=== PATIENT | male | born 1965 | race Caucasian/White ===

== ENCOUNTER 2018-12-10 20:37 | Emergency (ER) | payer OTHER ==
[~2018-12-10] VITALS: Ht 180.3 cm; Wt 88.5 kg
--- OUTSIDE RECORDS SUMMARY | 2018-12-10 20:52 | XMS REPORT ---
Author Author [facility] Address Unknown Phone Unavailable Care Team Providers Care Employment Training Specialist Name Role Phone RAMSEY JAMA Unavailable Unavailable Elke MISTRY Unavailable Unavailable CHRISTINE HOLBROOK Unavailable Unavailable RANAKAYLIN ABBAS Unavailable Unavailable Mingo'JOSTINTIM Unavailable Unavailable BERNY RAJAN Unavailable Unavailable MATTIE RODRIGUEZ Unavailable Unavailable RAMIRO OLIVER Unavailable Unavailable Peter MENJIVAR Unavailable Unavailable GADICHERLA MUROLIVIA PARSONS Unavailable Unavailable KEVIN GRIFFITH Unavailable Unavailable MINDIKOGLUDANA GINETTE Unavailable Unavailable KATYA, ARIF Unavailable Unavailable ALVAREZFREYA RED Unavailable Unavailable SRIMELINDAAN Unavailable Unavailable Problems This patient has no known problems. Allergies, Adverse Reactions, Alerts This patient has no known allergies or adverse reactions. Medications This patient has no known medications. Results Test Description Test Time Test Comments Text Results Atomic Results Result Comments HEPATITIS C PCR, QUANTITATIVE 2018-12-01 08:00:00 HCV RESULT COMPONENT (CYNDY) (test siei=2231) HCV RNA not detected HCV RNA not detected This test uses a Real-Time Polymerase Chain Reaction (RT-PCR) methodology and wa s performed using CHARLES Ampliprep/CHARLES TaqMan HCV test kit version 2.0 ([employer]).Reportable range for this assay is 15 - 100,000,000 IU per mL (1.18 - 8.00 Log IU/mL).CMV PCR, [id number] 17:53:00* Test Item Value Reference Range Comments CMV VIRAL LOAD - NEGATIVE (CYNDY) (test stex=2845) Negative or below the linear range of the assay (<375 copies/mL) Cytomegalovirus (CMV) infection can cause significant disease in immunosuppresse d patients. However, it is common for CMV to manifest as a limited infection whi ch is of no clinical significance in immunosuppressed patients or in healthy ind ividuals.Viral load measurements are helpful to identify clinical CMV infection and to guide the pre-emptive management of antiviral therapy. For treatment of CMV infection due to reactivation in transplant recipients, a threshold between 4,000 and 5,000 copies/mL is suggested. For treatment of primary CMV infection, a lower threshold can be used.CMV infection may also be monitored using weekly serial measurements. Serial measurements of CMV DNA viral load can be evaluated by identifying a 10-fold change, as well as assessing the CMV DNA viral load and the clinical context for each patient.The plasma CMV DNA viral load was detected using quantitative polymerase chain reaction and fluorescent monitoring of a s pecific hybridized probe. Genetic variation and other factors can affect the acc uracy of nucleic acid testing. Therefore, the results should be interpreted in l ight of clinical data. A negative result may not exclude the presence of CMV dis ease.This test was developed and its performance characteristics determined by tamiko bishop [facility] Pathology Department, Section of Molecular Patholog y. It has not been cleared or approved by the U.S. Food and Drug Administration (FDA), since FDA approval is not required for clinical use of the test. Validati on was done as required by The Clinical Laboratory Improvement Amendments of 198 8.EBV VIRAL [id number] 17:39:00* Test Item Value Reference Range Comments EBV VIRAL LOAD - NEGATIVE (BEAKER) (test uhek=1462) Negative or below the linear range of the assay (<500 copies/mL) This assay was performed by real-time PCR for the detection of the Guerline-Acevedo virus (EBV) gene EBNA-1. The test is composed of (1) DNA extraction from patien t specimen, and (2) real-time PCR amplification and detection with WBHB-7-dzmtsj ic primers and probes. A well-conserved region of the EBNA-1 gene is targeted, a long with an internal control sequence used to confirm PCR amplification. Asympt omatic carriers and viral genetic variation, among other factors, can affect the accuracy of nucleic acid testing; therefore, results should be interpreted in l ight of clinical data.This test was developed and its performance characteristic s determined by the [facility] Department, [facility]. It has not been cleared or approved by the U.S. Food and Bert g Administration (FDA), since FDA approval is not required for clinical use of t he test. Validation was done as required by The Clinical Laboratory Improvement Amendments of 1988.[id number] 11:05:00* Test Item Value Reference Range Comments RPR SCREEN (CYNDY) (test scql=652) Nonreactive Nonreactive U/S, ABDOMINAL, WITH [id number] 15:57:00Referring:Dr. Marciano Zelaya Doppler Study to evaluate Hepatic vessels Reason for Exam:->s/p liver transplantFINAL REPORT TECHNIQUE: Grayscale ultrasound of the abdomen with color Doppler and spectral Doppler ultrasound of the portal/hepatic vasc ulature. INDICATION: s/p liver transplant. COMPARISON: Ultrasound from 05/28/2018 . FINDINGS: LIVER: Increased liver echogenicity with decreased penetration. The re is a wedge-shaped area of hypoechogenicity in segment VII. There are some sca ttered areas of geographic fatty sparing HEPATIC VASCULATURE: Portal veins are p atent with normal waveform and directionality. Flow velocity in the main portal vein is within normal limits. The hepatic veins and confluence are patent. The m ain portal vein measures 1.5 cm. The hepatic arterial resistive indices range fr om 0.64-0.73 with a proper hepatic arterial acceleration time of 0.05 seconds. B ILIARY:Gallbladder: Surgically absentCommon bile duct measures 0.4 cm, within no rmal limits. No intrahepatic biliary ductal dilatation. PANCREAS: Incompletely v isualized due to overlying bowel gas. The partially visualized pancreatic neck i s normal. SPLEEN: The spleen is enlarged at 17.8 cm PERITONEUM: Trace perihepati c and perisplenic ascites. KIDNEYS: Normal in size bilaterally. No hydronephrosi s. No sonographically evident solid mass lesion. MIDLINE VASCULATURE: The visual ized inferior vena cava is patent. The maximum visualized aortic diameter is 2.6 cm. Splenic artery and vein are patent. IMPRESSION: 1.Diffuse fatty infiltrat ion of the liver. 2.The hepatic vasculature is patent. 3.The wedge-shaped area o f hypoechogenicity at the periphery of segment VII is indeterminate but most lik jenn fatty sparing. Close attention on follow-up imaging is recommended. 4.Modera te splenomegaly. Signed: Jordan Caldwell MDReport Verified Date/Time: 11/29/2018 15: 57:06 Reading Location: [address] Radiology Reading Room , CHEST, 2 VIEWS 2018-11-29 13:09:00Referring:Dr. Marciano Iqbal and Lateral for Liver TransplantReason for Exam:->s/p liver transplantFINAL REPORT Chest PA and lateral History provided: Status post liver transplantation COMPARISON STUDY: 04/09/2018 Heart size normal. Surgical clips at the level of the right hilum. Lungs free of active disease and vascularity normal. Signed: Mahesh Pelayo MDReport Verified Date/Time: 11/29/2018 13:09:02 Reading Location: [facility] Radiology Reading Room OLIMUS [id number] 12:37:00* Test Item Value Reference Range Comments TACROLIMUS BLOOD (BEAKER) (test vwqu=849) 8.5 ng/mL 10.0-20.0 HEPATITIS B SURFACE [id number] 11:10:00* Test Item Value Reference Range Comments HEPATITIS B SURFACE ANTIGEN (2) (BEAKER) (test boop=9659) Nonreactive Nonreactive Due 01/30/18 And nov 2018HEPATITIS C [id number] 11:10:00* Test Item Value Reference Range Comments HEPATITIS C ANTIBODY (BEAKER) (test huol=230) Nonreactive Nonreactive Due 01/30/18 And nov 2018VITAMIN D, [id number] 11:10:00* Test Item Value Reference Range Comments VITAMIN D 25-OH (BEAKER) (test pjtp=5080) 24.6 ng/mL 6.6-49.9 Effective 12/14/2016: Reference Range ChangeNew: 6.6-49.9 ng/mL Previous: 13.0 -47.8 ng/mLRecommended Vitamin D Target Range: 30.0-40.0 ng/mLDue 01/30/18 And nov 2018HIV-1 ANTIGEN WITH HIV-1/2 [id number] 11:10:00* Test Item Value Reference Range Comments HIV-1 ANTIGEN WITH HIV 1\\T\\2 ANTIBODY (2) (BEAKER) (test xllt=2344) Nonreactive Nonreactive Due 01/30/18 And nov 2018HEPATITIS B SURFACE [id number] 11:09:00* Test Item Value Reference Range Comments HEPATITIS B SURFACE ANTIBODY (BEAKER) (test tqkk=700) < mIU/mL <8.0 ALPHA FETOPROTEIN (AFP), TUMOR [id number] 11:08:00* Test Item Value Reference Range Comments ALPHA-FETOPROTEIN (BEAKER) (test kssk=7484) 3.4 ng/mL <10.0 HEPATITIS B CORE ANTIBODY, [id number] 11:08:00* Test Item Value Reference Range Comments HEPATITIS B CORE IGM ANTIBODY (BEAKER) (test vkdb=693) Nonreactive Nonreactive HEPATITIS A ANTIBODY, [id number] 11:08:00* Test Item Value Reference Range Comments HEPATITIS A IGM ANTIBODY (BEAKER) (test uimt=919) Nonreactive Nonreactive HEPATITIS B CORE ANTIBODY, [id number] 11:08:00* Test Item Value Reference Range Comments HEPATITIS B CORE TOTAL ANTIBODY (BEAKER) (test tfty=472) Nonreactive Nonreactive HEMOGLOBIN [id number] 10:55:00* Test Item Value Reference Range Comments HEMOGLOBIN A1C (BEAKER) (test culz=891) 5.8 % 4.3-6.1 [id number] 10:40:00* Test Item Value Reference Range Comments MAGNESIUM (BEAKER) (test zjpu=868) 1.7 mg/dL 1.6-2.6 Specimen slightly hemolyzed [id number] 10:40:00* Test Item Value Reference Range Comments PHOSPHORUS (BEAKER) (test bqbs=181) 2.3 mg/dL 2.3-4.7 Specimen slightly hemolyzed COMPREHENSIVE METABOLIC [id number] 10:40:00* Test Item Value Reference Range Comments TOTAL PROTEIN (BEAKER) (test mxld=940) 7.2 gm/dL 6.0-8.3 Specimen slightly hemolyzed ALBUMIN (BEAKER) (test hflc=0720) 4.5 g/dL 3.5-5.0 Specimen slightly hemolyzed ALKALINE PHOSPHATASE (BEAKER) (test yctu=803) 107 U/L 40-150 BILIRUBIN TOTAL (BEAKER) (test kmue=183) 0.9 mg/dL 0.2-1.2 Specimen slightly hemolyzed SODIUM (BEAKER) (test xpis=829) 140 meq/L 136-145 POTASSIUM (BEAKER) (test vajr=083) 3.4 meq/L 3.5-5.1 Specimen slightly hemolyzed CHLORIDE (BEAKER) (test nsur=028) 108 meq/L 98-107 CO2 (BEAKER) (test ghha=388) 22 meq/L 22-29 BLOOD UREA NITROGEN (BEAKER) (test npkc=576) 23 mg/dL 7-21 CREATININE (BEAKER) (test khiq=407) 1.30 mg/dL 0.57-1.25 Specimen slightly hemolyzed GLUCOSE RANDOM (BEAKER) (test sxia=281) 131 mg/dL 70-105 CALCIUM (BEAKER) (test qvim=433) 9.3 mg/dL 8.4-10.2 AST (SGOT) (BEAKER) (test voou=826) 40 U/L 5-34 Specimen slightly hemolyzed ALT (SGPT) (BEAKER) (test txzm=419) 70 U/L 6-55 Specimen slightly hemolyzed EGFR (BEAKER) (test vfyj=4396) 58 mL/min/1.73 sq m ESTIMATED GFR IS NOT ACCURATE CREATININE CLEARANCE IN PREDICTING GLOMERULAR FILTRATION RATE. ESTIMATED GFR IS NOT APPLICABLE FOR DIALYSIS PATIENTS. LIPID [id number] 10:40:00* Test Item Value Reference Range Comments TRIGLYCERIDES (BEAKER) (test esje=920) 336 mg/dL Specimen slightly hemolyzed CHOLESTEROL (BEAKER) (test sueh=781) 173 mg/dL Specimen slightly hemolyzed HDL CHOLESTEROL (BEAKER) (test sajt=509) 40 mg/dL LDL CHOLESTEROL CALCULATED (BEAKER) (test dmvn=606) 66 mg/dL Triglyceride Reference Range: Low Risk <150 Borderline 150-199 High Risk 200-499 Very High Risk >=500Cholesterol Reference Range: Low Risk <200 Borderline 200-239 High Risk >240HDL Cholesterol Reference Range: Low Risk >=60 High Risk <40LDL Cholesterol Reference Range: Optimal <100 Near Optimal 100-129 Borderline 130-159 High 160-189 Very High >=190 BILIRUBIN, [id number] 10:40:00* Test Item Value Reference Range Comments BILIRUBIN DIRECT (BEAKER) (test kgok=128) 0.3 mg/dL 0.1-0.5 Specimen slightly hemolyzed CBC W/PLT COUNT & AUTO [id number] 10:22:00* Test Item Value Reference Range Comments WHITE BLOOD CELL COUNT (BEAKER) (test ssmu=639) 6.3 K/ L 3.5-10.5 RED BLOOD CELL COUNT (BEAKER) (test ocom=688) 4.76 M/ L 4.63-6.08 HEMOGLOBIN (BEAKER) (test xduo=397) 13.9 GM/DL 13.7-17.5 HEMATOCRIT (BEAKER) (test ddhb=171) 40.9 % 40.1-51.0 MEAN CORPUSCULAR VOLUME (BEAKER) (test cuin=205) 85.9 fL 79.0-92.2 MEAN CORPUSCULAR HEMOGLOBIN (BEAKER) (test rohj=134) 29.2 pg 25.7-32.2 MEAN CORPUSCULAR HEMOGLOBIN CONC (BEAKER) (test sixt=018) 34.0 GM/DL 32.3-36.5 RED CELL DISTRIBUTION WIDTH (BEAKER) (test vzlb=476) 15.8 % 11.6-14.4 PLATELET COUNT (BEAKER) (test uxfn=346) 71 K/CU MM 150-450 MEAN PLATELET VOLUME (BEAKER) (test kfvj=921) 10.6 fL 9.4-12.4 NUCLEATED RED BLOOD CELLS (BEAKER) (test ugjh=584) 0 /100 WBC 0-0 NEUTROPHILS RELATIVE PERCENT (BEAKER) (test cthy=501) 72 % LYMPHOCYTES RELATIVE PERCENT (BEAKER) (test hslz=380) 17 % MONOCYTES RELATIVE PERCENT (BEAKER) (test bobu=520) 8 % EOSINOPHILS RELATIVE PERCENT (BEAKER) (test hdwo=410) 1 % BASOPHILS RELATIVE PERCENT (BEAKER) (test walv=106) 1 % NEUTROPHILS ABSOLUTE COUNT (BEAKER) (test dtdh=822) 4.56 K/ L 1.78-5.38 LYMPHOCYTES ABSOLUTE COUNT (BEAKER) (test ffdo=479) 1.09 K/ L 1.32-3.57 MONOCYTES ABSOLUTE COUNT (BEAKER) (test vkxz=454) 0.49 K/ L 0.30-0.82 EOSINOPHILS ABSOLUTE COUNT (BEAKER) (test iwfe=300) 0.06 K/ L 0.04-0.54 BASOPHILS ABSOLUTE COUNT (BEAKER) (test aklh=564) 0.03 K/ L 0.01-0.08 IMMATURE GRANULOCYTES-RELATIVE PERCENT (BEAKER) (test gnqb=5825) 1 % 0-1 TACROLIMUS [id number] 11:29:00* Test Item Value Reference Range Comments TACROLIMUS BLOOD (BEAKER) (test ywkb=259) 6.5 ng/mL 10.0-20.0 [id number] 09:19:00* Test Item Value Reference Range Comments MAGNESIUM (BEAKER) (test xdyt=186) 1.8 mg/dL 1.6-2.6 COMPREHENSIVE METABOLIC [id number] 09:19:00* Test Item Value Reference Range Comments TOTAL PROTEIN (BEAKER) (test tzqn=368) 7.2 gm/dL 6.0-8.3 ALBUMIN (BEAKER) (test sigv=7365) 4.5 g/dL 3.5-5.0 ALKALINE PHOSPHATASE (BEAKER) (test svxa=401) 96 U/L 40-150 BILIRUBIN TOTAL (BEAKER) (test wthg=577) 0.8 mg/dL 0.2-1.2 SODIUM (BEAKER) (test srjt=586) 145 meq/L 136-145 POTASSIUM (BEAKER) (test bknx=724) 4.3 meq/L 3.5-5.1 CHLORIDE (BEAKER) (test pfqm=128) 111 meq/L 98-107 CO2 (BEAKER) (test bgls=804) 25 meq/L 22-29 BLOOD UREA NITROGEN (BEAKER) (test gprr=882) 35 mg/dL 7-21 CREATININE (BEAKER) (test nobe=086) 1.46 mg/dL 0.57-1.25 GLUCOSE RANDOM (BEAKER) (test zwap=951) 106 mg/dL 70-105 CALCIUM (BEAKER) (test rjnt=458) 10.6 mg/dL 8.4-10.2 AST (SGOT) (BEAKER) (test wzyi=877) 27 U/L 5-34 ALT (SGPT) (BEAKER) (test yuhn=775) 67 U/L 6-55 EGFR (BEAKER) (test rshz=8230) 51 mL/min/1.73 sq m ESTIMATED GFR IS NOT ACCURATE CREATININE CLEARANCE IN PREDICTING GLOMERULAR FILTRATION RATE. ESTIMATED GFR IS NOT APPLICABLE FOR DIALYSIS PATIENTS. BILIRUBIN, [id number] 09:19:00* Test Item Value Reference Range Comments BILIRUBIN DIRECT (BEAKER) (test xmah=175) 0.3 mg/dL 0.1-0.5 CBC W/PLT COUNT & AUTO [id number] 09:00:00* Test Item Value Reference Range Comments WHITE BLOOD CELL COUNT (BEAKER) (test ydbk=297) 5.4 K/ L 3.5-10.5 RED BLOOD CELL COUNT (BEAKER) (test hxsh=475) 4.75 M/ L 4.63-6.08 HEMOGLOBIN (BEAKER) (test mszf=045) 13.7 GM/DL 13.7-17.5 HEMATOCRIT (BEAKER) (test uzix=261) 42.2 % 40.1-51.0 MEAN CORPUSCULAR VOLUME (BEAKER) (test xaon=383) 88.8 fL 79.0-92.2 MEAN CORPUSCULAR HEMOGLOBIN (BEAKER) (test otnv=957) 28.8 pg 25.7-32.2 MEAN CORPUSCULAR HEMOGLOBIN CONC (BEAKER) (test dyij=059) 32.5 GM/DL 32.3-36.5 RED CELL DISTRIBUTION WIDTH (BEAKER) (test tvyq=505) 14.5 % 11.6-14.4 PLATELET COUNT (BEAKER) (test qlah=654) 71 K/CU MM 150-450 MEAN PLATELET VOLUME (BEAKER) (test zkim=844) 9.8 fL 9.4-12.4 NUCLEATED RED BLOOD CELLS (BEAKER) (test fpoy=672) 0 /100 WBC 0-0 NEUTROPHILS RELATIVE PERCENT (BEAKER) (test vtwz=022) 68 % LYMPHOCYTES RELATIVE PERCENT (BEAKER) (test lesu=712) 20 % MONOCYTES RELATIVE PERCENT (BEAKER) (test kffa=236) 9 % EOSINOPHILS RELATIVE PERCENT (BEAKER) (test qpqq=706) 1 % BASOPHILS RELATIVE PERCENT (BEAKER) (test uxbl=190) 1 % NEUTROPHILS ABSOLUTE COUNT (BEAKER) (test tluh=871) 3.64 K/ L 1.78-5.38 LYMPHOCYTES ABSOLUTE COUNT (BEAKER) (test bpmr=200) 1.05 K/ L 1.32-3.57 MONOCYTES ABSOLUTE COUNT (BEAKER) (test hogh=418) 0.48 K/ L 0.30-0.82 EOSINOPHILS ABSOLUTE COUNT (BEAKER) (test slbl=459) 0.06 K/ L 0.04-0.54 BASOPHILS ABSOLUTE COUNT (BEAKER) (test lpvm=092) 0.03 K/ L 0.01-0.08 IMMATURE GRANULOCYTES-RELATIVE PERCENT (BEAKER) (test avag=6496) 2 % 0-1 U/S, [id number] 20:33:00Referring:Dr. Marciano Zapatainishill 200ml of albumin 25% (50grams) IV x 1 after paracentesis if greater than 3 liters fluid removed.Reason for Exam:->ascites s/p liver transplantFINAL REPORT Ultrasound guided paracentesis Clinical History: Ascites. Sedation: None. Product Expert: Melissa Leblanc PA-C Supervising Physician: Tom Liu MD Manager Concrete: None. Estimated Blood Loss: < 1 mL. Specimen: 1400 mL of serosanguinous fluid, samples sent to laboratory. Technique: Informed consent was obtained. The risks of pain, bleeding, infection, bowel perforation, injury to adjacent structures, and adverse medication reactions were discussed with the patient. After informed consent was obtained, the patient's abdomen was scanned. The RLQ of the abdomen was selected for paracen tesis. After the largest fluid pocket area was marked, and the anterior abdomin al wall was evaluated with color Doppler to exclude presence of blood vessels tr aversing the area, the skin was prepped and draped in the usual sterile manner. After local anesthesia was achieved with lidocaine, a 5 [place] one-step catheter was advanced into the peritoneal cavity under ultrasound guidance. After compl etion of drainage, the catheter was removed. There was no evidence of complicati on. Impression:Successful ultrasound guided paracentesis. Signed: Ivan Kahn Verified Date/Time: 09/14/2018 20:33:49 Reading Location: [facility] P006J Ultrasound Reading Room FLUID CELL COUNT WITH [id number] 14:04:00* Test Item Value Reference Range Comments APPEARANCE FLUID (BEAKER) (test moas=550) Hazy Clear COLOR FLUID (BEAKER) (test tbmh=858) [place] Colorless, Straw RBC FLUID (BEAKER) (test nfuc=535) [address] /cu mm <=1 ADJUSTED WBC FLUID (BEAKER) (test bykq=3619) 1128 /cu mm <=5 LINING CELLS (BEAKER) (test hshp=4042) 56 /cu mm <=1 NEUTROPHILS FLUID (BEAKER) (test lzom=0707) 2 % LYMPHS FLUID (BEAKER) (test iuka=409) 85 % MONO/MACROPHAGE FLUID (BEAKER) (test vpyp=801) 13 % EOSINOPHILS FLUID (BEAKER) (test cysy=054) 0 % BASO FLUID (BEAKER) (test vctk=971) 0 % CONTAINER BODY FLUID (BEAKER) (test cxym=8756) EDTA Tube TACROLIMUS [id number] 12:11:00* Test Item Value Reference Range Comments TACROLIMUS BLOOD (BEAKER) (test uiqj=193) 4.9 ng/mL 10.0-20.0 [id number] 09:52:00* Test Item Value Reference Range Comments MAGNESIUM (BEAKER) (test poqi=820) 1.6 mg/dL 1.6-2.6 COMPREHENSIVE METABOLIC [id number] 09:52:00* Test Item Value Reference Range Comments TOTAL PROTEIN (BEAKER) (test vjil=573) 7.2 gm/dL 6.0-8.3 ALBUMIN (BEAKER) (test zpcp=9633) 4.6 g/dL 3.5-5.0 ALKALINE PHOSPHATASE (BEAKER) (test pdjg=973) 84 U/L 40-150 BILIRUBIN TOTAL (BEAKER) (test qoeh=627) 0.7 mg/dL 0.2-1.2 SODIUM (BEAKER) (test vyez=507) 143 meq/L 136-145 POTASSIUM (BEAKER) (test dbiz=363) 3.8 meq/L 3.5-5.1 CHLORIDE (BEAKER) (test qhov=716) 112 meq/L 98-107 CO2 (BEAKER) (test ckwc=100) 21 meq/L 22-29 BLOOD UREA NITROGEN (BEAKER) (test cojp=019) 33 mg/dL 7-21 CREATININE (BEAKER) (test flvb=445) 1.50 mg/dL 0.57-1.25 GLUCOSE RANDOM (BEAKER) (test mlye=713) 128 mg/dL 70-105 CALCIUM (BEAKER) (test jogb=266) 10.5 mg/dL 8.4-10.2 AST (SGOT) (BEAKER) (test hzpc=148) 24 U/L 5-34 ALT (SGPT) (BEAKER) (test naya=065) 58 U/L 6-55 EGFR (BEAKER) (test wtsi=9645) 49 mL/min/1.73 sq m ESTIMATED GFR IS NOT ACCURATE CREATININE CLEARANCE IN PREDICTING GLOMERULAR FILTRATION RATE. ESTIMATED GFR IS NOT APPLICABLE FOR DIALYSIS PATIENTS. BILIRUBIN, [id number] 09:52:00* Test Item Value Reference Range Comments BILIRUBIN DIRECT (BEAKER) (test pcyp=033) 0.3 mg/dL 0.1-0.5 PROTHROMBIN [id number] 09:44:00* Test Item Value Reference Range Comments PROTIME (BEAKER) (test fpih=101) 13.8 seconds 11.9-14.2 INR (BEAKER) (test vqie=298) 1.1 <=5.9 Effective 08/01/2018: PT Reference Range ChangeNew: 11.9-14.2 Previous: 11.7-14. 7RECOMMENDED COUMADIN/WARFARIN INR THERAPY RANGESSTANDARD DOSE: 2.0-3.0 Include s: PROPHYLAXIS for venous thrombosis, systemic embolization; TREATMENT for venou s thrombosis and/or pulmonary embolus.HIGH RISK: Target INR is 2.5-3.5 for patie nts wiht mechanical heart valves.CBC W/PLT COUNT & AUTO [id number] 09:31:00* Test Item Value Reference Range Comments WHITE BLOOD CELL COUNT (BEAKER) (test dcdh=434) 6.3 K/ L 3.5-10.5 RED BLOOD CELL COUNT (BEAKER) (test vobl=375) 4.42 M/ L 4.63-6.08 HEMOGLOBIN (BEAKER) (test cjoo=277) 13.2 GM/DL 13.7-17.5 HEMATOCRIT (BEAKER) (test nggf=073) 39.8 % 40.1-51.0 MEAN CORPUSCULAR VOLUME (BEAKER) (test uhjg=022) 90.0 fL 79.0-92.2 MEAN CORPUSCULAR HEMOGLOBIN (BEAKER) (test fvbf=680) 29.9 pg 25.7-32.2 MEAN CORPUSCULAR HEMOGLOBIN CONC (BEAKER) (test aogu=319) 33.2 GM/DL 32.3-36.5 RED CELL DISTRIBUTION WIDTH (BEAKER) (test tfwz=452) 14.5 % 11.6-14.4 PLATELET COUNT (BEAKER) (test zphd=342) 76 K/CU MM 150-450 MEAN PLATELET VOLUME (BEAKER) (test wasr=578) 8.8 fL 9.4-12.4 NUCLEATED RED BLOOD CELLS (BEAKER) (test jitz=987) 0 /100 WBC 0-0 NEUTROPHILS RELATIVE PERCENT (BEAKER) (test hphc=039) 70 % LYMPHOCYTES RELATIVE PERCENT (BEAKER) (test pdtj=439) 16 % MONOCYTES RELATIVE PERCENT (BEAKER) (test gpaq=519) 9 % EOSINOPHILS RELATIVE PERCENT (BEAKER) (test myum=354) 1 % BASOPHILS RELATIVE PERCENT (BEAKER) (test hmvt=792) 1 % NEUTROPHILS ABSOLUTE COUNT (BEAKER) (test xedf=659) 4.38 K/ L 1.78-5.38 LYMPHOCYTES ABSOLUTE COUNT (BEAKER) (test xmim=178) 1.01 K/ L 1.32-3.57 MONOCYTES ABSOLUTE COUNT (BEAKER) (test xuro=492) 0.56 K/ L 0.30-0.82 EOSINOPHILS ABSOLUTE COUNT (BEAKER) (test wezj=733) 0.04 K/ L 0.04-0.54 BASOPHILS ABSOLUTE COUNT (BEAKER) (test hksu=397) 0.04 K/ L 0.01-0.08 IMMATURE GRANULOCYTES-RELATIVE PERCENT (BEAKER) (test eshr=5187) 4 % 0-1 TACROLIMUS [id number] 12:38:00* Test Item Value Reference Range Comments TACROLIMUS BLOOD (BEAKER) (test whtd=675) 4.3 ng/mL 10.0-20.0 [id number] 10:47:00* Test Item Value Reference Range Comments MAGNESIUM (BEAKER) (test dhjx=538) 1.6 mg/dL 1.6-2.6 COMPREHENSIVE METABOLIC [id number] 10:47:00* Test Item Value Reference Range Comments TOTAL PROTEIN (BEAKER) (test flch=707) 6.5 gm/dL 6.0-8.3 ALBUMIN (BEAKER) (test gjol=6021) 4.2 g/dL 3.5-5.0 ALKALINE PHOSPHATASE (BEAKER) (test mwre=920) 78 U/L 40-150 BILIRUBIN TOTAL (BEAKER) (test fdpa=966) 0.7 mg/dL 0.2-1.2 SODIUM (BEAKER) (test rxyn=553) 141 meq/L 136-145 POTASSIUM (BEAKER) (test ackq=138) 3.5 meq/L 3.5-5.1 CHLORIDE (BEAKER) (test lgjk=440) 111 meq/L 98-107 CO2 (BEAKER) (test bbjz=333) 20 meq/L 22-29 BLOOD UREA NITROGEN (BEAKER) (test ccaa=151) 36 mg/dL 7-21 CREATININE (BEAKER) (test dqgn=720) 1.35 mg/dL 0.57-1.25 GLUCOSE RANDOM (BEAKER) (test gvhw=535) 193 mg/dL 70-105 CALCIUM (BEAKER) (test jbdo=349) 9.1 mg/dL 8.4-10.2 AST (SGOT) (BEAKER) (test rgfs=199) 26 U/L 5-34 ALT (SGPT) (BEAKER) (test gyen=154) 60 U/L 6-55 EGFR (BEAKER) (test yqth=2484) 56 mL/min/1.73 sq m ESTIMATED GFR IS NOT ACCURATE CREATININE CLEARANCE IN PREDICTING GLOMERULAR FILTRATION RATE. ESTIMATED GFR IS NOT APPLICABLE FOR DIALYSIS PATIENTS. BILIRUBIN, [id number] 10:47:00* Test Item Value Reference Range Comments BILIRUBIN DIRECT (BEAKER) (test kjln=817) 0.3 mg/dL 0.1-0.5 CBC W/PLT COUNT & AUTO [id number] 10:22:00* Test Item Value Reference Range Comments WHITE BLOOD CELL COUNT (BEAKER) (test kgma=137) 6.4 K/ L 3.5-10.5 RED BLOOD CELL COUNT (BEAKER) (test gipu=014) 3.93 M/ L 4.63-6.08 HEMOGLOBIN (BEAKER) (test jfau=623) 12.0 GM/DL 13.7-17.5 HEMATOCRIT (BEAKER) (test jxvv=670) 36.1 % 40.1-51.0 MEAN CORPUSCULAR VOLUME (BEAKER) (test vech=816) 91.9 fL 79.0-92.2 MEAN CORPUSCULAR HEMOGLOBIN (BEAKER) (test jjmr=429) 30.5 pg 25.7-32.2 MEAN CORPUSCULAR HEMOGLOBIN CONC (BEAKER) (test bega=805) 33.2 GM/DL 32.3-36.5 RED CELL DISTRIBUTION WIDTH (BEAKER) (test nbwb=252) 15.5 % 11.6-14.4 PLATELET COUNT (BEAKER) (test stcw=981) 63 K/CU MM 150-450 MEAN PLATELET VOLUME (BEAKER) (test xmvz=219) 9.9 fL 9.4-12.4 NUCLEATED RED BLOOD CELLS (BEAKER) (test jvlg=577) 0 /100 WBC 0-0 NEUTROPHILS RELATIVE PERCENT (BEAKER) (test ozdf=028) 74 % LYMPHOCYTES RELATIVE PERCENT (BEAKER) (test znvm=772) 14 % MONOCYTES RELATIVE PERCENT (BEAKER) (test byqd=188) 7 % EOSINOPHILS RELATIVE PERCENT (BEAKER) (test fsik=334) 1 % BASOPHILS RELATIVE PERCENT (BEAKER) (test bwep=137) 0 % NEUTROPHILS ABSOLUTE COUNT (BEAKER) (test jdxr=039) 4.77 K/ L 1.78-5.38 LYMPHOCYTES ABSOLUTE COUNT (BEAKER) (test acnf=834) 0.88 K/ L 1.32-3.57 MONOCYTES ABSOLUTE COUNT (BEAKER) (test kdpw=336) 0.46 K/ L 0.30-0.82 EOSINOPHILS ABSOLUTE COUNT (BEAKER) (test itws=377) 0.03 K/ L 0.04-0.54 BASOPHILS ABSOLUTE COUNT (BEAKER) (test omug=090) 0.02 K/ L 0.01-0.08 IMMATURE GRANULOCYTES-RELATIVE PERCENT (BEAKER) (test mife=6962) 4 % 0-1 U/S, [id number] 09:32:00Referring:Dr. Marciano Napierdminister 200ml of albumin 25% (50grams) IV X1. Limit paracenteses to 3.5 liters and large volume protocal for cytology Fluid should be sent for (orders are in): cell count and diff, cytology, total protein.Administer 200ml of albumin 25% (50grams) IV x 1. Limit paracenteses to 3.5 liters and large volume protocal for cytology.Fluid should be sent for (orders are in): cell count and diff, cytology, total protein.Reason for Exam:->s/p liver transplant with ascitesAddendum BeginsREPORT STATUS:A OBSERVING PROVIDER DURING THIS PROCEDURE: JOANNA Park Signed: Génesis [place] Verified Date/Time: 06/14/2018 09:32:29 Reading Location: [facility] C013T Transitional Reading RoomAddendum EndsFINAL REPORT PROCEDURE: Ultrasound-guid ed paracentesis. INDICATION: 53-year-old man with ascites status post liver gardiner splant. DESCRIPTION: After obtaining informed written consent, ultrasound scan o f the abdomen identified ascites in the right lower quadrant. The overlying skin was prepped and draped in the usual, sterile fashion and local 1% lidocaine ane sthesia was administered. A 5 Gu[place] catheter was advanced into the peritoneal c avity and 3500 cc of serosanguineous fluid was removed. The catheter was removed without immediate complication. Samples were sent for analysis. Intravenous alb umin was administered. IMPRESSION:Uncomplicated ultrasound-guided paracentesis w ith 3500 cc fluid removed. Signed: Génesis Moon MDReport Verified Date/Time: 06/06/2018 13:05:00 Reading Location: [facility] P006J Ultrasound Reading Room E lectronically signed by: GÉNESIS MOON MD on 06/14/2018 09:32 AM [id number] 17:38:00Medical Cytology Report Case: [id number] Authorizing Provider: Anthony Mistry MD Collected: 06/06/2018 1245 Ordering Location: [facility] Radiology Ultrasound Received: 06/06/2018 1514 Pathologist: Varsha Woodward MD Specimen: Peritoneal Fluid PERITONEAL FLUID (CYTOSPINS AND CELL BLOCK): - NEGATIVE FOR MALIGNANCY REACTIVE MESOTHELIAL CELLS IN A BACKGROUND OF CHRONIC INFLAMMATION Signing Pathologist Direct Phone Line: [phone] signed by Varsha Woodward MD on 06/11/2018 at 5:38 PMClinical/radiological correlation is recommended. If clinically discordant, repeat paracentesis may be considered, when fluid re- accumulates.[id number], [id number], history of lung cancerPERITONEAL FLUID 1100 mls brown fluid; 4 cytospins, cell blockCollected: [id number]: [id number] paorySt. John[facility], Department of Pathology, [address] [place] [address], [facility], Depart ment of Pathology, [address] [place] [address], [facility], Department of Pathology, [address] [place] [address], POYJ FLUID CELL COUNT WITH [id number] 15:15:00* Test Item Value Reference Range Comments APPEARANCE FLUID (BEAKER) (test uifp=151) Cloudy Clear COLOR FLUID (BEAKER) (test upuh=504) [place] Colorless, Straw RBC FLUID (BEAKER) (test vlmd=275) 10130 /cu mm <=1 ADJUSTED WBC FLUID (BEAKER) (test hkbk=7966) 399 /cu mm <=5 LINING CELLS (BEAKER) (test vifs=1125) 0 /cu mm <=1 NEUTROPHILS FLUID (BEAKER) (test rwkg=9273) 0 % LYMPHS FLUID (BEAKER) (test ayss=108) 92 % MONO/MACROPHAGE FLUID (BEAKER) (test jnzu=868) 7 % EOSINOPHILS FLUID (BEAKER) (test ekrs=134) 1 % BASO FLUID (BEAKER) (test rscy=653) 0 % CONTAINER BODY FLUID (BEAKER) (test emab=8382) EDTA Tube CBC W/PLT COUNT & AUTO [id number] 15:14:00* Test Item Value Reference Range Comments WHITE BLOOD CELL COUNT (BEAKER) (test ihtr=422) 2.3 K/ L 3.5-10.5 RED BLOOD CELL COUNT (BEAKER) (test luwp=882) 4.82 M/ L 4.63-6.08 HEMOGLOBIN (BEAKER) (test fphn=862) 14.5 GM/DL 13.7-17.5 HEMATOCRIT (BEAKER) (test fjip=085) 42.0 % 40.1-51.0 MEAN CORPUSCULAR VOLUME (BEAKER) (test euqv=075) 87.1 fL 79.0-92.2 MEAN CORPUSCULAR HEMOGLOBIN (BEAKER) (test gjxc=066) 30.1 pg 25.7-32.2 MEAN CORPUSCULAR HEMOGLOBIN CONC (BEAKER) (test qlze=783) 34.5 GM/DL 32.3-36.5 RED CELL DISTRIBUTION WIDTH (BEAKER) (test uorm=340) 14.9 % 11.6-14.4 PLATELET COUNT (BEAKER) (test hbva=554) 90 K/CU MM 150-450 MEAN PLATELET VOLUME (BEAKER) (test qxgd=747) 8.8 fL 9.4-12.4 NUCLEATED RED BLOOD CELLS (BEAKER) (test doqm=850) 0 /100 WBC 0-0 (CELLAVISION MANUAL DIFF)2018-06-06 15:14:00* Test Item Value Reference Range Comments NEUTROPHILS - REL (CELLAVISION)(BEAKER) (test sppe=3400) 15 % LYMPHOCYTES - REL (CELLAVISION)(BEAKER) (test piyb=0169) 45 % MONOCYTES - REL (CELLAVISION)(BEAKER) (test kgob=4325) 18 % EOSINOPHILS - REL (CELLAVISION)(BEAKER) (test jsvn=7426) 4 % BASOPHILS - REL (CELLAVISION)(BEAKER) (test woqt=6019) 2 % MYELOCYTES - REL (CELLAVISION)(BEAKER) (test btjj=2844) 5 % 0-0 PROMYELOCYTES - REL (CELLAVSION)(BEAKER) (test zykc=6146) 3 % 0-0 BANDS - REL (CELLAVISION)(BEAKER) (test wiya=4324) 2 % 0-10 BLASTS - REL (CELLAVISION)(BEAKER) (test tnil=9632) 1 % 0-0 ATYPICAL LYMPHOCYTES - REL (CELLAVISION)(BEAKER) (test zsou=6498) 7 % 0-0 NEUTROPHILS - ABS (CELLAVISION)(BEAKER) (test boik=5309) 0.35 K/ul 1.78-5.38 LYMPHOCYTES - ABS (CELLAVISION)(BEAKER) (test iwlj=3319) 1.04 K/ul 1.32-3.57 MONOCYTES - ABS (CELLAVISION)(BEAKER) (test ckvb=6075) 0.41 K/uL 0.30-0.82 EOSINOPHILS - ABS (CELLAVISION)(BEAKER) (test afqf=0645) 0.09 K/uL 0.04-0.54 BASOPHILS - ABS (CELLAVISION)(BEAKER) (test ocmg=6275) 0.05 K/uL 0.01-0.08 MYELOCYTES-ABS (CELLAVISION)(BEAKER) (test xcoz=4428) 0.12 K/uL 0.00-0.00 PROMYELOCYTES - ABS (CELLAVISION)(BEAKER) (test fdiq=7117) 0.07 K/uL 0.00-0.00 BANDS - ABS (CELLAVISION)(BEAKER) (test kqib=3540) 0.05 K/uL 0.00-0.80 BLASTS - ABS (CELLAVISION)(BEAKER) (test oikd=9302) 0.02 K/uL 0.00-0.00 ATYPICAL LYMPHOCYTES - ABS (CELLAVISION)(BEAKER) (test ktmb=6815) 0.16 K/uL 0.00-0.00 TOTAL COUNTED (BEAKER) (test ppdl=6893) 100 WBC MORPHOLOGY (BEAKER) (test pqzk=524) Normal CLUMPED PLATELETS (BEAKER) (test eolv=111) Present GIANT PLATELETS (BEAKER) (test yyob=912) Present ANISOCYTOSIS (BEAKER) (test awyl=807) 2+ moderate MICROCYTES (BEAKER) (test shbs=786) 2+ moderate POIKILOCYTES (BEAKER) (test maju=755) 1+ few SPHEROCYTES (BEAKER) (test ubnz=108) 1+ few ARTIFACT (CELLAVISION)(BEAKER) (test mqwq=9331) Present PLATELET CONCENTRATION (CELLAVISION)(BEAKER) (test nwgy=1451) Decreased Received comment: User comments: Slide comments: PROTEIN, BODY [id number] 14:00:00* Test Item Value Reference Range Comments PROTEIN FLUID (BEAKER) (test clqg=027) 5.1 g/dL Absence of reference range indicates that normals have not been defined.Assay pe rformance has not been validated for this type of specimen.TACROLIMUS LEVEL 2018-06-06 11:47:00* Test Item Value Reference Range Comments TACROLIMUS BLOOD (BEAKER) (test blis=008) 8.1 ng/mL 10.0-20.0 [id number] 08:39:00* Test Item Value Reference Range Comments MAGNESIUM (BEAKER) (test anbg=984) 2.0 mg/dL 1.6-2.6 COMPREHENSIVE METABOLIC [id number] 08:39:00* Test Item Value Reference Range Comments TOTAL PROTEIN (BEAKER) (test gzmf=260) 7.3 gm/dL 6.0-8.3 ALBUMIN (BEAKER) (test bhni=5764) 4.5 g/dL 3.5-5.0 ALKALINE PHOSPHATASE (BEAKER) (test htlu=171) 84 U/L 40-150 BILIRUBIN TOTAL (BEAKER) (test rubz=982) 0.9 mg/dL 0.2-1.2 SODIUM (BEAKER) (test divp=871) 142 meq/L 136-145 POTASSIUM (BEAKER) (test hnfy=680) 3.9 meq/L 3.5-5.1 CHLORIDE (BEAKER) (test ryah=082) 108 meq/L 98-107 CO2 (BEAKER) (test hpzd=001) 26 meq/L 22-29 BLOOD UREA NITROGEN (BEAKER) (test jjjg=885) 43 mg/dL 7-21 CREATININE (BEAKER) (test vwkn=336) 1.64 mg/dL 0.57-1.25 GLUCOSE RANDOM (BEAKER) (test bbke=181) 122 mg/dL 70-105 CALCIUM (BEAKER) (test zvkn=311) 10.1 mg/dL 8.4-10.2 AST (SGOT) (BEAKER) (test vkbv=094) 29 U/L 5-34 ALT (SGPT) (BEAKER) (test yxfp=935) 65 U/L 6-55 EGFR (BEAKER) (test zlko=2144) 45 mL/min/1.73 sq m ESTIMATED GFR IS NOT ACCURATE CREATININE CLEARANCE IN PREDICTING GLOMERULAR FILTRATION RATE. ESTIMATED GFR IS NOT APPLICABLE FOR DIALYSIS PATIENTS. BILIRUBIN, [id number] 08:39:00* Test Item Value Reference Range Comments BILIRUBIN DIRECT (CYNDY) (test cqya=994) 0.3 mg/dL 0.1-0.5 PROTHROMBIN [id number] 08:35:00* Test Item Value Reference Range Comments PROTIME (CYNDY) (test dbbp=064) 13.2 seconds 11.7-14.7 INR (BEAKER) (test pwdj=531) 1.0 <=5.9 RECOMMENDED COUMADIN/WARFARIN INR THERAPY RANGESSTANDARD DOSE: 2.0 - 3.0 Inclu kaya: PROPHYLAXIS for venous thrombosis, systemic embolization; TREATMENT for barby ous thrombosis and/or pulmonary embolus.HIGH RISK: Target INR is 2.5-3.5 for pat ients with mechanical heart valves.CMV PCR, [id number] 20:26:00* Test Item Value Reference Range Comments CMV VIRAL LOAD - NEGATIVE (CYNDY) (test jale=4735) Negative or below the linear range of the assay (<375 copies/mL) Cytomegalovirus (CMV) infection can cause significant disease in immunosuppresse d patients. However, it is common for CMV to manifest as a limited infection whi ch is of no clinical significance in immunosuppressed patients or in healthy ind ividuals.Viral load measurements are helpful to identify clinical CMV infection and to guide the pre-emptive management of antiviral therapy. For treatment of CMV infection due to reactivation in transplant recipients, a threshold between 4,000 and 5,000 copies/mL is suggested. For treatment of primary CMV infection, a lower threshold can be used.CMV infection may also be monitored using weekly serial measurements. Serial measurements of CMV DNA viral load can be evaluated by identifying a 10-fold change, as well as assessing the CMV DNA viral load and the clinical context for each patient.The plasma CMV DNA viral load was detected using quantitative polymerase chain reaction and fluorescent monitoring of a s pecific hybridized probe. Genetic variation and other factors can affect the acc uracy of nucleic acid testing. Therefore, the results should be interpreted in l ight of clinical data. A negative result may not exclude the presence of CMV dis ease.This test was developed and its performance characteristics determined by [facility] Pathology Department, Section of Molecular Patholog y. It has not been cleared or approved by the U.S. Food and Drug Administration (FDA), since FDA approval is not required for clinical use of the test. Validati on was done as required by The Clinical Laboratory Improvement Amendments of 198 8.CBC W/PLT COUNT & AUTO [id number] 13:58:00* Test Item Value Reference Range Comments WHITE BLOOD CELL COUNT (BEAKER) (test opip=793) 1.5 K/ L 3.5-10.5 RED BLOOD CELL COUNT (BEAKER) (test fknm=984) 4.39 M/ L 4.63-6.08 HEMOGLOBIN (BEAKER) (test hmxs=095) 13.1 GM/DL 13.7-17.5 HEMATOCRIT (BEAKER) (test fozm=851) 38.3 % 40.1-51.0 MEAN CORPUSCULAR VOLUME (BEAKER) (test lhyt=738) 87.2 fL 79.0-92.2 MEAN CORPUSCULAR HEMOGLOBIN (BEAKER) (test wolw=606) 29.8 pg 25.7-32.2 MEAN CORPUSCULAR HEMOGLOBIN CONC (BEAKER) (test gimo=868) 34.2 GM/DL 32.3-36.5 RED CELL DISTRIBUTION WIDTH (BEAKER) (test dbef=242) 14.8 % 11.6-14.4 PLATELET COUNT (BEAKER) (test pevz=070) 63 K/CU MM 150-450 MEAN PLATELET VOLUME (BEAKER) (test qwwl=766) 9.0 fL 9.4-12.4 NUCLEATED RED BLOOD CELLS (BEAKER) (test uwmi=355) 0 /100 WBC 0-0 (CELLAVISION MANUAL DIFF)2018-05-31 13:58:00* Test Item Value Reference Range Comments NEUTROPHILS - REL (CELLAVISION)(BEAKER) (test bxjl=7477) 48 % LYMPHOCYTES - REL (CELLAVISION)(BEAKER) (test mjon=0939) 32 % MONOCYTES - REL (CELLAVISION)(BEAKER) (test bfso=9162) 11 % EOSINOPHILS - REL (CELLAVISION)(BEAKER) (test ilce=2831) 2 % PROMYELOCYTES - REL (CELLAVSION)(BEAKER) (test fcul=3281) 1 % 0-0 BANDS - REL (CELLAVISION)(BEAKER) (test tmsm=8383) 3 % 0-10 ATYPICAL LYMPHOCYTES - REL (CELLAVISION)(BEAKER) (test zcsg=4440) 3 % 0-0 NEUTROPHILS - ABS (CELLAVISION)(BEAKER) (test pxet=0344) 0.72 K/ul 1.78-5.38 LYMPHOCYTES - ABS (CELLAVISION)(BEAKER) (test wfhh=7836) 0.48 K/ul 1.32-3.57 MONOCYTES - ABS (CELLAVISION)(BEAKER) (test bahb=1068) 0.17 K/uL 0.30-0.82 EOSINOPHILS - ABS (CELLAVISION)(BEAKER) (test irdb=0667) 0.03 K/uL 0.04-0.54 PROMYELOCYTES - ABS (CELLAVISION)(BEAKER) (test xlzo=8709) 0.02 K/uL 0.00-0.00 BANDS - ABS (CELLAVISION)(BEAKER) (test dqrq=2504) 0.05 K/uL 0.00-0.80 ATYPICAL LYMPHOCYTES - ABS (CELLAVISION)(BEAKER) (test trar=6548) 0.05 K/uL 0.00-0.00 TOTAL COUNTED (BEAKER) (test rwhb=2856) 100 WBC MORPHOLOGY (BEAKER) (test tmoy=023) Normal PLT MORPHOLOGY (BEAKER) (test zrzt=279) Normal POLYCHROMATOPHILLIC RBCS(BEAKER) (test lirn=943) 1+ few ARTIFACT (CELLAVISION)(BEAKER) (test bqfa=0082) Present PLATELET CONCENTRATION (CELLAVISION)(BEAKER) (test zgzp=2138) Decreased Received comment: User comments: Slide comments: TACROLIMUS [id number] 12:58:00* Test Item Value Reference Range Comments TACROLIMUS BLOOD (BEAKER) (test crsc=930) 7.4 ng/mL 10.0-20.0 [id number] 11:48:00* Test Item Value Reference Range Comments MAGNESIUM (BEAKER) (test knei=786) 1.9 mg/dL 1.6-2.6 COMPREHENSIVE METABOLIC [id number] 11:48:00* Test Item Value Reference Range Comments TOTAL PROTEIN (BEAKER) (test ojsa=171) 7.0 gm/dL 6.0-8.3 ALBUMIN (BEAKER) (test hxwk=7103) 4.4 g/dL 3.5-5.0 ALKALINE PHOSPHATASE (BEAKER) (test goqd=244) 79 U/L 40-150 BILIRUBIN TOTAL (BEAKER) (test pejc=987) 1.0 mg/dL 0.2-1.2 SODIUM (BEAKER) (test nqkr=079) 143 meq/L 136-145 POTASSIUM (BEAKER) (test pfgy=123) 3.3 meq/L 3.5-5.1 CHLORIDE (BEAKER) (test yqnk=816) 110 meq/L 98-107 CO2 (BEAKER) (test lttd=032) 24 meq/L 22-29 BLOOD UREA NITROGEN (BEAKER) (test aelw=801) 37 mg/dL 7-21 CREATININE (BEAKER) (test fkpm=924) 1.68 mg/dL 0.57-1.25 GLUCOSE RANDOM (BEAKER) (test wwpr=525) 94 mg/dL 70-105 CALCIUM (BEAKER) (test sgdx=306) 9.4 mg/dL 8.4-10.2 AST (SGOT) (BEAKER) (test mnhk=490) 25 U/L 5-34 ALT (SGPT) (BEAKER) (test cktv=135) 49 U/L 6-55 EGFR (BEAKER) (test whwu=2233) 43 mL/min/1.73 sq m ESTIMATED GFR IS NOT ACCURATE CREATININE CLEARANCE IN PREDICTING GLOMERULAR FILTRATION RATE. ESTIMATED GFR IS NOT APPLICABLE FOR DIALYSIS PATIENTS. BILIRUBIN, [id number] 11:48:00* Test Item Value Reference Range Comments BILIRUBIN DIRECT (BEAKER) (test fgbk=960) 0.4 mg/dL 0.1-0.5 U/S, ABDOMINAL, WITH [id number] 15:53:00Referring:Dr. Marciano Villa for Exam:->s/p liver trasnplant, increasing ascitesFINAL REPORT Ultrasound of the Abdomen and Doppler evaluation Clinical History: Liver transplant Discussion: Sonographic evaluation of the abdomen is performed. In addition, color Doppler and spectral wave form analysis evaluations of the abdominal vasculature are performed. Liver: 17.3 cm in length at the right midclavicular line. Normal echogenicity. No lesion is identified by ultrasound. Main portal vein diameter 1.0 cm. Biliary tree: Common duct 5 mm. No intrahepatic biliary dilatation Gallbladder: Absent. Pancreas: Mostly obscured by bowel gas Ascites: Moderate amount. Spleen: 15.9 cm in length. Kidneys: Right kidney 9.8 x 5 x 5.1 cm. Left kidney 10 x 4.3 x 4.4 cm. Nor mal cortical echogenicity. No mass. No shadowing calculus. No hydronephrosis. IVC/Aorta: Segments partially seen. Unremarkable Doppler: The peak systolic v elocity of the main portal vein is 24 cm/sec, within normal limits. The main por danielito, right portal, and left portal veins demonstrate normal direction of flow, h epatopetal. The splenic vein is visualized at the portal venous confluence and d emonstrate normal direction of flow, hepatopetal. The proper hepatic, right hepa tic, and left hepatic arteries demonstrate normal arterial wave forms; the resis tive indices measure 0.8, 0.6 and 0.6 respectively. The proper hepatic artery de monstrates normal acceleration time, acceleration index, and systolic upstroke. Segments of the right hepatic, middle hepatic, and left hepatic veins visualized demonstrate flow and phasic venous waveforms. Impression: Increased resistive index of the proper hepatic artery. Doppler evaluation of the hepatic vasculatur e is otherwise within normal limits. Moderate amount of ascites. Splenomegaly. S igned: Tim iY Verified Date/Time: 05/28/2018 15:53:52 Reading Locati on: [address] Radiology Reading Room W/PLT COUNT & AUTO [id number] 13:26:00* Test Item Value Reference Range Comments WHITE BLOOD CELL COUNT (BEAKER) (test itfm=609) 4.5 K/ L 3.5-10.5 RED BLOOD CELL COUNT (BEAKER) (test rgen=843) 4.10 M/ L 4.63-6.08 HEMOGLOBIN (BEAKER) (test hnrz=513) 12.3 GM/DL 13.7-17.5 HEMATOCRIT (BEAKER) (test tufy=472) 36.6 % 40.1-51.0 MEAN CORPUSCULAR VOLUME (BEAKER) (test bidg=780) 89.3 fL 79.0-92.2 MEAN CORPUSCULAR HEMOGLOBIN (BEAKER) (test layg=216) 30.0 pg 25.7-32.2 MEAN CORPUSCULAR HEMOGLOBIN CONC (BEAKER) (test pwcq=266) 33.6 GM/DL 32.3-36.5 RED CELL DISTRIBUTION WIDTH (BEAKER) (test keai=759) 15.3 % 11.6-14.4 PLATELET COUNT (BEAKER) (test fram=421) 75 K/CU MM 150-450 MEAN PLATELET VOLUME (BEAKER) (test mleb=300) 8.9 fL 9.4-12.4 NUCLEATED RED BLOOD CELLS (BEAKER) (test lmjc=483) 0 /100 WBC 0-0 (CELLAVISION MANUAL DIFF)2018-05-17 13:26:00* Test Item Value Reference Range Comments NEUTROPHILS - REL (CELLAVISION)(BEAKER) (test nouw=5475) 68 % LYMPHOCYTES - REL (CELLAVISION)(BEAKER) (test ngxc=4542) 18 % MONOCYTES - REL (CELLAVISION)(BEAKER) (test ynou=0797) 6 % EOSINOPHILS - REL (CELLAVISION)(BEAKER) (test zaxx=9450) 3 % ATYPICAL LYMPHOCYTES - REL (CELLAVISION)(BEAKER) (test szlw=2188) 4 % 0-0 NEUTROPHILS - ABS (CELLAVISION)(BEAKER) (test ziay=0872) 3.06 K/ul 1.78-5.38 LYMPHOCYTES - ABS (CELLAVISION)(BEAKER) (test pjgt=9128) 0.81 K/ul 1.32-3.57 MONOCYTES - ABS (CELLAVISION)(BEAKER) (test mhwp=1415) 0.27 K/uL 0.30-0.82 EOSINOPHILS - ABS (CELLAVISION)(BEAKER) (test cstb=8535) 0.14 K/uL 0.04-0.54 ATYPICAL LYMPHOCYTES - ABS (CELLAVISION)(BEAKER) (test hdhj=1359) 0.18 K/uL 0.00-0.00 TOTAL COUNTED (BEAKER) (test edur=0186) 100 MANUAL NRBC PER 100 CELLS (BEAKER) (test kenv=8925) 1 /100 WBC 0-0 WBC MORPHOLOGY (BEAKER) (test koya=956) Normal PLT MORPHOLOGY (BEAKER) (test bbmb=497) Normal POLYCHROMATOPHILLIC RBCS(BEAKER) (test zggj=854) 1+ few ARTIFACT (CELLAVISION)(BEAKER) (test qird=3027) Present PLATELET CONCENTRATION (CELLAVISION)(BEAKER) (test tsxe=3984) Decreased Received comment: User comments: Slide comments: TACROLIMUS [id number] 12:49:00* Test Item Value Reference Range Comments TACROLIMUS BLOOD (BEAKER) (test uodv=539) 5.2 ng/mL 10.0-20.0 [id number] 11:01:00* Test Item Value Reference Range Comments MAGNESIUM (BEAKER) (test tirr=884) 1.7 mg/dL 1.6-2.6 COMPREHENSIVE METABOLIC [id number] 11:01:00* Test Item Value Reference Range Comments TOTAL PROTEIN (BEAKER) (test ihul=953) 6.6 gm/dL 6.0-8.3 ALBUMIN (BEAKER) (test fjxa=6370) 4.2 g/dL 3.5-5.0 ALKALINE PHOSPHATASE (BEAKER) (test lccv=159) 67 U/L 40-150 BILIRUBIN TOTAL (BEAKER) (test yayv=284) 0.7 mg/dL 0.2-1.2 SODIUM (BEAKER) (test pdhu=061) 143 meq/L 136-145 POTASSIUM (BEAKER) (test dqql=979) 3.2 meq/L 3.5-5.1 CHLORIDE (BEAKER) (test vtwb=121) 109 meq/L 98-107 CO2 (BEAKER) (test pxxl=965) 22 meq/L 22-29 BLOOD UREA NITROGEN (BEAKER) (test pftr=705) 43 mg/dL 7-21 CREATININE (BEAKER) (test fgva=335) 1.62 mg/dL 0.57-1.25 GLUCOSE RANDOM (BEAKER) (test oazm=453) 147 mg/dL 70-105 CALCIUM (BEAKER) (test zrrm=863) 9.3 mg/dL 8.4-10.2 AST (SGOT) (BEAKER) (test pcgh=657) 18 U/L 5-34 ALT (SGPT) (BEAKER) (test nvzi=004) 32 U/L 6-55 EGFR (BEAKER) (test bbha=3344) 45 mL/min/1.73 sq m ESTIMATED GFR IS NOT ACCURATE CREATININE CLEARANCE IN PREDICTING GLOMERULAR FILTRATION RATE. ESTIMATED GFR IS NOT APPLICABLE FOR DIALYSIS PATIENTS. BILIRUBIN, [id number] 11:01:00* Test Item Value Reference Range Comments BILIRUBIN DIRECT (BEAKER) (test opba=473) 0.3 mg/dL 0.1-0.5 TACROLIMUS [id number] 15:20:00* Test Item Value Reference Range Comments TACROLIMUS BLOOD (BEAKER) (test bshc=248) 6.1 ng/mL 10.0-20.0 [id number] 14:23:00* Test Item Value Reference Range Comments MAGNESIUM (BEAKER) (test yygi=561) 2.0 mg/dL 1.6-2.6 COMPREHENSIVE METABOLIC [id number] 14:23:00* Test Item Value Reference Range Comments TOTAL PROTEIN (BEAKER) (test mvqj=199) 7.5 gm/dL 6.0-8.3 ALBUMIN (BEAKER) (test ghew=1532) 4.7 g/dL 3.5-5.0 ALKALINE PHOSPHATASE (BEAKER) (test mpmi=283) 77 U/L 40-150 BILIRUBIN TOTAL (BEAKER) (test cwdu=739) 0.9 mg/dL 0.2-1.2 SODIUM (BEAKER) (test tqhx=832) 144 meq/L 136-145 POTASSIUM (BEAKER) (test hurq=540) 2.8 meq/L 3.5-5.1 CHLORIDE (BEAKER) (test vzqe=911) 109 meq/L 98-107 CO2 (BEAKER) (test kfpx=711) 23 meq/L 22-29 BLOOD UREA NITROGEN (BEAKER) (test fjzw=871) 50 mg/dL 7-21 CREATININE (BEAKER) (test qnwr=187) 1.56 mg/dL 0.57-1.25 GLUCOSE RANDOM (BEAKER) (test ehit=887) 144 mg/dL 70-105 CALCIUM (BEAKER) (test icls=625) 10.2 mg/dL 8.4-10.2 AST (SGOT) (BEAKER) (test myme=070) 18 U/L 5-34 ALT (SGPT) (BEAKER) (test lexr=610) 47 U/L 6-55 EGFR (BEAKER) (test kurj=7563) 47 mL/min/1.73 sq m ESTIMATED GFR IS NOT ACCURATE CREATININE CLEARANCE IN PREDICTING GLOMERULAR FILTRATION RATE. ESTIMATED GFR IS NOT APPLICABLE FOR DIALYSIS PATIENTS. BILIRUBIN, [id number] 14:23:00* Test Item Value Reference Range Comments BILIRUBIN DIRECT (BEAKER) (test gjih=970) 0.4 mg/dL 0.1-0.5 CBC W/PLT COUNT & AUTO [id number] 14:07:00* Test Item Value Reference Range Comments WHITE BLOOD CELL COUNT (BEAKER) (test xxdc=298) 6.3 K/ L 3.5-10.5 RED BLOOD CELL COUNT (BEAKER) (test lyic=464) 4.81 M/ L 4.63-6.08 HEMOGLOBIN (BEAKER) (test hhdk=598) 14.3 GM/DL 13.7-17.5 HEMATOCRIT (BEAKER) (test jxnn=275) 42.1 % 40.1-51.0 MEAN CORPUSCULAR VOLUME (BEAKER) (test uloa=011) 87.5 fL 79.0-92.2 MEAN CORPUSCULAR HEMOGLOBIN (BEAKER) (test gdwx=625) 29.7 pg 25.7-32.2 MEAN CORPUSCULAR HEMOGLOBIN CONC (BEAKER) (test vafv=847) 34.0 GM/DL 32.3-36.5 RED CELL DISTRIBUTION WIDTH (BEAKER) (test yyuf=261) 16.8 % 11.6-14.4 PLATELET COUNT (BEAKER) (test iuan=777) 85 K/CU MM 150-450 MEAN PLATELET VOLUME (BEAKER) (test yzww=911) 9.7 fL 9.4-12.4 NUCLEATED RED BLOOD CELLS (BEAKER) (test aipl=946) 0 /100 WBC 0-0 NEUTROPHILS RELATIVE PERCENT (BEAKER) (test tffy=288) 73 % LYMPHOCYTES RELATIVE PERCENT (BEAKER) (test bsho=284) 15 % MONOCYTES RELATIVE PERCENT (BEAKER) (test xyxx=580) 7 % EOSINOPHILS RELATIVE PERCENT (BEAKER) (test temk=030) 1 % BASOPHILS RELATIVE PERCENT (BEAKER) (test zszh=103) 1 % NEUTROPHILS ABSOLUTE COUNT (BEAKER) (test fsxn=579) 4.59 K/ L 1.78-5.38 LYMPHOCYTES ABSOLUTE COUNT (BEAKER) (test vixt=545) 0.94 K/ L 1.32-3.57 MONOCYTES ABSOLUTE COUNT (BEAKER) (test khtu=590) 0.42 K/ L 0.30-0.82 EOSINOPHILS ABSOLUTE COUNT (BEAKER) (test xbjr=967) 0.04 K/ L 0.04-0.54 BASOPHILS ABSOLUTE COUNT (BEAKER) (test snpr=103) 0.05 K/ L 0.01-0.08 IMMATURE GRANULOCYTES-RELATIVE PERCENT (BEAKER) (test vfdr=2264) 4 % 0-1 TACROLIMUS [id number] 14:12:00* Test Item Value Reference Range Comments TACROLIMUS BLOOD (BEAKER) (test cyjw=563) 2.4 ng/mL 10.0-20.0 CBC W/PLT COUNT & AUTO [id number] 13:27:00* Test Item Value Reference Range Comments WHITE BLOOD CELL COUNT (BEAKER) (test yuvh=775) 4.5 K/ L 3.5-10.5 RED BLOOD CELL COUNT (BEAKER) (test phoa=597) 4.61 M/ L 4.63-6.08 HEMOGLOBIN (BEAKER) (test kwds=226) 13.7 GM/DL 13.7-17.5 HEMATOCRIT (BEAKER) (test qwyb=542) 40.5 % 40.1-51.0 MEAN CORPUSCULAR VOLUME (BEAKER) (test qhvx=518) 87.9 fL 79.0-92.2 MEAN CORPUSCULAR HEMOGLOBIN (BEAKER) (test ojdt=746) 29.7 pg 25.7-32.2 MEAN CORPUSCULAR HEMOGLOBIN CONC (BEAKER) (test ebel=389) 33.8 GM/DL 32.3-36.5 RED CELL DISTRIBUTION WIDTH (BEAKER) (test blzk=875) 17.6 % 11.6-14.4 PLATELET COUNT (BEAKER) (test wbfu=740) 100 K/CU MM 150-450 MEAN PLATELET VOLUME (BEAKER) (test rfdw=350) 9.2 fL 9.4-12.4 NUCLEATED RED BLOOD CELLS (BEAKER) (test vkvs=744) 0 /100 WBC 0-0 (CELLAVISION MANUAL DIFF)2018-04-22 13:27:00* Test Item Value Reference Range Comments NEUTROPHILS - REL (CELLAVISION)(BEAKER) (test vdfn=5983) 54 % LYMPHOCYTES - REL (CELLAVISION)(BEAKER) (test nyyt=6475) 28 % MONOCYTES - REL (CELLAVISION)(BEAKER) (test oxrs=9687) 11 % EOSINOPHILS - REL (CELLAVISION)(BEAKER) (test imhl=5135) 1 % BANDS - REL (CELLAVISION)(BEAKER) (test hdjd=6715) 3 % 0-10 ATYPICAL LYMPHOCYTES - REL (CELLAVISION)(BEAKER) (test gtne=1685) 3 % 0-0 NEUTROPHILS - ABS (CELLAVISION)(BEAKER) (test snvy=8378) 2.43 K/ul 1.78-5.38 LYMPHOCYTES - ABS (CELLAVISION)(BEAKER) (test scew=1851) 1.26 K/ul 1.32-3.57 MONOCYTES - ABS (CELLAVISION)(BEAKER) (test hysa=8492) 0.50 K/uL 0.30-0.82 EOSINOPHILS - ABS (CELLAVISION)(BEAKER) (test gcqb=1210) 0.05 K/uL 0.04-0.54 BANDS - ABS (CELLAVISION)(BEAKER) (test nxgj=9596) 0.14 K/uL 0.00-0.80 ATYPICAL LYMPHOCYTES - ABS (CELLAVISION)(BEAKER) (test lpep=1986) 0.14 K/uL 0.00-0.00 TOTAL COUNTED (BEAKER) (test aden=9684) 100 MANUAL NRBC PER 100 CELLS (BEAKER) (test bkxw=1075) 1 /100 WBC 0-0 WBC MORPHOLOGY (BEAKER) (test ofuw=068) Normal LARGE PLT(BEAKER) (test xrid=9427) Present POLYCHROMATOPHILLIC RBCS(BEAKER) (test aljo=981) 2+ moderate HYPOCHROMIA (BEAKER) (test pcpf=520) 1+ few ARTIFACT (CELLAVISION)(BEAKER) (test cenl=9406) Present PLATELET CONCENTRATION (CELLAVISION)(BEAKER) (test ftgs=8894) Decreased Received comment: User comments: Slide comments: [id number] 12:54:00* Test Item Value Reference Range Comments MAGNESIUM (BEAKER) (test tzjh=331) 1.9 mg/dL 1.6-2.6 COMPREHENSIVE METABOLIC [id number] 12:54:00* Test Item Value Reference Range Comments TOTAL PROTEIN (BEAKER) (test xxep=641) 7.4 gm/dL 6.0-8.3 ALBUMIN (BEAKER) (test blmr=3667) 4.6 g/dL 3.5-5.0 ALKALINE PHOSPHATASE (BEAKER) (test jrtf=118) 104 U/L 40-150 BILIRUBIN TOTAL (BEAKER) (test rcua=062) 0.9 mg/dL 0.2-1.2 SODIUM (BEAKER) (test ffsu=374) 141 meq/L 136-145 POTASSIUM (BEAKER) (test tath=937) 3.2 meq/L 3.5-5.1 CHLORIDE (BEAKER) (test nywc=739) 108 meq/L 98-107 CO2 (BEAKER) (test scui=955) 20 meq/L 22-29 BLOOD UREA NITROGEN (BEAKER) (test ymqm=751) 44 mg/dL 7-21 CREATININE (BEAKER) (test lrph=259) 1.63 mg/dL 0.57-1.25 GLUCOSE RANDOM (BEAKER) (test fyop=689) 190 mg/dL 70-105 CALCIUM (BEAKER) (test absf=572) 10.0 mg/dL 8.4-10.2 AST (SGOT) (BEAKER) (test ewbb=097) 27 U/L 5-34 ALT (SGPT) (BEAKER) (test fjuw=386) 84 U/L 6-55 EGFR (BEAKER) (test qzzz=5494) 45 mL/min/1.73 sq m ESTIMATED GFR IS NOT ACCURATE CREATININE CLEARANCE IN PREDICTING GLOMERULAR FILTRATION RATE. ESTIMATED GFR IS NOT APPLICABLE FOR DIALYSIS PATIENTS. BILIRUBIN, [id number] 12:54:00* Test Item Value Reference Range Comments BILIRUBIN DIRECT (BEAKER) (test xrkt=574) 0.4 mg/dL 0.1-0.5 HEPATITIS B PCR, [id number] 09:25:00* Test Item Value Reference Range Comments HBV RESULT COMPONENT (BEAKER) (test gcgu=7342) HBV DNA not detected HBV DNA not detected This test uses a Real-Time Polymerase Chain Reaction (RT-PCR) methodology and wa s performed using CHARLES AmpliPrep/CHARLES TaqMan HBV Test, v2.0 ([employer]Reportable range for this assay is 20 - 170,000,000 IU per mL ( 1.30 - 8.23 Log IU/mL).TACROLIMUS [id number] 14:54:00* Test Item Value Reference Range Comments TACROLIMUS BLOOD (BEAKER) (test pmqa=304) 2.2 ng/mL 10.0-20.0 CBC W/PLT COUNT & AUTO [id number] 13:31:00* Test Item Value Reference Range Comments WHITE BLOOD CELL COUNT (BEAKER) (test nxkx=978) 4.7 K/ L 3.5-10.5 RED BLOOD CELL COUNT (BEAKER) (test bzvj=248) 4.20 M/ L 4.63-6.08 HEMOGLOBIN (BEAKER) (test ecne=170) 12.4 GM/DL 13.7-17.5 HEMATOCRIT (BEAKER) (test cxdo=712) 36.5 % 40.1-51.0 MEAN CORPUSCULAR VOLUME (BEAKER) (test eyph=453) 86.9 fL 79.0-92.2 MEAN CORPUSCULAR HEMOGLOBIN (BEAKER) (test zsan=430) 29.5 pg 25.7-32.2 MEAN CORPUSCULAR HEMOGLOBIN CONC (BEAKER) (test khia=693) 34.0 GM/DL 32.3-36.5 RED CELL DISTRIBUTION WIDTH (BEAKER) (test afbq=405) 17.8 % 11.6-14.4 PLATELET COUNT (BEAKER) (test wffs=197) 109 K/CU MM 150-450 MEAN PLATELET VOLUME (BEAKER) (test desr=447) 9.1 fL 9.4-12.4 NUCLEATED RED BLOOD CELLS (BEAKER) (test zolj=203) 0 /100 WBC 0-0 (CELLAVISION MANUAL DIFF)2018-04-19 13:31:00* Test Item Value Reference Range Comments NEUTROPHILS - REL (CELLAVISION)(BEAKER) (test dcwt=9529) 61 % LYMPHOCYTES - REL (CELLAVISION)(BEAKER) (test ublq=2050) 16 % MONOCYTES - REL (CELLAVISION)(BEAKER) (test jhmq=8968) 7 % BASOPHILS - REL (CELLAVISION)(BEAKER) (test axvp=9484) 1 % BANDS - REL (CELLAVISION)(BEAKER) (test hiwd=1031) 16 % 0-10 NEUTROPHILS - ABS (CELLAVISION)(BEAKER) (test bjjy=2955) 2.87 K/ul 1.78-5.38 LYMPHOCYTES - ABS (CELLAVISION)(BEAKER) (test jaag=5725) 0.75 K/ul 1.32-3.57 MONOCYTES - ABS (CELLAVISION)(BEAKER) (test dqts=8053) 0.33 K/uL 0.30-0.82 BASOPHILS - ABS (CELLAVISION)(BEAKER) (test liuo=1302) 0.05 K/uL 0.01-0.08 BANDS - ABS (CELLAVISION)(BEAKER) (test xvjl=0128) 0.75 K/uL 0.00-0.80 TOTAL COUNTED (BEAKER) (test vjgs=2777) 100 SMUDGE CELLS (BEAKER) (test rllu=7768) Present GIANT PLATELETS (BEAKER) (test gkwm=533) Present POLYCHROMATOPHILLIC RBCS(BEAKER) (test lbij=139) 1+ few ANISOCYTOSIS (BEAKER) (test thxl=971) 3+ many MICROCYTES (BEAKER) (test phoi=621) 3+ many ARTIFACT (CELLAVISION)(BEAKER) (test ljub=4387) Present PLATELET CONCENTRATION (CELLAVISION)(BEAKER) (test lwho=2026) Decreased Received comment: User comments: Slide comments: HEPATITIS B [id number] 11:16:00* Test Item Value Reference Range Comments HEPATITIS B CORE TOTAL ANTIBODY (BEAKER) (test yqjx=245) Nonreactive Nonreactive HEPATITIS B SURFACE ANTIBODY (BEAKER) (test rmjh=598) < mIU/mL <8.0 HEPATITIS B SURFACE ANTIGEN (2) (BEAKER) (test fzcf=1552) Nonreactive Nonreactive Due 01/30/18 And nov 2018Due 01/30/18 And nov01/30/18 And nov 9HEPATITIS C [id number] 11:10:00* Test Item Value Reference Range Comments HEPATITIS C ANTIBODY (BEAKER) (test hctt=758) Nonreactive Nonreactive Due 01/30/18 And nove 01/30/18 And nov01/30/18 And nov 9HIV-1 ANTIGEN WITH HIV-1/2 [id number] 11:10:00* Test Item Value Reference Range Comments HIV-1 ANTIGEN WITH HIV 1\\T\\2 ANTIBODY (2) (BEAKER) (test irsa=3799) Nonreactive Nonreactive Due 01/30/18 And nov 2018Due 01/30/18 And nov01/30/18 And nov [id number] 10:44:00* Test Item Value Reference Range Comments MAGNESIUM (BEAKER) (test nsug=152) 1.6 mg/dL 1.6-2.6 COMPREHENSIVE METABOLIC [id number] 10:44:00* Test Item Value Reference Range Comments TOTAL PROTEIN (BEAKER) (test zksn=154) 7.0 gm/dL 6.0-8.3 ALBUMIN (BEAKER) (test xdjg=2677) 4.4 g/dL 3.5-5.0 ALKALINE PHOSPHATASE (BEAKER) (test axpf=080) 103 U/L 40-150 BILIRUBIN TOTAL (BEAKER) (test lytm=180) 1.1 mg/dL 0.2-1.2 SODIUM (BEAKER) (test mmzf=043) 141 meq/L 136-145 POTASSIUM (BEAKER) (test udmm=676) 3.2 meq/L 3.5-5.1 CHLORIDE (BEAKER) (test zuys=831) 108 meq/L 98-107 CO2 (BEAKER) (test apza=771) 22 meq/L 22-29 BLOOD UREA NITROGEN (BEAKER) (test xdor=049) 40 mg/dL 7-21 CREATININE (BEAKER) (test qizp=425) 1.59 mg/dL 0.57-1.25 GLUCOSE RANDOM (BEAKER) (test imed=863) 116 mg/dL 70-105 CALCIUM (BEAKER) (test ohyd=258) 9.7 mg/dL 8.4-10.2 AST (SGOT) (BEAKER) (test naov=464) 29 U/L 5-34 ALT (SGPT) (BEAKER) (test isgb=022) 103 U/L 6-55 EGFR (BEAKER) (test gumz=8405) 46 mL/min/1.73 sq m ESTIMATED GFR IS NOT ACCURATE CREATININE CLEARANCE IN PREDICTING GLOMERULAR FILTRATION RATE. ESTIMATED GFR IS NOT APPLICABLE FOR DIALYSIS PATIENTS. BILIRUBIN, [id number] 10:44:00* Test Item Value Reference Range Comments BILIRUBIN DIRECT (BEAKER) (test qwul=717) 0.5 mg/dL 0.1-0.5 BLOOD [id number] 11:01:00* Test Item Value Reference Range Comments CULTURE (BEAKER) (test bgip=3293) No growth in 5 days BLOOD [id number] 11:01:00* Test Item Value Reference Range Comments CULTURE (BEAKER) (test xolu=7254) No growth in 5 days STOOL CULTURE + SHIGA [id number] 14:14:00* Test Item Value Reference Range Comments CULTURE (BEAKER) (test hnku=5619) No Salmonella, Shigella or Campylobacter isolated POCT-GLUCOSE [id number] 13:07:00* Test Item Value Reference Range Comments POC-GLUCOSE METER (BEAKER) (test fgxg=0294) 200 mg/dL 70-110 TESTED AT [facility] [address] [facility] [address] POCT-GLUCOSE [id number] 12:21:00* Test Item Value Reference Range Comments POC-GLUCOSE METER (BEAKER) (test jrhn=5951) 155 mg/dL 70-110 TESTED AT [facility] [address] [facility] [address] TACROLIMUS [id number] 12:09:00* Test Item Value Reference Range Comments TACROLIMUS BLOOD (BEAKER) (test cnnn=233) 6.2 ng/mL 10.0-20.0 POCT-GLUCOSE [id number] 08:17:00* Test Item Value Reference Range Comments POC-GLUCOSE METER (BEAKER) (test kpzh=6998) 140 mg/dL 70-110 TESTED AT [place] [id number] [facility] [address] CBC W/PLT COUNT & AUTO [id number] 08:05:00* Test Item Value Reference Range Comments WHITE BLOOD CELL COUNT (BEAKER) (test inob=808) 3.8 K/ L 3.5-10.5 RED BLOOD CELL COUNT (BEAKER) (test jfek=620) 3.94 M/ L 4.63-6.08 HEMOGLOBIN (BEAKER) (test tyey=710) 11.5 GM/DL 13.7-17.5 HEMATOCRIT (BEAKER) (test szmb=444) 33.4 % 40.1-51.0 MEAN CORPUSCULAR VOLUME (BEAKER) (test qbri=229) 84.8 fL 79.0-92.2 MEAN CORPUSCULAR HEMOGLOBIN (BEAKER) (test ecsj=933) 29.2 pg 25.7-32.2 MEAN CORPUSCULAR HEMOGLOBIN CONC (BEAKER) (test oixy=361) 34.4 GM/DL 32.3-36.5 RED CELL DISTRIBUTION WIDTH (BEAKER) (test bhoh=512) 16.3 % 11.6-14.4 PLATELET COUNT (BEAKER) (test qkkt=516) 88 K/CU MM 150-450 MEAN PLATELET VOLUME (BEAKER) (test aixv=387) 9.7 fL 9.4-12.4 NUCLEATED RED BLOOD CELLS (BEAKER) (test yfvb=062) 0 /100 WBC 0-0 (CELLAVISION MANUAL DIFF)2018-04-11 08:05:00* Test Item Value Reference Range Comments NEUTROPHILS - REL (CELLAVISION)(BEAKER) (test bomg=7670) 57 % LYMPHOCYTES - REL (CELLAVISION)(BEAKER) (test bwge=6621) 12 % MONOCYTES - REL (CELLAVISION)(BEAKER) (test fqym=4397) 10 % EOSINOPHILS - REL (CELLAVISION)(BEAKER) (test cuzp=9496) 2 % BASOPHILS - REL (CELLAVISION)(BEAKER) (test etai=9196) 1 % METAMYELOCYTES - REL (CELLAVISION)(BEAKER) (test wpqn=4477) 1 % 0-0 BANDS - REL (CELLAVISION)(BEAKER) (test yvri=3799) 17 % 0-10 NEUTROPHILS - ABS (CELLAVISION)(BEAKER) (test qfxu=7344) 2.17 K/ul 1.78-5.38 LYMPHOCYTES - ABS (CELLAVISION)(BEAKER) (test znkg=1566) 0.46 K/ul 1.32-3.57 MONOCYTES - ABS (CELLAVISION)(BEAKER) (test rdgq=5298) 0.38 K/uL 0.30-0.82 EOSINOPHILS - ABS (CELLAVISION)(BEAKER) (test wfgf=0051) 0.08 K/uL 0.04-0.54 BASOPHILS - ABS (CELLAVISION)(BEAKER) (test mdix=3537) 0.04 K/uL 0.01-0.08 METAMYELOCYTES - ABS (CELLAVISION)(BEAKER) (test eszk=9126) 0.04 K/uL 0.00-0.00 BANDS - ABS (CELLAVISION)(BEAKER) (test glqh=3129) 0.65 K/uL 0.00-0.80 TOTAL COUNTED (BEAKER) (test faiu=3654) 100 WBC MORPHOLOGY (BEAKER) (test jaaa=649) Normal PLT MORPHOLOGY (BEAKER) (test dhqy=994) Normal POLYCHROMATOPHILLIC RBCS(BEAKER) (test fjia=564) 1+ few ANISOCYTOSIS (BEAKER) (test neob=210) 1+ few ARTIFACT (CELLAVISION)(BEAKER) (test wulz=4386) Present PLATELET CONCENTRATION (CELLAVISION)(BEAKER) (test rzxa=3066) Decreased Received comment: User comments: Slide comments: [id number] 06:40:00* Test Item Value Reference Range Comments PHOSPHORUS (BEAKER) (test wbwo=871) 2.4 mg/dL 2.3-4.7 [id number] 06:40:00* Test Item Value Reference Range Comments MAGNESIUM (BEAKER) (test psum=603) 1.8 mg/dL 1.6-2.6 BASIC METABOLIC [id number] 06:40:00* Test Item Value Reference Range Comments SODIUM (BEAKER) (test wyla=828) 144 meq/L 136-145 POTASSIUM (BEAKER) (test oczw=086) 3.2 meq/L 3.5-5.1 CHLORIDE (BEAKER) (test nmri=504) 114 meq/L 98-107 CO2 (BEAKER) (test wqwr=683) 22 meq/L 22-29 BLOOD UREA NITROGEN (BEAKER) (test lncw=115) 32 mg/dL 7-21 CREATININE (BEAKER) (test nsau=267) 1.34 mg/dL 0.57-1.25 GLUCOSE RANDOM (BEAKER) (test epmy=875) 127 mg/dL 70-105 CALCIUM (BEAKER) (test vbpr=562) 8.5 mg/dL 8.4-10.2 EGFR (BEAKER) (test aglh=1255) 56 mL/min/1.73 sq m ESTIMATED GFR IS NOT ACCURATE CREATININE CLEARANCE IN PREDICTING GLOMERULAR FILTRATION RATE. ESTIMATED GFR IS NOT APPLICABLE FOR DIALYSIS PATIENTS. HEPATIC FUNCTION [id number] 06:40:00* Test Item Value Reference Range Comments TOTAL PROTEIN (BEAKER) (test zidq=221) 5.9 gm/dL 6.0-8.3 ALBUMIN (BEAKER) (test tcpf=3469) 3.8 g/dL 3.5-5.0 BILIRUBIN TOTAL (BEAKER) (test yqid=196) 1.2 mg/dL 0.2-1.2 BILIRUBIN DIRECT (BEAKER) (test gvwl=571) 0.5 mg/dL 0.1-0.5 ALKALINE PHOSPHATASE (BEAKER) (test cscx=770) 77 U/L 40-150 AST (SGOT) (BEAKER) (test zrmz=465) 45 U/L 5-34 ALT (SGPT) (BEAKER) (test zona=396) 62 U/L 6-55 PROTHROMBIN [id number] 06:30:00* Test Item Value Reference Range Comments PROTIME (BEAKER) (test eolo=713) 14.8 seconds 11.7-14.7 INR (BEAKER) (test youh=639) 1.2 <=5.9 RECOMMENDED COUMADIN/WARFARIN INR THERAPY RANGESSTANDARD DOSE: 2.0 - 3.0 Inclu kaya: PROPHYLAXIS for venous thrombosis, systemic embolization; TREATMENT for barby ous thrombosis and/or pulmonary embolus.HIGH RISK: Target INR is 2.5-3.5 for pat ients with mechanical heart valves.POCT-GLUCOSE [id number] 21:07:00* Test Item Value Reference Range Comments POC-GLUCOSE METER (BEAKER) (test tyss=9556) 163 mg/dL 70-110 TESTED AT [facility] [address] [facility] [address] POCT-GLUCOSE [id number] 18:11:00* Test Item Value Reference Range Comments POC-GLUCOSE METER (BEAKER) (test krio=8707) 208 mg/dL 70-110 TESTED AT [facility] [address] [facility] [address] CMV PCR, [id number] 14:34:00* Test Item Value Reference Range Comments CMV VIRAL LOAD - NEGATIVE (BEAKER) (test xckc=9176) Negative or below the linear range of the assay (<375 copies/mL) Cytomegalovirus (CMV) infection can cause significant disease in immunosuppresse d patients. However, it is common for CMV to manifest as a limited infection whi ch is of no clinical significance in immunosuppressed patients or in healthy ind ividuals.Viral load measurements are helpful to identify clinical CMV infection and to guide the pre-emptive management of antiviral therapy. For treatment of CMV infection due to reactivation in transplant recipients, a threshold between 4,000 and 5,000 copies/mL is suggested. For treatment of primary CMV infection, a lower threshold can be used.CMV infection may also be monitored using weekly serial measurements. Serial measurements of CMV DNA viral load can be evaluated by identifying a 10-fold change, as well as assessing the CMV DNA viral load and the clinical context for each patient.The plasma CMV DNA viral load was detected using quantitative polymerase chain reaction and fluorescent monitoring of a s pecific hybridized probe. Genetic variation and other factors can affect the acc uracy of nucleic acid testing. Therefore, the results should be interpreted in l ight of clinical data. A negative result may not exclude the presence of CMV dis ease.This test was developed and its performance characteristics determined by [facility] Pathology Department, Section of Molecular Patholog y. It has not been cleared or approved by the U.S. Food and Drug Administration (FDA), since FDA approval is not required for clinical use of the test. Validati on was done as required by The Clinical Laboratory Improvement Amendments of 198 8.POCT-GLUCOSE [id number] 13:39:00* Test Item Value Reference Range Comments POC-GLUCOSE METER (BEAKER) (test bnme=2075) 191 mg/dL 70-110 TESTED AT [facility] [address] [facility] [address] TACROLIMUS [id number] 12:00:00* Test Item Value Reference Range Comments TACROLIMUS BLOOD (BEAKER) (test lxxg=317) 8.1 ng/mL 10.0-20.0 POCT-GLUCOSE [id number] 10:21:00* Test Item Value Reference Range Comments POC-GLUCOSE METER (BEAKER) (test bhvn=7657) 113 mg/dL 70-110 TESTED AT [facility] [address] [facility] [address] [id number] 06:47:00* Test Item Value Reference Range Comments PHOSPHORUS (BEAKER) (test hycd=023) 2.7 mg/dL 2.3-4.7 [id number] 06:47:00* Test Item Value Reference Range Comments MAGNESIUM (BEAKER) (test eyje=480) 1.8 mg/dL 1.6-2.6 BASIC METABOLIC [id number] 06:47:00* Test Item Value Reference Range Comments SODIUM (BEAKER) (test hzih=098) 143 meq/L 136-145 POTASSIUM (BEAKER) (test pxsh=136) 3.3 meq/L 3.5-5.1 CHLORIDE (BEAKER) (test hfcj=617) 114 meq/L 98-107 CO2 (BEAKER) (test hdkj=217) 20 meq/L 22-29 BLOOD UREA NITROGEN (BEAKER) (test proq=803) 37 mg/dL 7-21 CREATININE (BEAKER) (test klxm=941) 1.54 mg/dL 0.57-1.25 GLUCOSE RANDOM (BEAKER) (test jmlh=742) 110 mg/dL 70-105 CALCIUM (BEAKER) (test vyvx=855) 8.8 mg/dL 8.4-10.2 EGFR (BEAKER) (test hpgl=7135) 48 mL/min/1.73 sq m ESTIMATED GFR IS NOT ACCURATE CREATININE CLEARANCE IN PREDICTING GLOMERULAR FILTRATION RATE. ESTIMATED GFR IS NOT APPLICABLE FOR DIALYSIS PATIENTS. HEPATIC FUNCTION [id number] 06:47:00* Test Item Value Reference Range Comments TOTAL PROTEIN (BEAKER) (test ftdy=056) 6.1 gm/dL 6.0-8.3 ALBUMIN (BEAKER) (test mosw=3253) 3.9 g/dL 3.5-5.0 BILIRUBIN TOTAL (BEAKER) (test mefh=150) 1.2 mg/dL 0.2-1.2 BILIRUBIN DIRECT (BEAKER) (test otub=922) 0.5 mg/dL 0.1-0.5 ALKALINE PHOSPHATASE (BEAKER) (test zlqz=982) 82 U/L 40-150 AST (SGOT) (BEAKER) (test qmon=144) 22 U/L 5-34 ALT (SGPT) (BEAKER) (test ygho=478) 29 U/L 6-55 PROTHROMBIN [id number] 06:43:00* Test Item Value Reference Range Comments PROTIME (BEAKER) (test tbda=743) 14.0 seconds 11.7-14.7 INR (BEAKER) (test erkb=060) 1.1 <=5.9 RECOMMENDED COUMADIN/WARFARIN INR THERAPY RANGESSTANDARD DOSE: 2.0 - 3.0 Inclu kaya: PROPHYLAXIS for venous thrombosis, systemic embolization; TREATMENT for barby ous thrombosis and/or pulmonary embolus.HIGH RISK: Target INR is 2.5-3.5 for pat ients with mechanical heart valves.CBC W/PLT COUNT & AUTO [id number] 06:33:00* Test Item Value Reference Range Comments WHITE BLOOD CELL COUNT (BEAKER) (test jmsn=093) 3.5 K/ L 3.5-10.5 RED BLOOD CELL COUNT (BEAKER) (test gixm=379) 4.00 M/ L 4.63-6.08 HEMOGLOBIN (BEAKER) (test kgiv=063) 11.6 GM/DL 13.7-17.5 HEMATOCRIT (BEAKER) (test hfnu=065) 34.1 % 40.1-51.0 MEAN CORPUSCULAR VOLUME (BEAKER) (test iazf=133) 85.3 fL 79.0-92.2 MEAN CORPUSCULAR HEMOGLOBIN (BEAKER) (test yuzt=974) 29.0 pg 25.7-32.2 MEAN CORPUSCULAR HEMOGLOBIN CONC (BEAKER) (test upjf=484) 34.0 GM/DL 32.3-36.5 RED CELL DISTRIBUTION WIDTH (BEAKER) (test xbtm=993) 16.3 % 11.6-14.4 PLATELET COUNT (BEAKER) (test nzyb=236) 83 K/CU MM 150-450 MEAN PLATELET VOLUME (BEAKER) (test hxmq=212) 9.3 fL 9.4-12.4 NUCLEATED RED BLOOD CELLS (BEAKER) (test zxxh=947) 0 /100 WBC 0-0 NEUTROPHILS RELATIVE PERCENT (BEAKER) (test pnws=425) 62 % LYMPHOCYTES RELATIVE PERCENT (BEAKER) (test pjgx=847) 21 % MONOCYTES RELATIVE PERCENT (BEAKER) (test azen=256) 10 % EOSINOPHILS RELATIVE PERCENT (BEAKER) (test zvfs=206) 2 % BASOPHILS RELATIVE PERCENT (BEAKER) (test ejwj=974) 1 % NEUTROPHILS ABSOLUTE COUNT (BEAKER) (test oylg=645) 2.14 K/ L 1.78-5.38 LYMPHOCYTES ABSOLUTE COUNT (BEAKER) (test xrna=983) 0.71 K/ L 1.32-3.57 MONOCYTES ABSOLUTE COUNT (BEAKER) (test frbz=810) 0.33 K/ L 0.30-0.82 EOSINOPHILS ABSOLUTE COUNT (BEAKER) (test eomu=806) 0.07 K/ L 0.04-0.54 BASOPHILS ABSOLUTE COUNT (BEAKER) (test zemo=678) 0.02 K/ L 0.01-0.08 IMMATURE GRANULOCYTES-RELATIVE PERCENT (BEAKER) (test jddh=5333) 5 % 0-1 POCT-GLUCOSE [id number] 21:44:00* Test Item Value Reference Range Comments POC-GLUCOSE METER (BEAKER) (test hryi=3233) 195 mg/dL 70-110 TESTED AT [place] [id number] [facility] [address] POCT-GLUCOSE [id number] 17:13:00* Test Item Value Reference Range Comments POC-GLUCOSE METER (BEAKER) (test pimv=0300) 154 mg/dL 70-110 TESTED AT [place] [id number] [facility] [address] POCT-GLUCOSE [id number] 12:04:00* Test Item Value Reference Range Comments POC-GLUCOSE METER (BEAKER) (test ecag=4261) 133 mg/dL 70-110 TESTED AT [address] [address] C. DIFFICILE GDH [id number] 10:40:00* Test Item Value Reference Range Comments CDT TOXIN (test izai=[id number]) Negative Negative CDT GDH ANTIGEN (test wzvm=[id number]) Negative Negative No indication of Clostridium difficile infection and no colonization. Discontinue enteric isolation and therapy. Testing performed by [employer] Rapid Cassette Assay. For GDH, published sensitivity of the assay is 98.7% compared to cytotoxicity testing. For Toxin AB, published sensitivity is 87.8% and specificity 99.4% compared to cytotoxicity testing.Ve rification of kit performance was done by the [facility] Microbiology Lab prior to cl inical use.FECAL [id number] 07:49:00* Test Item Value Reference Range Comments FECAL LEUKOCYTES (BEAKER) (test roiv=534) No fecal leukocytes seen No fecal leukocytes seen URINALYSIS W/ REFLEX URINE [id number] 06:13:00* Test Item Value Reference Range Comments COLOR (BEAKER) (test ormx=831) Yellow CLARITY (BEAKER) (test nksu=599) Clear SPECIFIC GRAVITY UA (BEAKER) (test rgvv=796) 1.016 1.001-1.035 PH UA (BEAKER) (test isbw=078) 6.0 5.0-8.0 PROTEIN UA (BEAKER) (test asan=023) 30 mg/dL Negative GLUCOSE UA (BEAKER) (test cvzj=934) Negative Negative KETONES UA (BEAKER) (test yefn=774) Negative Negative BILIRUBIN UA (BEAKER) (test xktb=599) Negative Negative BLOOD UA (BEAKER) (test dzxd=555) Negative Negative NITRITE UA (BEAKER) (test iosv=734) Negative Negative LEUKOCYTE ESTERASE UA (BEAKER) (test qazn=328) Negative Negative UROBILINOGEN UA (BEAKER) (test vslv=735) 0.2 mg/dL 0.2-1.0 RBC UA (BEAKER) (test xkwc=590) 1 /HPF WBC UA (BEAKER) (test kdux=139) 1 /HPF MUCUS (BEAKER) (test jjcb=7081) Rare SQUAMOUS EPITHELIAL (BEAKER) (test zpdb=410) < /HPF HYALINE CASTS (BEAKER) (test abjp=110) 9 /LPF SOURCE(BEAKER) (test qkxd=8056) U/S, ABDOMINAL, [id number] 06:06:00Referring:Dr. Marciano Solano limited area? Add comment if clarification is needed.->LiverReason for exam:->ABDOMINAL PAINReason for exam:->DIARRHEAReason for exam:->s/p liver transplantFINAL REPORT U/S, ABDOMINAL, LIMITED INDICATION: ABDOMINAL PAINDIARRHEA COMPARISON: March 07, 2018 TECHNIQUE: Real-time burger-scale trans abdominal and color and spectral Doppler ultrasound. FINDINGS:Sonographic evalua tion of the abdomen is performed. In addition, color Doppler and spectral wave form analysis evaluations of the abdominal vasculature are performed. Liver: 14. 4 cm in length at the right midclavicular line, normal in size. Normal echogeni city. Homogeneous echotexture. No mass. Biliary tree: Common duct not seen. No biliary dilatation. Gallbladder: Absent. Pancreas: Obscured by bowel gas. Ascites: Small volume ascites. Spleen: 18.3 cm in length, enlarged. Kidneys: Right kidney 9.5 cm in length, normal in size, with cortical thickness of 1.3 cm. Left kidney was not visualized. No hydronephrosis. No shadowing renal stone s. IVC/Aorta: Segments partially seen. Unremarkable. Doppler: Doppler interro gation of the liver demonstrates a main portal vein diameter measuring 1.5 cm wi th a peak systolic velocity of 45 cm/sec. Hepatopetal inflow is seen in the righ t, left, main portal and splenic veins. The resistive indices in the proper, ri ght and left hepatic arteries are 0.6, 0.6 and 0.7 respectively. Outflow with ap propriate directionality is seen in the IVC, hepatic venous confluence as well a s the right, middle and left hepatic veins. Impression:Unremarkable burger scale a nd color Doppler exam of the liver Ascites and splenomegaly Signed: Sa luli Thorne MDReport Verified Date/Time: 04/09/2018 06:06:38 Reading Location: [address] Neuro Reading Room U/S, DUPLEX, [id number] 05:47:00Referring:Dr. Marciano Villa for exam:->ABDOMINAL PAINReason for exam:->DIARRHEAFINAL REPORT INDICATION: ABDOMINAL PAINDIARRHEA COMPARISON: March 07, 2018 TECHNIQUE: Real-time burger-scale transabdominal and color and spectral Doppler ultrasound. FINDINGS:Sonographic evaluation of the abdomen is performed. In addition, color Doppler and spectral wave form analysis evaluations of the abdominal vasculature are performed. Liver: 14.4 cm in length at the right midclavicular line, normal in size. Normal echogenicity. Homogeneous echot exture. No mass. Biliary tree: Common duct not seen. No biliary dilatation. Gallbladder: Absent. Pancreas: Obscured by bowel gas. Ascites: Small volume a scites. Spleen: 18.3 cm in length, enlarged. Kidneys: Right kidney 9.5 cm in length, normal in size, with cortical thickness of 1.3 cm. Left kidney was not visualized. No hydronephrosis. No shadowing renal stones. IVC/Aorta: Segments partially seen. Unremarkable. Doppler: Doppler interrogation of the liver demo nstrates a main portal vein diameter measuring 1.5 cm with a peak systolic veloc ity of 45 cm/sec. Hepatopetal inflow is seen in the right, left, main portal and splenic veins. The resistive indices in the proper, right and left hepatic art eries are 0.6, 0.6 and 0.7 respectively. Outflow with appropriate directionality is seen in the IVC, hepatic venous confluence as well as the right, middle and left hepatic veins. Impression:Unremarkable burger scale and color Doppler exam of the liver Ascites and splenomegaly Signed: Ludy Thorne MDReport Verified Da te/Time: 04/09/2018 05:47:27 Reading Location: [address] Neuro Reading Room ONIN [id number] 01:37:00* Test Item Value Reference Range Comments TROPONIN I (BEAKER) (test gbhg=591) 0.01 ng/mL 0.00-0.03 Troponin I (TnI) levels must be interpreted in the context of the presenting sym ptoms and the clinical findings. Elevated TnI levels indicate myocardial damage, but are not specific for ischemic heart disease. Elevated TnI levels are seen in patients with other cardiac conditions (including myocarditis and congestive h eart failure), and slight TnI elevations occur in patients with other conditions , including sepsis, renal failure, acidosis, acute neurological disease, and per sistent tachyarrhythmia.COMPREHENSIVE METABOLIC [id number] 01:30:00* Test Item Value Reference Range Comments TOTAL PROTEIN (BEAKER) (test mzia=805) 6.6 gm/dL 6.0-8.3 ALBUMIN (BEAKER) (test foxj=0876) 4.2 g/dL 3.5-5.0 ALKALINE PHOSPHATASE (BEAKER) (test fgzi=639) 73 U/L 40-150 BILIRUBIN TOTAL (BEAKER) (test nbxm=422) 1.2 mg/dL 0.2-1.2 SODIUM (BEAKER) (test bsaf=259) 145 meq/L 136-145 POTASSIUM (BEAKER) (test zhit=740) 3.5 meq/L 3.5-5.1 CHLORIDE (BEAKER) (test trqw=379) 115 meq/L 98-107 CO2 (BEAKER) (test gbnm=908) 19 meq/L 22-29 BLOOD UREA NITROGEN (BEAKER) (test xdsg=753) 36 mg/dL 7-21 CREATININE (BEAKER) (test pzqb=927) 1.63 mg/dL 0.57-1.25 GLUCOSE RANDOM (BEAKER) (test djko=657) 129 mg/dL 70-105 CALCIUM (BEAKER) (test kdbp=594) 9.1 mg/dL 8.4-10.2 AST (SGOT) (BEAKER) (test whve=141) 15 U/L 5-34 ALT (SGPT) (BEAKER) (test wrxp=764) 25 U/L 6-55 EGFR (BEAKER) (test ccjf=1692) 45 mL/min/1.73 sq m ESTIMATED GFR IS NOT ACCURATE CREATININE CLEARANCE IN PREDICTING GLOMERULAR FILTRATION RATE. ESTIMATED GFR IS NOT APPLICABLE FOR DIALYSIS PATIENTS. RAD, CHEST, PA OR AP, 1 [id number] 01:20:00Referring:Dr. Marciano Villa for exam:->chest painFINAL REPORT INDICATION: chest pain COMPARISON: None TECHNIQUE: Single frontal view of the chest. FINDINGS: Lungs and pleura: Clear lungs. No effusion.Heart and mediastinum: Normal heart size. Unremarkable mediastinal contours.Osseous structures: No acute abnormality.Other: None. IMPRESSION: No acute intrathoracic abnormality. Signed: Ludy Thorne MDReport Verified Date/Time: 04/09/2018 01:20:10 Reading Location: [facility] C013V Neuro Reading Room W/PLT COUNT & AUTO [id number] 01:15:00* Test Item Value Reference Range Comments WHITE BLOOD CELL COUNT (BEAKER) (test rvby=058) 4.0 K/ L 3.5-10.5 RED BLOOD CELL COUNT (BEAKER) (test flak=675) 4.38 M/ L 4.63-6.08 HEMOGLOBIN (BEAKER) (test ozur=692) 12.8 GM/DL 13.7-17.5 HEMATOCRIT (BEAKER) (test meua=040) 37.5 % 40.1-51.0 MEAN CORPUSCULAR VOLUME (BEAKER) (test njrg=233) 85.6 fL 79.0-92.2 MEAN CORPUSCULAR HEMOGLOBIN (BEAKER) (test eqjd=915) 29.2 pg 25.7-32.2 MEAN CORPUSCULAR HEMOGLOBIN CONC (BEAKER) (test zwxm=480) 34.1 GM/DL 32.3-36.5 RED CELL DISTRIBUTION WIDTH (BEAKER) (test bgib=629) 16.0 % 11.6-14.4 PLATELET COUNT (BEAKER) (test vwmn=451) 100 K/CU MM 150-450 MEAN PLATELET VOLUME (BEAKER) (test hlhj=441) 9.3 fL 9.4-12.4 NUCLEATED RED BLOOD CELLS (BEAKER) (test fgtq=222) 0 /100 WBC 0-0 NEUTROPHILS RELATIVE PERCENT (BEAKER) (test vqev=221) 75 % LYMPHOCYTES RELATIVE PERCENT (BEAKER) (test xyld=700) 10 % MONOCYTES RELATIVE PERCENT (BEAKER) (test uimu=059) 9 % EOSINOPHILS RELATIVE PERCENT (BEAKER) (test bmlo=799) 1 % BASOPHILS RELATIVE PERCENT (BEAKER) (test btaz=651) 0 % NEUTROPHILS ABSOLUTE COUNT (BEAKER) (test vnzo=171) 3.01 K/ L 1.78-5.38 LYMPHOCYTES ABSOLUTE COUNT (BEAKER) (test vcre=507) 0.41 K/ L 1.32-3.57 MONOCYTES ABSOLUTE COUNT (BEAKER) (test vkkf=988) 0.36 K/ L 0.30-0.82 EOSINOPHILS ABSOLUTE COUNT (BEAKER) (test bvap=989) 0.04 K/ L 0.04-0.54 BASOPHILS ABSOLUTE COUNT (BEAKER) (test ruoa=412) 0.01 K/ L 0.01-0.08 IMMATURE GRANULOCYTES-RELATIVE PERCENT (BEAKER) (test hztb=8409) 5 % 0-1 TACROLIMUS [id number] 13:18:00* Test Item Value Reference Range Comments TACROLIMUS BLOOD (BEAKER) (test eyxd=800) 7.0 ng/mL 10.0-20.0 URINALYSIS W/ [id number] 10:40:00* Test Item Value Reference Range Comments COLOR (BEAKER) (test frfd=886) Yellow CLARITY (BEAKER) (test uail=065) Clear SPECIFIC GRAVITY UA (BEAKER) (test qltd=685) 1.013 1.001-1.035 PH UA (BEAKER) (test sznu=828) 6.0 5.0-8.0 PROTEIN UA (BEAKER) (test ogeu=616) 10 mg/dL Negative GLUCOSE UA (BEAKER) (test oqmv=197) Negative Negative KETONES UA (BEAKER) (test pejg=293) Negative Negative BILIRUBIN UA (BEAKER) (test pgpb=606) Negative Negative BLOOD UA (BEAKER) (test gzdh=574) Negative Negative NITRITE UA (BEAKER) (test hjvg=246) Negative Negative LEUKOCYTE ESTERASE UA (BEAKER) (test jxya=464) Negative Negative UROBILINOGEN UA (BEAKER) (test oqzv=199) 0.2 mg/dL 0.2-1.0 RBC UA (BEAKER) (test cdwf=171) 2 /HPF WBC UA (BEAKER) (test ernu=912) 1 /HPF MUCUS (BEAKER) (test hrdv=6241) Rare SQUAMOUS EPITHELIAL (BEAKER) (test rvxu=327) < /HPF HYALINE CASTS (BEAKER) (test uosk=905) 3 /LPF SOURCE(BEAKER) (test qldo=2550) VITAMIN D, [id number] 10:25:00* Test Item Value Reference Range Comments VITAMIN D 25-OH (BEAKER) (test zsiw=3789) 25.5 ng/mL 6.6-49.9 Effective 12/14/2016: Reference Range ChangeNew: 6.6-49.9 ng/mL Previous: 13.0 -47.8 ng/mLRecommended Vitamin D Target Range: 30.0-40.0 ng/mLCBC W/PLT COUNT & AUTO [id number] 10:10:00* Test Item Value Reference Range Comments WHITE BLOOD CELL COUNT (BEAKER) (test bcsk=596) 6.8 K/ L 3.5-10.5 RED BLOOD CELL COUNT (BEAKER) (test gqmc=832) 4.46 M/ L 4.63-6.08 HEMOGLOBIN (BEAKER) (test bttb=832) 13.1 GM/DL 13.7-17.5 HEMATOCRIT (BEAKER) (test nhbk=025) 38.5 % 40.1-51.0 MEAN CORPUSCULAR VOLUME (BEAKER) (test bcvh=024) 86.3 fL 79.0-92.2 MEAN CORPUSCULAR HEMOGLOBIN (BEAKER) (test xrna=734) 29.4 pg 25.7-32.2 MEAN CORPUSCULAR HEMOGLOBIN CONC (BEAKER) (test xqyy=439) 34.0 GM/DL 32.3-36.5 RED CELL DISTRIBUTION WIDTH (BEAKER) (test yqon=824) 15.0 % 11.6-14.4 PLATELET COUNT (BEAKER) (test eeyh=057) 121 K/CU MM 150-450 MEAN PLATELET VOLUME (BEAKER) (test btbb=092) 9.3 fL 9.4-12.4 NUCLEATED RED BLOOD CELLS (BEAKER) (test henc=040) 0 /100 WBC 0-0 NEUTROPHILS RELATIVE PERCENT (BEAKER) (test ppyr=294) 74 % LYMPHOCYTES RELATIVE PERCENT (BEAKER) (test tamw=409) 16 % MONOCYTES RELATIVE PERCENT (BEAKER) (test yxbe=575) 7 % EOSINOPHILS RELATIVE PERCENT (BEAKER) (test ezjq=738) 0 % BASOPHILS RELATIVE PERCENT (BEAKER) (test ocrx=615) 0 % NEUTROPHILS ABSOLUTE COUNT (BEAKER) (test jxtr=310) 5.01 K/ L 1.78-5.38 LYMPHOCYTES ABSOLUTE COUNT (BEAKER) (test fauc=529) 1.06 K/ L 1.32-3.57 MONOCYTES ABSOLUTE COUNT (BEAKER) (test fddb=337) 0.48 K/ L 0.30-0.82 EOSINOPHILS ABSOLUTE COUNT (BEAKER) (test flrr=973) 0.03 K/ L 0.04-0.54 BASOPHILS ABSOLUTE COUNT (BEAKER) (test btoo=311) 0.03 K/ L 0.01-0.08 IMMATURE GRANULOCYTES-RELATIVE PERCENT (BEAKER) (test uwvv=2653) 3 % 0-1 COMPREHENSIVE METABOLIC [id number] 10:02:00* Test Item Value Reference Range Comments TOTAL PROTEIN (BEAKER) (test qimm=667) 7.4 gm/dL 6.0-8.3 ALBUMIN (BEAKER) (test ieqn=8999) 4.7 g/dL 3.5-5.0 ALKALINE PHOSPHATASE (BEAKER) (test uxyj=624) 83 U/L 40-150 BILIRUBIN TOTAL (BEAKER) (test jymr=745) 0.8 mg/dL 0.2-1.2 SODIUM (BEAKER) (test caiz=013) 143 meq/L 136-145 POTASSIUM (BEAKER) (test stjr=846) 3.1 meq/L 3.5-5.1 CHLORIDE (BEAKER) (test cucd=053) 110 meq/L 98-107 CO2 (BEAKER) (test kgqo=094) 21 meq/L 22-29 BLOOD UREA NITROGEN (BEAKER) (test spsj=869) 52 mg/dL 7-21 CREATININE (BEAKER) (test ruet=900) 1.90 mg/dL 0.57-1.25 GLUCOSE RANDOM (BEAKER) (test meqm=107) 79 mg/dL 70-105 CALCIUM (BEAKER) (test uumr=432) 9.9 mg/dL 8.4-10.2 AST (SGOT) (BEAKER) (test auwb=392) 20 U/L 5-34 ALT (SGPT) (BEAKER) (test jblt=558) 37 U/L 6-55 EGFR (BEAKER) (test srcb=6923) 38 mL/min/1.73 sq m ESTIMATED GFR IS NOT ACCURATE CREATININE CLEARANCE IN PREDICTING GLOMERULAR FILTRATION RATE. ESTIMATED GFR IS NOT APPLICABLE FOR DIALYSIS PATIENTS. BILIRUBIN, [id number] 10:02:00* Test Item Value Reference Range Comments BILIRUBIN DIRECT (BEAKER) (test ozar=451) 0.4 mg/dL 0.1-0.5 [id number] 10:02:00* Test Item Value Reference Range Comments MAGNESIUM (BEAKER) (test fqrg=027) 2.0 mg/dL 1.6-2.6 [id number] 10:02:00* Test Item Value Reference Range Comments PHOSPHORUS (BEAKER) (test acga=729) 3.7 mg/dL 2.3-4.7 TACROLIMUS [id number] 14:05:00* Test Item Value Reference Range Comments TACROLIMUS BLOOD (BEAKER) (test qdjd=412) 6.7 ng/mL 10.0-20.0 [id number] 11:51:00* Test Item Value Reference Range Comments MAGNESIUM (BEAKER) (test jmse=524) 2.2 mg/dL 1.6-2.6 COMPREHENSIVE METABOLIC [id number] 11:51:00* Test Item Value Reference Range Comments TOTAL PROTEIN (BEAKER) (test pnsd=338) 7.6 gm/dL 6.0-8.3 ALBUMIN (BEAKER) (test paix=4134) 4.8 g/dL 3.5-5.0 ALKALINE PHOSPHATASE (BEAKER) (test ekym=199) 90 U/L 40-150 BILIRUBIN TOTAL (BEAKER) (test etpn=731) 0.9 mg/dL 0.2-1.2 SODIUM (BEAKER) (test cqtr=631) 143 meq/L 136-145 POTASSIUM (BEAKER) (test lhwn=962) 3.9 meq/L 3.5-5.1 CHLORIDE (BEAKER) (test wqfv=230) 108 meq/L 98-107 CO2 (BEAKER) (test trqf=527) 24 meq/L 22-29 BLOOD UREA NITROGEN (BEAKER) (test eoiw=088) 46 mg/dL 7-21 CREATININE (BEAKER) (test bcmt=421) 1.87 mg/dL 0.57-1.25 GLUCOSE RANDOM (BEAKER) (test uhzj=319) 130 mg/dL 70-105 CALCIUM (BEAKER) (test fkvt=312) 9.8 mg/dL 8.4-10.2 AST (SGOT) (BEAKER) (test lirp=524) 23 U/L 5-34 ALT (SGPT) (BEAKER) (test dzxa=566) 50 U/L 6-55 EGFR (BEAKER) (test atqv=0927) 38 mL/min/1.73 sq m ESTIMATED GFR IS NOT ACCURATE CREATININE CLEARANCE IN PREDICTING GLOMERULAR FILTRATION RATE. ESTIMATED GFR IS NOT APPLICABLE FOR DIALYSIS PATIENTS. BILIRUBIN, [id number] 11:51:00* Test Item Value Reference Range Comments BILIRUBIN DIRECT (BEAKER) (test tafy=710) 0.5 mg/dL 0.1-0.5 CBC W/PLT COUNT & AUTO [id number] 11:32:00* Test Item Value Reference Range Comments WHITE BLOOD CELL COUNT (BEAKER) (test nmgh=854) 8.4 K/ L 3.5-10.5 RED BLOOD CELL COUNT (BEAKER) (test yoxh=746) 4.74 M/ L 4.63-6.08 HEMOGLOBIN (BEAKER) (test xyjn=990) 14.0 GM/DL 13.7-17.5 HEMATOCRIT (BEAKER) (test gxyu=529) 41.8 % 40.1-51.0 MEAN CORPUSCULAR VOLUME (BEAKER) (test yjsz=471) 88.2 fL 79.0-92.2 MEAN CORPUSCULAR HEMOGLOBIN (BEAKER) (test gthe=658) 29.5 pg 25.7-32.2 MEAN CORPUSCULAR HEMOGLOBIN CONC (BEAKER) (test mrtm=209) 33.5 GM/DL 32.3-36.5 RED CELL DISTRIBUTION WIDTH (BEAKER) (test iupm=285) 14.6 % 11.6-14.4 PLATELET COUNT (BEAKER) (test rlkj=829) 99 K/CU MM 150-450 MEAN PLATELET VOLUME (BEAKER) (test zpyr=061) 9.1 fL 9.4-12.4 NUCLEATED RED BLOOD CELLS (BEAKER) (test bpiw=177) 0 /100 WBC 0-0 NEUTROPHILS RELATIVE PERCENT (BEAKER) (test dfij=364) 75 % LYMPHOCYTES RELATIVE PERCENT (BEAKER) (test dtas=404) 15 % MONOCYTES RELATIVE PERCENT (BEAKER) (test nper=160) 5 % EOSINOPHILS RELATIVE PERCENT (BEAKER) (test qgbf=741) 1 % BASOPHILS RELATIVE PERCENT (BEAKER) (test mfqt=180) 1 % NEUTROPHILS ABSOLUTE COUNT (BEAKER) (test okjw=545) 6.26 K/ L 1.78-5.38 LYMPHOCYTES ABSOLUTE COUNT (BEAKER) (test vazc=638) 1.22 K/ L 1.32-3.57 MONOCYTES ABSOLUTE COUNT (BEAKER) (test crhc=134) 0.40 K/ L 0.30-0.82 EOSINOPHILS ABSOLUTE COUNT (BEAKER) (test gihc=346) 0.04 K/ L 0.04-0.54 BASOPHILS ABSOLUTE COUNT (BEAKER) (test cyjy=111) 0.06 K/ L 0.01-0.08 IMMATURE GRANULOCYTES-RELATIVE PERCENT (BEAKER) (test clev=4006) 5 % 0-1 BLOOD [id number] 11:01:00* Test Item Value Reference Range Comments CULTURE (BEAKER) (test jiui=1821) No growth in 5 days BLOOD [id number] 11:01:00* Test Item Value Reference Range Comments CULTURE (BEAKER) (test lvts=2841) No growth in 5 days URINE [id number] 13:01:00* Test Item Value Reference Range Comments CULTURE (BEAKER) (test bazq=2425) COAGULASE NEGATIVE STAPHYLOCOCCUS 20-29,000 col/mL Coagulase negative Staphylococcus Clindamycin (test code=10) Erythromycin (test code=4) Linezolid (test code=40) Nitrofurantoin (test code=23) Oxacillin (test code=14) Rifampin (test code=43) Tetracycline (test code=2) Trimethoprim + Sulfamethoxazole (test code=47) Vancomycin (test code=13) CMV PCR, [id number] 15:59:00* Test Item Value Reference Range Comments CMV VIRAL LOAD - NEGATIVE (BEAKER) (test ihoc=4738) Negative or below the linear range of the assay (<375 copies/mL) Cytomegalovirus (CMV) infection can cause significant disease in immunosuppresse d patients. However, it is common for CMV to manifest as a limited infection whi ch is of no clinical significance in immunosuppressed patients or in healthy ind ividuals.Viral load measurements are helpful to identify clinical CMV infection and to guide the pre-emptive management of antiviral therapy. For treatment of CMV infection due to reactivation in transplant recipients, a threshold between 4,000 and 5,000 copies/mL is suggested. For treatment of primary CMV infection, a lower threshold can be used.CMV infection may also be monitored using weekly serial measurements. Serial measurements of CMV DNA viral load can be evaluated by identifying a 10-fold change, as well as assessing the CMV DNA viral load and the clinical context for each patient.The plasma CMV DNA viral load was detected using quantitative polymerase chain reaction and fluorescent monitoring of a s pecific hybridized probe. Genetic variation and other factors can affect the acc uracy of nucleic acid testing. Therefore, the results should be interpreted in l ight of clinical data. A negative result may not exclude the presence of CMV dis ease.This test was developed and its performance characteristics determined by [facility] Pathology Department, Section of Molecular Patholog y. It has not been cleared or approved by the U.S. Food and Drug Administration (FDA), since FDA approval is not required for clinical use of the test. Validati on was done as required by The Clinical Laboratory Improvement Amendments of 198 8.TACROLIMUS [id number] 12:40:00* Test Item Value Reference Range Comments TACROLIMUS BLOOD (CYNDY) (test fbxc=052) 8.7 ng/mL 10.0-20.0 U/S, ABDOMINAL, WITH [id number] 12:13:00Referring:Dr. Marciano Reis 1 week Reason for Exam:->elevated liver enzymes, liver transplantFINAL REPORT Ultrasound of the Abdomen, 03/07/2018. Clinical History: Liver transplant. Elevated liver enzymes. Comparison: 01/09/2018. Di scussion:Sonographic evaluation of the abdomen is performed. In addition, color Doppler and spectral wave form analysis evaluations of the abdominal vasculature are performed. Liver: 16.5 cm in length at the right midclavicular line, nor mal in size. Normal echogenicity. Homogeneous echotexture. No mass. Biliary tree: Common duct 4 mm. No biliary dilatation. Gallbladder: Absent. Gallbladd er fossa appears unremarkable. Pancreas: Obscured by bowel gas. Ascites: Small volume ascites. Spleen: 20.1 cm in length, enlarged. Kidneys: Right kidney 10.0 cm in length, normal in size, with cortical thickness of 1.2 cm. Left kidn ey 9.7 cm in length, normal in size, with cortical thickness of 1.3 cm. Normal cortical echogenicity. No mass. No shadowing calculus. No hydronephrosis. IVC /Aorta: Segments partially seen. Unremarkable. Doppler: Doppler interrogation of the liver demonstrates a main portal vein diameter measuring 1.4 cm with a pe ak systolic velocity of 45 cm/sec. Hepatopetal inflow is seen in the right, left , main portal and splenic veins. The resistive indices in the proper, right and left hepatic arteries are 0.7, 0.7 and 0.7 respectively. Outflow with appropria te directionality is seen in the IVC, hepatic venous confluence as well as the r ight, middle and left hepatic veins. Impression:1. Unremarkable appearance of th e hepatic parenchyma.2. Unremarkable Doppler interrogation of the hepatic vascul ature.3. Splenomegaly and ascites. Signed: Michael Gutierrezort Verified Ryan e/Time: 03/07/2018 12:13:55 Reading Location: [address] Radiology Reading R oom ALYSIS W/ REFLEX URINE [id number] 09:55:00* Test Item Value Reference Range Comments COLOR (BEAKER) (test joze=929) Yellow CLARITY (BEAKER) (test thcq=400) Clear SPECIFIC GRAVITY UA (BEAKER) (test bpih=338) 1.015 1.001-1.035 PH UA (BEAKER) (test blia=218) 5.5 5.0-8.0 PROTEIN UA (BEAKER) (test icgt=729) Negative Negative GLUCOSE UA (BEAKER) (test ctla=598) Negative Negative KETONES UA (BEAKER) (test nlcs=692) Negative Negative BILIRUBIN UA (BEAKER) (test hklz=029) Negative Negative BLOOD UA (BEAKER) (test bxsy=080) Negative Negative NITRITE UA (BEAKER) (test mhrw=657) Negative Negative LEUKOCYTE ESTERASE UA (BEAKER) (test qapk=476) Negative Negative UROBILINOGEN UA (BEAKER) (test wapr=072) 0.2 mg/dL 0.2-1.0 RBC UA (BEAKER) (test dxou=734) 0 /HPF WBC UA (BEAKER) (test wevl=931) < /HPF MUCUS (BEAKER) (test ysrl=7864) Rare SQUAMOUS EPITHELIAL (BEAKER) (test gmyj=115) < /HPF HYALINE CASTS (BEAKER) (test ppnd=371) 11 /LPF SOURCE(BEAKER) (test fgdb=3793) [id number] 09:27:00* Test Item Value Reference Range Comments MAGNESIUM (BEAKER) (test gzau=761) 1.8 mg/dL 1.6-2.6 COMPREHENSIVE METABOLIC [id number] 09:27:00* Test Item Value Reference Range Comments TOTAL PROTEIN (BEAKER) (test iavt=528) 7.5 gm/dL 6.0-8.3 ALBUMIN (BEAKER) (test qefk=7438) 4.8 g/dL 3.5-5.0 ALKALINE PHOSPHATASE (BEAKER) (test wkyp=279) 95 U/L 40-150 BILIRUBIN TOTAL (BEAKER) (test kjom=974) 1.1 mg/dL 0.2-1.2 SODIUM (BEAKER) (test jbww=008) 143 meq/L 136-145 POTASSIUM (BEAKER) (test vkty=054) 3.8 meq/L 3.5-5.1 CHLORIDE (BEAKER) (test adae=454) 106 meq/L 98-107 CO2 (BEAKER) (test jnen=375) 25 meq/L 22-29 BLOOD UREA NITROGEN (BEAKER) (test thik=943) 47 mg/dL 7-21 CREATININE (BEAKER) (test vizu=906) 1.91 mg/dL 0.57-1.25 GLUCOSE RANDOM (BEAKER) (test tpds=427) 110 mg/dL 70-105 CALCIUM (BEAKER) (test wqhr=157) 10.0 mg/dL 8.4-10.2 AST (SGOT) (BEAKER) (test sqfy=219) 29 U/L 5-34 ALT (SGPT) (BEAKER) (test vtjx=113) 62 U/L 6-55 EGFR (BEAKER) (test nffw=5667) 37 mL/min/1.73 sq m ESTIMATED GFR IS NOT ACCURATE CREATININE CLEARANCE IN PREDICTING GLOMERULAR FILTRATION RATE. ESTIMATED GFR IS NOT APPLICABLE FOR DIALYSIS PATIENTS. BILIRUBIN, [id number] 09:27:00* Test Item Value Reference Range Comments BILIRUBIN DIRECT (BEAKER) (test bnmm=331) 0.6 mg/dL 0.1-0.5 CBC W/PLT COUNT & AUTO [id number] 08:43:00* Test Item Value Reference Range Comments WHITE BLOOD CELL COUNT (BEAKER) (test slrp=903) 6.7 K/ L 3.5-10.5 RED BLOOD CELL COUNT (BEAKER) (test yofn=937) 4.64 M/ L 4.63-6.08 HEMOGLOBIN (BEAKER) (test ketv=108) 13.6 GM/DL 13.7-17.5 HEMATOCRIT (BEAKER) (test taxy=889) 40.9 % 40.1-51.0 MEAN CORPUSCULAR VOLUME (BEAKER) (test eqkv=242) 88.1 fL 79.0-92.2 MEAN CORPUSCULAR HEMOGLOBIN (BEAKER) (test xzqo=499) 29.3 pg 25.7-32.2 MEAN CORPUSCULAR HEMOGLOBIN CONC (BEAKER) (test kkmp=393) 33.3 GM/DL 32.3-36.5 RED CELL DISTRIBUTION WIDTH (BEAKER) (test unko=908) 14.3 % 11.6-14.4 PLATELET COUNT (BEAKER) (test wynx=180) 81 K/CU MM 150-450 MEAN PLATELET VOLUME (BEAKER) (test vijy=325) 9.2 fL 9.4-12.4 NUCLEATED RED BLOOD CELLS (BEAKER) (test otsc=661) 0 /100 WBC 0-0 NEUTROPHILS RELATIVE PERCENT (BEAKER) (test lana=400) 76 % LYMPHOCYTES RELATIVE PERCENT (BEAKER) (test nkfp=240) 15 % MONOCYTES RELATIVE PERCENT (BEAKER) (test zqjo=230) 6 % EOSINOPHILS RELATIVE PERCENT (BEAKER) (test cusn=357) 1 % BASOPHILS RELATIVE PERCENT (BEAKER) (test qdzg=431) 0 % NEUTROPHILS ABSOLUTE COUNT (BEAKER) (test hvjd=192) 5.06 K/ L 1.78-5.38 LYMPHOCYTES ABSOLUTE COUNT (BEAKER) (test wool=943) 1.00 K/ L 1.32-3.57 MONOCYTES ABSOLUTE COUNT (BEAKER) (test fevv=617) 0.38 K/ L 0.30-0.82 EOSINOPHILS ABSOLUTE COUNT (BEAKER) (test wvlm=319) 0.04 K/ L 0.04-0.54 BASOPHILS ABSOLUTE COUNT (BEAKER) (test abuq=161) 0.03 K/ L 0.01-0.08 IMMATURE GRANULOCYTES-RELATIVE PERCENT (BEAKER) (test uiqv=9639) 3 % 0-1 TACROLIMUS [id number] 14:29:00* Test Item Value Reference Range Comments TACROLIMUS BLOOD (BEAKER) (test gmpz=395) 7.1 ng/mL 10.0-20.0 [id number] 12:32:00* Test Item Value Reference Range Comments MAGNESIUM (BEAKER) (test ybfj=794) 1.9 mg/dL 1.6-2.6 COMPREHENSIVE METABOLIC [id number] 12:32:00* Test Item Value Reference Range Comments TOTAL PROTEIN (BEAKER) (test yvrj=344) 6.9 gm/dL 6.0-8.3 ALBUMIN (BEAKER) (test plnc=9481) 4.3 g/dL 3.5-5.0 ALKALINE PHOSPHATASE (BEAKER) (test ukiv=116) 72 U/L 40-150 BILIRUBIN TOTAL (BEAKER) (test htkx=697) 0.9 mg/dL 0.2-1.2 SODIUM (BEAKER) (test eekx=518) 143 meq/L 136-145 POTASSIUM (BEAKER) (test pjcq=840) 3.5 meq/L 3.5-5.1 CHLORIDE (BEAKER) (test gaga=403) 109 meq/L 98-107 CO2 (BEAKER) (test nrzi=765) 22 meq/L 22-29 BLOOD UREA NITROGEN (BEAKER) (test sane=522) 50 mg/dL 7-21 CREATININE (BEAKER) (test iztg=825) 1.97 mg/dL 0.57-1.25 GLUCOSE RANDOM (BEAKER) (test njtz=655) 139 mg/dL 70-105 CALCIUM (BEAKER) (test vcaw=369) 9.8 mg/dL 8.4-10.2 AST (SGOT) (BEAKER) (test qjsz=754) 28 U/L 5-34 ALT (SGPT) (BEAKER) (test ellx=231) 50 U/L 6-55 EGFR (BEAKER) (test dhct=3908) 36 mL/min/1.73 sq m ESTIMATED GFR IS NOT ACCURATE CREATININE CLEARANCE IN PREDICTING GLOMERULAR FILTRATION RATE. ESTIMATED GFR IS NOT APPLICABLE FOR DIALYSIS PATIENTS. BILIRUBIN, [id number] 12:32:00* Test Item Value Reference Range Comments BILIRUBIN DIRECT (BEAKER) (test mvok=894) 0.4 mg/dL 0.1-0.5 CBC W/PLT COUNT & AUTO [id number] 11:52:00* Test Item Value Reference Range Comments WHITE BLOOD CELL COUNT (BEAKER) (test hgtt=219) 7.9 K/ L 3.5-10.5 RED BLOOD CELL COUNT (BEAKER) (test crlr=692) 4.38 M/ L 4.63-6.08 HEMOGLOBIN (BEAKER) (test pvvx=298) 13.0 GM/DL 13.7-17.5 HEMATOCRIT (BEAKER) (test rpia=850) 39.1 % 40.1-51.0 MEAN CORPUSCULAR VOLUME (BEAKER) (test jjal=008) 89.3 fL 79.0-92.2 MEAN CORPUSCULAR HEMOGLOBIN (BEAKER) (test swdf=067) 29.7 pg 25.7-32.2 MEAN CORPUSCULAR HEMOGLOBIN CONC (BEAKER) (test rlge=747) 33.2 GM/DL 32.3-36.5 RED CELL DISTRIBUTION WIDTH (BEAKER) (test hijf=031) 14.0 % 11.6-14.4 PLATELET COUNT (BEAKER) (test pojr=620) 107 K/CU MM 150-450 MEAN PLATELET VOLUME (BEAKER) (test xyvk=137) 9.7 fL 9.4-12.4 NUCLEATED RED BLOOD CELLS (BEAKER) (test skkq=089) 0 /100 WBC 0-0 NEUTROPHILS RELATIVE PERCENT (BEAKER) (test dhai=280) 77 % LYMPHOCYTES RELATIVE PERCENT (BEAKER) (test spqe=837) 14 % MONOCYTES RELATIVE PERCENT (BEAKER) (test szxj=310) 6 % EOSINOPHILS RELATIVE PERCENT (BEAKER) (test xdzj=026) 0 % BASOPHILS RELATIVE PERCENT (BEAKER) (test jgkc=717) 1 % NEUTROPHILS ABSOLUTE COUNT (BEAKER) (test luhu=673) 6.09 K/ L 1.78-5.38 LYMPHOCYTES ABSOLUTE COUNT (BEAKER) (test fkjc=177) 1.12 K/ L 1.32-3.57 MONOCYTES ABSOLUTE COUNT (BEAKER) (test mpti=388) 0.48 K/ L 0.30-0.82 EOSINOPHILS ABSOLUTE COUNT (BEAKER) (test iguf=394) 0.03 K/ L 0.04-0.54 BASOPHILS ABSOLUTE COUNT (BEAKER) (test ynnh=599) 0.05 K/ L 0.01-0.08 IMMATURE GRANULOCYTES-RELATIVE PERCENT (BEAKER) (test gkzc=8378) 2 % 0-1 TACROLIMUS [id number] 14:51:00* Test Item Value Reference Range Comments TACROLIMUS BLOOD (BEAKER) (test dbyc=167) 11.0 ng/mL 10.0-20.0 [id number] 12:20:00* Test Item Value Reference Range Comments MAGNESIUM (BEAKER) (test buqc=570) 2.1 mg/dL 1.6-2.6 COMPREHENSIVE METABOLIC [id number] 12:20:00* Test Item Value Reference Range Comments TOTAL PROTEIN (BEAKER) (test mrgh=334) 7.5 gm/dL 6.0-8.3 ALBUMIN (BEAKER) (test amzq=8797) 4.7 g/dL 3.5-5.0 ALKALINE PHOSPHATASE (BEAKER) (test hxna=484) 72 U/L 40-150 BILIRUBIN TOTAL (BEAKER) (test sgjq=002) 1.0 mg/dL 0.2-1.2 SODIUM (BEAKER) (test gpch=314) 146 meq/L 136-145 POTASSIUM (BEAKER) (test xsmc=709) 3.6 meq/L 3.5-5.1 CHLORIDE (BEAKER) (test urby=365) 109 meq/L 98-107 CO2 (BEAKER) (test gevm=592) 27 meq/L 22-29 BLOOD UREA NITROGEN (BEAKER) (test hkce=481) 54 mg/dL 7-21 CREATININE (BEAKER) (test ceav=452) 1.84 mg/dL 0.57-1.25 GLUCOSE RANDOM (BEAKER) (test wpxy=259) 58 mg/dL 70-105 CALCIUM (BEAKER) (test arpb=384) 10.1 mg/dL 8.4-10.2 AST (SGOT) (BEAKER) (test lpwa=857) 25 U/L 5-34 ALT (SGPT) (BEAKER) (test nniw=895) 41 U/L 6-55 EGFR (BEAKER) (test fxpi=1914) 39 mL/min/1.73 sq m ESTIMATED GFR IS NOT ACCURATE CREATININE CLEARANCE IN PREDICTING GLOMERULAR FILTRATION RATE. ESTIMATED GFR IS NOT APPLICABLE FOR DIALYSIS PATIENTS. BILIRUBIN, [id number] 12:20:00* Test Item Value Reference Range Comments BILIRUBIN DIRECT (BEAKER) (test upek=239) 0.5 mg/dL 0.1-0.5 CBC W/PLT COUNT & AUTO [id number] 12:13:00* Test Item Value Reference Range Comments WHITE BLOOD CELL COUNT (BEAKER) (test okuj=785) 9.3 K/ L 3.5-10.5 RED BLOOD CELL COUNT (BEAKER) (test htld=055) 4.68 M/ L 4.63-6.08 HEMOGLOBIN (BEAKER) (test gfda=367) 14.2 GM/DL 13.7-17.5 HEMATOCRIT (BEAKER) (test tbuh=660) 42.5 % 40.1-51.0 MEAN CORPUSCULAR VOLUME (BEAKER) (test jtml=362) 90.8 fL 79.0-92.2 MEAN CORPUSCULAR HEMOGLOBIN (BEAKER) (test rqll=437) 30.3 pg 25.7-32.2 MEAN CORPUSCULAR HEMOGLOBIN CONC (BEAKER) (test nwen=192) 33.4 GM/DL 32.3-36.5 RED CELL DISTRIBUTION WIDTH (BEAKER) (test cktn=719) 14.6 % 11.6-14.4 PLATELET COUNT (BEAKER) (test szai=217) 122 K/CU MM 150-450 MEAN PLATELET VOLUME (BEAKER) (test fpph=286) 9.6 fL 9.4-12.4 NUCLEATED RED BLOOD CELLS (BEAKER) (test fhds=750) 0 /100 WBC 0-0 NEUTROPHILS RELATIVE PERCENT (BEAKER) (test yukp=063) 77 % LYMPHOCYTES RELATIVE PERCENT (BEAKER) (test lcms=879) 14 % MONOCYTES RELATIVE PERCENT (BEAKER) (test zqho=324) 6 % EOSINOPHILS RELATIVE PERCENT (BEAKER) (test qwfd=356) 1 % BASOPHILS RELATIVE PERCENT (BEAKER) (test diiw=284) 0 % NEUTROPHILS ABSOLUTE COUNT (BEAKER) (test mkfn=190) 7.14 K/ L 1.78-5.38 LYMPHOCYTES ABSOLUTE COUNT (BEAKER) (test euos=348) 1.31 K/ L 1.32-3.57 MONOCYTES ABSOLUTE COUNT (BEAKER) (test wulh=738) 0.54 K/ L 0.30-0.82 EOSINOPHILS ABSOLUTE COUNT (BEAKER) (test xnow=848) 0.05 K/ L 0.04-0.54 BASOPHILS ABSOLUTE COUNT (BEAKER) (test hlxf=055) 0.04 K/ L 0.01-0.08 IMMATURE GRANULOCYTES-RELATIVE PERCENT (BEAKER) (test vpcn=9879) 2 % 0-1 TACROLIMUS [id number] 14:24:00* Test Item Value Reference Range Comments TACROLIMUS BLOOD (BEAKER) (test isol=919) 7.8 ng/mL 10.0-20.0 [id number] 11:54:00* Test Item Value Reference Range Comments MAGNESIUM (BEAKER) (test jaqi=110) 1.6 mg/dL 1.6-2.6 COMPREHENSIVE METABOLIC [id number] 11:54:00* Test Item Value Reference Range Comments TOTAL PROTEIN (BEAKER) (test givi=023) 6.5 gm/dL 6.0-8.3 ALBUMIN (BEAKER) (test qmde=0107) 4.1 g/dL 3.5-5.0 ALKALINE PHOSPHATASE (BEAKER) (test maii=990) 45 U/L 40-150 BILIRUBIN TOTAL (BEAKER) (test uwrk=902) 1.0 mg/dL 0.2-1.2 SODIUM (BEAKER) (test lqnm=731) 145 meq/L 136-145 POTASSIUM (BEAKER) (test erbo=388) 3.5 meq/L 3.5-5.1 CHLORIDE (BEAKER) (test svxe=931) 112 meq/L 98-107 CO2 (BEAKER) (test jtkl=717) 25 meq/L 22-29 BLOOD UREA NITROGEN (BEAKER) (test zvbk=220) 35 mg/dL 7-21 CREATININE (BEAKER) (test upzz=947) 1.44 mg/dL 0.57-1.25 GLUCOSE RANDOM (BEAKER) (test epcr=914) 88 mg/dL 70-105 CALCIUM (BEAKER) (test rhlc=361) 9.4 mg/dL 8.4-10.2 AST (SGOT) (BEAKER) (test hrwa=716) 9 U/L 5-34 ALT (SGPT) (BEAKER) (test olzl=014) 10 U/L 6-55 EGFR (BEAKER) (test jliu=2313) 52 mL/min/1.73 sq m ESTIMATED GFR IS NOT ACCURATE CREATININE CLEARANCE IN PREDICTING GLOMERULAR FILTRATION RATE. ESTIMATED GFR IS NOT APPLICABLE FOR DIALYSIS PATIENTS. BILIRUBIN, [id number] 11:54:00* Test Item Value Reference Range Comments BILIRUBIN DIRECT (BEAKER) (test ejxj=756) 0.6 mg/dL 0.1-0.5 CBC W/PLT COUNT & AUTO [id number] 11:35:00* Test Item Value Reference Range Comments WHITE BLOOD CELL COUNT (BEAKER) (test xdah=006) 7.4 K/ L 3.5-10.5 RED BLOOD CELL COUNT (BEAKER) (test nxlw=144) 4.07 M/ L 4.63-6.08 HEMOGLOBIN (BEAKER) (test kpqc=732) 12.1 GM/DL 13.7-17.5 HEMATOCRIT (BEAKER) (test tihq=060) 36.9 % 40.1-51.0 MEAN CORPUSCULAR VOLUME (BEAKER) (test tgsd=698) 90.7 fL 79.0-92.2 MEAN CORPUSCULAR HEMOGLOBIN (BEAKER) (test xlow=257) 29.7 pg 25.7-32.2 MEAN CORPUSCULAR HEMOGLOBIN CONC (BEAKER) (test vdlm=304) 32.8 GM/DL 32.3-36.5 RED CELL DISTRIBUTION WIDTH (BEAKER) (test akyr=798) 15.6 % 11.6-14.4 PLATELET COUNT (BEAKER) (test nkmv=892) 104 K/CU MM 150-450 MEAN PLATELET VOLUME (BEAKER) (test ebws=478) 9.0 fL 9.4-12.4 NUCLEATED RED BLOOD CELLS (BEAKER) (test afor=639) 0 /100 WBC 0-0 NEUTROPHILS RELATIVE PERCENT (BEAKER) (test ravb=589) 78 % LYMPHOCYTES RELATIVE PERCENT (BEAKER) (test cuvi=798) 13 % MONOCYTES RELATIVE PERCENT (BEAKER) (test rxoc=443) 6 % EOSINOPHILS RELATIVE PERCENT (BEAKER) (test lufd=189) 1 % BASOPHILS RELATIVE PERCENT (BEAKER) (test dyss=904) 0 % NEUTROPHILS ABSOLUTE COUNT (BEAKER) (test awpd=686) 5.71 K/ L 1.78-5.38 LYMPHOCYTES ABSOLUTE COUNT (BEAKER) (test dzyx=478) 0.97 K/ L 1.32-3.57 MONOCYTES ABSOLUTE COUNT (BEAKER) (test oosp=955) 0.45 K/ L 0.30-0.82 EOSINOPHILS ABSOLUTE COUNT (BEAKER) (test qwqx=011) 0.06 K/ L 0.04-0.54 BASOPHILS ABSOLUTE COUNT (BEAKER) (test upgp=319) 0.02 K/ L 0.01-0.08 IMMATURE GRANULOCYTES-RELATIVE PERCENT (BEAKER) (test mmcy=5027) 2 % 0-1 TACROLIMUS [id number] 10:59:00* Test Item Value Reference Range Comments TACROLIMUS BLOOD (BEAKER) (test qwed=499) 9.7 ng/mL 10.0-20.0 [id number] 09:06:00* Test Item Value Reference Range Comments MAGNESIUM (BEAKER) (test dcfv=339) 1.6 mg/dL 1.6-2.6 COMPREHENSIVE METABOLIC [id number] 09:06:00* Test Item Value Reference Range Comments TOTAL PROTEIN (BEAKER) (test qchz=425) 6.6 gm/dL 6.0-8.3 ALBUMIN (BEAKER) (test qrzg=9713) 4.2 g/dL 3.5-5.0 ALKALINE PHOSPHATASE (BEAKER) (test npeq=976) 53 U/L 40-150 BILIRUBIN TOTAL (BEAKER) (test ywfm=037) 1.1 mg/dL 0.2-1.2 SODIUM (BEAKER) (test lfkg=502) 144 meq/L 136-145 POTASSIUM (BEAKER) (test yunb=032) 3.8 meq/L 3.5-5.1 CHLORIDE (BEAKER) (test fbnp=041) 111 meq/L 98-107 CO2 (BEAKER) (test nsgs=359) 23 meq/L 22-29 BLOOD UREA NITROGEN (BEAKER) (test cyys=671) 36 mg/dL 7-21 CREATININE (BEAKER) (test siqt=247) 1.61 mg/dL 0.57-1.25 GLUCOSE RANDOM (BEAKER) (test wkem=604) 87 mg/dL 70-105 CALCIUM (BEAKER) (test imcm=428) 9.0 mg/dL 8.4-10.2 AST (SGOT) (BEAKER) (test kacz=204) 11 U/L 5-34 ALT (SGPT) (BEAKER) (test bvjq=414) 13 U/L 6-55 EGFR (BEAKER) (test hpdj=8606) 46 mL/min/1.73 sq m ESTIMATED GFR IS NOT ACCURATE CREATININE CLEARANCE IN PREDICTING GLOMERULAR FILTRATION RATE. ESTIMATED GFR IS NOT APPLICABLE FOR DIALYSIS PATIENTS. BILIRUBIN, [id number] 09:06:00* Test Item Value Reference Range Comments BILIRUBIN DIRECT (BEAKER) (test xngr=305) 0.7 mg/dL 0.1-0.5 CBC W/PLT COUNT & AUTO [id number] 08:35:00* Test Item Value Reference Range Comments WHITE BLOOD CELL COUNT (BEAKER) (test szcw=285) 8.1 K/ L 3.5-10.5 RED BLOOD CELL COUNT (BEAKER) (test umlc=061) 3.86 M/ L 4.63-6.08 HEMOGLOBIN (BEAKER) (test uyof=120) 11.7 GM/DL 13.7-17.5 HEMATOCRIT (BEAKER) (test vrvb=048) 36.2 % 40.1-51.0 MEAN CORPUSCULAR VOLUME (BEAKER) (test gvgg=534) 93.8 fL 79.0-92.2 MEAN CORPUSCULAR HEMOGLOBIN (BEAKER) (test goyp=454) 30.3 pg 25.7-32.2 MEAN CORPUSCULAR HEMOGLOBIN CONC (BEAKER) (test qcqu=745) 32.3 GM/DL 32.3-36.5 RED CELL DISTRIBUTION WIDTH (BEAKER) (test tfjj=705) 16.5 % 11.6-14.4 PLATELET COUNT (BEAKER) (test cvee=529) 100 K/CU MM 150-450 MEAN PLATELET VOLUME (BEAKER) (test krwd=928) 9.1 fL 9.4-12.4 NUCLEATED RED BLOOD CELLS (BEAKER) (test gcvd=673) 0 /100 WBC 0-0 NEUTROPHILS RELATIVE PERCENT (BEAKER) (test hrja=810) 79 % LYMPHOCYTES RELATIVE PERCENT (BEAKER) (test wslf=977) 13 % MONOCYTES RELATIVE PERCENT (BEAKER) (test avnr=888) 6 % EOSINOPHILS RELATIVE PERCENT (BEAKER) (test esem=258) 1 % BASOPHILS RELATIVE PERCENT (BEAKER) (test fpbv=058) 0 % NEUTROPHILS ABSOLUTE COUNT (BEAKER) (test djon=023) 6.46 K/ L 1.78-5.38 LYMPHOCYTES ABSOLUTE COUNT (BEAKER) (test vynh=778) 1.03 K/ L 1.32-3.57 MONOCYTES ABSOLUTE COUNT (BEAKER) (test bbmp=379) 0.46 K/ L 0.30-0.82 EOSINOPHILS ABSOLUTE COUNT (BEAKER) (test vqfh=068) 0.05 K/ L 0.04-0.54 BASOPHILS ABSOLUTE COUNT (BEAKER) (test ftvw=876) 0.03 K/ L 0.01-0.08 IMMATURE GRANULOCYTES-RELATIVE PERCENT (BEAKER) (test hrtr=8164) 1 % 0-1 TACROLIMUS [id number] 13:12:00* Test Item Value Reference Range Comments TACROLIMUS BLOOD (BEAKER) (test oria=119) 8.8 ng/mL 10.0-20.0 [id number] 10:38:00* Test Item Value Reference Range Comments MAGNESIUM (BEAKER) (test sxuq=677) 1.9 mg/dL 1.6-2.6 COMPREHENSIVE METABOLIC [id number] 10:38:00* Test Item Value Reference Range Comments TOTAL PROTEIN (BEAKER) (test ffvp=764) 6.3 gm/dL 6.0-8.3 ALBUMIN (BEAKER) (test cogf=0804) 4.0 g/dL 3.5-5.0 ALKALINE PHOSPHATASE (BEAKER) (test xmvt=315) 49 U/L 40-150 BILIRUBIN TOTAL (BEAKER) (test vgub=968) 1.3 mg/dL 0.2-1.2 SODIUM (BEAKER) (test ndqa=057) 147 meq/L 136-145 POTASSIUM (BEAKER) (test eumq=638) 3.9 meq/L 3.5-5.1 CHLORIDE (BEAKER) (test hlsw=560) 120 meq/L 98-107 CO2 (BEAKER) (test vcof=017) 19 meq/L 22-29 BLOOD UREA NITROGEN (BEAKER) (test tvsn=580) 37 mg/dL 7-21 CREATININE (BEAKER) (test oizy=319) 1.59 mg/dL 0.57-1.25 GLUCOSE RANDOM (BEAKER) (test rlbh=201) 63 mg/dL 70-105 CALCIUM (BEAKER) (test pykp=544) 9.4 mg/dL 8.4-10.2 AST (SGOT) (BEAKER) (test ayva=007) 13 U/L 5-34 ALT (SGPT) (BEAKER) (test ouaa=425) 15 U/L 6-55 EGFR (BEAKER) (test jmlx=3511) 46 mL/min/1.73 sq m ESTIMATED GFR IS NOT ACCURATE CREATININE CLEARANCE IN PREDICTING GLOMERULAR FILTRATION RATE. ESTIMATED GFR IS NOT APPLICABLE FOR DIALYSIS PATIENTS. BILIRUBIN, [id number] 10:38:00* Test Item Value Reference Range Comments BILIRUBIN DIRECT (BEAKER) (test hsat=977) 0.7 mg/dL 0.1-0.5 CBC W/PLT COUNT & AUTO [id number] 10:08:00* Test Item Value Reference Range Comments WHITE BLOOD CELL COUNT (BEAKER) (test wnwr=318) 9.5 K/ L 3.5-10.5 RED BLOOD CELL COUNT (BEAKER) (test ltxd=151) 3.78 M/ L 4.63-6.08 HEMOGLOBIN (BEAKER) (test tpqc=507) 11.5 GM/DL 13.7-17.5 HEMATOCRIT (BEAKER) (test kvwp=208) 35.4 % 40.1-51.0 MEAN CORPUSCULAR VOLUME (BEAKER) (test hjoy=613) 93.7 fL 79.0-92.2 MEAN CORPUSCULAR HEMOGLOBIN (BEAKER) (test ebdt=977) 30.4 pg 25.7-32.2 MEAN CORPUSCULAR HEMOGLOBIN CONC (BEAKER) (test kcum=915) 32.5 GM/DL 32.3-36.5 RED CELL DISTRIBUTION WIDTH (BEAKER) (test fbhg=622) 17.9 % 11.6-14.4 PLATELET COUNT (BEAKER) (test vdcp=479) 93 K/CU MM 150-450 MEAN PLATELET VOLUME (BEAKER) (test qdxn=370) 9.8 fL 9.4-12.4 NUCLEATED RED BLOOD CELLS (BEAKER) (test atgl=309) 0 /100 WBC 0-0 NEUTROPHILS RELATIVE PERCENT (BEAKER) (test dcea=800) 79 % LYMPHOCYTES RELATIVE PERCENT (BEAKER) (test esuo=992) 13 % MONOCYTES RELATIVE PERCENT (BEAKER) (test klyx=217) 6 % EOSINOPHILS RELATIVE PERCENT (BEAKER) (test wauk=781) 1 % BASOPHILS RELATIVE PERCENT (BEAKER) (test jnhp=156) 1 % NEUTROPHILS ABSOLUTE COUNT (BEAKER) (test tmwf=855) 7.48 K/ L 1.78-5.38 LYMPHOCYTES ABSOLUTE COUNT (BEAKER) (test uynq=122) 1.26 K/ L 1.32-3.57 MONOCYTES ABSOLUTE COUNT (BEAKER) (test ccro=064) 0.53 K/ L 0.30-0.82 EOSINOPHILS ABSOLUTE COUNT (BEAKER) (test sfvf=514) 0.05 K/ L 0.04-0.54 BASOPHILS ABSOLUTE COUNT (BEAKER) (test rosp=423) 0.05 K/ L 0.01-0.08 IMMATURE GRANULOCYTES-RELATIVE PERCENT (BEAKER) (test pske=8196) 2 % 0-1 BLOOD [id number] 05:00:00* Test Item Value Reference Range Comments CULTURE (BEAKER) (test jkef=0622) No growth in 5 days BLOOD [id number] 23:01:00* Test Item Value Reference Range Comments CULTURE (BEAKER) (test xzzp=7491) No growth in 5 days EBV VIRAL [id number] 14:33:00* Test Item Value Reference Range Comments EBV VIRAL LOAD - NEGATIVE (BEAKER) (test rewd=1411) Negative or below the linear range of the assay (<500 copies/mL) This assay was performed by real-time PCR for the detection of the Guerline-Acevedo virus (EBV) gene EBNA-1. The test is composed of (1) DNA extraction from patien t specimen, and (2) real-time PCR amplification and detection with BSOM-8-hnnzrp ic primers and probes. A well-conserved region of the EBNA-1 gene is targeted, a long with an internal control sequence used to confirm PCR amplification. Asympt omatic carriers and viral genetic variation, among other factors, can affect the accuracy of nucleic acid testing; therefore, results should be interpreted in l ight of clinical data.This test was developed and its performance characteristic s determined by the [facility]ology Department, Section of [facility]. It has not been cleared or approved by the U.S. Food and Bert g Administration (FDA), since FDA approval is not required for clinical use of t he test. Validation was done as required by The Clinical Laboratory Improvement Amendments of 1988.POCT-GLUCOSE [id number] 12:33:00* Test Item Value Reference Range Comments POC-GLUCOSE METER (BEAKER) (test hsss=3916) 164 mg/dL 70-110 TESTED AT [address] [address] URINE [id number] 12:02:00* Test Item Value Reference Range Comments CULTURE (BEAKER) (test dpvi=0223) <10,000 col/mL skin coral TACROLIMUS [id number] 11:55:00* Test Item Value Reference Range Comments TACROLIMUS BLOOD (BEAKER) (test rqip=819) 8.9 ng/mL 10.0-20.0 POCT-GLUCOSE [id number] 08:42:00* Test Item Value Reference Range Comments POC-GLUCOSE METER (BEAKER) (test vpsm=2363) 143 mg/dL 70-110 TESTED AT [address] [address] CALCIUM, [id number] 06:54:00* Test Item Value Reference Range Comments CALCIUM IONIZED (BEAKER) (test twby=337) 1.14 mmol/L 1.12-1.27 PH, BLOOD (BEAKER) (test gvhl=8952) 7.36 [id number] 06:39:00* Test Item Value Reference Range Comments PHOSPHORUS (BEAKER) (test ehcu=167) 4.2 mg/dL 2.3-4.7 [id number] 06:39:00* Test Item Value Reference Range Comments MAGNESIUM (BEAKER) (test xpyc=640) 2.0 mg/dL 1.6-2.6 BASIC METABOLIC [id number] 06:39:00* Test Item Value Reference Range Comments SODIUM (BEAKER) (test suan=422) 147 meq/L 136-145 POTASSIUM (BEAKER) (test opjt=039) 4.0 meq/L 3.5-5.1 CHLORIDE (BEAKER) (test zkbe=124) 120 meq/L 98-107 CO2 (BEAKER) (test akqt=176) 19 meq/L 22-29 BLOOD UREA NITROGEN (BEAKER) (test lcvh=385) 44 mg/dL 7-21 CREATININE (BEAKER) (test xttf=688) 1.94 mg/dL 0.57-1.25 GLUCOSE RANDOM (BEAKER) (test kmzk=352) 154 mg/dL 70-105 CALCIUM (BEAKER) (test loib=519) 8.9 mg/dL 8.4-10.2 EGFR (BEAKER) (test gymj=1176) 37 mL/min/1.73 sq m ESTIMATED GFR IS NOT ACCURATE CREATININE CLEARANCE IN PREDICTING GLOMERULAR FILTRATION RATE. ESTIMATED GFR IS NOT APPLICABLE FOR DIALYSIS PATIENTS. HEPATIC FUNCTION [id number] 06:39:00* Test Item Value Reference Range Comments TOTAL PROTEIN (BEAKER) (test aftj=500) 6.1 gm/dL 6.0-8.3 ALBUMIN (BEAKER) (test ihqy=6408) 3.9 g/dL 3.5-5.0 BILIRUBIN TOTAL (BEAKER) (test qrhq=683) 1.4 mg/dL 0.2-1.2 BILIRUBIN DIRECT (BEAKER) (test elgn=818) 0.8 mg/dL 0.1-0.5 ALKALINE PHOSPHATASE (BEAKER) (test mlxx=401) 49 U/L 40-150 AST (SGOT) (BEAKER) (test hijo=646) 11 U/L 5-34 ALT (SGPT) (BEAKER) (test bbcx=110) 14 U/L 6-55 CBC W/PLT COUNT & AUTO [id number] 06:34:00* Test Item Value Reference Range Comments WHITE BLOOD CELL COUNT (BEAKER) (test myry=754) 7.3 K/ L 3.5-10.5 RED BLOOD CELL COUNT (BEAKER) (test ygml=773) 3.43 M/ L 4.63-6.08 HEMOGLOBIN (BEAKER) (test hrfd=688) 10.2 GM/DL 13.7-17.5 HEMATOCRIT (BEAKER) (test ltdm=225) 31.6 % 40.1-51.0 MEAN CORPUSCULAR VOLUME (BEAKER) (test ofoa=434) 92.1 fL 79.0-92.2 MEAN CORPUSCULAR HEMOGLOBIN (BEAKER) (test cryb=246) 29.7 pg 25.7-32.2 MEAN CORPUSCULAR HEMOGLOBIN CONC (BEAKER) (test wujc=699) 32.3 GM/DL 32.3-36.5 RED CELL DISTRIBUTION WIDTH (BEAKER) (test otdq=164) 17.3 % 11.6-14.4 PLATELET COUNT (BEAKER) (test gtha=997) 96 K/CU MM 150-450 MEAN PLATELET VOLUME (BEAKER) (test eonh=409) 9.3 fL 9.4-12.4 NUCLEATED RED BLOOD CELLS (BEAKER) (test mfiy=223) 0 /100 WBC 0-0 NEUTROPHILS RELATIVE PERCENT (BEAKER) (test ynio=731) 83 % LYMPHOCYTES RELATIVE PERCENT (BEAKER) (test asse=568) 10 % MONOCYTES RELATIVE PERCENT (BEAKER) (test azkl=151) 6 % EOSINOPHILS RELATIVE PERCENT (BEAKER) (test iboy=994) 0 % BASOPHILS RELATIVE PERCENT (BEAKER) (test adod=916) 0 % NEUTROPHILS ABSOLUTE COUNT (BEAKER) (test dqgy=353) 6.10 K/ L 1.78-5.38 LYMPHOCYTES ABSOLUTE COUNT (BEAKER) (test qxsd=376) 0.72 K/ L 1.32-3.57 MONOCYTES ABSOLUTE COUNT (BEAKER) (test udmm=943) 0.45 K/ L 0.30-0.82 EOSINOPHILS ABSOLUTE COUNT (BEAKER) (test yglh=446) 0.00 K/ L 0.04-0.54 BASOPHILS ABSOLUTE COUNT (BEAKER) (test lstq=838) 0.02 K/ L 0.01-0.08 IMMATURE GRANULOCYTES-RELATIVE PERCENT (BEAKER) (test ytfj=4870) 1 % 0-1 [id number] 06:33:00* Test Item Value Reference Range Comments PROTIME (BEAKER) (test ilms=402) 15.3 seconds 11.7-14.7 INR (BEAKER) (test bazu=033) 1.2 <=5.9 PARTIAL THROMBOPLASTIN TIME (BEAKER) (test whih=424) 26.9 seconds 22.5-36.0 RECOMMENDED COUMADIN/WARFARIN INR THERAPY RANGESSTANDARD DOSE: 2.0 - 3.0 Inclu kaya: PROPHYLAXIS for venous thrombosis, systemic embolization; TREATMENT for barby ous thrombosis and/or pulmonary embolus.HIGH RISK: Target INR is 2.5-3.5 for pat ients with mechanical heart valves.POCT-GLUCOSE [id number] 00:24:00* Test Item Value Reference Range Comments POC-GLUCOSE METER (BEAKER) (test gvce=2559) 255 mg/dL 70-110 TESTED AT [address] [address] [id number] 22:50:00* Test Item Value Reference Range Comments SODIUM (BEAKER) (test udby=093) 144 meq/L 136-145 POTASSIUM (BEAKER) (test zgbk=097) 4.5 meq/L 3.5-5.1 CHLORIDE (BEAKER) (test embj=547) 117 meq/L 98-107 CO2 (BEAKER) (test dnir=526) 18 meq/L 22-29 Call [id number] 18:16:00* Test Item Value Reference Range Comments POC-GLUCOSE METER (BEAKER) (test aayq=7214) 219 mg/dL 70-110 TESTED AT [place] [id number] BASIC METABOLIC [id number] 16:16:00* Test Item Value Reference Range Comments SODIUM (BEAKER) (test zxyp=659) 144 meq/L 136-145 POTASSIUM (BEAKER) (test hzpd=786) 5.3 meq/L 3.5-5.1 CHLORIDE (BEAKER) (test smck=283) 117 meq/L 98-107 CO2 (BEAKER) (test hcfq=900) 19 meq/L 22-29 BLOOD UREA NITROGEN (BEAKER) (test uhuf=112) 41 mg/dL 7-21 CREATININE (BEAKER) (test lalm=931) 1.99 mg/dL 0.57-1.25 GLUCOSE RANDOM (BEAKER) (test vnjj=104) 163 mg/dL 70-105 CALCIUM (BEAKER) (test pgii=977) 9.1 mg/dL 8.4-10.2 EGFR (BEAKER) (test ckjm=2610) 36 mL/min/1.73 sq m ESTIMATED GFR IS NOT ACCURATE CREATININE CLEARANCE IN PREDICTING GLOMERULAR FILTRATION RATE. ESTIMATED GFR IS NOT APPLICABLE FOR DIALYSIS PATIENTS. AFTER kayexalate administeredCMV PCR, [id number] 14:50:00* Test Item Value Reference Range Comments CMV VIRAL LOAD - NEGATIVE (CYNDY) (test dfwh=4553) Negative or below the linear range of the assay (<375 copies/mL) Cytomegalovirus (CMV) infection can cause significant disease in immunosuppresse d patients. However, it is common for CMV to manifest as a limited infection whi ch is of no clinical significance in immunosuppressed patients or in healthy ind ividuals.Viral load measurements are helpful to identify clinical CMV infection and to guide the pre-emptive management of antiviral therapy. For treatment of CMV infection due to reactivation in transplant recipients, a threshold between 4,000 and 5,000 copies/mL is suggested. For treatment of primary CMV infection, a lower threshold can be used.CMV infection may also be monitored using weekly serial measurements. Serial measurements of CMV DNA viral load can be evaluated by identifying a 10-fold change, as well as assessing the CMV DNA viral load and the clinical context for each patient.The plasma CMV DNA viral load was detected using quantitative polymerase chain reaction and fluorescent monitoring of a s pecific hybridized probe. Genetic variation and other factors can affect the acc uracy of nucleic acid testing. Therefore, the results should be interpreted in l ight of clinical data. A negative result may not exclude the presence of CMV dis ease.This test was developed and its performance characteristics determined by [facility] Pathology Department, Section of Molecular Patholog y. It has not been cleared or approved by the U.S. Food and Drug Administration (FDA), since FDA approval is not required for clinical use of the test. Validati on was done as required by The Clinical Laboratory Improvement Amendments of 198 8.POCT-GLUCOSE [id number] 12:35:00* Test Item Value Reference Range Comments POC-GLUCOSE METER ([employer]) (test tpva=5910) 164 mg/dL 70-110 TESTED AT [facility] [address] [facility] [address] TACROLIMUS [id number] 09:17:00* Test Item Value Reference Range Comments TACROLIMUS BLOOD ([employer]) (test wdou=031) 9.7 ng/mL 10.0-20.0 [id number] 09:10:00* Test Item Value Reference Range Comments POTASSIUM (BEAKER) (test bksg=094) 6.1 meq/L 3.5-5.1 POCT-GLUCOSE [id number] 08:52:00* Test Item Value Reference Range Comments POC-GLUCOSE METER (BEAKER) (test zavy=0149) 178 mg/dL 70-110 TESTED AT [facility] [address] [facility] [address] BASIC METABOLIC [id number] 07:06:00* Test Item Value Reference Range Comments SODIUM (BEAKER) (test cpob=754) 142 meq/L 136-145 POTASSIUM (BEAKER) (test esxk=970) 6.0 meq/L 3.5-5.1 CHLORIDE (BEAKER) (test zyff=598) 120 meq/L 98-107 CO2 (BEAKER) (test acde=949) 17 meq/L 22-29 BLOOD UREA NITROGEN (BEAKER) (test zbgf=302) 42 mg/dL 7-21 CREATININE (BEAKER) (test kffy=782) 1.76 mg/dL 0.57-1.25 GLUCOSE RANDOM (BEAKER) (test ipwm=935) 177 mg/dL 70-105 CALCIUM (BEAKER) (test ycbt=002) 8.9 mg/dL 8.4-10.2 EGFR (BEAKER) (test qxym=6544) 41 mL/min/1.73 sq m ESTIMATED GFR IS NOT ACCURATE CREATININE CLEARANCE IN PREDICTING GLOMERULAR FILTRATION RATE. ESTIMATED GFR IS NOT APPLICABLE FOR DIALYSIS PATIENTS. [id number] 06:50:00* Test Item Value Reference Range Comments PREALBUMIN (BEAKER) (test tcsi=748) 29 mg/dL 14-45 [id number] 06:45:00* Test Item Value Reference Range Comments PHOSPHORUS (BEAKER) (test hpxm=891) 3.9 mg/dL 2.3-4.7 [id number] 06:45:00* Test Item Value Reference Range Comments MAGNESIUM (BEAKER) (test inru=141) 1.9 mg/dL 1.6-2.6 HEPATIC FUNCTION [id number] 06:45:00* Test Item Value Reference Range Comments TOTAL PROTEIN (BEAKER) (test mlmu=352) 5.6 gm/dL 6.0-8.3 ALBUMIN (BEAKER) (test easa=0969) 3.6 g/dL 3.5-5.0 BILIRUBIN TOTAL (BEAKER) (test nasg=799) 1.4 mg/dL 0.2-1.2 BILIRUBIN DIRECT (BEAKER) (test ovmx=034) 0.9 mg/dL 0.1-0.5 ALKALINE PHOSPHATASE (BEAKER) (test avyt=582) 49 U/L 40-150 AST (SGOT) (BEAKER) (test ckij=216) 14 U/L 5-34 ALT (SGPT) (BEAKER) (test jtsu=209) 18 U/L 6-55 C-REACTIVE [id number] 06:45:00* Test Item Value Reference Range Comments C-REACTIVE PROTEIN (BEAKER) (test yelv=968) 0.19 mg/dL 0.00-0.50 [id number] 06:30:00* Test Item Value Reference Range Comments PROTIME (BEAKER) (test denc=327) 15.4 seconds 11.7-14.7 INR (BEAKER) (test odsd=458) 1.2 <=5.9 PARTIAL THROMBOPLASTIN TIME (BEAKER) (test ppla=662) 27.5 seconds 22.5-36.0 RECOMMENDED COUMADIN/WARFARIN INR THERAPY RANGESSTANDARD DOSE: 2.0 - 3.0 Inclu kaya: PROPHYLAXIS for venous thrombosis, systemic embolization; TREATMENT for barby ous thrombosis and/or pulmonary embolus.HIGH RISK: Target INR is 2.5-3.5 for pat ients with mechanical heart valves.PROTHROMBIN TIME/[id number] 06:29:00* Test Item Value Reference Range Comments PROTIME (BEAKER) (test btwd=053) 15.4 seconds 11.7-14.7 INR (BEAKER) (test sxbf=150) 1.2 <=5.9 RECOMMENDED COUMADIN/WARFARIN INR THERAPY RANGESSTANDARD DOSE: 2.0 - 3.0 Inclu kaya: PROPHYLAXIS for venous thrombosis, systemic embolization; TREATMENT for barby ous thrombosis and/or pulmonary embolus.HIGH RISK: Target INR is 2.5-3.5 for pat ients with mechanical heart valves.CBC W/PLT COUNT & AUTO [id number] 06:25:00* Test Item Value Reference Range Comments WHITE BLOOD CELL COUNT (BEAKER) (test ntmq=100) 5.9 K/ L 3.5-10.5 RED BLOOD CELL COUNT (BEAKER) (test dhaz=027) 3.37 M/ L 4.63-6.08 HEMOGLOBIN (BEAKER) (test alxv=774) 10.3 GM/DL 13.7-17.5 HEMATOCRIT (BEAKER) (test dctn=048) 31.1 % 40.1-51.0 MEAN CORPUSCULAR VOLUME (BEAKER) (test yara=391) 92.3 fL 79.0-92.2 MEAN CORPUSCULAR HEMOGLOBIN (BEAKER) (test bqiz=035) 30.6 pg 25.7-32.2 MEAN CORPUSCULAR HEMOGLOBIN CONC (BEAKER) (test meld=697) 33.1 GM/DL 32.3-36.5 RED CELL DISTRIBUTION WIDTH (BEAKER) (test rmtu=104) 17.3 % 11.6-14.4 PLATELET COUNT (BEAKER) (test nrab=811) 94 K/CU MM 150-450 MEAN PLATELET VOLUME (BEAKER) (test mhiz=838) 9.6 fL 9.4-12.4 NUCLEATED RED BLOOD CELLS (BEAKER) (test tqkq=692) 0 /100 WBC 0-0 NEUTROPHILS RELATIVE PERCENT (BEAKER) (test vqtr=520) 92 % LYMPHOCYTES RELATIVE PERCENT (BEAKER) (test lcuv=209) 5 % MONOCYTES RELATIVE PERCENT (BEAKER) (test opbe=903) 1 % EOSINOPHILS RELATIVE PERCENT (BEAKER) (test uuqv=231) 0 % BASOPHILS RELATIVE PERCENT (BEAKER) (test uvqh=665) 1 % NEUTROPHILS ABSOLUTE COUNT (BEAKER) (test dhtq=601) 5.44 K/ L 1.78-5.38 LYMPHOCYTES ABSOLUTE COUNT (BEAKER) (test knsv=981) 0.31 K/ L 1.32-3.57 MONOCYTES ABSOLUTE COUNT (BEAKER) (test yoxb=590) 0.06 K/ L 0.30-0.82 EOSINOPHILS ABSOLUTE COUNT (BEAKER) (test lcpz=579) 0.01 K/ L 0.04-0.54 BASOPHILS ABSOLUTE COUNT (BEAKER) (test qujg=848) 0.03 K/ L 0.01-0.08 IMMATURE GRANULOCYTES-RELATIVE PERCENT (BEAKER) (test ahlv=2335) 1 % 0-1 U/S, HEPATIC PORTAL VESSEL WITH [id number] 02:37:00Referring:Dr. Marciano Villa for exam:->abominal painFINAL REPORT INDICATION: abominal pain COMPARISON: Pelvic Doppler dated 12/28/2017. TECHNIQUE: Real-time burger-scale transabdominal and color and spectral Doppler ultrasound. FINDINGS:Liver: Size: 16.9cm. Echogenicity: Normal. Masses/lesions: None. Surface Nodularity: None. Intrahepatic bile ducts: Normal. Common bile duct: 0.3cm. MPV: 1.4cm. Gallbladder: Surgically absent Pancreas: Head and uncinate process: Not well seen. Body and tail: Not well-seen. Spleen: Size: 20.4cm. Echogenicity: Unremarkable. Right kidney: Size: 10.2 x 5.1 x 4.8 cm. Parenchyma: Normal echogenicity. No cysts. No stones. Hydronephrosis: None. Left kidney:Not imaged. Ascites: Moderate volume intra-abdominal ascites.. Regional Vasculature: The visible abdominal aorta, IVC and hepatic veins are patent. The aorta measures 2.3 cm proximally, 2.2 cm in the midportion. Distal portion not well se en. Color and Spectral imaging:MPV: Diameter: 1.4 Flow: Hepatopedal. Velocity: 57.4 cm/sec Filling defects: NoneLeft and right portal veins: Patent. Flow: Antegrade Filling defects: None. Hepatic arteries: Pa tent RI proper hepatic: 0.7 RI right hepatic: 0.6 RI left hepatic: 0 .6 IVC, Hepatic venous confluence, right HV, middle HV and left HV are patent. A dditional findings: None. IMPRESSION: Unremarkable appearance of the transplant liver. Hepatic/portal vasculature is patent. Persistently increased velocity wi thin the main portal vein measuring up to 57.4 cm/s is nonspecific, recommend co ntinued attention on follow-up. Moderate volume intraabdominal ascites. Splenome louisa. Signed: Jennifer Morel MDReport Verified Date/Time: 01/09/2018 02:37 :12 Reading Location: [address] Transitional Reading Room Electronically sig luigi by: JENNIFRE MOREL MD on 01/09/2018 02:37 AM URINALYSIS W/ [id number] 01:08:00* Test Item Value Reference Range Comments COLOR (BEAKER) (test zabo=474) Yellow CLARITY (BEAKER) (test jnew=890) Clear SPECIFIC GRAVITY UA (BEAKER) (test knim=872) 1.015 1.001-1.035 PH UA (BEAKER) (test mxbd=854) 6.5 5.0-8.0 PROTEIN UA (BEAKER) (test mpsp=470) Negative Negative GLUCOSE UA (BEAKER) (test txvw=781) Negative Negative KETONES UA (BEAKER) (test vyie=952) Negative Negative BILIRUBIN UA (BEAKER) (test viva=107) Negative Negative BLOOD UA (BEAKER) (test odcf=212) Negative Negative NITRITE UA (BEAKER) (test oobz=023) Negative Negative LEUKOCYTE ESTERASE UA (BEAKER) (test msfp=457) Negative Negative UROBILINOGEN UA (BEAKER) (test silj=937) 0.2 mg/dL 0.2-1.0 RBC UA (BEAKER) (test fbaa=377) < /HPF WBC UA (BEAKER) (test cuhe=757) 1 /HPF SQUAMOUS EPITHELIAL (BEAKER) (test lmzi=907) < /HPF HYALINE CASTS (BEAKER) (test lkzs=981) 1 /LPF CRYSTALS, URINE (BEAKER) (test fmsy=7465) Rare SOURCE(BEAKER) (test vopf=6448) POCT-GLUCOSE [id number] 00:36:00* Test Item Value Reference Range Comments POC-GLUCOSE METER (BEAKER) (test jpuk=9557) 157 mg/dL 70-110 TESTED AT [facility] [address] [facility] [address] RAD, CHEST, 1 VIEW, NON [id number] 21:07:00Referring:Dr. Macriano Villa for exam:->altered mental statusShould this be performed at the bedside?->YesFINAL REPORT Chest one view AP 01/08/2018 9:07 PM CLINICAL INDICATION: altered mental status COMPARISON: 12/28/2017 IMPRESSION: The lungs are hypoinflated, but otherwise clear. Cardiomediastinal contours are within nor mal limits. The central pulmonary vasculature is not engorged. Signed: Tamiko Yeboah MDReport Verified Date/Time: 01/08/2018 21:07:49 Reading Location: [facility] Radiology Reading Room TIC FUNCTION [id number] 20:10:00* Test Item Value Reference Range Comments TOTAL PROTEIN (BEAKER) (test otms=110) 6.7 gm/dL 6.0-8.3 ALBUMIN (BEAKER) (test tujs=0367) 4.3 g/dL 3.5-5.0 BILIRUBIN TOTAL (BEAKER) (test czms=841) 1.7 mg/dL 0.2-1.2 BILIRUBIN DIRECT (BEAKER) (test uxiz=700) 1.0 mg/dL 0.1-0.5 ALKALINE PHOSPHATASE (BEAKER) (test ntav=508) 55 U/L 40-150 AST (SGOT) (BEAKER) (test nqsv=484) 17 U/L 5-34 ALT (SGPT) (BEAKER) (test yhki=384) 18 U/L 6-55 BASIC METABOLIC [id number] 20:10:00* Test Item Value Reference Range Comments SODIUM (BEAKER) (test sggq=113) 144 meq/L 136-145 POTASSIUM (BEAKER) (test mnft=900) 4.9 meq/L 3.5-5.1 CHLORIDE (BEAKER) (test jjue=291) 116 meq/L 98-107 CO2 (BEAKER) (test ywfo=775) 23 meq/L 22-29 BLOOD UREA NITROGEN (BEAKER) (test mqco=064) 43 mg/dL 7-21 CREATININE (BEAKER) (test jpjk=595) 1.68 mg/dL 0.57-1.25 GLUCOSE RANDOM (BEAKER) (test ktio=525) 127 mg/dL 70-105 CALCIUM (BEAKER) (test bein=023) 9.3 mg/dL 8.4-10.2 EGFR (BEAKER) (test vlnf=0442) 43 mL/min/1.73 sq m ESTIMATED GFR IS NOT ACCURATE CREATININE CLEARANCE IN PREDICTING GLOMERULAR FILTRATION RATE. ESTIMATED GFR IS NOT APPLICABLE FOR DIALYSIS PATIENTS. PT/[id number] 20:02:00* Test Item Value Reference Range Comments PROTIME (BEAKER) (test kznx=911) 15.0 seconds 11.7-14.7 INR (BEAKER) (test oywy=068) 1.2 <=5.9 PARTIAL THROMBOPLASTIN TIME (BEAKER) (test hsvz=342) 28.9 seconds 22.5-36.0 RECOMMENDED COUMADIN/WARFARIN INR THERAPY RANGESSTANDARD DOSE: 2.0 - 3.0 Inclu kaya: PROPHYLAXIS for venous thrombosis, systemic embolization; TREATMENT for barby ous thrombosis and/or pulmonary embolus.HIGH RISK: Target INR is 2.5-3.5 for pat ients with mechanical heart valves.[id number] 20:02:00* Test Item Value Reference Range Comments PARTIAL THROMBOPLASTIN TIME (BEAKER) (test wtes=311) 28.9 seconds 22.5-36.0 CBC W/PLT COUNT & AUTO [id number] 19:56:00* Test Item Value Reference Range Comments WHITE BLOOD CELL COUNT (BEAKER) (test odxc=902) 5.7 K/ L 3.5-10.5 RED BLOOD CELL COUNT (BEAKER) (test yipm=732) 3.96 M/ L 4.63-6.08 HEMOGLOBIN (BEAKER) (test aqwk=617) 11.8 GM/DL 13.7-17.5 HEMATOCRIT (BEAKER) (test ojoh=390) 36.9 % 40.1-51.0 MEAN CORPUSCULAR VOLUME (BEAKER) (test heki=779) 93.2 fL 79.0-92.2 MEAN CORPUSCULAR HEMOGLOBIN (BEAKER) (test rpyg=703) 29.8 pg 25.7-32.2 MEAN CORPUSCULAR HEMOGLOBIN CONC (BEAKER) (test ygqn=007) 32.0 GM/DL 32.3-36.5 RED CELL DISTRIBUTION WIDTH (BEAKER) (test mnvv=868) 17.7 % 11.6-14.4 PLATELET COUNT (BEAKER) (test prtn=155) 106 K/CU MM 150-450 MEAN PLATELET VOLUME (BEAKER) (test dvcu=665) 8.7 fL 9.4-12.4 NUCLEATED RED BLOOD CELLS (BEAKER) (test ebfa=853) 0 /100 WBC 0-0 NEUTROPHILS RELATIVE PERCENT (BEAKER) (test zrcx=022) 72 % LYMPHOCYTES RELATIVE PERCENT (BEAKER) (test ziik=483) 19 % MONOCYTES RELATIVE PERCENT (BEAKER) (test akhr=147) 6 % EOSINOPHILS RELATIVE PERCENT (BEAKER) (test ewne=464) 1 % BASOPHILS RELATIVE PERCENT (BEAKER) (test uluh=160) 1 % NEUTROPHILS ABSOLUTE COUNT (BEAKER) (test beoe=256) 4.07 K/ L 1.78-5.38 LYMPHOCYTES ABSOLUTE COUNT (BEAKER) (test pokp=422) 1.08 K/ L 1.32-3.57 MONOCYTES ABSOLUTE COUNT (BEAKER) (test ajan=764) 0.36 K/ L 0.30-0.82 EOSINOPHILS ABSOLUTE COUNT (BEAKER) (test tuty=827) 0.05 K/ L 0.04-0.54 BASOPHILS ABSOLUTE COUNT (BEAKER) (test fpqb=770) 0.05 K/ L 0.01-0.08 IMMATURE GRANULOCYTES-RELATIVE PERCENT (BEAKER) (test bekc=7522) 1 % 0-1 CBC W/PLT COUNT & AUTO [id number] 19:56:00* Test Item Value Reference Range Comments WHITE BLOOD CELL COUNT (BEAKER) (test wylx=292) 5.8 K/ L 3.5-10.5 RED BLOOD CELL COUNT (BEAKER) (test xyil=246) 4.00 M/ L 4.63-6.08 HEMOGLOBIN (BEAKER) (test qrvz=612) 11.9 GM/DL 13.7-17.5 HEMATOCRIT (BEAKER) (test zbgo=995) 37.3 % 40.1-51.0 MEAN CORPUSCULAR VOLUME (BEAKER) (test reew=164) 93.3 fL 79.0-92.2 MEAN CORPUSCULAR HEMOGLOBIN (BEAKER) (test iltd=939) 29.8 pg 25.7-32.2 MEAN CORPUSCULAR HEMOGLOBIN CONC (BEAKER) (test covd=958) 31.9 GM/DL 32.3-36.5 RED CELL DISTRIBUTION WIDTH (BEAKER) (test tiya=649) 17.7 % 11.6-14.4 PLATELET COUNT (BEAKER) (test wmol=233) 112 K/CU MM 150-450 MEAN PLATELET VOLUME (BEAKER) (test mqxj=656) 9.3 fL 9.4-12.4 NUCLEATED RED BLOOD CELLS (BEAKER) (test amxv=747) 0 /100 WBC 0-0 NEUTROPHILS RELATIVE PERCENT (BEAKER) (test exvd=146) 73 % LYMPHOCYTES RELATIVE PERCENT (BEAKER) (test lggs=820) 18 % MONOCYTES RELATIVE PERCENT (BEAKER) (test cpdz=029) 6 % EOSINOPHILS RELATIVE PERCENT (BEAKER) (test jlro=296) 1 % BASOPHILS RELATIVE PERCENT (BEAKER) (test wfzd=575) 1 % NEUTROPHILS ABSOLUTE COUNT (BEAKER) (test tirs=803) 4.20 K/ L 1.78-5.38 LYMPHOCYTES ABSOLUTE COUNT (BEAKER) (test xgtt=710) 1.04 K/ L 1.32-3.57 MONOCYTES ABSOLUTE COUNT (BEAKER) (test maxw=459) 0.36 K/ L 0.30-0.82 EOSINOPHILS ABSOLUTE COUNT (BEAKER) (test uodf=997) 0.06 K/ L 0.04-0.54 BASOPHILS ABSOLUTE COUNT (BEAKER) (test tpmt=504) 0.04 K/ L 0.01-0.08 IMMATURE GRANULOCYTES-RELATIVE PERCENT (BEAKER) (test yndf=1663) 1 % 0-1 POCT-GLUCOSE [id number] 17:36:00* Test Item Value Reference Range Comments POC-GLUCOSE METER (BEAKER) (test judn=9980) 135 mg/dL 70-110 TESTED AT [place] [id number] POCT-GLUCOSE [id number] 13:10:00* Test Item Value Reference Range Comments POC-GLUCOSE METER (BEAKER) (test zkjj=3163) 323 mg/dL 70-110 Notified ANNA RICHARDSON/TESTED AT [address] [address] BLOOD [id number] 00:00:00* Test Item Value Reference Range Comments CULTURE (BEAKER) (test avbk=6026) No growth in 5 days BLOOD [id number] 18:01:00* Test Item Value Reference Range Comments CULTURE (BEAKER) (test cnmg=0533) No growth in 5 days TACROLIMUS [id number] 12:50:00* Test Item Value Reference Range Comments TACROLIMUS BLOOD (BEAKER) (test ogpu=875) 9.6 ng/mL 10.0-20.0 COMPREHENSIVE METABOLIC [id number] 12:25:00* Test Item Value Reference Range Comments TOTAL PROTEIN (BEAKER) (test pvjt=869) 6.6 gm/dL 6.0-8.3 Specimen slightly hemolyzed ALBUMIN (BEAKER) (test puml=2740) 4.3 g/dL 3.5-5.0 Specimen slightly hemolyzed ALKALINE PHOSPHATASE (BEAKER) (test ykyg=137) 42 U/L 40-150 BILIRUBIN TOTAL (BEAKER) (test tqno=548) 1.5 mg/dL 0.2-1.2 Specimen slightly hemolyzed SODIUM (BEAKER) (test xjxf=362) 146 meq/L 136-145 POTASSIUM (BEAKER) (test ztjv=826) 4.3 meq/L 3.5-5.1 Specimen slightly hemolyzed CHLORIDE (BEAKER) (test ysmi=384) 115 meq/L 98-107 CO2 (BEAKER) (test mtcl=410) 20 meq/L 22-29 BLOOD UREA NITROGEN (BEAKER) (test gyvq=031) 62 mg/dL 7-21 CREATININE (BEAKER) (test sico=448) 2.49 mg/dL 0.57-1.25 Specimen slightly hemolyzed GLUCOSE RANDOM (BEAKER) (test gbru=313) 75 mg/dL 70-105 CALCIUM (BEAKER) (test fsaa=577) 9.5 mg/dL 8.4-10.2 AST (SGOT) (BEAKER) (test eugs=264) 22 U/L 5-34 Specimen slightly hemolyzed ALT (SGPT) (BEAKER) (test kpbs=511) 17 U/L 6-55 Specimen slightly hemolyzed EGFR (BEAKER) (test lsfj=6350) 28 mL/min/1.73 sq m ESTIMATED GFR IS NOT ACCURATE CREATININE CLEARANCE IN PREDICTING GLOMERULAR FILTRATION RATE. ESTIMATED GFR IS NOT APPLICABLE FOR DIALYSIS PATIENTS. [id number] 12:07:00* Test Item Value Reference Range Comments MAGNESIUM (BEAKER) (test uaxa=981) 2.4 mg/dL 1.6-2.6 Specimen slightly hemolyzed BILIRUBIN, [id number] 12:07:00* Test Item Value Reference Range Comments BILIRUBIN DIRECT (BEAKER) (test popa=825) 0.8 mg/dL 0.1-0.5 Specimen slightly hemolyzed CBC W/PLT COUNT & AUTO [id number] 11:23:00* Test Item Value Reference Range Comments WHITE BLOOD CELL COUNT (BEAKER) (test fvfl=021) 5.9 K/ L 3.5-10.5 RED BLOOD CELL COUNT (BEAKER) (test jxvo=973) 3.25 M/ L 4.63-6.08 HEMOGLOBIN (BEAKER) (test rpkh=925) 9.8 GM/DL 13.7-17.5 HEMATOCRIT (BEAKER) (test olqw=915) 31.0 % 40.1-51.0 MEAN CORPUSCULAR VOLUME (BEAKER) (test harx=091) 95.4 fL 79.0-92.2 MEAN CORPUSCULAR HEMOGLOBIN (BEAKER) (test rmjo=200) 30.2 pg 25.7-32.2 MEAN CORPUSCULAR HEMOGLOBIN CONC (BEAKER) (test yfbf=688) 31.6 GM/DL 32.3-36.5 RED CELL DISTRIBUTION WIDTH (BEAKER) (test miyw=171) 18.9 % 11.6-14.4 PLATELET COUNT (BEAKER) (test xvux=528) 153 K/CU MM 150-450 MEAN PLATELET VOLUME (BEAKER) (test zmzs=135) 9.4 fL 9.4-12.4 NUCLEATED RED BLOOD CELLS (BEAKER) (test nogf=833) 0 /100 WBC 0-0 NEUTROPHILS RELATIVE PERCENT (BEAKER) (test bstd=244) 79 % LYMPHOCYTES RELATIVE PERCENT (BEAKER) (test avhv=388) 13 % MONOCYTES RELATIVE PERCENT (BEAKER) (test ypwm=154) 7 % EOSINOPHILS RELATIVE PERCENT (BEAKER) (test hinl=854) 0 % BASOPHILS RELATIVE PERCENT (BEAKER) (test fbbs=123) 1 % NEUTROPHILS ABSOLUTE COUNT (BEAKER) (test xxdv=941) 4.61 K/ L 1.78-5.38 LYMPHOCYTES ABSOLUTE COUNT (BEAKER) (test fznl=119) 0.75 K/ L 1.32-3.57 MONOCYTES ABSOLUTE COUNT (BEAKER) (test zliz=574) 0.42 K/ L 0.30-0.82 EOSINOPHILS ABSOLUTE COUNT (BEAKER) (test djfq=723) 0.01 K/ L 0.04-0.54 BASOPHILS ABSOLUTE COUNT (BEAKER) (test tcsc=070) 0.03 K/ L 0.01-0.08 IMMATURE GRANULOCYTES-RELATIVE PERCENT (BEAKER) (test nezx=6841) 1 % 0-1 BODY FLUID CULTURE + GRAM [id number] 10:21:00* Test Item Value Reference Range Comments CULTURE (BEAKER) (test ulss=9468) No growth GRAM STAIN RESULT (BEAKER) (test knkf=7424) <1+ White blood cells seen GRAM STAIN RESULT (BEAKER) (test vhgr=70836) No organisms seen POCT-GLUCOSE [id number] 16:28:00* Test Item Value Reference Range Comments POC-GLUCOSE METER (BEAKER) (test coui=7611) 117 mg/dL 70-110 TESTED AT [address] [address] POCT-GLUCOSE [id number] 14:13:00* Test Item Value Reference Range Comments POC-GLUCOSE METER (BEAKER) (test vjqx=5013) 110 mg/dL 70-110 TESTED AT [address] [address] TACROLIMUS [id number] 11:32:00* Test Item Value Reference Range Comments TACROLIMUS BLOOD (BEAKER) (test fndc=687) 9.7 ng/mL 10.0-20.0 POCT-GLUCOSE [id number] 08:45:00* Test Item Value Reference Range Comments POC-GLUCOSE METER (BEAKER) (test fmlj=3250) 196 mg/dL 70-110 TESTED AT [address] [address] BASIC METABOLIC [id number] 06:57:00* Test Item Value Reference Range Comments SODIUM (BEAKER) (test yjmj=754) 142 meq/L 136-145 POTASSIUM (BEAKER) (test qscu=694) 4.3 meq/L 3.5-5.1 CHLORIDE (BEAKER) (test zzng=189) 111 meq/L 98-107 CO2 (BEAKER) (test ojhm=833) 21 meq/L 22-29 BLOOD UREA NITROGEN (BEAKER) (test fbpx=623) 62 mg/dL 7-21 CREATININE (BEAKER) (test zonu=689) 3.22 mg/dL 0.57-1.25 GLUCOSE RANDOM (BEAKER) (test rifd=090) 214 mg/dL 70-105 CALCIUM (BEAKER) (test gsuh=483) 8.5 mg/dL 8.4-10.2 EGFR (BEAKER) (test fxuv=5497) 21 mL/min/1.73 sq m ESTIMATED GFR IS NOT ACCURATE CREATININE CLEARANCE IN PREDICTING GLOMERULAR FILTRATION RATE. ESTIMATED GFR IS NOT APPLICABLE FOR DIALYSIS PATIENTS. CBC W/PLT COUNT & AUTO [id number] 06:51:00* Test Item Value Reference Range Comments WHITE BLOOD CELL COUNT (BEAKER) (test kifr=944) 5.0 K/ L 3.5-10.5 RED BLOOD CELL COUNT (BEAKER) (test xmlc=228) 2.79 M/ L 4.63-6.08 HEMOGLOBIN (BEAKER) (test skod=319) 8.4 GM/DL 13.7-17.5 HEMATOCRIT (BEAKER) (test bcww=655) 26.0 % 40.1-51.0 MEAN CORPUSCULAR VOLUME (BEAKER) (test tqsq=074) 93.2 fL 79.0-92.2 MEAN CORPUSCULAR HEMOGLOBIN (BEAKER) (test tbgz=456) 30.1 pg 25.7-32.2 MEAN CORPUSCULAR HEMOGLOBIN CONC (BEAKER) (test vktf=663) 32.3 GM/DL 32.3-36.5 RED CELL DISTRIBUTION WIDTH (BEAKER) (test emwp=764) 18.8 % 11.6-14.4 PLATELET COUNT (BEAKER) (test pdvj=560) 108 K/CU MM 150-450 MEAN PLATELET VOLUME (BEAKER) (test ctvq=373) 8.8 fL 9.4-12.4 NUCLEATED RED BLOOD CELLS (BEAKER) (test tjjm=838) 0 /100 WBC 0-0 NEUTROPHILS RELATIVE PERCENT (BEAKER) (test lrit=505) 81 % LYMPHOCYTES RELATIVE PERCENT (BEAKER) (test gwgs=764) 10 % MONOCYTES RELATIVE PERCENT (BEAKER) (test ofln=146) 6 % EOSINOPHILS RELATIVE PERCENT (BEAKER) (test ttpb=608) 0 % BASOPHILS RELATIVE PERCENT (BEAKER) (test irck=568) 0 % NEUTROPHILS ABSOLUTE COUNT (BEAKER) (test uvdd=024) 4.09 K/ L 1.78-5.38 LYMPHOCYTES ABSOLUTE COUNT (BEAKER) (test ipca=477) 0.52 K/ L 1.32-3.57 MONOCYTES ABSOLUTE COUNT (BEAKER) (test tnbt=486) 0.29 K/ L 0.30-0.82 EOSINOPHILS ABSOLUTE COUNT (BEAKER) (test ctlb=818) 0.01 K/ L 0.04-0.54 BASOPHILS ABSOLUTE COUNT (BEAKER) (test jqdv=557) 0.02 K/ L 0.01-0.08 IMMATURE GRANULOCYTES-RELATIVE PERCENT (BEAKER) (test wwzx=4880) 2 % 0-1 [id number] 06:46:00* Test Item Value Reference Range Comments PHOSPHORUS (BEAKER) (test bhuf=731) 4.4 mg/dL 2.3-4.7 [id number] 06:46:00* Test Item Value Reference Range Comments MAGNESIUM (BEAKER) (test dnld=173) 1.9 mg/dL 1.6-2.6 HEPATIC FUNCTION [id number] 06:46:00* Test Item Value Reference Range Comments TOTAL PROTEIN (BEAKER) (test rxio=766) 5.5 gm/dL 6.0-8.3 ALBUMIN (BEAKER) (test wbqj=4401) 3.5 g/dL 3.5-5.0 BILIRUBIN TOTAL (BEAKER) (test uibr=145) 1.2 mg/dL 0.2-1.2 BILIRUBIN DIRECT (BEAKER) (test zeyh=701) 0.8 mg/dL 0.1-0.5 ALKALINE PHOSPHATASE (BEAKER) (test pqsp=458) 43 U/L 40-150 AST (SGOT) (BEAKER) (test hnma=711) 8 U/L 5-34 ALT (SGPT) (BEAKER) (test kgun=853) 15 U/L 6-55 [id number] 06:37:00* Test Item Value Reference Range Comments PROTIME (BEAKER) (test ovga=105) 15.4 seconds 11.7-14.7 INR (BEAKER) (test wrms=063) 1.2 <=5.9 PARTIAL THROMBOPLASTIN TIME (BEAKER) (test wize=212) 28.2 seconds 22.5-36.0 RECOMMENDED COUMADIN/WARFARIN INR THERAPY RANGESSTANDARD DOSE: 2.0 - 3.0 Inclu kaya: PROPHYLAXIS for venous thrombosis, systemic embolization; TREATMENT for barby ous thrombosis and/or pulmonary embolus.HIGH RISK: Target INR is 2.5-3.5 for pat ients with mechanical heart valves.PROTHROMBIN TIME/[id number] 06:36:00* Test Item Value Reference Range Comments PROTIME (BEAKER) (test ofai=661) 15.4 seconds 11.7-14.7 INR (BEAKER) (test bftt=715) 1.2 <=5.9 RECOMMENDED COUMADIN/WARFARIN INR THERAPY RANGESSTANDARD DOSE: 2.0 - 3.0 Inclu kaya: PROPHYLAXIS for venous thrombosis, systemic embolization; TREATMENT for barby ous thrombosis and/or pulmonary embolus.HIGH RISK: Target INR is 2.5-3.5 for pat ients with mechanical heart valves.POCT-GLUCOSE [id number] 22:35:00* Test Item Value Reference Range Comments POC-GLUCOSE METER (BEAKER) (test lzsi=5761) 248 mg/dL 70-110 TESTED AT [address] [address] CBC W/PLT COUNT & AUTO [id number] 17:43:00* Test Item Value Reference Range Comments WHITE BLOOD CELL COUNT (BEAKER) (test wsjh=598) 5.7 K/ L 3.5-10.5 RED BLOOD CELL COUNT (BEAKER) (test motp=118) 3.19 M/ L 4.63-6.08 HEMOGLOBIN (BEAKER) (test krpx=301) 9.6 GM/DL 13.7-17.5 HEMATOCRIT (BEAKER) (test wylu=698) 29.5 % 40.1-51.0 MEAN CORPUSCULAR VOLUME (BEAKER) (test xghk=865) 92.5 fL 79.0-92.2 MEAN CORPUSCULAR HEMOGLOBIN (BEAKER) (test ozij=391) 30.1 pg 25.7-32.2 MEAN CORPUSCULAR HEMOGLOBIN CONC (BEAKER) (test ejdr=458) 32.5 GM/DL 32.3-36.5 RED CELL DISTRIBUTION WIDTH (BEAKER) (test vhyb=091) 19.2 % 11.6-14.4 PLATELET COUNT (BEAKER) (test wfiz=967) 113 K/CU MM 150-450 MEAN PLATELET VOLUME (BEAKER) (test pdco=104) 8.5 fL 9.4-12.4 NUCLEATED RED BLOOD CELLS (BEAKER) (test ovux=777) 0 /100 WBC 0-0 NEUTROPHILS RELATIVE PERCENT (BEAKER) (test qaix=690) 91 % LYMPHOCYTES RELATIVE PERCENT (BEAKER) (test avjx=098) 4 % MONOCYTES RELATIVE PERCENT (BEAKER) (test udhd=937) 2 % EOSINOPHILS RELATIVE PERCENT (BEAKER) (test ovhj=535) 0 % BASOPHILS RELATIVE PERCENT (BEAKER) (test ouso=953) 0 % NEUTROPHILS ABSOLUTE COUNT (BEAKER) (test kcqb=015) 5.16 K/ L 1.78-5.38 LYMPHOCYTES ABSOLUTE COUNT (BEAKER) (test afmd=721) 0.24 K/ L 1.32-3.57 MONOCYTES ABSOLUTE COUNT (BEAKER) (test ohrm=873) 0.11 K/ L 0.30-0.82 EOSINOPHILS ABSOLUTE COUNT (BEAKER) (test ntlj=307) 0.00 K/ L 0.04-0.54 BASOPHILS ABSOLUTE COUNT (BEAKER) (test antk=964) 0.01 K/ L 0.01-0.08 IMMATURE GRANULOCYTES-RELATIVE PERCENT (BEAKER) (test ricq=3390) 3 % 0-1 POCT-GLUCOSE [id number] 16:56:00* Test Item Value Reference Range Comments POC-GLUCOSE METER (BEAKER) (test venk=9066) 370 mg/dL 70-110 Notified ANNA RICHARDSON/TESTED AT [place] [id number] TACROLIMUS [id number] 12:18:00* Test Item Value Reference Range Comments TACROLIMUS BLOOD (BEAKER) (test etba=734) 11.4 ng/mL 10.0-20.0 POCT-GLUCOSE [id number] 12:11:00* Test Item Value Reference Range Comments POC-GLUCOSE METER (BEAKER) (test wsjy=4576) 362 mg/dL 70-110 TESTED AT [place] [id number] URINE [id number] 10:05:00* Test Item Value Reference Range Comments CULTURE (BEAKER) (test mpnu=0928) No growth POCT-GLUCOSE [id number] 08:06:00* Test Item Value Reference Range Comments POC-GLUCOSE METER (BEAKER) (test rufw=1398) 227 mg/dL 70-110 TESTED AT [facility] [address] [facility] [address] BASIC METABOLIC [id number] 08:01:00* Test Item Value Reference Range Comments SODIUM (BEAKER) (test zzef=090) 140 meq/L 136-145 POTASSIUM (BEAKER) (test oolp=565) 4.6 meq/L 3.5-5.1 CHLORIDE (BEAKER) (test tiit=186) 111 meq/L 98-107 CO2 (BEAKER) (test isqp=913) 22 meq/L 22-29 BLOOD UREA NITROGEN (BEAKER) (test hjzz=207) 62 mg/dL 7-21 CREATININE (BEAKER) (test rjcx=323) 3.56 mg/dL 0.57-1.25 GLUCOSE RANDOM (BEAKER) (test wuzu=957) 200 mg/dL 70-105 CALCIUM (BEAKER) (test ydwx=435) 8.2 mg/dL 8.4-10.2 EGFR (BEAKER) (test jcqa=7976) 18 mL/min/1.73 sq m ESTIMATED GFR IS NOT ACCURATE CREATININE CLEARANCE IN PREDICTING GLOMERULAR FILTRATION RATE. ESTIMATED GFR IS NOT APPLICABLE FOR DIALYSIS PATIENTS. CBC W/PLT COUNT & AUTO [id number] 07:42:00* Test Item Value Reference Range Comments WHITE BLOOD CELL COUNT (BEAKER) (test cdyw=999) 3.8 K/ L 3.5-10.5 RED BLOOD CELL COUNT (BEAKER) (test ghnh=309) 2.98 M/ L 4.63-6.08 HEMOGLOBIN (BEAKER) (test walt=098) 8.9 GM/DL 13.7-17.5 HEMATOCRIT (BEAKER) (test alxq=355) 27.5 % 40.1-51.0 MEAN CORPUSCULAR VOLUME (BEAKER) (test urxg=343) 92.3 fL 79.0-92.2 MEAN CORPUSCULAR HEMOGLOBIN (BEAKER) (test ufqq=455) 29.9 pg 25.7-32.2 MEAN CORPUSCULAR HEMOGLOBIN CONC (BEAKER) (test eeil=671) 32.4 GM/DL 32.3-36.5 RED CELL DISTRIBUTION WIDTH (BEAKER) (test mwcl=865) 19.4 % 11.6-14.4 PLATELET COUNT (BEAKER) (test exuq=318) 107 K/CU MM 150-450 MEAN PLATELET VOLUME (BEAKER) (test sojx=241) 8.9 fL 9.4-12.4 NUCLEATED RED BLOOD CELLS (BEAKER) (test xsvd=628) 0 /100 WBC 0-0 NEUTROPHILS RELATIVE PERCENT (BEAKER) (test sfpa=147) 88 % LYMPHOCYTES RELATIVE PERCENT (BEAKER) (test zjym=648) 7 % MONOCYTES RELATIVE PERCENT (BEAKER) (test tbva=379) 2 % EOSINOPHILS RELATIVE PERCENT (BEAKER) (test vaxo=865) 1 % BASOPHILS RELATIVE PERCENT (BEAKER) (test bqdo=955) 1 % NEUTROPHILS ABSOLUTE COUNT (BEAKER) (test mvif=890) 3.32 K/ L 1.78-5.38 LYMPHOCYTES ABSOLUTE COUNT (BEAKER) (test snmn=330) 0.26 K/ L 1.32-3.57 MONOCYTES ABSOLUTE COUNT (BEAKER) (test vhug=064) 0.06 K/ L 0.30-0.82 EOSINOPHILS ABSOLUTE COUNT (BEAKER) (test wzjt=799) 0.02 K/ L 0.04-0.54 BASOPHILS ABSOLUTE COUNT (BEAKER) (test zznd=741) 0.02 K/ L 0.01-0.08 IMMATURE GRANULOCYTES-RELATIVE PERCENT (BEAKER) (test jvxh=9135) 3 % 0-1 [id number] 07:32:00* Test Item Value Reference Range Comments PHOSPHORUS (BEAKER) (test wkft=613) 5.2 mg/dL 2.3-4.7 [id number] 07:32:00* Test Item Value Reference Range Comments MAGNESIUM (BEAKER) (test lkbm=791) 2.0 mg/dL 1.6-2.6 HEPATIC FUNCTION [id number] 07:32:00* Test Item Value Reference Range Comments TOTAL PROTEIN (BEAKER) (test blki=355) 5.4 gm/dL 6.0-8.3 ALBUMIN (BEAKER) (test kroz=9239) 3.3 g/dL 3.5-5.0 BILIRUBIN TOTAL (BEAKER) (test kayb=691) 1.5 mg/dL 0.2-1.2 BILIRUBIN DIRECT (BEAKER) (test uqwr=504) 1.0 mg/dL 0.1-0.5 ALKALINE PHOSPHATASE (BEAKER) (test yiuz=951) 49 U/L 40-150 AST (SGOT) (BEAKER) (test klav=703) 17 U/L 5-34 ALT (SGPT) (BEAKER) (test ziqn=351) 22 U/L 6-55 PROTHROMBIN TIME/[id number] 07:19:00* Test Item Value Reference Range Comments PROTIME (BEAKER) (test tmzb=154) 15.8 seconds 11.7-14.7 INR (BEAKER) (test zxsv=352) 1.3 <=5.9 RECOMMENDED COUMADIN/WARFARIN INR THERAPY RANGESSTANDARD DOSE: 2.0 - 3.0 Inclu kaya: PROPHYLAXIS for venous thrombosis, systemic embolization; TREATMENT for barby ous thrombosis and/or pulmonary embolus.HIGH RISK: Target INR is 2.5-3.5 for pat ients with mechanical heart valves.PT/[id number] 07:19:00* Test Item Value Reference Range Comments PROTIME (BEAKER) (test rlnp=625) 15.8 seconds 11.7-14.7 INR (BEAKER) (test whdb=487) 1.3 <=5.9 PARTIAL THROMBOPLASTIN TIME (BEAKER) (test gjfl=435) 30.9 seconds 22.5-36.0 RECOMMENDED COUMADIN/WARFARIN INR THERAPY RANGESSTANDARD DOSE: 2.0 - 3.0 Inclu kaya: PROPHYLAXIS for venous thrombosis, systemic embolization; TREATMENT for barby ous thrombosis and/or pulmonary embolus.HIGH RISK: Target INR is 2.5-3.5 for pat ients with mechanical heart valves.EOSINOPHIL SMEAR, [id number] 04:17:00* Test Item Value Reference Range Comments EOSINOPHIL SMEAR, URINE (BEAKER) (test yjda=3823) No EOS seen No EOS seen CREATININE, RANDOM [id number] 01:14:00* Test Item Value Reference Range Comments CREATININE URINE (BEAKER) (test jqem=238) 84.4 mg/dL Reference Range: No NormalsPROTEIN, RANDOM [id number] 01:14:00* Test Item Value Reference Range Comments PROTEIN, URINE (BEAKER) (test sirj=4408) 13 mg/dL 0-14 SODIUM, RANDOM [id number] 01:14:00* Test Item Value Reference Range Comments SODIUM URINE (BEAKER) (test kmjh=776) 91 meq/L Reference Range: No NormalsCBC (HEMOGRAM ONLY)2017-12-29 21:51:00* Test Item Value Reference Range Comments WHITE BLOOD CELL COUNT (BEAKER) (test roqx=246) 5.0 K/ L 3.5-10.5 RED BLOOD CELL COUNT (BEAKER) (test kczg=360) 3.28 M/ L 4.63-6.08 HEMOGLOBIN (BEAKER) (test cmru=000) 9.8 GM/DL 13.7-17.5 HEMATOCRIT (BEAKER) (test xxnv=448) 30.3 % 40.1-51.0 MEAN CORPUSCULAR VOLUME (BEAKER) (test fdju=706) 92.4 fL 79.0-92.2 MEAN CORPUSCULAR HEMOGLOBIN (BEAKER) (test eino=384) 29.9 pg 25.7-32.2 MEAN CORPUSCULAR HEMOGLOBIN CONC (BEAKER) (test obbw=423) 32.3 GM/DL 32.3-36.5 RED CELL DISTRIBUTION WIDTH (BEAKER) (test uwbf=791) 19.5 % 11.6-14.4 PLATELET COUNT (BEAKER) (test anfx=017) 122 K/CU MM 150-450 MEAN PLATELET VOLUME (BEAKER) (test kiiq=182) 8.6 fL 9.4-12.4 NUCLEATED RED BLOOD CELLS (BEAKER) (test hogq=118) 0 /100 WBC 0-0 POCT-GLUCOSE [id number] 21:38:00* Test Item Value Reference Range Comments POC-GLUCOSE METER (BEAKER) (test awvp=9017) 239 mg/dL 70-110 TESTED AT [facility] [address] [facility] [address] BODY FLUID CELL COUNT WITH [id number] 18:44:00* Test Item Value Reference Range Comments APPEARANCE FLUID (BEAKER) (test ssrz=564) Bloody Clear COLOR FLUID (BEAKER) (test kukf=398) Red Colorless, Straw RBC FLUID (BEAKER) (test ibtt=296) 866288 /cu mm <=1 ADJUSTED WBC FLUID (BEAKER) (test unhh=0443) 600 /cu mm <=5 LINING CELLS (BEAKER) (test bkgv=0314) 0 /cu mm <=1 NEUTROPHILS FLUID (BEAKER) (test qcjl=3824) 19 % LYMPHS FLUID (BEAKER) (test vbwa=851) 53 % MONO/MACROPHAGE FLUID (BEAKER) (test rfwc=260) 25 % EOSINOPHILS FLUID (BEAKER) (test fbzq=968) 1 % BASO FLUID (BEAKER) (test vdzy=364) 2 % CONTAINER BODY FLUID (BEAKER) (test abez=2660) EDTA Tube TRIGLYCERIDES, BODY [id number] 16:36:00* Test Item Value Reference Range Comments TRIGLYCERIDES FLUID (BEAKER) (test kfdg=996) 72 mg/dL Reference Range: No Normals Assay performance has not been validated for this type of specimen.AMYLASE, BODY [id number] 16:33:00* Test Item Value Reference Range Comments AMYLASE FLUID (BEAKER) (test fslm=365) 10 U/L Absence of reference range indicates that normals have not been defined.Assay pe rformance has not been validated for this type of specimen.[id number] 16:10:00* Test Item Value Reference Range Comments HAPTOGLOBIN (BEAKER) (test oylo=157) 123 mg/dL 14-258 TISSUE [id number] 16:08:00Surgical Pathology Report Case: [id number] Authorizing Provider: Ivan Jama MD Collected: 11/30/2017 1845 Ordering Location: [facility] Received: 12/01/2017 0815 PERIOPERATIVE SERVICES Pathologist: Galen Billings MD Specimens: A) - Liver, [place] Liver B) - Gallbladder, Donor Gallbladder A. LIVER EXPLANT, TOTAL HEPATECTOMY (WT: 1182 G)- BILIARY CIRRHOSIS WITH FOCAL BILE DUCT SCARS AND PERIDUCTAL SCLEROSIS- NO TUMOR SEEN- GALLBLADDER WITH NO SIGNIFICANT PATHOLOGIC ALTERATIONS - SEE COMMENTB. DONOR GALLBLADDER, CHOLECYSTOMY:- MILD FOCAL CHOLESTEROLOSIS Signing Pathologist Direct Phone Line: [phone] signed by Galen Billings MD on 12/29/2017 at 4:08 PMSpecimen A. 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 Clinical correlation is recommended.Block A4 was sent to [facility] for copper quantification. The results show tissue copper <10 mcg/dry wt (reference value 10-35). Please see scanned report for details.[id number] X9End stage liver diseaseA. [place] liver, B. Donor gallbladderA. Re ceived fresh labeled "liver", description "[place] liver" is a 20.5 x 13.5 x 7.0 cm, 1,182 gm liver with attached 9.3 x 5.0 x 2.5 cm intact, distended gallbladde r.The capsular surface of the liver is purple-ritter to yellow-green, dusky, focall y ragged and nodular. The liver is serially sectioned to reveal a yellow-green t o dark red homogeneous dense consolidated nodular cut surface throughout. No dis crete masses are identified. The serosal surface of the gallbladder is purple-ta n and smooth. The lumen contains yellow-green to red mucoid bile. No calculi are observed. The mucosal surface is yellow-green to red, velvety and glistening. T he wall measures up to 0.2 cm in maximum thickness. Section code: A1, parallel c ommon bile duct, hepatic artery and portal vein resection margins; A2, segment 1 ; A3, segment 2; A4, segment 3; A5, segment 4A; A6, segment 4B; A7, segment 5; A 8, segment 6; A9, segment 7; A10, segment 8; A11, parallel cystic duct resection margin; A12, commercial representative section of gallbladder. B. Received fresh labeled " gallbladder", description "donor gallbladder" is a 6.5 x 3.5 x 1.0 cm focally di srupted gallbladder. The serosal surface is purple-ritter and exhibits cautery art ifact on the hepatic surface. The lumen contains yellow-green to red mucoid bile . No calculi are observed. The mucosal surface is yellow-green to burger-whtie, ve lvety and glistening. The wall measures up to 0.2 cm in maximum thickness. Secti on code: B1, parallel cystic duct resection margin; B2, commercial representative section o f gallbladder. DB/plMicroscopic examination is performed and the findings are i ncorporated in the diagnostic line. Special stains: trichrome, reticulin, iron a nd PAS with diastaseCopper stain is negativeTrichrome stain performed on blocks A3, A4, A15, A16, [id number], [id number] 15:53:00* Test Item Value Reference Range Comments BILIRUBIN, INDIRECT (BEAKER) (test jhuc=6431) 0.6 mg/dL 0.0-1.1 Total bilirubin is 1.8 [id number] 15:52:00* Test Item Value Reference Range Comments FERRITIN (BEAKER) (test obur=578) 239 ng/mL 5-275 POCT-GLUCOSE [id number] 15:34:00* Test Item Value Reference Range Comments POC-GLUCOSE METER (BEAKER) (test wial=8671) 88 mg/dL 70-110 TESTED AT [facility] [address] [facility] [address] IRON, [id number] 15:32:00* Test Item Value Reference Range Comments IRON (BEAKER) (test tere=752) 42 ug/dL 40-160 IRON, TIBC, % SAT. (WITHOUT FERRITIN)2017-12-29 15:32:00* Test Item Value Reference Range Comments IRON (BEAKER) (test bhid=452) 42 ug/dL 40-160 TOTAL IRON BINDING CAPACITY (BEAKER) (test vbam=593) 259 ug/dL 250-450 IRON % SATURATION (2) (BEAKER) (test ibje=4912) 16 % 20-55 LACTATE DEHYDROGENASE (LDH)2017-12-29 15:31:00* Test Item Value Reference Range Comments LACTATE DEHYDROGENASE (BEAKER) (test fmhi=924) 214 U/L 125-220 BILIRUBIN, [id number] 15:31:00* Test Item Value Reference Range Comments BILIRUBIN DIRECT (BEAKER) (test ysjj=667) 1.2 mg/dL 0.1-0.5 EBV VIRAL [id number] 14:57:00* Test Item Value Reference Range Comments EBV VIRAL LOAD - NEGATIVE (BEAKER) (test duik=4382) Negative or below the linear range of the assay (<500 copies/mL) This assay was performed by real-time PCR for the detection of the Guerline-Acevedo virus (EBV) gene EBNA-1. The test is composed of (1) DNA extraction from patien t specimen, and (2) real-time PCR amplification and detection with IXZR-5-eifcrk ic primers and probes. A well-conserved region of the EBNA-1 gene is targeted, a long with an internal control sequence used to confirm PCR amplification. Asympt omatic carriers and viral genetic variation, among other factors, can affect the accuracy of nucleic acid testing; therefore, results should be interpreted in l ight of clinical data.This test was developed and its performance characteristic s determined by the [facility] Pathology Department, Section of M olecular Pathology. It has not been cleared or approved by the U.S. Food and Bert g Administration (FDA), since FDA approval is not required for clinical use of [facility] test. Validation was done as required by The Clinical Laboratory Improvement Amendments of 1987.CMV PCR, [id number] 14:56:00* Test Item Value Reference Range Comments CMV VIRAL LOAD - NEGATIVE (BEAKER) (test izio=8182) Negative or below the linear range of the assay (<375 copies/mL) Cytomegalovirus (CMV) infection can cause significant disease in immunosuppresse d patients. However, it is common for CMV to manifest as a limited infection whi ch is of no clinical significance in immunosuppressed patients or in healthy ind ividuals.Viral load measurements are helpful to identify clinical CMV infection and to guide the pre-emptive management of antiviral therapy. For treatment of CMV infection due to reactivation in transplant recipients, a threshold between 4,000 and 5,000 copies/mL is suggested. For treatment of primary CMV infection, a lower threshold can be used.CMV infection may also be monitored using weekly serial measurements. Serial measurements of CMV DNA viral load can be evaluated by identifying a 10-fold change, as well as assessing the CMV DNA viral load and the clinical context for each patient.The plasma CMV DNA viral load was detected using quantitative polymerase chain reaction and fluorescent monitoring of a s pecific hybridized probe. Genetic variation and other factors can affect the acc uracy of nucleic acid testing. Therefore, the results should be interpreted in l ight of clinical data. A negative result may not exclude the presence of CMV dis ease.This test was developed and its performance characteristics determined by tamiko bishop [facility] Pathology Department, Section of Molecular Patholog y. It has not been cleared or approved by the U.S. Food and Drug Administration (FDA), since FDA approval is not required for clinical use of the test. Validati on was done as required by The Clinical Laboratory Improvement Amendments of 8.U/S, [id number] 14:45:00Referring:Dr. Marciano Guerreromit to [address] [place] [address] for exam:->ascitesShould this be performed at the bedside?->NoFINAL REPORT Ultrasound-guided paracentesis. Clinical History: Ascites Informed consent was obtained from the patient and the risks of the procedure were explained including bleeding, infection, bowel perforation and visceral injury. Sedation: 1% Xylocaine was used as local sedation. Conscious se dation protocol was not utilized as no systemic analgesia was administered. Tech nique: Using sterile technique, ultrasound guidance and a 5 Guinean coaxial needl e, a single pass right lower quadrant paracentesis was performed. The inner nee dle was removed and the plastic catheter was left in place and connected through sterile tubing to an evacuated container. The procedure yielded 5000 cc of blo kisha fluid. The catheter was then removed. No immediate complications developed. Labs were sent as requested. Estimated blood loss: None Patient disposition: The patient was asymptomatic at the end of the exam. Impression: Successful parace ntesis yielding 5000 cc of fluid Signed: Joey Lance MDReport Verified Date/ Time: 12/29/2017 14:45:12 Reading Location: [address] Ultrasound Reading [facility] OLIMUS [id number] 10:31:00* Test Item Value Reference Range Comments TACROLIMUS BLOOD (BEAKER) (test uyem=498) 11.2 ng/mL 10.0-20.0 POCT-GLUCOSE [id number] 07:54:00* Test Item Value Reference Range Comments POC-GLUCOSE METER (BEAKER) (test ndei=9612) 130 mg/dL 70-110 TESTED AT [address] [address] COMPREHENSIVE METABOLIC [id number] 03:38:00* Test Item Value Reference Range Comments TOTAL PROTEIN (BEAKER) (test srws=317) 5.9 gm/dL 6.0-8.3 ALBUMIN (BEAKER) (test tzyy=6386) 3.5 g/dL 3.5-5.0 ALKALINE PHOSPHATASE (BEAKER) (test layk=969) 56 U/L 40-150 BILIRUBIN TOTAL (BEAKER) (test xwaz=667) 1.7 mg/dL 0.2-1.2 SODIUM (BEAKER) (test ipaj=530) 141 meq/L 136-145 POTASSIUM (BEAKER) (test yuwt=180) 5.3 meq/L 3.5-5.1 CHLORIDE (BEAKER) (test mdjm=382) 110 meq/L 98-107 CO2 (BEAKER) (test fzoj=530) 19 meq/L 22-29 BLOOD UREA NITROGEN (BEAKER) (test ddqa=138) 76 mg/dL 7-21 CREATININE (BEAKER) (test akss=434) 3.96 mg/dL 0.57-1.25 GLUCOSE RANDOM (BEAKER) (test lelv=951) 173 mg/dL 70-105 CALCIUM (BEAKER) (test mkna=418) 8.8 mg/dL 8.4-10.2 AST (SGOT) (BEAKER) (test bcya=948) 17 U/L 5-34 ALT (SGPT) (BEAKER) (test gdgl=555) 22 U/L 6-55 EGFR (BEAKER) (test oirs=5263) 16 mL/min/1.73 sq m ESTIMATED GFR IS NOT ACCURATE CREATININE CLEARANCE IN PREDICTING GLOMERULAR FILTRATION RATE. ESTIMATED GFR IS NOT APPLICABLE FOR DIALYSIS PATIENTS. [id number] 03:28:00* Test Item Value Reference Range Comments POTASSIUM (BEAKER) (test vscq=927) 5.3 meq/L 3.5-5.1 [id number] 03:28:00* Test Item Value Reference Range Comments MAGNESIUM (BEAKER) (test lkub=502) 2.5 mg/dL 1.6-2.6 [id number] 03:28:00* Test Item Value Reference Range Comments PHOSPHORUS (BEAKER) (test ykll=688) 6.2 mg/dL 2.3-4.7 HEPATIC FUNCTION [id number] 03:28:00* Test Item Value Reference Range Comments TOTAL PROTEIN (BEAKER) (test qyed=275) 5.9 gm/dL 6.0-8.3 ALBUMIN (BEAKER) (test yxkk=7629) 3.5 g/dL 3.5-5.0 BILIRUBIN TOTAL (BEAKER) (test dafo=726) 1.7 mg/dL 0.2-1.2 BILIRUBIN DIRECT (BEAKER) (test hzkx=595) 1.1 mg/dL 0.1-0.5 ALKALINE PHOSPHATASE (BEAKER) (test wwnf=311) 56 U/L 40-150 AST (SGOT) (BEAKER) (test qchf=386) 17 U/L 5-34 ALT (SGPT) (BEAKER) (test nrio=179) 22 U/L 6-55 CREATINE KINASE (CK)2017-12-29 03:17:00* Test Item Value Reference Range Comments CREATINE KINASE TOTAL (BEAKER) (test hetp=026) 34 U/L 29-200 PT/[id number] 02:56:00* Test Item Value Reference Range Comments PROTIME (BEAKER) (test ptle=488) 15.6 seconds 11.7-14.7 INR (BEAKER) (test xyiu=037) 1.2 <=5.9 PARTIAL THROMBOPLASTIN TIME (BEAKER) (test hkek=957) 29.5 seconds 22.5-36.0 RECOMMENDED COUMADIN/WARFARIN INR THERAPY RANGESSTANDARD DOSE: 2.0 - 3.0 Inclu kaya: PROPHYLAXIS for venous thrombosis, systemic embolization; TREATMENT for barby ous thrombosis and/or pulmonary embolus.HIGH RISK: Target INR is 2.5-3.5 for pat ients with mechanical heart valves.PROTHROMBIN TIME/[id number] 02:55:00* Test Item Value Reference Range Comments PROTIME (BEAKER) (test mptr=548) 15.6 seconds 11.7-14.7 INR (BEAKER) (test oahp=399) 1.2 <=5.9 RECOMMENDED COUMADIN/WARFARIN INR THERAPY RANGESSTANDARD DOSE: 2.0 - 3.0 Inclu kaya: PROPHYLAXIS for venous thrombosis, systemic embolization; TREATMENT for barby ous thrombosis and/or pulmonary embolus.HIGH RISK: Target INR is 2.5-3.5 for pat ients with mechanical heart valves.CBC W/PLT COUNT & AUTO [id number] 02:47:00* Test Item Value Reference Range Comments WHITE BLOOD CELL COUNT (BEAKER) (test unym=478) 4.7 K/ L 3.5-10.5 RED BLOOD CELL COUNT (BEAKER) (test hrkx=378) 2.35 M/ L 4.63-6.08 HEMOGLOBIN (BEAKER) (test rzlz=946) 7.4 GM/DL 13.7-17.5 HEMATOCRIT (BEAKER) (test wqmw=584) 22.9 % 40.1-51.0 MEAN CORPUSCULAR VOLUME (BEAKER) (test rrxl=337) 97.4 fL 79.0-92.2 MEAN CORPUSCULAR HEMOGLOBIN (BEAKER) (test pzio=897) 31.5 pg 25.7-32.2 MEAN CORPUSCULAR HEMOGLOBIN CONC (BEAKER) (test dodw=885) 32.3 GM/DL 32.3-36.5 RED CELL DISTRIBUTION WIDTH (BEAKER) (test tpvb=003) 19.8 % 11.6-14.4 PLATELET COUNT (BEAKER) (test wnsg=066) 134 K/CU MM 150-450 MEAN PLATELET VOLUME (BEAKER) (test nvrr=233) 8.9 fL 9.4-12.4 NUCLEATED RED BLOOD CELLS (BEAKER) (test dghk=548) 0 /100 WBC 0-0 NEUTROPHILS RELATIVE PERCENT (BEAKER) (test skhe=195) 67 % LYMPHOCYTES RELATIVE PERCENT (BEAKER) (test xchp=285) 20 % MONOCYTES RELATIVE PERCENT (BEAKER) (test fvkl=438) 8 % EOSINOPHILS RELATIVE PERCENT (BEAKER) (test ovcc=516) 2 % BASOPHILS RELATIVE PERCENT (BEAKER) (test vedg=723) 1 % NEUTROPHILS ABSOLUTE COUNT (BEAKER) (test xstj=493) 3.14 K/ L 1.78-5.38 LYMPHOCYTES ABSOLUTE COUNT (BEAKER) (test mpxk=288) 0.94 K/ L 1.32-3.57 MONOCYTES ABSOLUTE COUNT (BEAKER) (test fabm=784) 0.39 K/ L 0.30-0.82 EOSINOPHILS ABSOLUTE COUNT (BEAKER) (test wsnk=117) 0.07 K/ L 0.04-0.54 BASOPHILS ABSOLUTE COUNT (BEAKER) (test iczc=231) 0.05 K/ L 0.01-0.08 IMMATURE GRANULOCYTES-RELATIVE PERCENT (BEAKER) (test zoxc=8229) 2 % 0-1 CALCIUM, [id number] 02:41:00* Test Item Value Reference Range Comments CALCIUM IONIZED (BEAKER) (test gesi=688) 1.06 mmol/L 1.12-1.27 PH, BLOOD (BEAKER) (test xzsh=9038) 7.44 [id number] 02:41:00* Test Item Value Reference Range Comments HEMOGLOBIN (BEAKER) (test lghy=118) 7.4 GM/DL 13.7-17.5 Please collect 30 min after transfusionBLOOD [id number] 00:00:00* Test Item Value Reference Range Comments CULTURE (BEAKER) (test jdbs=7503) No growth in 5 days BLOOD [id number] 00:00:00* Test Item Value Reference Range Comments CULTURE (BEAKER) (test uckh=5309) No growth in 5 days POCT-GLUCOSE [id number] 22:28:00* Test Item Value Reference Range Comments POC-GLUCOSE METER (BEAKER) (test njvq=7666) 268 mg/dL 70-110 TESTED AT [facility] [address] [facility] [address] [id number] 21:33:00* Test Item Value Reference Range Comments SODIUM (BEAKER) (test tfju=430) 137 meq/L 136-145 POTASSIUM (BEAKER) (test pszh=010) 6.2 meq/L 3.5-5.1 CHLORIDE (BEAKER) (test nxcc=399) 109 meq/L 98-107 CO2 (BEAKER) (test uisp=618) 18 meq/L 22-29 Call [id number] W/ [id number] 18:59:00* Test Item Value Reference Range Comments COLOR (BEAKER) (test dmbu=630) Yellow CLARITY (BEAKER) (test qdnq=296) Clear SPECIFIC GRAVITY UA (BEAKER) (test byxf=586) 1.014 1.001-1.035 PH UA (BEAKER) (test yzki=410) 6.5 5.0-8.0 PROTEIN UA (BEAKER) (test jhtc=598) 20 mg/dL Negative GLUCOSE UA (BEAKER) (test iizy=360) Negative Negative KETONES UA (BEAKER) (test ceet=685) Negative Negative BILIRUBIN UA (BEAKER) (test sctp=736) Negative Negative BLOOD UA (BEAKER) (test uosd=123) Negative Negative NITRITE UA (BEAKER) (test jshc=902) Negative Negative LEUKOCYTE ESTERASE UA (BEAKER) (test atpk=660) Negative Negative UROBILINOGEN UA (BEAKER) (test mmos=656) 0.2 mg/dL 0.2-1.0 RBC UA (BEAKER) (test xtsd=576) 1 /HPF WBC UA (BEAKER) (test cmir=773) 1 /HPF SOURCE(BEAKER) (test emoh=3228) Urine, Voided U/S, ABDOMINAL, WITH [id number] 17:41:00Referring:Dr. Marciano iVlla for exam:->s/p OLT patent vessels- ascites?Should this be performed at the bedside?- >NoFINAL REPORT TECHNIQUE: Grayscale ultrasound of the abdomen with color Doppler and spectral Doppler ultrasound of the portal/hepatic vasculature. INDICATION: 52-year-old man with ascites status post liver transplant. COMPARISON: Abdomen ultrasound 12/23/2017. FINDINGS: LIVER: Recent orthotopic liver transplantation. The transplanted liver is normal in size and echogenicity. Smooth liver contour. No focal liver lesions. HEPATIC VASCULATURE: Main portal vein measures 1.5 cm in diameter. Portal veins are patent with normal waveform and directionality. Flow velocity in the main portal vein is mildly increased at 42.1 cm/s. The hepatic arteries are patent. Resistive indices in the proper, right, and left hepatic arteries are at the upper limit of normal and range between 0.7-0.75. Acceleration time in the proper hepatic artery is within normal limits. The hepatic veins and confluence are patent. BILIARY:Gallbladder: Recent cholecystectomy.Common bile duct measures 0.5 cm, within normal limits. No intrahepatic biliary ductal dilatation. PANCREAS: Incompletely visualized due to overlying bowel gas. SPLEEN: The spleen remains enlarged, measuring 19.8 cm. PERITONEUM: Persistent moderate volume ascites. KIDNEYS: The right kidney measures 10 cm in length and the left kidney measures 9.6 cm in length. No hydronephrosis. No sonographically evident solid mass lesion. MIDLINE VASCULATURE: The visualized inferior vena cava and abdominal aorta are unremarkable. Visualized portions of the splenic artery and vein are patent. IMPRESSION:Unremarkable appearance of the transplant liver. Hepatic/portal vasculature is patent. Mildly increased flow velocity in the main portal vein, nonspecific. Moderate volume ascites. Splenomegaly. Signed: Génesis [place] Verified Date/Time: 12/28/2017 17:41:50 Reading Location: [facility] B1 [id number] Ultrasound Reading Room , CHEST, 1 VIEW, NON DEPT 2017-12-28 15:30:00Referring:Dr. Marciano Villa for exam:->s/p OLT infectionShould this be performed at the bedside?->NoFINAL REPORT EXAM: Frontal chest radiograph, 2 images HISTORY PROVIDED: Status post orthotopic liver transplant infection COMPARISON: 12/28/2017 at 1043 IMPRESSION:There are small bilateral pleural effusions as before. Minimal bibasilar opacities likely represent subsegmental atelectasis. The lungs are otherwise clear without focal consolidation. No discernible pneumothorax. The cardiac silhouette is magnified. Surgical clips project over the right heart border. No acute osseous abnormality. Surgical clips are seen in the abdomen. Signed: Gold Carrington MDReport Verified Date/Time: 12/28/2017 15:30:13 Minerva edmond Location: [facility] Mammo Reading Room -GLUCOSE [id number] 14:26:00* Test Item Value Reference Range Comments POC-GLUCOSE METER (UmBio) (test ckzs=2000) 93 mg/dL 70-110 TESTED AT [facility] [address] [facility] [address] TACROLIMUS [id number] 11:51:00* Test Item Value Reference Range Comments TACROLIMUS BLOOD (Um[employer]) (test alhg=172) 9.9 ng/mL 10.0-20.0 RAD, ABDOMEN SERIES W/ UPRIGHT PA [id number] 10:54:00Referring:Dr. Marciano Weiss transplant , abd pain,Reason for Exam:->r/o obstruction, liver transplantFINAL REPORT Chest and abdomen series, seven images HISTORY: Liver transplant. COMPARISON: 12/13/2017 IMPRESSION:Skin alta present in the upper abdomen. Prominent loops of bowel in the upper abdomen centrally may reflect developing bowel obstruction or ileus. Small effusions. Lungs otherwise clear. No free intraperitoneal air. No pleural effusion or pneumothorax. Recommend continued radiographic follow-up or further evaluation with CT. Signed: Michael Gutierrez MDReport Verified Date/Time: 12/28/2017 10:54:25 Reading Location: [address] Radiology Reading Room W/PLT COUNT & AUTO [id number] 09:24:00* Test Item Value Reference Range Comments WHITE BLOOD CELL COUNT (BEAKER) (test gtbo=835) 7.3 K/ L 3.5-10.5 RED BLOOD CELL COUNT (BEAKER) (test ieti=803) 2.40 M/ L 4.63-6.08 HEMOGLOBIN (BEAKER) (test xzzd=771) 7.6 GM/DL 13.7-17.5 HEMATOCRIT (BEAKER) (test ahwc=449) 23.8 % 40.1-51.0 MEAN CORPUSCULAR VOLUME (BEAKER) (test ijro=251) 99.2 fL 79.0-92.2 MEAN CORPUSCULAR HEMOGLOBIN (BEAKER) (test lxve=058) 31.7 pg 25.7-32.2 MEAN CORPUSCULAR HEMOGLOBIN CONC (BEAKER) (test jojg=791) 31.9 GM/DL 32.3-36.5 RED CELL DISTRIBUTION WIDTH (BEAKER) (test qrly=632) 19.7 % 11.6-14.4 PLATELET COUNT (BEAKER) (test ehyf=220) 208 K/CU MM 150-450 MEAN PLATELET VOLUME (BEAKER) (test mghe=896) 8.8 fL 9.4-12.4 NUCLEATED RED BLOOD CELLS (BEAKER) (test mcmh=804) 0 /100 WBC 0-0 NEUTROPHILS RELATIVE PERCENT (BEAKER) (test ldiw=064) 75 % LYMPHOCYTES RELATIVE PERCENT (BEAKER) (test xfgq=016) 13 % MONOCYTES RELATIVE PERCENT (BEAKER) (test qatu=666) 7 % EOSINOPHILS RELATIVE PERCENT (BEAKER) (test ecue=370) 1 % BASOPHILS RELATIVE PERCENT (BEAKER) (test japo=345) 1 % NEUTROPHILS ABSOLUTE COUNT (BEAKER) (test gbxk=111) 5.46 K/ L 1.78-5.38 LYMPHOCYTES ABSOLUTE COUNT (BEAKER) (test zcwg=579) 0.95 K/ L 1.32-3.57 MONOCYTES ABSOLUTE COUNT (BEAKER) (test bnvv=222) 0.48 K/ L 0.30-0.82 EOSINOPHILS ABSOLUTE COUNT (BEAKER) (test vifs=637) 0.10 K/ L 0.04-0.54 BASOPHILS ABSOLUTE COUNT (BEAKER) (test daen=899) 0.05 K/ L 0.01-0.08 IMMATURE GRANULOCYTES-RELATIVE PERCENT (BEAKER) (test phtx=7623) 3 % 0-1 COMPREHENSIVE METABOLIC [id number] 09:16:00* Test Item Value Reference Range Comments TOTAL PROTEIN (BEAKER) (test zlok=248) 6.6 gm/dL 6.0-8.3 ALBUMIN (BEAKER) (test yitm=6839) 4.0 g/dL 3.5-5.0 ALKALINE PHOSPHATASE (BEAKER) (test gxir=561) 59 U/L 40-150 BILIRUBIN TOTAL (BEAKER) (test zetp=558) 1.7 mg/dL 0.2-1.2 SODIUM (BEAKER) (test dgmu=803) 142 meq/L 136-145 POTASSIUM (BEAKER) (test lfxy=207) 5.2 meq/L 3.5-5.1 CHLORIDE (BEAKER) (test srxn=438) 111 meq/L 98-107 CO2 (BEAKER) (test foku=133) 20 meq/L 22-29 BLOOD UREA NITROGEN (BEAKER) (test hjjj=309) 72 mg/dL 7-21 CREATININE (BEAKER) (test tfqv=368) 3.77 mg/dL 0.57-1.25 GLUCOSE RANDOM (BEAKER) (test cbwr=880) 132 mg/dL 70-105 CALCIUM (BEAKER) (test tlfq=499) 9.4 mg/dL 8.4-10.2 AST (SGOT) (BEAKER) (test wdhk=526) 16 U/L 5-34 ALT (SGPT) (BEAKER) (test czao=818) 25 U/L 6-55 EGFR (BEAKER) (test uqug=8183) 17 mL/min/1.73 sq m ESTIMATED GFR IS NOT ACCURATE CREATININE CLEARANCE IN PREDICTING GLOMERULAR FILTRATION RATE. ESTIMATED GFR IS NOT APPLICABLE FOR DIALYSIS PATIENTS. [id number] 09:11:00* Test Item Value Reference Range Comments PHOSPHORUS (BEAKER) (test orat=053) 5.7 mg/dL 2.3-4.7 [id number] 09:11:00* Test Item Value Reference Range Comments MAGNESIUM (BEAKER) (test laog=900) 2.4 mg/dL 1.6-2.6 BILIRUBIN, [id number] 09:11:00* Test Item Value Reference Range Comments BILIRUBIN DIRECT (BEAKER) (test ioaz=889) 1.2 mg/dL 0.1-0.5 HEPATITIS B PCR, [id number] 20:48:00* Test Item Value Reference Range Comments HBV RESULT COMPONENT (BEAKER) (test njcc=7443) HBV DNA not detected HBV DNA not detected This test uses a Real-Time Polymerase Chain Reaction (RT-PCR) methodology and wa s performed using CHARLES AmpliPrep/CHARLES TaqMan HBV Test, v2.0 ([employer]Reportable range for this assay is 20 - 170,000,000 IU per mL ( 1.30 - 8.23 Log IU/mL).MISCELLANEOUS LAB [id number] 08:19:00* Test Item Value Reference Range Comments SCAN RESULT (test rvot=[id number]) [id number] 04:43:00* Test Item Value Reference Range Comments RPR SCREEN (BEAKER) (test vqpq=900) Nonreactive Nonreactive HEPATITIS B [id number] 17:37:00* Test Item Value Reference Range Comments HEPATITIS B CORE TOTAL ANTIBODY (BEAKER) (test dpfp=482) Nonreactive Nonreactive HEPATITIS B SURFACE ANTIBODY (BEAKER) (test rhto=862) 10.4 mIU/mL <8.0 HEPATITIS B SURFACE ANTIGEN (2) (BEAKER) (test syae=5753) Nonreactive Nonreactive Due 01/30/18 And nov 2018Due 01/30/18 And nov01/30/18 And nov 9HEPATITIS C [id number] 17:34:00* Test Item Value Reference Range Comments HEPATITIS C ANTIBODY (BEAKER) (test tuew=600) Nonreactive Nonreactive Due 01/30/18 And nov 2018Due 01/30/18 And nov01/30/18 And nov 9HIV-1 ANTIGEN WITH HIV-1/2 [id number] 17:34:00* Test Item Value Reference Range Comments HIV-1 ANTIGEN WITH HIV 1\\T\\2 ANTIBODY (2) (BEAKER) (test kwgn=6059) Nonreactive Nonreactive Due 01/30/18 And nov 2018Due 01/30/18 And nov 2018Due 01/30/18 And nov 9TACROLIMUS [id number] 14:07:00* Test Item Value Reference Range Comments TACROLIMUS BLOOD (BEAKER) (test rzbg=396) 11.8 ng/mL 10.0-20.0 COMPREHENSIVE METABOLIC [id number] 12:55:00* Test Item Value Reference Range Comments TOTAL PROTEIN (BEAKER) (test dbaw=834) 6.7 gm/dL 6.0-8.3 ALBUMIN (BEAKER) (test fxsw=1905) 4.0 g/dL 3.5-5.0 ALKALINE PHOSPHATASE (BEAKER) (test xavu=935) 62 U/L 40-150 BILIRUBIN TOTAL (BEAKER) (test mhju=937) 2.2 mg/dL 0.2-1.2 SODIUM (BEAKER) (test yrcl=523) 143 meq/L 136-145 POTASSIUM (BEAKER) (test zyqm=089) 4.7 meq/L 3.5-5.1 CHLORIDE (BEAKER) (test otrr=295) 109 meq/L 98-107 CO2 (BEAKER) (test jdzd=439) 21 meq/L 22-29 BLOOD UREA NITROGEN (BEAKER) (test ulwb=433) 76 mg/dL 7-21 CREATININE (BEAKER) (test cxvt=380) 3.20 mg/dL 0.57-1.25 GLUCOSE RANDOM (BEAKER) (test ooll=522) 53 mg/dL 70-105 CALCIUM (BEAKER) (test xuel=104) 9.8 mg/dL 8.4-10.2 AST (SGOT) (BEAKER) (test ufwu=529) 19 U/L 5-34 ALT (SGPT) (BEAKER) (test aytc=334) 32 U/L 6-55 EGFR (BEAKER) (test ssiu=4205) 21 mL/min/1.73 sq m ESTIMATED GFR IS NOT ACCURATE CREATININE CLEARANCE IN PREDICTING GLOMERULAR FILTRATION RATE. ESTIMATED GFR IS NOT APPLICABLE FOR DIALYSIS PATIENTS. [id number] 12:23:00* Test Item Value Reference Range Comments MAGNESIUM (BEAKER) (test irxn=711) 2.2 mg/dL 1.6-2.6 BILIRUBIN, [id number] 12:23:00* Test Item Value Reference Range Comments BILIRUBIN DIRECT (BEAKER) (test euro=538) 1.5 mg/dL 0.1-0.5 CBC W/PLT COUNT & AUTO [id number] 11:25:00* Test Item Value Reference Range Comments WHITE BLOOD CELL COUNT (BEAKER) (test tcce=992) 6.1 K/ L 3.5-10.5 RED BLOOD CELL COUNT (BEAKER) (test vvye=577) 2.78 M/ L 4.63-6.08 HEMOGLOBIN (BEAKER) (test psut=244) 8.6 GM/DL 13.7-17.5 HEMATOCRIT (BEAKER) (test uaxk=903) 26.4 % 40.1-51.0 MEAN CORPUSCULAR VOLUME (BEAKER) (test wcvi=839) 95.0 fL 79.0-92.2 MEAN CORPUSCULAR HEMOGLOBIN (BEAKER) (test izji=087) 30.9 pg 25.7-32.2 MEAN CORPUSCULAR HEMOGLOBIN CONC (BEAKER) (test ypem=722) 32.6 GM/DL 32.3-36.5 RED CELL DISTRIBUTION WIDTH (BEAKER) (test bwqj=498) 18.5 % 11.6-14.4 PLATELET COUNT (BEAKER) (test vydp=069) 171 K/CU MM 150-450 MEAN PLATELET VOLUME (BEAKER) (test zwqx=095) 8.9 fL 9.4-12.4 NUCLEATED RED BLOOD CELLS (BEAKER) (test bdtg=182) 0 /100 WBC 0-0 NEUTROPHILS RELATIVE PERCENT (BEAKER) (test nwtj=810) 67 % LYMPHOCYTES RELATIVE PERCENT (BEAKER) (test nkci=290) 20 % MONOCYTES RELATIVE PERCENT (BEAKER) (test kclk=380) 6 % EOSINOPHILS RELATIVE PERCENT (BEAKER) (test utas=899) 4 % BASOPHILS RELATIVE PERCENT (BEAKER) (test njel=669) 1 % NEUTROPHILS ABSOLUTE COUNT (BEAKER) (test sbpv=651) 4.12 K/ L 1.78-5.38 LYMPHOCYTES ABSOLUTE COUNT (BEAKER) (test abml=546) 1.19 K/ L 1.32-3.57 MONOCYTES ABSOLUTE COUNT (BEAKER) (test shge=995) 0.39 K/ L 0.30-0.82 EOSINOPHILS ABSOLUTE COUNT (BEAKER) (test dngg=582) 0.24 K/ L 0.04-0.54 BASOPHILS ABSOLUTE COUNT (BEAKER) (test ovja=130) 0.04 K/ L 0.01-0.08 IMMATURE GRANULOCYTES-RELATIVE PERCENT (BEAKER) (test ewsv=5979) 2 % 0-1 POCT-GLUCOSE [id number] 17:49:00* Test Item Value Reference Range Comments POC-GLUCOSE METER (BEAKER) (test aqig=0177) 97 mg/dL 70-110 TESTED AT [address] [address] HEMOGLOBIN AND [id number] 15:35:00* Test Item Value Reference Range Comments HEMOGLOBIN (BEAKER) (test axyh=227) 9.3 GM/DL 13.7-17.5 HEMATOCRIT (BEAKER) (test kwal=921) 27.8 % 40.1-51.0 TACROLIMUS [id number] 12:33:00* Test Item Value Reference Range Comments TACROLIMUS BLOOD (BEAKER) (test rfsx=678) 10.4 ng/mL 10.0-20.0 POCT-GLUCOSE [id number] 12:31:00* Test Item Value Reference Range Comments POC-GLUCOSE METER (BEAKER) (test tooh=0631) 105 mg/dL 70-110 TESTED AT [address] [address] POCT-GLUCOSE [id number] 08:33:00* Test Item Value Reference Range Comments POC-GLUCOSE METER (BEAKER) (test uvvt=6543) 78 mg/dL 70-110 TESTED AT [address] [address] HEMOGLOBIN AND [id number] 07:59:00* Test Item Value Reference Range Comments HEMOGLOBIN (BEAKER) (test zuow=312) 7.0 GM/DL 13.7-17.5 HEMATOCRIT (BEAKER) (test sler=686) 21.1 % 40.1-51.0 BASIC METABOLIC [id number] 07:52:00* Test Item Value Reference Range Comments SODIUM (BEAKER) (test qcvy=877) 141 meq/L 136-145 POTASSIUM (BEAKER) (test unak=544) 4.1 meq/L 3.5-5.1 CHLORIDE (BEAKER) (test slim=253) 110 meq/L 98-107 CO2 (BEAKER) (test ionc=721) 24 meq/L 22-29 BLOOD UREA NITROGEN (BEAKER) (test wrop=167) 73 mg/dL 7-21 CREATININE (BEAKER) (test ukrv=854) 2.66 mg/dL 0.57-1.25 GLUCOSE RANDOM (BEAKER) (test xltd=830) 63 mg/dL 70-105 CALCIUM (BEAKER) (test nvkt=407) 8.9 mg/dL 8.4-10.2 EGFR (BEAKER) (test sdue=7811) 26 mL/min/1.73 sq m ESTIMATED GFR IS NOT ACCURATE CREATININE CLEARANCE IN PREDICTING GLOMERULAR FILTRATION RATE. ESTIMATED GFR IS NOT APPLICABLE FOR DIALYSIS PATIENTS. [id number] 07:46:00* Test Item Value Reference Range Comments PHOSPHORUS (BEAKER) (test nhol=579) 4.9 mg/dL 2.3-4.7 [id number] 07:46:00* Test Item Value Reference Range Comments MAGNESIUM (BEAKER) (test jsam=881) 1.9 mg/dL 1.6-2.6 HEPATIC FUNCTION [id number] 07:46:00* Test Item Value Reference Range Comments TOTAL PROTEIN (BEAKER) (test tfnq=876) 5.6 gm/dL 6.0-8.3 ALBUMIN (BEAKER) (test nqqb=6110) 3.3 g/dL 3.5-5.0 BILIRUBIN TOTAL (BEAKER) (test urto=100) 2.2 mg/dL 0.2-1.2 BILIRUBIN DIRECT (BEAKER) (test nmyx=079) 1.5 mg/dL 0.1-0.5 ALKALINE PHOSPHATASE (BEAKER) (test nzgk=299) 54 U/L 40-150 AST (SGOT) (BEAKER) (test lfgh=848) 17 U/L 5-34 ALT (SGPT) (BEAKER) (test gbgr=717) 32 U/L 6-55 TROPONIN [id number] 07:36:00* Test Item Value Reference Range Comments TROPONIN I (BEAKER) (test dzlq=935) 0.03 ng/mL 0.00-0.03 Troponin I (TnI) levels must be interpreted in the context of the presenting sym ptoms and the clinical findings. Elevated TnI levels indicate myocardial damage, but are not specific for ischemic heart disease. Elevated TnI levels are seen in patients with other cardiac conditions (including myocarditis and congestive h eart failure), and slight TnI elevations occur in patients with other conditions , including sepsis, renal failure, acidosis, acute neurological disease, and per sistent tachyarrhythmia.CBC W/PLT COUNT & AUTO [id number] 07:15:00* Test Item Value Reference Range Comments WHITE BLOOD CELL COUNT (BEAKER) (test feua=391) 4.3 K/ L 3.5-10.5 RED BLOOD CELL COUNT (BEAKER) (test yxtp=546) 2.05 M/ L 4.63-6.08 HEMOGLOBIN (BEAKER) (test zwia=345) 6.3 GM/DL 13.7-17.5 HEMATOCRIT (BEAKER) (test awfh=966) 19.5 % 40.1-51.0 MEAN CORPUSCULAR VOLUME (BEAKER) (test hdkz=490) 95.1 fL 79.0-92.2 MEAN CORPUSCULAR HEMOGLOBIN (BEAKER) (test tspq=168) 30.7 pg 25.7-32.2 MEAN CORPUSCULAR HEMOGLOBIN CONC (BEAKER) (test imdk=293) 32.3 GM/DL 32.3-36.5 RED CELL DISTRIBUTION WIDTH (BEAKER) (test lizk=861) 18.4 % 11.6-14.4 PLATELET COUNT (BEAKER) (test mllg=122) 98 K/CU MM 150-450 MEAN PLATELET VOLUME (BEAKER) (test gesz=697) 9.0 fL 9.4-12.4 NUCLEATED RED BLOOD CELLS (BEAKER) (test aynf=869) 0 /100 WBC 0-0 NEUTROPHILS RELATIVE PERCENT (BEAKER) (test qwpy=871) 61 % LYMPHOCYTES RELATIVE PERCENT (BEAKER) (test yava=658) 26 % MONOCYTES RELATIVE PERCENT (BEAKER) (test aupg=068) 8 % EOSINOPHILS RELATIVE PERCENT (BEAKER) (test gwat=124) 4 % BASOPHILS RELATIVE PERCENT (BEAKER) (test kxjm=951) 0 % NEUTROPHILS ABSOLUTE COUNT (BEAKER) (test czwr=843) 2.66 K/ L 1.78-5.38 LYMPHOCYTES ABSOLUTE COUNT (BEAKER) (test joyk=668) 1.13 K/ L 1.32-3.57 MONOCYTES ABSOLUTE COUNT (BEAKER) (test pxzu=903) 0.33 K/ L 0.30-0.82 EOSINOPHILS ABSOLUTE COUNT (BEAKER) (test bdgy=641) 0.15 K/ L 0.04-0.54 BASOPHILS ABSOLUTE COUNT (BEAKER) (test ynrg=812) 0.01 K/ L 0.01-0.08 IMMATURE GRANULOCYTES-RELATIVE PERCENT (BEAKER) (test uiph=4727) 1 % 0-1 PROTHROMBIN [id number] 07:03:00* Test Item Value Reference Range Comments PROTIME (BEAKER) (test hcky=958) 15.6 seconds 11.7-14.7 INR (BEAKER) (test mknc=688) 1.2 <=5.9 RECOMMENDED COUMADIN/WARFARIN INR THERAPY RANGESSTANDARD DOSE: 2.0 - 3.0 Inclu kaya: PROPHYLAXIS for venous thrombosis, systemic embolization; TREATMENT for barby ous thrombosis and/or pulmonary embolus.HIGH RISK: Target INR is 2.5-3.5 for pat ients with mechanical heart valves.POCT-GLUCOSE [id number] 23:21:00* Test Item Value Reference Range Comments POC-GLUCOSE METER (BEAKER) (test ztxi=4445) 214 mg/dL 70-110 TESTED AT [facility] [address] [facility] [address] U/S, ABDOMINAL, WITH [id number] 23:10:00Referring:Dr. Marciano Villa for exam:->s/p OLT with new abd/chest painFINAL REPORT INDICATION: s/p OLT with new abd/chest pain COMPARISON: April 15, 2017 TECHNIQUE: Real-time burger-scale transabdominal and color and spectral Doppler ultrasound. FINDINGS:Liver: Size: 17.9cm. Echogenicity: Normal. Masses/lesions: None. Surface Nodularity: None. Intrahepatic bile ducts: Normal. Common bile duct: 0.4cm. MPV: 1.6cm. Gallbladder: Surgically absent. Pancreas: Head and uncinate process: Not well seen. Body and tail: Not well-seen. Spleen: Size: 18.7cm. Echogenicity: Unremarkable. Right kidney: Size: 10.1 x 4.6 x 5.3 cm. Parenchyma: Normal echogenicity. No cysts. No stones. Hydronephrosis: None. Left kidney: Size: 10.1 x 4.1 x 4.4 cm. Parenchyma: Normal echogenicity. No cysts. No stones. Hydronephrosis: None. Ascites: Moderate to large volume. Volume has increased since the prior exam. Regional Vasculature: The visible abdominal aorta, IVC and hepatic veins are patent. Color and Spectral imaging:MPV: Diameter: 1.6 Flow: Hepatopedal. Velocity: 26.9 cm/sec Filling d efects: NoneLeft and right portal veins: Patent. Flow: Antegrade Diony ling defects: None. Hepatic arteries: Patent RI proper hepatic: 0.8 RI right hepatic: 0.6 RI left hepatic: 0.7 IVC, Hepatic venous confluence, r ight HV, middle HV and left HV are patent. Additional findings: None. 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 Antegrade flow within the and portal venous system. Normal resistive indices in the hepatic ar teries. Moderate to large volume ascites, increased since the prior exam.. Edie d: JR Ardon Robert [facility]ITAL[facility] Verified Date/Time: 12/23/2017 23:10:23 Re ading Location: [address] Body Reading Room RIDE, RANDOM [id number] 21:37:00* Test Item Value Reference Range Comments CHLORIDE URINE (BEAKER) (test qkrf=135) < meq/L Reference Range: No NormalsCREATININE, RANDOM [id number] 21:36:00* Test Item Value Reference Range Comments CREATININE URINE (BEAKER) (test acut=037) 103.4 mg/dL Reference Range: No NormalsSODIUM, RANDOM [id number] 21:36:00* Test Item Value Reference Range Comments SODIUM URINE (BEAKER) (test krlj=847) 37 meq/L Reference Range: No NormalsURINALYSIS W/ [id number] 21:30:00* Test Item Value Reference Range Comments COLOR (BEAKER) (test fnvt=640) Yellow CLARITY (BEAKER) (test kxlc=060) Clear SPECIFIC GRAVITY UA (BEAKER) (test yska=818) 1.012 1.001-1.035 PH UA (BEAKER) (test mrlr=063) 6.5 5.0-8.0 PROTEIN UA (BEAKER) (test lhcc=029) 20 mg/dL Negative GLUCOSE UA (BEAKER) (test rhxb=277) Negative Negative KETONES UA (BEAKER) (test wvkx=804) Negative Negative BILIRUBIN UA (BEAKER) (test motw=187) Negative Negative BLOOD UA (BEAKER) (test pghv=208) Negative Negative NITRITE UA (BEAKER) (test ivup=749) Negative Negative LEUKOCYTE ESTERASE UA (BEAKER) (test klrv=967) Negative Negative UROBILINOGEN UA (BEAKER) (test usmy=047) 0.2 mg/dL 0.2-1.0 RBC UA (BEAKER) (test vivz=988) < /HPF WBC UA (BEAKER) (test zkqu=032) 1 /HPF SOURCE(BEAKER) (test ypns=7845) BASIC METABOLIC [id number] 21:17:00* Test Item Value Reference Range Comments SODIUM (BEAKER) (test xqdr=332) 142 meq/L 136-145 POTASSIUM (BEAKER) (test qmyc=430) 4.6 meq/L 3.5-5.1 CHLORIDE (BEAKER) (test dkhg=353) 110 meq/L 98-107 CO2 (BEAKER) (test grix=306) 23 meq/L 22-29 BLOOD UREA NITROGEN (BEAKER) (test mlky=245) 73 mg/dL 7-21 CREATININE (BEAKER) (test rhcs=083) 2.65 mg/dL 0.57-1.25 GLUCOSE RANDOM (BEAKER) (test bhjq=401) 147 mg/dL 70-105 CALCIUM (BEAKER) (test fusw=265) 9.1 mg/dL 8.4-10.2 EGFR (BEAKER) (test mbvq=7543) 26 mL/min/1.73 sq m ESTIMATED GFR IS NOT ACCURATE CREATININE CLEARANCE IN PREDICTING GLOMERULAR FILTRATION RATE. ESTIMATED GFR IS NOT APPLICABLE FOR DIALYSIS PATIENTS. Please draw at same time that urine electrolytes.Specimen slightly ictericPOCT- GLUCOSE [id number] 18:01:00* Test Item Value Reference Range Comments POC-GLUCOSE METER (BEAKER) (test uemk=4837) 75 mg/dL 70-110 TESTED AT [facility] [address] [facility] [address] CBC W/PLT COUNT & AUTO [id number] 15:42:00* Test Item Value Reference Range Comments WHITE BLOOD CELL COUNT (BEAKER) (test yyfm=709) 5.7 K/ L 3.5-10.5 RED BLOOD CELL COUNT (BEAKER) (test khog=957) 2.22 M/ L 4.63-6.08 HEMOGLOBIN (BEAKER) (test whtn=139) 7.1 GM/DL 13.7-17.5 HEMATOCRIT (BEAKER) (test deym=248) 21.0 % 40.1-51.0 MEAN CORPUSCULAR VOLUME (BEAKER) (test fwku=768) 94.6 fL 79.0-92.2 MEAN CORPUSCULAR HEMOGLOBIN (BEAKER) (test tnpq=951) 32.0 pg 25.7-32.2 MEAN CORPUSCULAR HEMOGLOBIN CONC (BEAKER) (test yfqf=847) 33.8 GM/DL 32.3-36.5 RED CELL DISTRIBUTION WIDTH (BEAKER) (test lnnx=604) 19.0 % 11.6-14.4 PLATELET COUNT (BEAKER) (test emxz=068) 147 K/CU MM 150-450 MEAN PLATELET VOLUME (BEAKER) (test hemt=119) 9.6 fL 9.4-12.4 NUCLEATED RED BLOOD CELLS (BEAKER) (test jzts=086) 0 /100 WBC 0-0 NEUTROPHILS RELATIVE PERCENT (BEAKER) (test fhnm=892) 85 % LYMPHOCYTES RELATIVE PERCENT (BEAKER) (test ahzx=897) 9 % MONOCYTES RELATIVE PERCENT (BEAKER) (test lxnu=033) 3 % EOSINOPHILS RELATIVE PERCENT (BEAKER) (test ydhz=499) 1 % BASOPHILS RELATIVE PERCENT (BEAKER) (test mkst=149) 1 % NEUTROPHILS ABSOLUTE COUNT (BEAKER) (test rquh=669) 4.87 K/ L 1.78-5.38 LYMPHOCYTES ABSOLUTE COUNT (BEAKER) (test ysyo=386) 0.52 K/ L 1.32-3.57 MONOCYTES ABSOLUTE COUNT (BEAKER) (test exjo=758) 0.14 K/ L 0.30-0.82 EOSINOPHILS ABSOLUTE COUNT (BEAKER) (test afsl=996) 0.07 K/ L 0.04-0.54 BASOPHILS ABSOLUTE COUNT (BEAKER) (test wzyv=615) 0.03 K/ L 0.01-0.08 IMMATURE GRANULOCYTES-RELATIVE PERCENT (BEAKER) (test ticr=7368) 1 % 0-1 CREATINE KINASE (CK), TOTAL AND [id number] 14:57:00* Test Item Value Reference Range Comments CREATINE KINASE TOTAL (BEAKER) (test fqhe=246) 43 U/L 29-200 CREATINE KINASE-MB (BEAKER) (test dqtn=668) 4.3 ng/mL 0.0-6.6 CREATINE KINASE-MB INDEX (BEAKER) (test snzj=130) 10.0 % CK-MB Reference Range:<6.7 Normal6.7-10.0 Borderline>10.0 Abnormal TROPONIN [id number] 14:57:00* Test Item Value Reference Range Comments TROPONIN I (BEAKER) (test bbna=039) 0.02 ng/mL 0.00-0.03 Troponin I (TnI) levels must be interpreted in the context of the presenting sym ptoms and the clinical findings. Elevated TnI levels indicate myocardial damage, but are not specific for ischemic heart disease. Elevated TnI levels are seen in patients with other cardiac conditions (including myocarditis and congestive h eart failure), and slight TnI elevations occur in patients with other conditions , including sepsis, renal failure, acidosis, acute neurological disease, and per sistent tachyarrhythmia.B-TYPE NATRIURETIC FACTOR (BNP)2017-12-23 14:56:00* Test Item Value Reference Range Comments B-TYPE NATRIURETIC PEPTIDE (BEAKER) (test kmoi=843) 102 pg/mL 0-100 RAD, CHEST, 1 VIEW, NON [id number] 14:56:00Referring:Dr. Marciano Villa for exam:->sobShould this be performed at the bedside?->NoFINAL REPORT AP view of the chest dated 12/23/2017 CLINICAL INFORMATION: sob Comment: Heart is normal in size. Pulmonary vasculature is unremarkable. Lungs are clear. No pulmonary infiltrate or pleural effusion is present. Impression: No pneumonia. Signed: Soumya Mckeon MDReport Verified Date/Time: 12/23/2017 14:56:05 Reading Location: [facility] B1 C013Y CT Body Reading Room [id number] 14:50:00* Test Item Value Reference Range Comments MAGNESIUM (BEAKER) (test pouu=638) 1.9 mg/dL 1.6-2.6 HEPATIC FUNCTION [id number] 14:50:00* Test Item Value Reference Range Comments TOTAL PROTEIN (BEAKER) (test sxoo=057) 6.9 gm/dL 6.0-8.3 ALBUMIN (BEAKER) (test fzbe=9289) 4.1 g/dL 3.5-5.0 BILIRUBIN TOTAL (BEAKER) (test spub=602) 2.6 mg/dL 0.2-1.2 BILIRUBIN DIRECT (BEAKER) (test vofy=058) 1.8 mg/dL 0.1-0.5 ALKALINE PHOSPHATASE (BEAKER) (test akes=237) 64 U/L 40-150 AST (SGOT) (BEAKER) (test sban=479) 23 U/L 5-34 ALT (SGPT) (BEAKER) (test sgmv=501) 46 U/L 6-55 Specimen slightly [id number] 14:50:00* Test Item Value Reference Range Comments LIPASE (BEAKER) (test bqqw=994) 6 U/L 8-78 Specimen slightly ictericBASIC METABOLIC [id number] 14:50:00* Test Item Value Reference Range Comments SODIUM (BEAKER) (test iwxz=259) 144 meq/L 136-145 POTASSIUM (BEAKER) (test nrls=027) 4.5 meq/L 3.5-5.1 CHLORIDE (BEAKER) (test getq=884) 110 meq/L 98-107 CO2 (BEAKER) (test oxbi=013) 23 meq/L 22-29 BLOOD UREA NITROGEN (BEAKER) (test cpnv=767) 75 mg/dL 7-21 CREATININE (BEAKER) (test wrpa=324) 2.59 mg/dL 0.57-1.25 GLUCOSE RANDOM (BEAKER) (test them=384) 80 mg/dL 70-105 CALCIUM (BEAKER) (test hrta=633) 9.6 mg/dL 8.4-10.2 EGFR (BEAKER) (test zplu=9148) 26 mL/min/1.73 sq m ESTIMATED GFR IS NOT ACCURATE CREATININE CLEARANCE IN PREDICTING GLOMERULAR FILTRATION RATE. ESTIMATED GFR IS NOT APPLICABLE FOR DIALYSIS PATIENTS. Specimen slightly ictericANG, REMOVAL OF TUNNELED CVC W/O [id number] 18:24:00Referring:Dr. Marciano Villa for exam:->no longer requires HDFINAL REPORT Right chest Tunneled hemodialysis catheter Removal, 12/20/2017. History: No longer requi res hemodialysis Modality: None. Sedation: None P rimary Manager Advertising: Tom Liu MD. Manager Concrete: Ramona. Approach: Left anterior chest. Estimated blood loss: < 5 cc. Specimen: None. Technique: The procedure including risks and benefits were explained to the patient, who expressed understanding. After informed written consent was obtained, the patient's left anterior chest region was prepped and draped in the usual sterile fashion. The skin was anesthetized with lidocaine. The tunneled central line was then removed in toto with blunt dissection and gentle traction. The skin entry site was then dressed with sterile gauze and Tegaderm. The patient tolerated the procedure well. Impression: Successful, uncomplicated removal of a left chest tunneled hemodialysis catheter. Signed: Tom Liu [facility]epbart[facility] Verified Date/Time: 12/20/2017 18:24:17 Reading Location: [address] Body Reading Room - GLUCOSE [id number] 17:48:00* Test Item Value Reference Range Comments POC-GLUCOSE METER (BEAKER) (test kuve=2607) 219 mg/dL 70-110 TESTED AT [place] [id number] [facility] [address] POCT-GLUCOSE [id number] 12:30:00* Test Item Value Reference Range Comments POC-GLUCOSE METER (BEPORFIRIO) (test mfxy=9827) 174 mg/dL 70-110 TESTED AT [address] [address] TACROLIMUS [id number] 10:59:00* Test Item Value Reference Range Comments TACROLIMUS BLOOD (BEAKER) (test eoil=062) 7.0 ng/mL 10.0-20.0 POCT-GLUCOSE [id number] 08:21:00* Test Item Value Reference Range Comments POC-GLUCOSE METER (BEAKER) (test imdw=2403) 122 mg/dL 70-110 TESTED AT [facility] [address] [facility] [address] [id number] 06:43:00* Test Item Value Reference Range Comments PHOSPHORUS (BEAKER) (test ryxp=814) 4.9 mg/dL 2.3-4.7 [id number] 06:43:00* Test Item Value Reference Range Comments MAGNESIUM (BEAKER) (test qtxn=443) 1.6 mg/dL 1.6-2.6 BASIC METABOLIC [id number] 06:43:00* Test Item Value Reference Range Comments SODIUM (BEAKER) (test yhnt=099) 146 meq/L 136-145 POTASSIUM (BEAKER) (test pbgh=746) 3.7 meq/L 3.5-5.1 CHLORIDE (BEAKER) (test mctz=604) 109 meq/L 98-107 CO2 (BEAKER) (test vkhe=257) 26 meq/L 22-29 BLOOD UREA NITROGEN (BEAKER) (test cvxp=722) 98 mg/dL 7-21 CREATININE (BEAKER) (test kspo=414) 2.34 mg/dL 0.57-1.25 GLUCOSE RANDOM (BEAKER) (test vzqx=505) 108 mg/dL 70-105 CALCIUM (BEAKER) (test zdrr=021) 8.9 mg/dL 8.4-10.2 EGFR (BEAKER) (test nlqw=8743) 30 mL/min/1.73 sq m ESTIMATED GFR IS NOT ACCURATE CREATININE CLEARANCE IN PREDICTING GLOMERULAR FILTRATION RATE. ESTIMATED GFR IS NOT APPLICABLE FOR DIALYSIS PATIENTS. Specimen slightly ictericHEPATIC FUNCTION [id number] 06:43:00* Test Item Value Reference Range Comments TOTAL PROTEIN (BEAKER) (test ybby=404) 5.7 gm/dL 6.0-8.3 ALBUMIN (BEAKER) (test yofq=7759) 3.4 g/dL 3.5-5.0 BILIRUBIN TOTAL (BEAKER) (test mzqf=263) 2.2 mg/dL 0.2-1.2 BILIRUBIN DIRECT (BEAKER) (test hpag=905) 1.6 mg/dL 0.1-0.5 ALKALINE PHOSPHATASE (BEAKER) (test eseu=225) 49 U/L 40-150 AST (SGOT) (BEAKER) (test snss=243) 16 U/L 5-34 ALT (SGPT) (BEAKER) (test vgdw=114) 35 U/L 6-55 Specimen slightly ictericCBC W/PLT COUNT & AUTO [id number] 06:40:00 * Test Item Value Reference Range Comments WHITE BLOOD CELL COUNT (BEAKER) (test qtcv=677) 4.8 K/ L 3.5-10.5 RED BLOOD CELL COUNT (BEAKER) (test stgb=886) 2.44 M/ L 4.63-6.08 HEMOGLOBIN (BEAKER) (test iixi=121) 7.6 GM/DL 13.7-17.5 HEMATOCRIT (BEAKER) (test acom=934) 22.6 % 40.1-51.0 MEAN CORPUSCULAR VOLUME (BEAKER) (test abrx=617) 92.6 fL 79.0-92.2 MEAN CORPUSCULAR HEMOGLOBIN (BEAKER) (test wsur=993) 31.1 pg 25.7-32.2 MEAN CORPUSCULAR HEMOGLOBIN CONC (BEAKER) (test osvb=151) 33.6 GM/DL 32.3-36.5 RED CELL DISTRIBUTION WIDTH (BEAKER) (test uvhs=081) 18.2 % 11.6-14.4 PLATELET COUNT (BEAKER) (test apqc=411) 88 K/CU MM 150-450 MEAN PLATELET VOLUME (BEAKER) (test lfsc=797) 8.6 fL 9.4-12.4 NUCLEATED RED BLOOD CELLS (BEAKER) (test uzdz=654) 0 /100 WBC 0-0 NEUTROPHILS RELATIVE PERCENT (BEAKER) (test kxuh=691) 70 % LYMPHOCYTES RELATIVE PERCENT (BEAKER) (test epnx=172) 20 % MONOCYTES RELATIVE PERCENT (BEAKER) (test vdoc=940) 7 % EOSINOPHILS RELATIVE PERCENT (BEAKER) (test aelv=762) 2 % BASOPHILS RELATIVE PERCENT (BEAKER) (test inrc=496) 1 % NEUTROPHILS ABSOLUTE COUNT (BEAKER) (test kitb=152) 3.30 K/ L 1.78-5.38 LYMPHOCYTES ABSOLUTE COUNT (BEAKER) (test qhdg=810) 0.94 K/ L 1.32-3.57 MONOCYTES ABSOLUTE COUNT (BEAKER) (test lebp=371) 0.31 K/ L 0.30-0.82 EOSINOPHILS ABSOLUTE COUNT (BEAKER) (test bvrk=891) 0.08 K/ L 0.04-0.54 BASOPHILS ABSOLUTE COUNT (BEAKER) (test pefe=793) 0.03 K/ L 0.01-0.08 IMMATURE GRANULOCYTES-RELATIVE PERCENT (BEAKER) (test todc=0544) 2 % 0-1 PROTHROMBIN [id number] 06:30:00* Test Item Value Reference Range Comments PROTIME (BEAKER) (test rfwh=717) 15.1 seconds 11.7-14.7 INR (BEAKER) (test ozdw=929) 1.2 <=5.9 RECOMMENDED COUMADIN/WARFARIN INR THERAPY RANGESSTANDARD DOSE: 2.0 - 3.0 Inclu kaya: PROPHYLAXIS for venous thrombosis, systemic embolization; TREATMENT for barby ous thrombosis and/or pulmonary embolus.HIGH RISK: Target INR is 2.5-3.5 for pat ients with mechanical heart valves.POCT-GLUCOSE [id number] 21:14:00* Test Item Value Reference Range Comments POC-GLUCOSE METER (BEAKER) (test htvj=1054) 200 mg/dL 70-110 TESTED AT [place] [id number] [facility] [address] POCT-GLUCOSE [id number] 16:54:00* Test Item Value Reference Range Comments POC-GLUCOSE METER (BEAKER) (test lzmq=3920) 296 mg/dL 70-110 TESTED AT [place] [id number] [facility] [address] POCT-GLUCOSE [id number] 16:07:00* Test Item Value Reference Range Comments POC-GLUCOSE METER (BEAKER) (test ajef=1563) 206 mg/dL 70-110 TESTED AT [address] [address] TACROLIMUS [id number] 08:40:00* Test Item Value Reference Range Comments TACROLIMUS BLOOD (BEAKER) (test vzgi=989) 9.3 ng/mL 10.0-20.0 POCT-GLUCOSE [id number] 08:21:00* Test Item Value Reference Range Comments POC-GLUCOSE METER (BEAKER) (test hyjp=4309) 100 mg/dL 70-110 TESTED AT [facility] [address] [facility] [address] BASIC METABOLIC [id number] 06:43:00* Test Item Value Reference Range Comments SODIUM (BEAKER) (test xgbe=381) 145 meq/L 136-145 POTASSIUM (BEAKER) (test qcfg=151) 3.7 meq/L 3.5-5.1 CHLORIDE (BEAKER) (test twbu=818) 107 meq/L 98-107 CO2 (BEAKER) (test bhpx=155) 25 meq/L 22-29 BLOOD UREA NITROGEN (BEAKER) (test jidh=551) 102 mg/dL 7-21 CREATININE (BEAKER) (test etdq=505) 2.60 mg/dL 0.57-1.25 GLUCOSE RANDOM (BEAKER) (test qtnz=044) 89 mg/dL 70-105 CALCIUM (BEAKER) (test eddq=974) 9.4 mg/dL 8.4-10.2 EGFR (BEAKER) (test wdie=5712) 26 mL/min/1.73 sq m ESTIMATED GFR IS NOT ACCURATE CREATININE CLEARANCE IN PREDICTING GLOMERULAR FILTRATION RATE. ESTIMATED GFR IS NOT APPLICABLE FOR DIALYSIS PATIENTS. [id number] 06:36:00* Test Item Value Reference Range Comments PHOSPHORUS (BEAKER) (test ezmb=251) 5.5 mg/dL 2.3-4.7 [id number] 06:36:00* Test Item Value Reference Range Comments MAGNESIUM (BEAKER) (test zxtg=993) 1.8 mg/dL 1.6-2.6 HEPATIC FUNCTION [id number] 06:36:00* Test Item Value Reference Range Comments TOTAL PROTEIN (BEAKER) (test hihf=556) 6.4 gm/dL 6.0-8.3 ALBUMIN (BEAKER) (test lytd=2012) 3.9 g/dL 3.5-5.0 BILIRUBIN TOTAL (BEAKER) (test spun=432) 2.5 mg/dL 0.2-1.2 BILIRUBIN DIRECT (BEAKER) (test xbua=973) 1.7 mg/dL 0.1-0.5 ALKALINE PHOSPHATASE (BEAKER) (test xjyh=343) 63 U/L 40-150 AST (SGOT) (BEAKER) (test kyoj=379) 19 U/L 5-34 ALT (SGPT) (BEAKER) (test bway=175) 42 U/L 6-55 PROTHROMBIN [id number] 06:21:00* Test Item Value Reference Range Comments PROTIME (BEAKER) (test jrqb=526) 14.0 seconds 11.7-14.7 INR (BEAKER) (test ofds=145) 1.1 <=5.9 RECOMMENDED COUMADIN/WARFARIN INR THERAPY RANGESSTANDARD DOSE: 2.0 - 3.0 Inclu kaya: PROPHYLAXIS for venous thrombosis, systemic embolization; TREATMENT for barby ous thrombosis and/or pulmonary embolus.HIGH RISK: Target INR is 2.5-3.5 for pat ients with mechanical heart valves.CBC W/PLT COUNT & AUTO [id number] 06:12:00* Test Item Value Reference Range Comments WHITE BLOOD CELL COUNT (BEAKER) (test npfv=762) 6.0 K/ L 3.5-10.5 RED BLOOD CELL COUNT (BEAKER) (test grok=013) 2.99 M/ L 4.63-6.08 HEMOGLOBIN (BEAKER) (test yepg=798) 9.4 GM/DL 13.7-17.5 HEMATOCRIT (BEAKER) (test eqhj=163) 27.8 % 40.1-51.0 MEAN CORPUSCULAR VOLUME (BEAKER) (test votz=188) 93.0 fL 79.0-92.2 MEAN CORPUSCULAR HEMOGLOBIN (BEAKER) (test axzn=387) 31.4 pg 25.7-32.2 MEAN CORPUSCULAR HEMOGLOBIN CONC (BEAKER) (test xtyj=101) 33.8 GM/DL 32.3-36.5 RED CELL DISTRIBUTION WIDTH (BEAKER) (test bfht=195) 17.8 % 11.6-14.4 PLATELET COUNT (BEAKER) (test tfgm=525) 121 K/CU MM 150-450 MEAN PLATELET VOLUME (BEAKER) (test jndr=023) 8.5 fL 9.4-12.4 NUCLEATED RED BLOOD CELLS (BEAKER) (test kokh=685) 0 /100 WBC 0-0 NEUTROPHILS RELATIVE PERCENT (BEAKER) (test pnvo=044) 69 % LYMPHOCYTES RELATIVE PERCENT (BEAKER) (test vhag=374) 21 % MONOCYTES RELATIVE PERCENT (BEAKER) (test wboa=629) 6 % EOSINOPHILS RELATIVE PERCENT (BEAKER) (test qadh=558) 1 % BASOPHILS RELATIVE PERCENT (BEAKER) (test opqp=318) 1 % NEUTROPHILS ABSOLUTE COUNT (BEAKER) (test zfpb=661) 4.11 K/ L 1.78-5.38 LYMPHOCYTES ABSOLUTE COUNT (BEAKER) (test guls=342) 1.24 K/ L 1.32-3.57 MONOCYTES ABSOLUTE COUNT (BEAKER) (test cvir=098) 0.37 K/ L 0.30-0.82 EOSINOPHILS ABSOLUTE COUNT (BEAKER) (test oqld=912) 0.08 K/ L 0.04-0.54 BASOPHILS ABSOLUTE COUNT (BEAKER) (test prcx=075) 0.04 K/ L 0.01-0.08 IMMATURE GRANULOCYTES-RELATIVE PERCENT (BEAKER) (test uopg=7636) 2 % 0-1 POCT-GLUCOSE [id number] 21:25:00* Test Item Value Reference Range Comments POC-GLUCOSE METER (BEAKER) (test cwzz=9352) 237 mg/dL 70-110 TESTED AT [place] [id number] [facility] [address] POCT-GLUCOSE [id number] 18:02:00* Test Item Value Reference Range Comments POC-GLUCOSE METER (BEAKER) (test iekx=9965) 226 mg/dL 70-110 TESTED AT [address] [address] CMV PCR, [id number] 15:41:00* Test Item Value Reference Range Comments CMV VIRAL LOAD - NEGATIVE (BEAKER) (test fzkx=3417) Negative or below the linear range of the assay (<375 copies/mL) Cytomegalovirus (CMV) infection can cause significant disease in immunosuppresse d patients. However, it is common for CMV to manifest as a limited infection whi ch is of no clinical significance in immunosuppressed patients or in healthy ind ividuals.Viral load measurements are helpful to identify clinical CMV infection and to guide the pre-emptive management of antiviral therapy. For treatment of CMV infection due to reactivation in transplant recipients, a threshold between 4,000 and 5,000 copies/mL is suggested. For treatment of primary CMV infection, a lower threshold can be used.CMV infection may also be monitored using weekly serial measurements. Serial measurements of CMV DNA viral load can be evaluated by identifying a 10-fold change, as well as assessing the CMV DNA viral load and the clinical context for each patient.The plasma CMV DNA viral load was detected using quantitative polymerase chain reaction and fluorescent monitoring of a s pecific hybridized probe. Genetic variation and other factors can affect the acc uracy of nucleic acid testing. Therefore, the results should be interpreted in l ight of clinical data. A negative result may not exclude the presence of CMV dis ease.This test was developed and its performance characteristics determined by [facility] Pathology Department, Section of Molecular Patholog y. It has not been cleared or approved by the U.S. Food and Drug Administration (FDA), since FDA approval is not required for clinical use of the test. Validati on was done as required by The Clinical Laboratory Improvement Amendments of 198 8.POCT-GLUCOSE [id number] 14:28:00* Test Item Value Reference Range Comments POC-GLUCOSE METER (BEAKER) (test hiqt=4423) 184 mg/dL 70-110 TESTED AT [place] [id number] [facility] [address] TACROLIMUS [id number] 09:33:00* Test Item Value Reference Range Comments TACROLIMUS BLOOD (BEAKER) (test febw=798) 8.2 ng/mL 10.0-20.0 POCT-GLUCOSE [id number] 09:00:00* Test Item Value Reference Range Comments POC-GLUCOSE METER (BEAKER) (test gchh=5746) 125 mg/dL 70-110 TESTED AT [facility] [address] [facility] [address] IMMUNOGLOBULIN G (IGG)2017-12-18 08:05:00* Test Item Value Reference Range Comments IMMUNOGLOBULIN G (IGG) (BEAKER) (test ghpa=567) 648 mg/dL 540-1822 [id number] 06:46:00* Test Item Value Reference Range Comments PREALBUMIN (BEAKER) (test kjdn=143) 32 mg/dL 14-45 BASIC METABOLIC [id number] 06:24:00* Test Item Value Reference Range Comments SODIUM (BEAKER) (test zbpl=898) 144 meq/L 136-145 POTASSIUM (BEAKER) (test tnzc=048) 3.4 meq/L 3.5-5.1 CHLORIDE (BEAKER) (test pffd=845) 106 meq/L 98-107 CO2 (BEAKER) (test ppxw=936) 25 meq/L 22-29 BLOOD UREA NITROGEN (BEAKER) (test rxdd=469) 105 mg/dL 7-21 CREATININE (BEAKER) (test cfvj=878) 3.03 mg/dL 0.57-1.25 GLUCOSE RANDOM (BEAKER) (test dnqe=248) 114 mg/dL 70-105 CALCIUM (BEAKER) (test sxje=541) 9.0 mg/dL 8.4-10.2 EGFR (BEAKER) (test layc=4806) 22 mL/min/1.73 sq m ESTIMATED GFR IS NOT ACCURATE CREATININE CLEARANCE IN PREDICTING GLOMERULAR FILTRATION RATE. ESTIMATED GFR IS NOT APPLICABLE FOR DIALYSIS PATIENTS. [id number] 06:17:00* Test Item Value Reference Range Comments PHOSPHORUS (BEAKER) (test evcm=247) 6.0 mg/dL 2.3-4.7 [id number] 06:17:00* Test Item Value Reference Range Comments MAGNESIUM (BEAKER) (test xsix=375) 1.7 mg/dL 1.6-2.6 HEPATIC FUNCTION [id number] 06:17:00* Test Item Value Reference Range Comments TOTAL PROTEIN (BEAKER) (test yfbt=610) 5.4 gm/dL 6.0-8.3 ALBUMIN (BEAKER) (test jgow=9694) 3.3 g/dL 3.5-5.0 BILIRUBIN TOTAL (BEAKER) (test nspl=990) 2.2 mg/dL 0.2-1.2 BILIRUBIN DIRECT (BEAKER) (test wais=849) 1.5 mg/dL 0.1-0.5 ALKALINE PHOSPHATASE (BEAKER) (test morx=632) 53 U/L 40-150 AST (SGOT) (BEAKER) (test okku=761) 16 U/L 5-34 ALT (SGPT) (BEAKER) (test ghbk=401) 36 U/L 6-55 PROTHROMBIN [id number] 06:12:00* Test Item Value Reference Range Comments PROTIME (BEAKER) (test tlaq=546) 14.6 seconds 11.7-14.7 INR (BEAKER) (test simt=019) 1.1 <=5.9 RECOMMENDED COUMADIN/WARFARIN INR THERAPY RANGESSTANDARD DOSE: 2.0 - 3.0 Inclu kaya: PROPHYLAXIS for venous thrombosis, systemic embolization; TREATMENT for barby ous thrombosis and/or pulmonary embolus.HIGH RISK: Target INR is 2.5-3.5 for pat ients with mechanical heart valves.CBC W/PLT COUNT & AUTO [id number] 06:05:00* Test Item Value Reference Range Comments WHITE BLOOD CELL COUNT (BEAKER) (test zenv=169) 5.1 K/ L 3.5-10.5 RED BLOOD CELL COUNT (BEAKER) (test tfun=255) 2.70 M/ L 4.63-6.08 HEMOGLOBIN (BEAKER) (test ufhr=812) 8.5 GM/DL 13.7-17.5 HEMATOCRIT (BEAKER) (test jtws=713) 24.9 % 40.1-51.0 MEAN CORPUSCULAR VOLUME (BEAKER) (test bqwz=503) 92.2 fL 79.0-92.2 MEAN CORPUSCULAR HEMOGLOBIN (BEAKER) (test idnf=830) 31.5 pg 25.7-32.2 MEAN CORPUSCULAR HEMOGLOBIN CONC (BEAKER) (test xmbq=633) 34.1 GM/DL 32.3-36.5 RED CELL DISTRIBUTION WIDTH (BEAKER) (test jwmw=491) 17.2 % 11.6-14.4 PLATELET COUNT (BEAKER) (test sajo=867) 104 K/CU MM 150-450 MEAN PLATELET VOLUME (BEAKER) (test gtls=056) 8.4 fL 9.4-12.4 NUCLEATED RED BLOOD CELLS (BEAKER) (test umdc=531) 0 /100 WBC 0-0 NEUTROPHILS RELATIVE PERCENT (BEAKER) (test egae=572) 69 % LYMPHOCYTES RELATIVE PERCENT (BEAKER) (test muzr=432) 22 % MONOCYTES RELATIVE PERCENT (BEAKER) (test omhu=035) 6 % EOSINOPHILS RELATIVE PERCENT (BEAKER) (test rdpu=381) 1 % BASOPHILS RELATIVE PERCENT (BEAKER) (test biom=486) 1 % NEUTROPHILS ABSOLUTE COUNT (BEAKER) (test gtzr=290) 3.52 K/ L 1.78-5.38 LYMPHOCYTES ABSOLUTE COUNT (BEAKER) (test lmwh=452) 1.12 K/ L 1.32-3.57 MONOCYTES ABSOLUTE COUNT (BEAKER) (test ouuo=898) 0.30 K/ L 0.30-0.82 EOSINOPHILS ABSOLUTE COUNT (BEAKER) (test tmob=184) 0.05 K/ L 0.04-0.54 BASOPHILS ABSOLUTE COUNT (BEAKER) (test soky=927) 0.03 K/ L 0.01-0.08 IMMATURE GRANULOCYTES-RELATIVE PERCENT (BEAKER) (test srxp=3963) 2 % 0-1 POCT-GLUCOSE [id number] 21:22:00* Test Item Value Reference Range Comments POC-GLUCOSE METER (BEAKER) (test lhoj=8477) 228 mg/dL 70-110 TESTED AT [place] [id number] POCT-GLUCOSE [id number] 18:30:00* Test Item Value Reference Range Comments POC-GLUCOSE METER (BEAKER) (test wqfl=0761) 224 mg/dL 70-110 TESTED AT [address] [address] POCT-GLUCOSE [id number] 12:53:00* Test Item Value Reference Range Comments POC-GLUCOSE METER (BEAKER) (test dacx=3147) 227 mg/dL 70-110 TESTED AT [address] [address] TACROLIMUS [id number] 09:14:00* Test Item Value Reference Range Comments TACROLIMUS BLOOD (BEAKER) (test czzk=698) 10.3 ng/mL 10.0-20.0 POCT-GLUCOSE [id number] 09:08:00* Test Item Value Reference Range Comments POC-GLUCOSE METER (BEAKER) (test ryba=1124) 149 mg/dL 70-110 TESTED AT [address] [address] BASIC METABOLIC [id number] 06:31:00* Test Item Value Reference Range Comments SODIUM (BEAKER) (test tofx=005) 142 meq/L 136-145 POTASSIUM (BEAKER) (test yjcw=480) 3.4 meq/L 3.5-5.1 CHLORIDE (BEAKER) (test rygm=702) 105 meq/L 98-107 CO2 (BEAKER) (test hthb=120) 25 meq/L 22-29 BLOOD UREA NITROGEN (BEAKER) (test abwv=902) 94 mg/dL 7-21 CREATININE (BEAKER) (test elcu=467) 3.15 mg/dL 0.57-1.25 GLUCOSE RANDOM (BEAKER) (test tgem=664) 121 mg/dL 70-105 CALCIUM (BEAKER) (test sllz=560) 8.9 mg/dL 8.4-10.2 EGFR (BEAKER) (test ibuf=4537) 21 mL/min/1.73 sq m ESTIMATED GFR IS NOT ACCURATE CREATININE CLEARANCE IN PREDICTING GLOMERULAR FILTRATION RATE. ESTIMATED GFR IS NOT APPLICABLE FOR DIALYSIS PATIENTS. [id number] 06:22:00* Test Item Value Reference Range Comments PHOSPHORUS (BEAKER) (test rfng=958) 5.6 mg/dL 2.3-4.7 [id number] 06:22:00* Test Item Value Reference Range Comments MAGNESIUM (BEAKER) (test yjfc=758) 1.8 mg/dL 1.6-2.6 HEPATIC FUNCTION [id number] 06:22:00* Test Item Value Reference Range Comments TOTAL PROTEIN (BEAKER) (test vcsh=564) 5.2 gm/dL 6.0-8.3 ALBUMIN (BEAKER) (test qugu=1448) 3.1 g/dL 3.5-5.0 BILIRUBIN TOTAL (BEAKER) (test yjdm=215) 2.1 mg/dL 0.2-1.2 BILIRUBIN DIRECT (BEAKER) (test eyyi=275) 1.4 mg/dL 0.1-0.5 ALKALINE PHOSPHATASE (BEAKER) (test huqt=739) 55 U/L 40-150 AST (SGOT) (BEAKER) (test iqew=383) 15 U/L 5-34 ALT (SGPT) (BEAKER) (test zwuw=467) 37 U/L 6-55 PROTHROMBIN [id number] 06:08:00* Test Item Value Reference Range Comments PROTIME (BEAKER) (test mftg=723) 14.5 seconds 11.7-14.7 INR (BEAKER) (test apjc=092) 1.1 <=5.9 RECOMMENDED COUMADIN/WARFARIN INR THERAPY RANGESSTANDARD DOSE: 2.0 - 3.0 Inclu kaya: PROPHYLAXIS for venous thrombosis, systemic embolization; TREATMENT for barby ous thrombosis and/or pulmonary embolus.HIGH RISK: Target INR is 2.5-3.5 for pat ients with mechanical heart valves.CBC W/PLT COUNT & AUTO [id number] 05:59:00* Test Item Value Reference Range Comments WHITE BLOOD CELL COUNT (BEAKER) (test belb=432) 4.9 K/ L 3.5-10.5 RED BLOOD CELL COUNT (BEAKER) (test oxxy=934) 2.87 M/ L 4.63-6.08 HEMOGLOBIN (BEAKER) (test vscg=100) 9.1 GM/DL 13.7-17.5 HEMATOCRIT (BEAKER) (test wmcc=218) 26.4 % 40.1-51.0 MEAN CORPUSCULAR VOLUME (BEAKER) (test ucbz=685) 92.0 fL 79.0-92.2 MEAN CORPUSCULAR HEMOGLOBIN (BEAKER) (test edao=227) 31.7 pg 25.7-32.2 MEAN CORPUSCULAR HEMOGLOBIN CONC (BEAKER) (test olxa=756) 34.5 GM/DL 32.3-36.5 RED CELL DISTRIBUTION WIDTH (BEAKER) (test waso=054) 17.0 % 11.6-14.4 PLATELET COUNT (BEAKER) (test qmtg=841) 118 K/CU MM 150-450 MEAN PLATELET VOLUME (BEAKER) (test vwfb=848) 8.4 fL 9.4-12.4 NUCLEATED RED BLOOD CELLS (BEAKER) (test hyxr=678) 0 /100 WBC 0-0 NEUTROPHILS RELATIVE PERCENT (BEAKER) (test gwhu=896) 66 % LYMPHOCYTES RELATIVE PERCENT (BEAKER) (test bnzw=670) 22 % MONOCYTES RELATIVE PERCENT (BEAKER) (test yvuu=825) 6 % EOSINOPHILS RELATIVE PERCENT (BEAKER) (test bupi=589) 2 % BASOPHILS RELATIVE PERCENT (BEAKER) (test aorw=116) 0 % NEUTROPHILS ABSOLUTE COUNT (BEAKER) (test ocxp=905) 3.18 K/ L 1.78-5.38 LYMPHOCYTES ABSOLUTE COUNT (BEAKER) (test xfde=182) 1.05 K/ L 1.32-3.57 MONOCYTES ABSOLUTE COUNT (BEAKER) (test yusb=759) 0.31 K/ L 0.30-0.82 EOSINOPHILS ABSOLUTE COUNT (BEAKER) (test pgtm=738) 0.08 K/ L 0.04-0.54 BASOPHILS ABSOLUTE COUNT (BEAKER) (test iqcp=859) 0.02 K/ L 0.01-0.08 IMMATURE GRANULOCYTES-RELATIVE PERCENT (BEAKER) (test bbxr=0114) 5 % 0-1 POCT-GLUCOSE [id number] 23:35:00* Test Item Value Reference Range Comments POC-GLUCOSE METER (BEAKER) (test nllz=2107) 184 mg/dL 70-110 TESTED AT [place] [address] BODY FLUID CULTURE + GRAM [id number] 19:27:00* Test Item Value Reference Range Comments CULTURE (BEAKER) (test jdhw=2147) No growth GRAM STAIN RESULT (BEAKER) (test eump=4266) <1+ WBCs GRAM STAIN RESULT (BEAKER) (test tujt=87011) No organisms seen POCT-GLUCOSE [id number] 17:51:00* Test Item Value Reference Range Comments POC-GLUCOSE METER (BEAKER) (test wmlj=3499) 262 mg/dL 70-110 TESTED AT [place] [address] POCT-GLUCOSE [id number] 13:13:00* Test Item Value Reference Range Comments POC-GLUCOSE METER (BEAKER) (test mhor=6450) 244 mg/dL 70-110 TESTED AT [place] [address] TACROLIMUS [id number] 13:09:00* Test Item Value Reference Range Comments TACROLIMUS BLOOD (BEAKER) (test roqe=865) 8.6 ng/mL 10.0-20.0 POCT-GLUCOSE [id number] 09:09:00* Test Item Value Reference Range Comments POC-GLUCOSE METER (BEAKER) (test nltz=3946) 134 mg/dL 70-110 TESTED AT [place] [address] BASIC METABOLIC [id number] 06:13:00* Test Item Value Reference Range Comments SODIUM (BEAKER) (test fknh=369) 141 meq/L 136-145 POTASSIUM (BEAKER) (test gefy=103) 3.5 meq/L 3.5-5.1 CHLORIDE (BEAKER) (test xilr=785) 104 meq/L 98-107 CO2 (BEAKER) (test bryd=650) 27 meq/L 22-29 BLOOD UREA NITROGEN (BEAKER) (test gqom=496) 80 mg/dL 7-21 CREATININE (BEAKER) (test gjya=784) 3.38 mg/dL 0.57-1.25 GLUCOSE RANDOM (BEAKER) (test xyah=489) 113 mg/dL 70-105 CALCIUM (BEAKER) (test bpqd=753) 8.7 mg/dL 8.4-10.2 EGFR (BEAKER) (test kryb=4378) 19 mL/min/1.73 sq m ESTIMATED GFR IS NOT ACCURATE CREATININE CLEARANCE IN PREDICTING GLOMERULAR FILTRATION RATE. ESTIMATED GFR IS NOT APPLICABLE FOR DIALYSIS PATIENTS. [id number] 06:08:00* Test Item Value Reference Range Comments PHOSPHORUS (BEAKER) (test buny=158) 5.3 mg/dL 2.3-4.7 [id number] 06:08:00* Test Item Value Reference Range Comments MAGNESIUM (BEAKER) (test npru=708) 1.7 mg/dL 1.6-2.6 HEPATIC FUNCTION [id number] 06:08:00* Test Item Value Reference Range Comments TOTAL PROTEIN (BEAKER) (test lbwo=119) 5.2 gm/dL 6.0-8.3 ALBUMIN (BEAKER) (test pwvt=1673) 3.2 g/dL 3.5-5.0 BILIRUBIN TOTAL (BEAKER) (test gtdo=500) 2.1 mg/dL 0.2-1.2 BILIRUBIN DIRECT (BEAKER) (test awef=978) 1.5 mg/dL 0.1-0.5 ALKALINE PHOSPHATASE (BEAKER) (test aztp=162) 53 U/L 40-150 AST (SGOT) (BEAKER) (test lalx=369) 18 U/L 5-34 ALT (SGPT) (BEAKER) (test ngyj=613) 42 U/L 6-55 PROTHROMBIN [id number] 06:03:00* Test Item Value Reference Range Comments PROTIME (BEAKER) (test apod=565) 15.1 seconds 11.7-14.7 INR (BEAKER) (test pfrb=953) 1.2 <=5.9 RECOMMENDED COUMADIN/WARFARIN INR THERAPY RANGESSTANDARD DOSE: 2.0 - 3.0 Inclu kaya: PROPHYLAXIS for venous thrombosis, systemic embolization; TREATMENT for barby ous thrombosis and/or pulmonary embolus.HIGH RISK: Target INR is 2.5-3.5 for pat ients with mechanical heart valves.CBC W/PLT COUNT & AUTO [id number] 05:49:00* Test Item Value Reference Range Comments WHITE BLOOD CELL COUNT (BEAKER) (test djmm=519) 4.3 K/ L 3.5-10.5 RED BLOOD CELL COUNT (BEAKER) (test xfju=046) 2.88 M/ L 4.63-6.08 HEMOGLOBIN (BEAKER) (test ipau=984) 9.2 GM/DL 13.7-17.5 HEMATOCRIT (BEAKER) (test xlwt=363) 26.3 % 40.1-51.0 MEAN CORPUSCULAR VOLUME (BEAKER) (test drdp=323) 91.3 fL 79.0-92.2 MEAN CORPUSCULAR HEMOGLOBIN (BEAKER) (test kzcw=267) 31.9 pg 25.7-32.2 MEAN CORPUSCULAR HEMOGLOBIN CONC (BEAKER) (test nqpj=066) 35.0 GM/DL 32.3-36.5 RED CELL DISTRIBUTION WIDTH (BEAKER) (test hjul=267) 16.7 % 11.6-14.4 PLATELET COUNT (BEAKER) (test uuzz=313) 116 K/CU MM 150-450 MEAN PLATELET VOLUME (BEAKER) (test osgc=732) 8.7 fL 9.4-12.4 NUCLEATED RED BLOOD CELLS (BEAKER) (test jsbx=898) 0 /100 WBC 0-0 NEUTROPHILS RELATIVE PERCENT (BEAKER) (test scbt=387) 64 % LYMPHOCYTES RELATIVE PERCENT (BEAKER) (test ircc=222) 23 % MONOCYTES RELATIVE PERCENT (BEAKER) (test havr=872) 7 % EOSINOPHILS RELATIVE PERCENT (BEAKER) (test bfon=937) 2 % BASOPHILS RELATIVE PERCENT (BEAKER) (test sjut=179) 1 % NEUTROPHILS ABSOLUTE COUNT (BEAKER) (test vesr=810) 2.77 K/ L 1.78-5.38 LYMPHOCYTES ABSOLUTE COUNT (BEAKER) (test kaan=132) 0.98 K/ L 1.32-3.57 MONOCYTES ABSOLUTE COUNT (BEAKER) (test xzir=069) 0.28 K/ L 0.30-0.82 EOSINOPHILS ABSOLUTE COUNT (BEAKER) (test niya=318) 0.08 K/ L 0.04-0.54 BASOPHILS ABSOLUTE COUNT (BEAKER) (test iirw=925) 0.04 K/ L 0.01-0.08 IMMATURE GRANULOCYTES-RELATIVE PERCENT (BEAKER) (test jjfc=7183) 4 % 0-1 POCT-GLUCOSE [id number] 23:32:00* Test Item Value Reference Range Comments POC-GLUCOSE METER (BEAKER) (test hvvx=9453) 192 mg/dL 70-110 TESTED AT [facility] [address] [facility] [id number] POCT-GLUCOSE [id number] 17:56:00* Test Item Value Reference Range Comments POC-GLUCOSE METER (BEAKER) (test kess=0280) 250 mg/dL 70-110 TESTED AT [place] [id number] [facility] [id number] CBC W/PLT COUNT & AUTO [id number] 14:37:00* Test Item Value Reference Range Comments WHITE BLOOD CELL COUNT (BEAKER) (test qrvo=218) 5.3 K/ L 3.5-10.5 RED BLOOD CELL COUNT (BEAKER) (test koab=466) 3.17 M/ L 4.63-6.08 HEMOGLOBIN (BEAKER) (test ucti=828) 9.9 GM/DL 13.7-17.5 HEMATOCRIT (BEAKER) (test veun=380) 28.5 % 40.1-51.0 MEAN CORPUSCULAR VOLUME (BEAKER) (test kfbf=737) 89.9 fL 79.0-92.2 MEAN CORPUSCULAR HEMOGLOBIN (BEAKER) (test ukrl=811) 31.2 pg 25.7-32.2 MEAN CORPUSCULAR HEMOGLOBIN CONC (BEAKER) (test snmm=281) 34.7 GM/DL 32.3-36.5 RED CELL DISTRIBUTION WIDTH (BEAKER) (test bkqs=053) 16.5 % 11.6-14.4 PLATELET COUNT (BEAKER) (test afqt=343) 155 K/CU MM 150-450 MEAN PLATELET VOLUME (BEAKER) (test widd=364) 9.0 fL 9.4-12.4 NUCLEATED RED BLOOD CELLS (BEAKER) (test ladh=581) 0 /100 WBC 0-0 NEUTROPHILS RELATIVE PERCENT (BEAKER) (test zemj=842) 78 % LYMPHOCYTES RELATIVE PERCENT (BEAKER) (test yblk=305) 11 % MONOCYTES RELATIVE PERCENT (BEAKER) (test ayii=003) 5 % EOSINOPHILS RELATIVE PERCENT (BEAKER) (test fgjn=280) 1 % BASOPHILS RELATIVE PERCENT (BEAKER) (test drpl=761) 1 % NEUTROPHILS ABSOLUTE COUNT (BEAKER) (test gkuo=262) 4.10 K/ L 1.78-5.38 LYMPHOCYTES ABSOLUTE COUNT (BEAKER) (test lnkh=160) 0.58 K/ L 1.32-3.57 MONOCYTES ABSOLUTE COUNT (BEAKER) (test tssp=972) 0.25 K/ L 0.30-0.82 EOSINOPHILS ABSOLUTE COUNT (BEAKER) (test qmqq=857) 0.06 K/ L 0.04-0.54 BASOPHILS ABSOLUTE COUNT (BEAKER) (test fxyb=100) 0.04 K/ L 0.01-0.08 IMMATURE GRANULOCYTES-RELATIVE PERCENT (BEAKER) (test sjji=6203) 5 % 0-1 TACROLIMUS [id number] 13:22:00* Test Item Value Reference Range Comments TACROLIMUS BLOOD (BEAKER) (test hmag=963) 5.4 ng/mL 10.0-20.0 POCT-GLUCOSE [id number] 12:50:00* Test Item Value Reference Range Comments POC-GLUCOSE METER (BEAKER) (test vmhu=2411) 192 mg/dL 70-110 TESTED AT [address] [address] POCT-GLUCOSE [id number] 12:07:00* Test Item Value Reference Range Comments POC-GLUCOSE METER (BEAKER) (test mwco=9776) 187 mg/dL 70-110 TESTED AT [address] [address] POCT-GLUCOSE [id number] 08:48:00* Test Item Value Reference Range Comments POC-GLUCOSE METER (BEAKER) (test umzi=4720) 110 mg/dL 70-110 TESTED AT [address] [address] BASIC METABOLIC [id number] 07:05:00* Test Item Value Reference Range Comments SODIUM (BEAKER) (test fhec=895) 141 meq/L 136-145 POTASSIUM (BEAKER) (test qfqr=087) 3.5 meq/L 3.5-5.1 CHLORIDE (BEAKER) (test kpyz=014) 105 meq/L 98-107 CO2 (BEAKER) (test klew=875) 25 meq/L 22-29 BLOOD UREA NITROGEN (BEAKER) (test vnhx=488) 58 mg/dL 7-21 CREATININE (BEAKER) (test gvjg=293) 2.88 mg/dL 0.57-1.25 GLUCOSE RANDOM (BEAKER) (test qmrj=020) 96 mg/dL 70-105 CALCIUM (BEAKER) (test dvxx=850) 8.8 mg/dL 8.4-10.2 EGFR (BEAKER) (test sofn=9766) 23 mL/min/1.73 sq m ESTIMATED GFR IS NOT ACCURATE CREATININE CLEARANCE IN PREDICTING GLOMERULAR FILTRATION RATE. ESTIMATED GFR IS NOT APPLICABLE FOR DIALYSIS PATIENTS. [id number] 07:03:00* Test Item Value Reference Range Comments PHOSPHORUS (BEAKER) (test zjva=289) 4.5 mg/dL 2.3-4.7 [id number] 07:03:00* Test Item Value Reference Range Comments MAGNESIUM (BEAKER) (test pdtm=356) 1.8 mg/dL 1.6-2.6 HEPATIC FUNCTION [id number] 07:03:00* Test Item Value Reference Range Comments TOTAL PROTEIN (BEAKER) (test hjlg=320) 5.3 gm/dL 6.0-8.3 ALBUMIN (BEAKER) (test rfnt=2355) 3.2 g/dL 3.5-5.0 BILIRUBIN TOTAL (BEAKER) (test vbvv=614) 2.3 mg/dL 0.2-1.2 BILIRUBIN DIRECT (BEAKER) (test aeyf=975) 1.5 mg/dL 0.1-0.5 ALKALINE PHOSPHATASE (BEAKER) (test gjsn=483) 51 U/L 40-150 AST (SGOT) (BEAKER) (test xobd=249) 24 U/L 5-34 ALT (SGPT) (BEAKER) (test sbbp=142) 44 U/L 6-55 PROTHROMBIN [id number] 06:39:00* Test Item Value Reference Range Comments PROTIME (BEAKER) (test dvnm=463) 14.8 seconds 11.7-14.7 INR (BEAKER) (test dzrm=756) 1.2 <=5.9 RECOMMENDED COUMADIN/WARFARIN INR THERAPY RANGESSTANDARD DOSE: 2.0 - 3.0 Inclu kaya: PROPHYLAXIS for venous thrombosis, systemic embolization; TREATMENT for barby ous thrombosis and/or pulmonary embolus.HIGH RISK: Target INR is 2.5-3.5 for pat ients with mechanical heart valves.CBC W/PLT COUNT & AUTO [id number] 06:36:00* Test Item Value Reference Range Comments WHITE BLOOD CELL COUNT (BEAKER) (test rsqo=473) 3.8 K/ L 3.5-10.5 RED BLOOD CELL COUNT (BEAKER) (test pkuf=251) 2.75 M/ L 4.63-6.08 HEMOGLOBIN (BEAKER) (test iqwr=459) 8.7 GM/DL 13.7-17.5 HEMATOCRIT (BEAKER) (test jsib=916) 25.0 % 40.1-51.0 MEAN CORPUSCULAR VOLUME (BEAKER) (test duir=966) 90.9 fL 79.0-92.2 MEAN CORPUSCULAR HEMOGLOBIN (BEAKER) (test zlpb=808) 31.6 pg 25.7-32.2 MEAN CORPUSCULAR HEMOGLOBIN CONC (BEAKER) (test byoq=799) 34.8 GM/DL 32.3-36.5 RED CELL DISTRIBUTION WIDTH (BEAKER) (test ekda=754) 16.7 % 11.6-14.4 PLATELET COUNT (BEAKER) (test kgri=048) 118 K/CU MM 150-450 MEAN PLATELET VOLUME (BEAKER) (test pypk=324) 9.2 fL 9.4-12.4 NUCLEATED RED BLOOD CELLS (BEAKER) (test jrkw=455) 0 /100 WBC 0-0 NEUTROPHILS RELATIVE PERCENT (BEAKER) (test pqef=315) 61 % LYMPHOCYTES RELATIVE PERCENT (BEAKER) (test zfmd=272) 25 % MONOCYTES RELATIVE PERCENT (BEAKER) (test bsza=945) 7 % EOSINOPHILS RELATIVE PERCENT (BEAKER) (test lbrq=995) 2 % BASOPHILS RELATIVE PERCENT (BEAKER) (test eeqr=490) 1 % NEUTROPHILS ABSOLUTE COUNT (BEAKER) (test uwhl=383) 2.32 K/ L 1.78-5.38 LYMPHOCYTES ABSOLUTE COUNT (BEAKER) (test lpjc=151) 0.96 K/ L 1.32-3.57 MONOCYTES ABSOLUTE COUNT (BEAKER) (test czmp=105) 0.26 K/ L 0.30-0.82 EOSINOPHILS ABSOLUTE COUNT (BEAKER) (test xinx=963) 0.07 K/ L 0.04-0.54 BASOPHILS ABSOLUTE COUNT (BEAKER) (test ycor=861) 0.04 K/ L 0.01-0.08 IMMATURE GRANULOCYTES-RELATIVE PERCENT (BEAKER) (test omwr=8387) 4 % 0-1 POCT-GLUCOSE [id number] 21:41:00* Test Item Value Reference Range Comments POC-GLUCOSE METER (BEAKER) (test mjkq=3542) 210 mg/dL 70-110 TESTED AT [facility] [address] [facility] [address] BLOOD [id number] 18:00:00* Test Item Value Reference Range Comments CULTURE (BEAKER) (test oqlx=9256) No growth in 5 days BLOOD [id number] 18:00:00* Test Item Value Reference Range Comments CULTURE (BEAKER) (test cihl=3021) No growth in 5 days POCT-GLUCOSE [id number] 16:54:00* Test Item Value Reference Range Comments POC-GLUCOSE METER (BEAKER) (test kovb=2433) 179 mg/dL 70-110 TESTED AT [place] [id number] [facility] [address] CBC (HEMOGRAM ONLY)2017-12-14 15:48:00* Test Item Value Reference Range Comments WHITE BLOOD CELL COUNT (BEAKER) (test eubt=627) 6.4 K/ L 3.5-10.5 RED BLOOD CELL COUNT (BEAKER) (test yyba=412) 3.25 M/ L 4.63-6.08 HEMOGLOBIN (BEAKER) (test mpfv=478) 10.3 GM/DL 13.7-17.5 HEMATOCRIT (BEAKER) (test sana=121) 29.2 % 40.1-51.0 MEAN CORPUSCULAR VOLUME (BEAKER) (test gdcm=301) 89.8 fL 79.0-92.2 MEAN CORPUSCULAR HEMOGLOBIN (BEAKER) (test ogju=044) 31.7 pg 25.7-32.2 MEAN CORPUSCULAR HEMOGLOBIN CONC (BEAKER) (test epsf=441) 35.3 GM/DL 32.3-36.5 RED CELL DISTRIBUTION WIDTH (BEAKER) (test eeom=883) 16.3 % 11.6-14.4 PLATELET COUNT (BEAKER) (test zjnl=029) 166 K/CU MM 150-450 MEAN PLATELET VOLUME (BEAKER) (test djny=464) 8.9 fL 9.4-12.4 NUCLEATED RED BLOOD CELLS (BEAKER) (test srrf=772) 0 /100 WBC 0-0 POCT-GLUCOSE [id number] 12:18:00* Test Item Value Reference Range Comments POC-GLUCOSE METER (BEAKER) (test jilg=9920) 154 mg/dL 70-110 TESTED AT [address] [address] TACROLIMUS [id number] 10:51:00* Test Item Value Reference Range Comments TACROLIMUS BLOOD (BEAKER) (test ikhy=215) 5.4 ng/mL 10.0-20.0 HEMOGLOBIN AND [id number] 10:23:00* Test Item Value Reference Range Comments HEMOGLOBIN (BEAKER) (test nmsc=077) 8.2 GM/DL 13.7-17.5 HEMATOCRIT (BEAKER) (test auqr=519) 23.7 % 40.1-51.0 Post transfusionPOCT-GLUCOSE [id number] 08:47:00* Test Item Value Reference Range Comments POC-GLUCOSE METER (BEAKER) (test lsuq=6036) 122 mg/dL 70-110 TESTED AT [address] [address] CALCIUM, [id number] 07:55:00* Test Item Value Reference Range Comments CALCIUM IONIZED (BEAKER) (test ekyn=384) 1.03 mmol/L 1.12-1.27 PH, BLOOD (BEAKER) (test fyoi=4716) 7.43 BASIC METABOLIC [id number] 07:22:00* Test Item Value Reference Range Comments SODIUM (BEAKER) (test coov=201) 139 meq/L 136-145 POTASSIUM (BEAKER) (test qikp=672) 3.7 meq/L 3.5-5.1 CHLORIDE (BEAKER) (test wozm=702) 102 meq/L 98-107 CO2 (BEAKER) (test syzm=905) 28 meq/L 22-29 BLOOD UREA NITROGEN (BEAKER) (test buku=825) 87 mg/dL 7-21 CREATININE (BEAKER) (test bdtx=986) 4.00 mg/dL 0.57-1.25 GLUCOSE RANDOM (BEAKER) (test zwim=135) 99 mg/dL 70-105 CALCIUM (BEAKER) (test tmsi=705) 8.7 mg/dL 8.4-10.2 EGFR (BEAKER) (test ihgz=7071) 16 mL/min/1.73 sq m ESTIMATED GFR IS NOT ACCURATE CREATININE CLEARANCE IN PREDICTING GLOMERULAR FILTRATION RATE. ESTIMATED GFR IS NOT APPLICABLE FOR DIALYSIS PATIENTS. [id number] 07:14:00* Test Item Value Reference Range Comments PHOSPHORUS (BEAKER) (test hrde=079) 4.9 mg/dL 2.3-4.7 [id number] 07:14:00* Test Item Value Reference Range Comments MAGNESIUM (BEAKER) (test xthn=806) 2.0 mg/dL 1.6-2.6 HEPATIC FUNCTION [id number] 07:14:00* Test Item Value Reference Range Comments TOTAL PROTEIN (BEAKER) (test ckgx=668) 5.3 gm/dL 6.0-8.3 ALBUMIN (BEAKER) (test uxyk=8646) 3.3 g/dL 3.5-5.0 BILIRUBIN TOTAL (BEAKER) (test jvfa=336) 2.2 mg/dL 0.2-1.2 BILIRUBIN DIRECT (BEAKER) (test vboj=610) 1.5 mg/dL 0.1-0.5 ALKALINE PHOSPHATASE (BEAKER) (test zpho=818) 48 U/L 40-150 AST (SGOT) (BEAKER) (test hbch=979) 18 U/L 5-34 ALT (SGPT) (BEAKER) (test spdc=614) 36 U/L 6-55 PROTHROMBIN [id number] 06:27:00* Test Item Value Reference Range Comments PROTIME (BEAKER) (test zlwb=757) 14.6 seconds 11.7-14.7 INR (BEAKER) (test ngiu=178) 1.1 <=5.9 RECOMMENDED COUMADIN/WARFARIN INR THERAPY RANGESSTANDARD DOSE: 2.0 - 3.0 Inclu kaya: PROPHYLAXIS for venous thrombosis, systemic embolization; TREATMENT for barby ous thrombosis and/or pulmonary embolus.HIGH RISK: Target INR is 2.5-3.5 for pat ients with mechanical heart valves.CBC W/PLT COUNT & AUTO [id number] 06:22:00* Test Item Value Reference Range Comments WHITE BLOOD CELL COUNT (BEAKER) (test xumw=721) 3.4 K/ L 3.5-10.5 RED BLOOD CELL COUNT (BEAKER) (test zekx=929) 2.15 M/ L 4.63-6.08 HEMOGLOBIN (BEAKER) (test jsxs=685) 6.9 GM/DL 13.7-17.5 HEMATOCRIT (BEAKER) (test ftfw=582) 20.0 % 40.1-51.0 MEAN CORPUSCULAR VOLUME (BEAKER) (test lpga=624) 93.0 fL 79.0-92.2 MEAN CORPUSCULAR HEMOGLOBIN (BEAKER) (test tepc=615) 32.1 pg 25.7-32.2 MEAN CORPUSCULAR HEMOGLOBIN CONC (BEAKER) (test ekgb=368) 34.5 GM/DL 32.3-36.5 RED CELL DISTRIBUTION WIDTH (BEAKER) (test bcqt=184) 16.5 % 11.6-14.4 PLATELET COUNT (BEAKER) (test ista=040) 127 K/CU MM 150-450 MEAN PLATELET VOLUME (BEAKER) (test iedd=234) 9.5 fL 9.4-12.4 NUCLEATED RED BLOOD CELLS (BEAKER) (test sfjg=194) 0 /100 WBC 0-0 NEUTROPHILS RELATIVE PERCENT (BEAKER) (test jini=691) 56 % LYMPHOCYTES RELATIVE PERCENT (BEAKER) (test amna=678) 29 % MONOCYTES RELATIVE PERCENT (BEAKER) (test fnih=627) 9 % EOSINOPHILS RELATIVE PERCENT (BEAKER) (test dkns=214) 2 % BASOPHILS RELATIVE PERCENT (BEAKER) (test ppat=812) 1 % NEUTROPHILS ABSOLUTE COUNT (BEAKER) (test tcnx=537) 1.93 K/ L 1.78-5.38 LYMPHOCYTES ABSOLUTE COUNT (BEAKER) (test ovzk=974) 1.01 K/ L 1.32-3.57 MONOCYTES ABSOLUTE COUNT (BEAKER) (test tpac=031) 0.29 K/ L 0.30-0.82 EOSINOPHILS ABSOLUTE COUNT (BEAKER) (test hbus=958) 0.06 K/ L 0.04-0.54 BASOPHILS ABSOLUTE COUNT (BEAKER) (test vast=020) 0.02 K/ L 0.01-0.08 IMMATURE GRANULOCYTES-RELATIVE PERCENT (BEAKER) (test lyit=8888) 4 % 0-1 POCT-GLUCOSE [id number] 05:04:00* Test Item Value Reference Range Comments POC-GLUCOSE METER (BEAKER) (test lcmk=6511) 222 mg/dL 70-110 TESTED AT [place] [id number] [facility] [address] POCT-GLUCOSE [id number] 23:50:00* Test Item Value Reference Range Comments POC-GLUCOSE METER (BEAKER) (test auuq=5971) 240 mg/dL 70-110 TESTED AT [address] [address] BODY FLUID CELL COUNT WITH [id number] 22:37:00* Test Item Value Reference Range Comments APPEARANCE FLUID (BEAKER) (test fcre=652) Bloody Clear COLOR FLUID (BEAKER) (test sbvt=321) Yellow Colorless, Straw RBC FLUID (BEAKER) (test ctvg=370) [address] /cu mm <=1 ADJUSTED WBC FLUID (BEAKER) (test wirm=6166) 1060 /cu mm <=5 LINING CELLS (BEAKER) (test qmpo=2594) 0 /cu mm <=1 NEUTROPHILS FLUID (BEAKER) (test jpqa=3349) 51 % LYMPHS FLUID (BEAKER) (test fnwq=869) 27 % MONO/MACROPHAGE FLUID (BEAKER) (test ibxc=308) 21 % EOSINOPHILS FLUID (BEAKER) (test zevl=978) 0 % BASO FLUID (BEAKER) (test quji=319) 1 % CONTAINER BODY FLUID (BEAKER) (test pytp=3134) EDTA Tube AMYLASE, BODY [id number] 21:43:00* Test Item Value Reference Range Comments AMYLASE FLUID (BEAKER) (test dful=428) 12 U/L Absence of reference range indicates that normals have not been defined.Assay pe rformance has not been validated for this type of specimen.TRIGLYCERIDES, BODY [id number] 21:43:00* Test Item Value Reference Range Comments TRIGLYCERIDES FLUID (BEAKER) (test rtja=051) 55 mg/dL Reference Range: No Normals Assay performance has not been validated for this type of specimen.POCT-GLUCOSE [id number] 20:17:00* Test Item Value Reference Range Comments POC-GLUCOSE METER (BEAKER) (test rldo=2622) 175 mg/dL 70-110 TESTED AT [facility] [address] [facility] [address] U/S, [id number] 19:11:00Referring:Dr. Marciano Villa for exam:-> Ascites s/p OLTFINAL REPORT PROCEDURE: Ultrasound-guided paracentesis. INDICATION: Ascites. DESCRIPTION: After obtaining informed written consent, ultrasound scan of the abdomen identified ascites in the right lower quadrant. The overlying skin was prepped and draped in the usual, sterile fashion and local 1% lidocaine anesthesia was administered. A 5 [place] catheter was advanced into the peritoneal cavity and 6600 cc of dark red fluid was removed. The catheter was removed without immediate complication. Samples were sent for analysis. IMPRESSION:Uncomplicated ultrasound-guided paracentesis with 6600 cc fluid removed. Signed: Jordan Caldwell Verified Date/Time: 12/13/2017 19:11:33 Reading Location: [address] Ultrasound Reading Room W/PLT COUNT & AUTO [id number] 15:11:00* Test Item Value Reference Range Comments WHITE BLOOD CELL COUNT (BEAKER) (test jecf=419) 4.6 K/ L 3.5-10.5 RED BLOOD CELL COUNT (BEAKER) (test cmqf=795) 2.42 M/ L 4.63-6.08 HEMOGLOBIN (BEAKER) (test qxxg=401) 7.6 GM/DL 13.7-17.5 HEMATOCRIT (BEAKER) (test znjf=344) 22.3 % 40.1-51.0 MEAN CORPUSCULAR VOLUME (BEAKER) (test owhs=419) 92.1 fL 79.0-92.2 MEAN CORPUSCULAR HEMOGLOBIN (BEAKER) (test fzyq=500) 31.4 pg 25.7-32.2 MEAN CORPUSCULAR HEMOGLOBIN CONC (BEAKER) (test qayw=772) 34.1 GM/DL 32.3-36.5 RED CELL DISTRIBUTION WIDTH (BEAKER) (test azwn=387) 16.7 % 11.6-14.4 PLATELET COUNT (BEAKER) (test wxop=714) 144 K/CU MM 150-450 MEAN PLATELET VOLUME (BEAKER) (test ngjb=208) 9.5 fL 9.4-12.4 NUCLEATED RED BLOOD CELLS (BEAKER) (test cuhf=335) 0 /100 WBC 0-0 NEUTROPHILS RELATIVE PERCENT (BEAKER) (test emlt=727) 61 % LYMPHOCYTES RELATIVE PERCENT (BEAKER) (test fsaw=682) 23 % MONOCYTES RELATIVE PERCENT (BEAKER) (test dclo=633) 8 % EOSINOPHILS RELATIVE PERCENT (BEAKER) (test tnsj=108) 2 % BASOPHILS RELATIVE PERCENT (BEAKER) (test ghad=508) 1 % NEUTROPHILS ABSOLUTE COUNT (BEAKER) (test jgwk=202) 2.78 K/ L 1.78-5.38 LYMPHOCYTES ABSOLUTE COUNT (BEAKER) (test zzeb=322) 1.05 K/ L 1.32-3.57 MONOCYTES ABSOLUTE COUNT (BEAKER) (test uppx=246) 0.36 K/ L 0.30-0.82 EOSINOPHILS ABSOLUTE COUNT (BEAKER) (test dgaf=517) 0.07 K/ L 0.04-0.54 BASOPHILS ABSOLUTE COUNT (BEAKER) (test nedh=762) 0.03 K/ L 0.01-0.08 IMMATURE GRANULOCYTES-RELATIVE PERCENT (BEAKER) (test rxhi=1353) 6 % 0-1 (CELLAVISION MANUAL DIFF)2017-12-13 15:11:00* Test Item Value Reference Range Comments TOTAL COUNTED (BEAKER) (test ovyo=5170) WBC MORPHOLOGY (BEAKER) (test xwhm=163) Normal PLT MORPHOLOGY (BEAKER) (test lwtm=116) Normal POLYCHROMATOPHILLIC RBCS(BEAKER) (test lfyo=365) 1+ few ANISOCYTOSIS (BEAKER) (test kqyw=144) 1+ few U/S, ABDOMINAL, WITH [id number] 14:49:00Referring:Dr. Marciano Villa for exam:->s/p OLT ascitesFINAL REPORT TECHNIQUE: Grayscale ultrasound of the abdomen with color Doppler and spectral Doppler ultrasound of the portal/hepatic vasculature. INDICATION: Orthotopic liver transplant with ascites. COMPARISON: Ultrasound from 12/06/2017. FINDINGS: LIVER: Smooth liver contour. No focal liver lesions. The liver is mildly enlarged at 17.4 cm, previously 21 cm. HEPATIC VASCULATURE: Portal veins are patent with normal waveform and directionality. Flow velocity in the main portal vein is within normal limits. The hepatic arteries are patent with normal flow velocities, resistive indices, and waveforms. The hepatic veins and confluence are patent. The peak velocity in the main portal vein is 44.6 cm/s The proper hepatic artery velocity is 79 cm/s with a resistive index of 0.6 and acceleration time of 0.04 seconds.The left hepatic artery velocity is 25.8 cm/s with resistive index of 0.5. The acceleration time is 0.06 seconds.The right hepatic artery velocity is 34.4 cm/s with a resistive index of 0.4. Acceleration time is 0.04 seconds. BILIARY:Gallbladder: No gallstones or sludge. No gallbladder wall thickening, pericholecystic fluid, or distention. Negative sonographic Gaytan sign.Common bile duct measures 0.3 cm, within normal limits. No intrahepatic biliary ductal dilatation. PANCREAS: Incompletely visualized due to overlying bowel gas. SPLEEN: The spleen is enlarged at 18.5 cm. PERITONEUM: Moderate volume of abdominal ascites. KIDNEYS: Normal in size bilaterally. No hydronephrosis. No sonographically evident solid mass lesion. MIDLINE VASCULATURE: The visualized inferior vena cava is patent. The maximum visualized aortic diameter is 2.2 cm. Splenic artery and vein are patent. Partially visualized right pleural effusion. IMPRESSION: 1.Moderate volume ascites. 2.The proper hepatic artery has normal waveforms. The resistive indices in the left and right hepatic arteries are mildly decreased. 3.The liver and spleen are slightly smaller than on the prior examination. Signed: Jordan Caldwell MDReport Verified Date/Time: 12/13/2017 14:49:41 Reading Location: [address] Ultrasound Reading Room [facility] signed by: JORDAN CALDWELL MD on 12/13/2017 02:49 PM BASIC METABOLIC PANEL 2017-12-13 12:01:00* Test Item Value Reference Range Comments SODIUM (BEAKER) (test chzm=393) 137 meq/L 136-145 POTASSIUM (BEAKER) (test vjgl=435) 3.3 meq/L 3.5-5.1 CHLORIDE (BEAKER) (test plah=711) 99 meq/L 98-107 CO2 (BEAKER) (test hchu=096) 27 meq/L 22-29 BLOOD UREA NITROGEN (BEAKER) (test taxq=637) 72 mg/dL 7-21 CREATININE (BEAKER) (test uisr=895) 3.72 mg/dL 0.57-1.25 GLUCOSE RANDOM (BEAKER) (test jplm=688) 172 mg/dL 70-105 CALCIUM (BEAKER) (test wpfa=834) 8.5 mg/dL 8.4-10.2 EGFR (BEAKER) (test afjv=7247) 17 mL/min/1.73 sq m ESTIMATED GFR IS NOT ACCURATE CREATININE CLEARANCE IN PREDICTING GLOMERULAR FILTRATION RATE. ESTIMATED GFR IS NOT APPLICABLE FOR DIALYSIS PATIENTS. Specimen slightly ictericRAD, ABDOMEN/KUB, 1 VIEW [id number] 10:28:00 Referring:Dr. Marciano Villa for exam:->distentionFINAL REPORT Abdomen one view INDICATION: Distention COMPARISON: None available IMPRESSION: There is gaseous distention of the stomach and mild distention of colon with a few prominent scattered small bowel loops. The diffuse appearance favors adynamic ileus. If obstruction is of concern, advise short term radiographic follow up or CT. Free air and fluid levels are not well assessed on a supine study. Surgical material overlies the right pelvis. Hazy opacity likely reflects ascites. The splenic shadow is enlarged. The imaged lower chest is stable. No acute osseous abnormality is evident. Signed: Mikel Nguyen MDReport Verified Date/Time: 12/13/2017 10:28:45 Reading Location: [facility] Radiology Reading Room OLIMUS [id number] 10:20:00* Test Item Value Reference Range Comments TACROLIMUS BLOOD (BEAKER) (test jacu=539) 7.4 ng/mL 10.0-20.0 POCT-GLUCOSE [id number] 09:03:00* Test Item Value Reference Range Comments POC-GLUCOSE METER (BEAKER) (test tfhr=4563) 152 mg/dL 70-110 TESTED AT [facility] [address] [facility] [address] [id number] 07:08:00* Test Item Value Reference Range Comments PHOSPHORUS (BEAKER) (test tchj=801) 4.6 mg/dL 2.3-4.7 [id number] 07:08:00* Test Item Value Reference Range Comments MAGNESIUM (BEAKER) (test iini=855) 1.9 mg/dL 1.6-2.6 HEPATIC FUNCTION [id number] 07:08:00* Test Item Value Reference Range Comments TOTAL PROTEIN (BEAKER) (test aurm=889) 5.4 gm/dL 6.0-8.3 ALBUMIN (BEAKER) (test zuum=8534) 3.1 g/dL 3.5-5.0 BILIRUBIN TOTAL (BEAKER) (test vror=139) 2.7 mg/dL 0.2-1.2 BILIRUBIN DIRECT (BEAKER) (test llwo=401) 1.8 mg/dL 0.1-0.5 ALKALINE PHOSPHATASE (BEAKER) (test rqvo=440) 53 U/L 40-150 AST (SGOT) (BEAKER) (test lawe=061) 22 U/L 5-34 ALT (SGPT) (BEAKER) (test kuee=992) 41 U/L 6-55 Specimen slightly ictericPROTHROMBIN [id number] 06:50:00* Test Item Value Reference Range Comments PROTIME (BEAKER) (test lgln=325) 14.4 seconds 11.7-14.7 INR (BEAKER) (test quik=398) 1.1 <=5.9 RECOMMENDED COUMADIN/WARFARIN INR THERAPY RANGESSTANDARD DOSE: 2.0 - 3.0 Inclu kaya: PROPHYLAXIS for venous thrombosis, systemic embolization; TREATMENT for barby ous thrombosis and/or pulmonary embolus.HIGH RISK: Target INR is 2.5-3.5 for pat ients with mechanical heart valves.POCT-GLUCOSE [id number] 22:06:00* Test Item Value Reference Range Comments POC-GLUCOSE METER (BEAKER) (test pnwz=4608) 240 mg/dL 70-110 TESTED AT [address] [address] POCT-GLUCOSE [id number] 22:06:00* Test Item Value Reference Range Comments POC-GLUCOSE METER (BEAKER) (test gbys=5140) 177 mg/dL 70-110 TESTED AT [address] [address] POCT-GLUCOSE [id number] 21:21:00* Test Item Value Reference Range Comments POC-GLUCOSE METER (BEAKER) (test hban=3980) 228 mg/dL 70-110 TESTED AT [address] [address] POCT-GLUCOSE [id number] 17:54:00* Test Item Value Reference Range Comments POC-GLUCOSE METER (BEAKER) (test tqfq=4327) 140 mg/dL 70-110 TESTED AT [address] [address] POCT-GLUCOSE [id number] 12:55:00* Test Item Value Reference Range Comments POC-GLUCOSE METER (BEAKER) (test dmis=1372) 206 mg/dL 70-110 TESTED AT [address] [address] TACROLIMUS [id number] 09:58:00* Test Item Value Reference Range Comments TACROLIMUS BLOOD (BEAKER) (test ubud=629) 8.6 ng/mL 10.0-20.0 POCT-GLUCOSE [id number] 09:03:00* Test Item Value Reference Range Comments POC-GLUCOSE METER (BEAKER) (test wpaq=4189) 123 mg/dL 70-110 TESTED AT [address] [address] BASIC METABOLIC [id number] 08:26:00* Test Item Value Reference Range Comments SODIUM (BEAKER) (test sqdf=073) 136 meq/L 136-145 POTASSIUM (BEAKER) (test pwyp=005) 4.3 meq/L 3.5-5.1 Specimen slightly hemolyzed CHLORIDE (BEAKER) (test cqgx=692) 100 meq/L 98-107 CO2 (BEAKER) (test ucua=024) 27 meq/L 22-29 BLOOD UREA NITROGEN (BEAKER) (test sljo=467) 100 mg/dL 7-21 CREATININE (BEAKER) (test mqqe=299) 5.12 mg/dL 0.57-1.25 Specimen slightly hemolyzed GLUCOSE RANDOM (BEAKER) (test tufb=117) 115 mg/dL 70-105 CALCIUM (BEAKER) (test ultp=744) 8.8 mg/dL 8.4-10.2 EGFR (BEAKER) (test jexi=7588) 12 mL/min/1.73 sq m ESTIMATED GFR IS NOT ACCURATE CREATININE CLEARANCE IN PREDICTING GLOMERULAR FILTRATION RATE. ESTIMATED GFR IS NOT APPLICABLE FOR DIALYSIS PATIENTS. Specimen slightly ictericPROTHROMBIN TIME/[id number] 06:26:00* Test Item Value Reference Range Comments PROTIME (BEAKER) (test hjvl=592) 14.6 seconds 11.7-14.7 INR (BEAKER) (test dyzg=549) 1.1 <=5.9 RECOMMENDED COUMADIN/WARFARIN INR THERAPY RANGESSTANDARD DOSE: 2.0 - 3.0 Inclu kaya: PROPHYLAXIS for venous thrombosis, systemic embolization; TREATMENT for barby ous thrombosis and/or pulmonary embolus.HIGH RISK: Target INR is 2.5-3.5 for pat ients with mechanical heart valves.[id number] 06:23:00* Test Item Value Reference Range Comments PHOSPHORUS (BEAKER) (test erjs=435) 4.9 mg/dL 2.3-4.7 [id number] 06:23:00* Test Item Value Reference Range Comments MAGNESIUM (BEAKER) (test xufn=063) 2.1 mg/dL 1.6-2.6 HEPATIC FUNCTION [id number] 06:23:00* Test Item Value Reference Range Comments TOTAL PROTEIN (BEAKER) (test ibgt=249) 5.5 gm/dL 6.0-8.3 ALBUMIN (BEAKER) (test jrgr=6933) 3.2 g/dL 3.5-5.0 BILIRUBIN TOTAL (BEAKER) (test vsfm=855) 2.9 mg/dL 0.2-1.2 BILIRUBIN DIRECT (BEAKER) (test pina=799) 2.0 mg/dL 0.1-0.5 ALKALINE PHOSPHATASE (BEAKER) (test dexk=925) 56 U/L 40-150 AST (SGOT) (BEAKER) (test tswp=355) 20 U/L 5-34 ALT (SGPT) (BEAKER) (test xyfb=692) 33 U/L 6-55 Specimen slightly ictericCBC W/PLT COUNT & AUTO [id number] 06:01:00 * Test Item Value Reference Range Comments WHITE BLOOD CELL COUNT (BEAKER) (test mhwk=437) 4.4 K/ L 3.5-10.5 RED BLOOD CELL COUNT (BEAKER) (test qhuo=737) 2.57 M/ L 4.63-6.08 HEMOGLOBIN (BEAKER) (test xeoe=904) 8.2 GM/DL 13.7-17.5 HEMATOCRIT (BEAKER) (test wqlh=401) 23.5 % 40.1-51.0 MEAN CORPUSCULAR VOLUME (BEAKER) (test qish=851) 91.4 fL 79.0-92.2 MEAN CORPUSCULAR HEMOGLOBIN (BEAKER) (test xnzi=926) 31.9 pg 25.7-32.2 MEAN CORPUSCULAR HEMOGLOBIN CONC (BEAKER) (test cqap=353) 34.9 GM/DL 32.3-36.5 RED CELL DISTRIBUTION WIDTH (BEAKER) (test potf=783) 16.7 % 11.6-14.4 PLATELET COUNT (BEAKER) (test efsw=464) 131 K/CU MM 150-450 MEAN PLATELET VOLUME (BEAKER) (test yvgu=864) 9.8 fL 9.4-12.4 NUCLEATED RED BLOOD CELLS (BEAKER) (test ahcu=638) 0 /100 WBC 0-0 NEUTROPHILS RELATIVE PERCENT (BEAKER) (test kisv=133) 62 % LYMPHOCYTES RELATIVE PERCENT (BEAKER) (test zbiu=347) 25 % MONOCYTES RELATIVE PERCENT (BEAKER) (test mqoy=500) 7 % EOSINOPHILS RELATIVE PERCENT (BEAKER) (test krvw=292) 2 % BASOPHILS RELATIVE PERCENT (BEAKER) (test ploq=146) 0 % NEUTROPHILS ABSOLUTE COUNT (BEAKER) (test yksx=929) 2.74 K/ L 1.78-5.38 LYMPHOCYTES ABSOLUTE COUNT (BEAKER) (test ykza=376) 1.09 K/ L 1.32-3.57 MONOCYTES ABSOLUTE COUNT (BEAKER) (test bqng=699) 0.29 K/ L 0.30-0.82 EOSINOPHILS ABSOLUTE COUNT (BEAKER) (test wgmt=617) 0.07 K/ L 0.04-0.54 BASOPHILS ABSOLUTE COUNT (BEAKER) (test ynek=158) 0.01 K/ L 0.01-0.08 IMMATURE GRANULOCYTES-RELATIVE PERCENT (BEAKER) (test zdur=9668) 5 % 0-1 POCT-GLUCOSE [id number] 21:50:00* Test Item Value Reference Range Comments POC-GLUCOSE METER (BEAKER) (test uump=4876) 177 mg/dL 70-110 TESTED AT [facility] [address] [facility] [address] POCT-GLUCOSE [id number] 18:12:00* Test Item Value Reference Range Comments POC-GLUCOSE METER (BEAKER) (test gsyy=2619) 226 mg/dL 70-110 TESTED AT [address] [address] CMV PCR, [id number] 15:06:00* Test Item Value Reference Range Comments CMV VIRAL LOAD - NEGATIVE (BEAKER) (test vpyh=9969) Negative or below the linear range of the assay (<375 copies/mL) Cytomegalovirus (CMV) infection can cause significant disease in immunosuppresse d patients. However, it is common for CMV to manifest as a limited infection whi ch is of no clinical significance in immunosuppressed patients or in healthy ind ividuals.Viral load measurements are helpful to identify clinical CMV infection and to guide the pre-emptive management of antiviral therapy. For treatment of CMV infection due to reactivation in transplant recipients, a threshold between 4,000 and 5,000 copies/mL is suggested. For treatment of primary CMV infection, a lower threshold can be used.CMV infection may also be monitored using weekly serial measurements. Serial measurements of CMV DNA viral load can be evaluated by identifying a 10-fold change, as well as assessing the CMV DNA viral load and the clinical context for each patient.The plasma CMV DNA viral load was detected using quantitative polymerase chain reaction and fluorescent monitoring of a s [employer] hybridized probe. Genetic variation and other factors can affect the acc uracy of nucleic acid testing. Therefore, the results should be interpreted in l ight of clinical data. A negative result may not exclude the presence of CMV dis ease.This test was developed and its performance characteristics determined by [facility] Pathology Department, Section of Molecular Patholog y. It has not been cleared or approved by the U.S. Food and Drug Administration (FDA), since FDA approval is not required for clinical use of the test. Validati on was done as required by The Clinical Laboratory Improvement Amendments of 198 8.POCT-GLUCOSE [id number] 12:59:00* Test Item Value Reference Range Comments POC-GLUCOSE METER (BEAKER) (test uckl=1827) 195 mg/dL 70-110 TESTED AT [facility] [address] [facility] [address] POCT-GLUCOSE [id number] 11:58:00* Test Item Value Reference Range Comments POC-GLUCOSE METER (BEAKER) (test ccyr=3783) 126 mg/dL 70-110 TESTED AT [facility] [address] [facility] [address] BASIC METABOLIC [id number] 11:49:00* Test Item Value Reference Range Comments SODIUM (BEAKER) (test swmb=911) 134 meq/L 136-145 POTASSIUM (BEAKER) (test mxtw=918) 3.8 meq/L 3.5-5.1 Specimen slightly hemolyzed CHLORIDE (BEAKER) (test fyvy=966) 98 meq/L 98-107 CO2 (BEAKER) (test souz=326) 25 meq/L 22-29 BLOOD UREA NITROGEN (BEAKER) (test wvjd=272) 85 mg/dL 7-21 CREATININE (BEAKER) (test uxje=483) 4.75 mg/dL 0.57-1.25 Specimen slightly hemolyzed GLUCOSE RANDOM (BEAKER) (test rogy=753) 195 mg/dL 70-105 CALCIUM (BEAKER) (test ovzz=348) 8.5 mg/dL 8.4-10.2 EGFR (BEAKER) (test ffeh=6916) 13 mL/min/1.73 sq m ESTIMATED GFR IS NOT ACCURATE CREATININE CLEARANCE IN PREDICTING GLOMERULAR FILTRATION RATE. ESTIMATED GFR IS NOT APPLICABLE FOR DIALYSIS PATIENTS. Specimen slightly ictericTACROLIMUS [id number] 09:59:00* Test Item Value Reference Range Comments TACROLIMUS BLOOD (BEAKER) (test obqs=358) 9.8 ng/mL 10.0-20.0 CBC W/PLT COUNT & AUTO [id number] 09:26:00* Test Item Value Reference Range Comments WHITE BLOOD CELL COUNT (BEAKER) (test zykx=439) 4.4 K/ L 3.5-10.5 RED BLOOD CELL COUNT (BEAKER) (test timk=108) 2.71 M/ L 4.63-6.08 HEMOGLOBIN (BEAKER) (test esqm=809) 8.6 GM/DL 13.7-17.5 HEMATOCRIT (BEAKER) (test trgv=985) 25.1 % 40.1-51.0 MEAN CORPUSCULAR VOLUME (BEAKER) (test eivl=190) 92.6 fL 79.0-92.2 MEAN CORPUSCULAR HEMOGLOBIN (BEAKER) (test gaov=687) 31.7 pg 25.7-32.2 MEAN CORPUSCULAR HEMOGLOBIN CONC (BEAKER) (test uqtk=390) 34.3 GM/DL 32.3-36.5 RED CELL DISTRIBUTION WIDTH (BEAKER) (test jsda=532) 16.8 % 11.6-14.4 PLATELET COUNT (BEAKER) (test beuu=028) 120 K/CU MM 150-450 MEAN PLATELET VOLUME (BEAKER) (test etne=886) 10.2 fL 9.4-12.4 NUCLEATED RED BLOOD CELLS (BEAKER) (test nmez=015) 0 /100 WBC 0-0 (CELLAVISION MANUAL DIFF)2017-12-11 09:26:00* Test Item Value Reference Range Comments NEUTROPHILS - REL (CELLAVISION)(BEAKER) (test itha=6705) 67 % LYMPHOCYTES - REL (CELLAVISION)(BEAKER) (test udhb=7411) 23 % MONOCYTES - REL (CELLAVISION)(BEAKER) (test mzxy=2020) 6 % EOSINOPHILS - REL (CELLAVISION)(BEAKER) (test bbsy=0269) 3 % BASOPHILS - REL (CELLAVISION)(BEAKER) (test frmk=2153) 1 % NEUTROPHILS - ABS (CELLAVISION)(BEAKER) (test khbo=1201) 2.95 K/ul 1.78-5.38 LYMPHOCYTES - ABS (CELLAVISION)(BEAKER) (test lbcn=0756) 1.01 K/ul 1.32-3.57 MONOCYTES - ABS (CELLAVISION)(BEAKER) (test vpef=4842) 0.26 K/uL 0.30-0.82 EOSINOPHILS - ABS (CELLAVISION)(BEAKER) (test jbsx=1732) 0.13 K/uL 0.04-0.54 BASOPHILS - ABS (CELLAVISION)(BEAKER) (test hxls=3835) 0.04 K/uL 0.01-0.08 TOTAL COUNTED (BEAKER) (test idml=2255) 100 MANUAL NRBC PER 100 CELLS (BEAKER) (test qemh=6172) 1 /100 WBC 0-0 WBC MORPHOLOGY (BEAKER) (test stzd=209) Normal PLT MORPHOLOGY (BEAKER) (test kleq=859) Normal POLYCHROMATOPHILLIC RBCS(BEAKER) (test wsiy=605) 1+ few ARTIFACT (CELLAVISION)(BEAKER) (test qfkw=0773) Present PLATELET CONCENTRATION (CELLAVISION)(BEAKER) (test zjfb=3691) Decreased Received comment: User comments: Slide comments: [id number] 06:42:00* Test Item Value Reference Range Comments PREALBUMIN (BEAKER) (test ujjt=308) 31 mg/dL 14-45 IMMUNOGLOBULIN G (IGG)2017-12-11 06:42:00* Test Item Value Reference Range Comments IMMUNOGLOBULIN G (IGG) (BEAKER) (test hdgr=345) 658 mg/dL 540-1822 [id number] 06:39:00* Test Item Value Reference Range Comments PHOSPHORUS (BEAKER) (test vqbw=278) 4.8 mg/dL 2.3-4.7 [id number] 06:39:00* Test Item Value Reference Range Comments MAGNESIUM (BEAKER) (test yvzk=745) 2.3 mg/dL 1.6-2.6 HEPATIC FUNCTION [id number] 06:39:00* Test Item Value Reference Range Comments TOTAL PROTEIN (BEAKER) (test asxw=329) 5.5 gm/dL 6.0-8.3 ALBUMIN (BEAKER) (test rbex=9186) 3.2 g/dL 3.5-5.0 BILIRUBIN TOTAL (BEAKER) (test owjk=647) 3.1 mg/dL 0.2-1.2 BILIRUBIN DIRECT (BEAKER) (test iwzu=616) 2.1 mg/dL 0.1-0.5 ALKALINE PHOSPHATASE (BEAKER) (test ognz=383) 55 U/L 40-150 AST (SGOT) (BEAKER) (test dvqv=692) 18 U/L 5-34 ALT (SGPT) (BEAKER) (test bwav=705) 34 U/L 6-55 Specimen slightly ictericPROTHROMBIN [id number] 06:23:00* Test Item Value Reference Range Comments PROTIME (BEAKER) (test gxzx=606) 13.4 seconds 11.7-14.7 INR (BEAKER) (test uypw=621) 1.0 <=5.9 RECOMMENDED COUMADIN/WARFARIN INR THERAPY RANGESSTANDARD DOSE: 2.0 - 3.0 Inclu kaya: PROPHYLAXIS for venous thrombosis, systemic embolization; TREATMENT for barby ous thrombosis and/or pulmonary embolus.HIGH RISK: Target INR is 2.5-3.5 for pat ients with mechanical heart valves.POCT-GLUCOSE [id number] 16:57:00* Test Item Value Reference Range Comments POC-GLUCOSE METER (BEAKER) (test nwyk=8408) 179 mg/dL 70-110 TESTED AT [address] [address] BLOOD [id number] 12:00:00* Test Item Value Reference Range Comments CULTURE (BEAKER) (test phhb=0170) No growth in 5 days BLOOD [id number] 12:00:00* Test Item Value Reference Range Comments CULTURE (BEAKER) (test zczv=6414) No growth in 5 days TACROLIMUS [id number] 11:32:00* Test Item Value Reference Range Comments TACROLIMUS BLOOD (BEAKER) (test mscl=131) 8.6 ng/mL 10.0-20.0 POCT-GLUCOSE [id number] 10:53:00* Test Item Value Reference Range Comments POC-GLUCOSE METER (BEAKER) (test gywo=5238) 111 mg/dL 70-110 TESTED AT [address] [address] POCT-GLUCOSE [id number] 10:53:00* Test Item Value Reference Range Comments POC-GLUCOSE METER (BEAKER) (test bnaw=0396) 181 mg/dL 70-110 TESTED AT [address] [address] CBC W/PLT COUNT & AUTO [id number] 10:31:00* Test Item Value Reference Range Comments WHITE BLOOD CELL COUNT (BEAKER) (test bnfi=577) 4.4 K/ L 3.5-10.5 RED BLOOD CELL COUNT (BEAKER) (test ppzh=894) 2.74 M/ L 4.63-6.08 HEMOGLOBIN (BEAKER) (test krmo=367) 8.9 GM/DL 13.7-17.5 HEMATOCRIT (BEAKER) (test ejrf=909) 25.7 % 40.1-51.0 MEAN CORPUSCULAR VOLUME (BEAKER) (test oebp=291) 93.8 fL 79.0-92.2 MEAN CORPUSCULAR HEMOGLOBIN (BEAKER) (test gnmx=423) 32.5 pg 25.7-32.2 MEAN CORPUSCULAR HEMOGLOBIN CONC (BEAKER) (test lymp=403) 34.6 GM/DL 32.3-36.5 RED CELL DISTRIBUTION WIDTH (BEAKER) (test ffxl=647) 17.2 % 11.6-14.4 PLATELET COUNT (BEAKER) (test kupe=082) 85 K/CU MM 150-450 MEAN PLATELET VOLUME (BEAKER) (test httl=915) 10.2 fL 9.4-12.4 NUCLEATED RED BLOOD CELLS (BEAKER) (test nzrk=022) 0 /100 WBC 0-0 (CELLAVISION MANUAL DIFF)2017-12-10 10:31:00* Test Item Value Reference Range Comments NEUTROPHILS - REL (CELLAVISION)(BEAKER) (test okuj=2255) 77 % LYMPHOCYTES - REL (CELLAVISION)(BEAKER) (test qpbp=6337) 17 % MONOCYTES - REL (CELLAVISION)(BEAKER) (test qjxs=0590) 2 % EOSINOPHILS - REL (CELLAVISION)(BEAKER) (test hgrw=4552) 1 % BANDS - REL (CELLAVISION)(BEAKER) (test pxas=6000) 1 % 0-10 ATYPICAL LYMPHOCYTES - REL (CELLAVISION)(BEAKER) (test aujh=9497) 1 % 0-0 NEUTROPHILS - ABS (CELLAVISION)(BEAKER) (test eyov=5038) 3.39 K/ul 1.78-5.38 LYMPHOCYTES - ABS (CELLAVISION)(BEAKER) (test bujp=0215) 0.75 K/ul 1.32-3.57 MONOCYTES - ABS (CELLAVISION)(BEAKER) (test bzzh=7580) 0.09 K/uL 0.30-0.82 EOSINOPHILS - ABS (CELLAVISION)(BEAKER) (test rymp=5596) 0.04 K/uL 0.04-0.54 BANDS - ABS (CELLAVISION)(BEAKER) (test hxuh=2701) 0.04 K/uL 0.00-0.80 ATYPICAL LYMPHOCYTES - ABS (CELLAVISION)(BEAKER) (test tzpv=0937) 0.04 K/uL 0.00-0.00 TOTAL COUNTED (BEAKER) (test wgcv=9096) 100 PLT MORPHOLOGY (BEAKER) (test pewr=070) Normal HYPERSEGMENTATION (CELLAVISION)(BEAKER) (test phnn=5375) Present POLYCHROMATOPHILLIC RBCS(BEAKER) (test xref=697) 1+ few ANISOCYTOSIS (BEAKER) (test hmaj=787) 2+ moderate MICROCYTES (BEAKER) (test mgpw=930) 2+ moderate POIKILOCYTES (BEAKER) (test heam=164) 1+ few SPHEROCYTES (BEAKER) (test uqnt=384) 1+ few TEAR DROP CELLS (BEAKER) (test zkvw=439) 1+ few ARTIFACT (CELLAVISION)(BEAKER) (test evkz=7442) Present PLATELET CONCENTRATION (CELLAVISION)(BEAKER) (test jrqt=5145) Decreased Received comment: User comments: Slide comments: POCT-GLUCOSE [id number] 08:10:00* Test Item Value Reference Range Comments POC-GLUCOSE METER (BEAKER) (test pdlv=1602) 158 mg/dL 70-110 TESTED AT [facility] [address] [facility] [address] [id number] 06:36:00* Test Item Value Reference Range Comments PHOSPHORUS (BEAKER) (test zdjw=500) 4.2 mg/dL 2.3-4.7 [id number] 06:36:00* Test Item Value Reference Range Comments MAGNESIUM (BEAKER) (test xhrg=158) 2.0 mg/dL 1.6-2.6 HEPATIC FUNCTION [id number] 06:36:00* Test Item Value Reference Range Comments TOTAL PROTEIN (BEAKER) (test xale=977) 5.1 gm/dL 6.0-8.3 ALBUMIN (BEAKER) (test lpvc=9346) 3.1 g/dL 3.5-5.0 BILIRUBIN TOTAL (BEAKER) (test dlak=945) 3.3 mg/dL 0.2-1.2 BILIRUBIN DIRECT (BEAKER) (test mags=219) 2.2 mg/dL 0.1-0.5 ALKALINE PHOSPHATASE (BEAKER) (test medr=832) 46 U/L 40-150 AST (SGOT) (BEAKER) (test iehp=024) 18 U/L 5-34 ALT (SGPT) (BEAKER) (test mvkv=155) 38 U/L 6-55 Specimen slightly ictericPROTHROMBIN [id number] 06:09:00* Test Item Value Reference Range Comments PROTIME (BEAKER) (test farw=030) 14.2 seconds 11.7-14.7 INR (BEAKER) (test ioct=598) 1.1 <=5.9 RECOMMENDED COUMADIN/WARFARIN INR THERAPY RANGESSTANDARD DOSE: 2.0 - 3.0 Inclu kaya: PROPHYLAXIS for venous thrombosis, systemic embolization; TREATMENT for barby ous thrombosis and/or pulmonary embolus.HIGH RISK: Target INR is 2.5-3.5 for pat ients with mechanical heart valves.POCT-GLUCOSE [id number] 22:46:00* Test Item Value Reference Range Comments POC-GLUCOSE METER (BEAKER) (test wson=8509) 252 mg/dL 70-110 TESTED AT [facility] [address] [place] [address] URINALYSIS W/ REFLEX URINE [id number] 14:29:00* Test Item Value Reference Range Comments COLOR (BEAKER) (test ilqe=279) Yellow CLARITY (BEAKER) (test vjvf=137) Clear SPECIFIC GRAVITY UA (BEAKER) (test beed=834) 1.012 1.001-1.035 PH UA (BEAKER) (test yrkg=170) 6.5 5.0-8.0 PROTEIN UA (BEAKER) (test jzpk=331) 100 mg/dL Negative GLUCOSE UA (BEAKER) (test gprn=851) Negative Negative KETONES UA (BEAKER) (test lajw=388) Negative Negative BILIRUBIN UA (BEAKER) (test xypm=490) Negative Negative BLOOD UA (BEAKER) (test tpog=373) Small Negative NITRITE UA (BEAKER) (test sima=986) Negative Negative LEUKOCYTE ESTERASE UA (BEAKER) (test dxfg=514) Trace Negative UROBILINOGEN UA (BEAKER) (test eblc=898) 0.2 mg/dL 0.2-1.0 RBC UA (BEAKER) (test ndkv=333) 3 /HPF WBC UA (BEAKER) (test dewg=721) 9 /HPF BACTERIA (BEAKER) (test nsdn=098) Rare SQUAMOUS EPITHELIAL (BEAKER) (test krpc=917) < /HPF HYALINE CASTS (BEAKER) (test illz=558) 1 /LPF CRYSTALS, URINE (BEAKER) (test gywh=7298) Occasional SOURCE(BEAKER) (test ulyw=6389) CBC W/PLT COUNT & AUTO [id number] 14:27:00* Test Item Value Reference Range Comments WHITE BLOOD CELL COUNT (BEAKER) (test mmdh=923) 5.7 K/ L 3.5-10.5 RED BLOOD CELL COUNT (BEAKER) (test lvmz=540) 2.96 M/ L 4.63-6.08 HEMOGLOBIN (BEAKER) (test iihu=637) 9.5 GM/DL 13.7-17.5 HEMATOCRIT (BEAKER) (test hfvj=523) 27.6 % 40.1-51.0 MEAN CORPUSCULAR VOLUME (BEAKER) (test rdod=693) 93.2 fL 79.0-92.2 MEAN CORPUSCULAR HEMOGLOBIN (BEAKER) (test lsmo=872) 32.1 pg 25.7-32.2 MEAN CORPUSCULAR HEMOGLOBIN CONC (BEAKER) (test nqpz=646) 34.4 GM/DL 32.3-36.5 RED CELL DISTRIBUTION WIDTH (BEAKER) (test jprg=031) 17.1 % 11.6-14.4 PLATELET COUNT (BEAKER) (test bbhr=983) 94 K/CU MM 150-450 MEAN PLATELET VOLUME (BEAKER) (test fism=484) 10.8 fL 9.4-12.4 NUCLEATED RED BLOOD CELLS (BEAKER) (test mtoa=738) 0 /100 WBC 0-0 (CELLAVISION MANUAL DIFF)2017-12-09 14:27:00* Test Item Value Reference Range Comments NEUTROPHILS - REL (CELLAVISION)(BEAKER) (test zndj=5700) 71 % LYMPHOCYTES - REL (CELLAVISION)(BEAKER) (test hqzj=8999) 19 % MONOCYTES - REL (CELLAVISION)(BEAKER) (test vmpx=5271) 5 % EOSINOPHILS - REL (CELLAVISION)(BEAKER) (test keqa=5632) 2 % BASOPHILS - REL (CELLAVISION)(BEAKER) (test pxzo=6180) 1 % BANDS - REL (CELLAVISION)(BEAKER) (test yjeh=4840) 1 % 0-10 NEUTROPHILS - ABS (CELLAVISION)(BEAKER) (test dokx=4490) 4.05 K/ul 1.78-5.38 LYMPHOCYTES - ABS (CELLAVISION)(BEAKER) (test gnmx=8216) 1.08 K/ul 1.32-3.57 MONOCYTES - ABS (CELLAVISION)(BEAKER) (test ifmg=5107) 0.29 K/uL 0.30-0.82 EOSINOPHILS - ABS (CELLAVISION)(BEAKER) (test bktz=3637) 0.11 K/uL 0.04-0.54 BASOPHILS - ABS (CELLAVISION)(BEAKER) (test titg=3318) 0.06 K/uL 0.01-0.08 BANDS - ABS (CELLAVISION)(BEAKER) (test pgvm=5154) 0.06 K/uL 0.00-0.80 TOTAL COUNTED (BEAKER) (test ezxu=6584) 100 WBC MORPHOLOGY (BEAKER) (test ovmb=144) Normal LARGE PLT(BEAKER) (test cddb=9478) Present POLYCHROMATOPHILLIC RBCS(BEAKER) (test wrju=663) 1+ few HYPOCHROMIA (BEAKER) (test bkso=495) 1+ few ANISOCYTOSIS (BEAKER) (test fnxp=429) 2+ moderate MICROCYTES (BEAKER) (test fcyr=694) 1+ few MACROCYTES (BEAKER) (test eupo=576) 2+ moderate POIKILOCYTES (BEAKER) (test neos=298) 2+ moderate ELLIPTOCYTES (BEAKER) (test qcze=479) 2+ moderate OVALOCYTES (BEAKER) (test qmyg=037) 1+ few TEAR DROP CELLS (BEAKER) (test kmdz=696) 1+ few ACANTHOCYTES (BEAKER) (test zaiw=905) 1+ few ARTIFACT (CELLAVISION)(BEAKER) (test lgek=9288) Present PLATELET CONCENTRATION (CELLAVISION)(BEAKER) (test ssbd=4661) Decreased Received comment: User comments: Slide comments: BASIC METABOLIC [id number] 09:18:00* Test Item Value Reference Range Comments SODIUM (BEAKER) (test vdib=517) 138 meq/L 136-145 POTASSIUM (BEAKER) (test vvsf=069) 4.5 meq/L 3.5-5.1 CHLORIDE (BEAKER) (test ntjy=296) 102 meq/L 98-107 CO2 (BEAKER) (test snlz=238) 24 meq/L 22-29 BLOOD UREA NITROGEN (BEAKER) (test iqog=405) 79 mg/dL 7-21 CREATININE (BEAKER) (test duje=628) 5.14 mg/dL 0.57-1.25 GLUCOSE RANDOM (BEAKER) (test gukg=837) 108 mg/dL 70-105 CALCIUM (BEAKER) (test pfzp=401) 8.6 mg/dL 8.4-10.2 EGFR (BEAKER) (test ognu=0613) 12 mL/min/1.73 sq m ESTIMATED GFR IS NOT ACCURATE CREATININE CLEARANCE IN PREDICTING GLOMERULAR FILTRATION RATE. ESTIMATED GFR IS NOT APPLICABLE FOR DIALYSIS PATIENTS. Specimen slightly ictericTACROLIMUS [id number] 08:56:00* Test Item Value Reference Range Comments TACROLIMUS BLOOD (BEAKER) (test bytx=804) 10.0 ng/mL 10.0-20.0 POCT-GLUCOSE [id number] 08:09:00* Test Item Value Reference Range Comments POC-GLUCOSE METER (BEAKER) (test qfbf=8714) 129 mg/dL 70-110 TESTED AT [facility] [address] [facility] [address] POCT-GLUCOSE [id number] 08:09:00* Test Item Value Reference Range Comments POC-GLUCOSE METER (BEAKER) (test mmxm=3727) 491 mg/dL 70-110 TESTED AT [facility] [address] [facility] [address] [id number] 06:48:00* Test Item Value Reference Range Comments PHOSPHORUS (BEAKER) (test acfi=729) 4.7 mg/dL 2.3-4.7 [id number] 06:48:00* Test Item Value Reference Range Comments MAGNESIUM (BEAKER) (test rlit=301) 2.2 mg/dL 1.6-2.6 HEPATIC FUNCTION [id number] 06:48:00* Test Item Value Reference Range Comments TOTAL PROTEIN (BEAKER) (test vvxq=854) 5.6 gm/dL 6.0-8.3 ALBUMIN (BEAKER) (test aznu=8099) 3.4 g/dL 3.5-5.0 BILIRUBIN TOTAL (BEAKER) (test csjk=105) 3.8 mg/dL 0.2-1.2 BILIRUBIN DIRECT (BEAKER) (test qbtl=402) 2.6 mg/dL 0.1-0.5 ALKALINE PHOSPHATASE (BEAKER) (test fpgq=630) 48 U/L 40-150 AST (SGOT) (BEAKER) (test kwgg=932) 18 U/L 5-34 ALT (SGPT) (BEAKER) (test wjxf=239) 44 U/L 6-55 Specimen slightly ictericPROTHROMBIN [id number] 06:07:00* Test Item Value Reference Range Comments PROTIME (BEAKER) (test ftyx=488) 14.3 seconds 11.7-14.7 INR (BEAKER) (test njzc=462) 1.1 <=5.9 RECOMMENDED COUMADIN/WARFARIN INR THERAPY RANGESSTANDARD DOSE: 2.0 - 3.0 Inclu kaya: PROPHYLAXIS for venous thrombosis, systemic embolization; TREATMENT for barby ous thrombosis and/or pulmonary embolus.HIGH RISK: Target INR is 2.5-3.5 for pat ients with mechanical heart valves.POCT-GLUCOSE [id number] 23:32:00* Test Item Value Reference Range Comments POC-GLUCOSE METER (BEAKER) (test wsie=2395) 314 mg/dL 70-110 TESTED AT [address] [address] POCT-GLUCOSE [id number] 19:24:00* Test Item Value Reference Range Comments POC-GLUCOSE METER (BEAKER) (test gaxm=5022) > mg/dL 70-110 OUTSIDE MEASURING RANGETESTED AT [address] [address] POCT-GLUCOSE [id number] 17:46:00* Test Item Value Reference Range Comments POC-GLUCOSE METER (BEAKER) (test toxn=0703) 362 mg/dL 70-110 TESTED AT [address] [address] POCT-GLUCOSE [id number] 17:38:00* Test Item Value Reference Range Comments POC-GLUCOSE METER (BEAKER) (test ostf=9034) 409 mg/dL 70-110 TESTED AT [address] [address] POCT-GLUCOSE [id number] 17:02:00* Test Item Value Reference Range Comments POC-GLUCOSE METER (BEAKER) (test fvja=2106) 432 mg/dL 70-110 TESTED AT [address] [address] ANG, TUNNELED CATHETER [id number] 15:40:00Referring:Dr. Marciano Villa for exam:->alf dialysisFINAL REPORT Tunneled dialysis catheter insertion: Pertinent clinical information: Long-term dialysis Modality: Sonography and fluoroscopy Conscious Sedation: Versed 1 mg and fentanyl 50 mcg intravenouslyDuring the procedure with conscious sedation, the patient was monitored continuously with pulse oximetry and electrocardiography by the attending physician and registered nurse. Physician Patient face to face intraservice time: 30 minutes Anesthesia: Two percent Lidocaine injected subcutaneously at the insertion site and tunnel. Approach: Right internal jugular vein Fluoro time (in minutes) and number of images: 1.0 minutes. Four images For maximum sterile barrier protection a mask, cap, sterile gloves, sterile drape, sterile gown, and a cutaneous antiseptic was utilized. Technique: After informed written consent was obtained, the patient was prepped and draped in the usual sterile manner. Access was obtained using sonographic guidance. Ultrasound was utilized to decrease the risk of hematoma and avoid unnecessary punctures. Ultrasound documented the vein to be patent. The right internal jugular vein was catheterized utilizing ultrasound guidance and the localization image was saved to PACS. A guide wire was advanced centrally. A 19 cm Duraflow catheter was advanced with its distal tip terminating in the right atrium as documented by fluoroscopy. The ports were flushed and aspirated easily following placement. A subcutaneous tunnel was created in the right anterior chest wall by blunt dissection. The catheter was sutured to the skin to secure its placement. A small jugular incision site was closed using 2.0 chr omic suture. Vital signs were monitored throughout the procedure by a nurse, jakob sams remained stable. The patient tolerated the procedure well and left the depart ment in the same condition. Results: Spot radiograph of the chest demonstrates the new dialysis catheter to lie in the expected position with its tip overlying the right atrium. Impression: Successful, uncomplicated placement of a right in ternal jugular tunneled dialysis catheter using ultrasound. Fluoroscopy arvind reyna was also utilized . Signed: Sonja Leonardo MDReport Verified Date/Time: 12/08/2017 15:40:40 Reading Location: [place] [address] Angio Body Reading Room C METABOLIC [id number] 14:01:00* Test Item Value Reference Range Comments SODIUM (BEAKER) (test qfru=561) 138 meq/L 136-145 POTASSIUM (BEAKER) (test rknk=880) 4.3 meq/L 3.5-5.1 CHLORIDE (BEAKER) (test ligb=106) 102 meq/L 98-107 CO2 (BEAKER) (test arok=069) 24 meq/L 22-29 BLOOD UREA NITROGEN (BEAKER) (test adhm=947) 64 mg/dL 7-21 CREATININE (BEAKER) (test wwfa=382) 4.63 mg/dL 0.57-1.25 GLUCOSE RANDOM (BEAKER) (test revc=659) 189 mg/dL 70-105 CALCIUM (BEAKER) (test dtfk=806) 8.6 mg/dL 8.4-10.2 EGFR (BEAKER) (test oota=0154) 13 mL/min/1.73 sq m ESTIMATED GFR IS NOT ACCURATE CREATININE CLEARANCE IN PREDICTING GLOMERULAR FILTRATION RATE. ESTIMATED GFR IS NOT APPLICABLE FOR DIALYSIS PATIENTS. Specimen slightly ictericPOCT-GLUCOSE [id number] 13:26:00* Test Item Value Reference Range Comments POC-GLUCOSE METER (BEAKER) (test bowo=7554) 171 mg/dL 70-110 TESTED AT [facility] [address] [facility] [address] CBC W/PLT COUNT & AUTO [id number] 13:02:00* Test Item Value Reference Range Comments WHITE BLOOD CELL COUNT (BEAKER) (test qjni=650) 4.1 K/ L 3.5-10.5 RED BLOOD CELL COUNT (BEAKER) (test edbo=775) 2.71 M/ L 4.63-6.08 HEMOGLOBIN (BEAKER) (test xzdt=961) 8.7 GM/DL 13.7-17.5 HEMATOCRIT (BEAKER) (test nzym=759) 25.8 % 40.1-51.0 MEAN CORPUSCULAR VOLUME (BEAKER) (test nnbb=205) 95.2 fL 79.0-92.2 MEAN CORPUSCULAR HEMOGLOBIN (BEAKER) (test lzvu=341) 32.1 pg 25.7-32.2 MEAN CORPUSCULAR HEMOGLOBIN CONC (BEAKER) (test mohw=331) 33.7 GM/DL 32.3-36.5 RED CELL DISTRIBUTION WIDTH (BEAKER) (test gcyv=325) 17.3 % 11.6-14.4 PLATELET COUNT (BEAKER) (test sdqs=178) 58 K/CU MM 150-450 MEAN PLATELET VOLUME (BEAKER) (test hbwa=363) 11.3 fL 9.4-12.4 NUCLEATED RED BLOOD CELLS (BEAKER) (test uako=116) 0 /100 WBC 0-0 NEUTROPHILS RELATIVE PERCENT (BEAKER) (test luhp=748) 50 % LYMPHOCYTES RELATIVE PERCENT (BEAKER) (test ybsz=371) 30 % MONOCYTES RELATIVE PERCENT (BEAKER) (test ruwu=423) 7 % EOSINOPHILS RELATIVE PERCENT (BEAKER) (test gxun=060) 4 % BASOPHILS RELATIVE PERCENT (BEAKER) (test okvf=970) 1 % NEUTROPHILS ABSOLUTE COUNT (BEAKER) (test qzfi=282) 2.01 K/ L 1.78-5.38 LYMPHOCYTES ABSOLUTE COUNT (BEAKER) (test sxxx=737) 1.20 K/ L 1.32-3.57 MONOCYTES ABSOLUTE COUNT (BEAKER) (test ljqr=657) 0.28 K/ L 0.30-0.82 EOSINOPHILS ABSOLUTE COUNT (BEAKER) (test reso=281) 0.14 K/ L 0.04-0.54 BASOPHILS ABSOLUTE COUNT (BEAKER) (test dxez=401) 0.03 K/ L 0.01-0.08 IMMATURE GRANULOCYTES-RELATIVE PERCENT (BEAKER) (test rkiv=2334) 10 % 0-1 (CELLAVISION MANUAL DIFF)2017-12-08 13:02:00* Test Item Value Reference Range Comments TOTAL COUNTED (BEAKER) (test dejw=5129) RBC MORPHOLOGY (BEAKER) (test laoz=379) Normal WBC MORPHOLOGY (BEAKER) (test dwbc=639) Normal PLT MORPHOLOGY (BEAKER) (test sqtl=332) Normal TACROLIMUS [id number] 09:28:00* Test Item Value Reference Range Comments TACROLIMUS BLOOD (BEAKER) (test rxyo=124) 5.2 ng/mL 10.0-20.0 AMY ANTIGEN WITH REFLEX TO [id number] 08:44:00* Test Item Value Reference Range Comments AMY ANTIGEN (BEAKER) (test mvzv=6850) Positive AMY ANTIGEN [id number] 08:44:00* Test Item Value Reference Range Comments AMY ANTIGEN TITER (BEAKER) (test ihlf=226) :4 POCT-GLUCOSE [id number] 08:22:00* Test Item Value Reference Range Comments POC-GLUCOSE METER (BEAKER) (test xacs=7935) 101 mg/dL 70-110 TESTED AT [facility] [address] [facility] [address] [id number] 07:02:00* Test Item Value Reference Range Comments FERRITIN (BEAKER) (test pvxx=909) 212 ng/mL 5-275 [id number] 06:57:00* Test Item Value Reference Range Comments PHOSPHORUS (BEAKER) (test oiwu=104) 4.3 mg/dL 2.3-4.7 [id number] 06:57:00* Test Item Value Reference Range Comments MAGNESIUM (BEAKER) (test xmtw=456) 2.1 mg/dL 1.6-2.6 HEPATIC FUNCTION [id number] 06:57:00* Test Item Value Reference Range Comments TOTAL PROTEIN (BEAKER) (test ygbq=206) 4.9 gm/dL 6.0-8.3 ALBUMIN (BEAKER) (test nmig=9296) 3.0 g/dL 3.5-5.0 BILIRUBIN TOTAL (BEAKER) (test sfwx=293) 3.5 mg/dL 0.2-1.2 BILIRUBIN DIRECT (BEAKER) (test rqmj=091) 2.6 mg/dL 0.1-0.5 ALKALINE PHOSPHATASE (BEAKER) (test dclq=138) 38 U/L 40-150 AST (SGOT) (BEAKER) (test mjgn=107) 15 U/L 5-34 ALT (SGPT) (BEAKER) (test bpnd=704) 40 U/L 6-55 Specimen slightly ictericPROTHROMBIN [id number] 06:51:00* Test Item Value Reference Range Comments PROTIME (BEAKER) (test ejzb=550) 14.9 seconds 11.7-14.7 INR (BEAKER) (test njsb=352) 1.2 <=5.9 RECOMMENDED COUMADIN/WARFARIN INR THERAPY RANGESSTANDARD DOSE: 2.0 - 3.0 Inclu kaya: PROPHYLAXIS for venous thrombosis, systemic embolization; TREATMENT for barby ous thrombosis and/or pulmonary embolus.HIGH RISK: Target INR is 2.5-3.5 for pat ients with mechanical heart valves.IRON, TIBC, % SAT. (WITHOUT FERRITIN) 2017-12-08 06:42:00* Test Item Value Reference Range Comments IRON (BEAKER) (test lcgm=509) 64 ug/dL 40-160 TOTAL IRON BINDING CAPACITY (BEAKER) (test byze=911) 199 ug/dL 250-450 IRON % SATURATION (2) (BEAKER) (test auvc=9363) 32 % 20-55 RETICULOCYTE [id number] 06:19:00* Test Item Value Reference Range Comments RETICULOCYTE COUNT PCT (BEAKER) (test hlid=923) 1.9 % 0.5-1.8 POCT-GLUCOSE [id number] 17:56:00* Test Item Value Reference Range Comments POC-GLUCOSE METER (BEAKER) (test byna=2442) 200 mg/dL 70-110 TESTED AT [facility] [address] [facility] [address] POCT-GLUCOSE [id number] 15:24:00* Test Item Value Reference Range Comments POC-GLUCOSE METER (BEAKER) (test jvig=5204) 257 mg/dL 70-110 TESTED AT [facility] [address] [facility] [address] POCT-GLUCOSE [id number] 11:38:00* Test Item Value Reference Range Comments POC-GLUCOSE METER (BEAKER) (test vbvi=7720) 192 mg/dL 70-110 TESTED AT [facility] [address] [facility] [address] CBC W/PLT COUNT & AUTO [id number] 10:07:00* Test Item Value Reference Range Comments WHITE BLOOD CELL COUNT (BEAKER) (test mnch=859) 4.2 K/ L 3.5-10.5 RED BLOOD CELL COUNT (BEAKER) (test ymla=684) 2.89 M/ L 4.63-6.08 HEMOGLOBIN (BEAKER) (test mojv=703) 9.4 GM/DL 13.7-17.5 HEMATOCRIT (BEAKER) (test ytdk=263) 27.2 % 40.1-51.0 MEAN CORPUSCULAR VOLUME (BEAKER) (test vhxm=526) 94.1 fL 79.0-92.2 MEAN CORPUSCULAR HEMOGLOBIN (BEAKER) (test zvah=402) 32.5 pg 25.7-32.2 MEAN CORPUSCULAR HEMOGLOBIN CONC (BEAKER) (test fnxl=265) 34.6 GM/DL 32.3-36.5 RED CELL DISTRIBUTION WIDTH (BEAKER) (test isvu=296) 17.5 % 11.6-14.4 PLATELET COUNT (BEAKER) (test sbjd=409) 37 K/CU MM 150-450 MEAN PLATELET VOLUME (BEAKER) (test ulsn=376) 11.1 fL 9.4-12.4 NUCLEATED RED BLOOD CELLS (BEAKER) (test xdqn=360) 0 /100 WBC 0-0 (CELLAVISION MANUAL DIFF)2017-12-07 10:07:00* Test Item Value Reference Range Comments NEUTROPHILS - REL (CELLAVISION)(BEAKER) (test psgv=3358) 81 % LYMPHOCYTES - REL (CELLAVISION)(BEAKER) (test ubis=8330) 13 % EOSINOPHILS - REL (CELLAVISION)(BEAKER) (test bwtn=2909) 5 % BASOPHILS - REL (CELLAVISION)(BEAKER) (test emct=1726) 2 % NEUTROPHILS - ABS (CELLAVISION)(BEAKER) (test anes=3136) 3.40 K/ul 1.78-5.38 LYMPHOCYTES - ABS (CELLAVISION)(BEAKER) (test wxav=5164) 0.55 K/ul 1.32-3.57 EOSINOPHILS - ABS (CELLAVISION)(BEAKER) (test vxfz=7367) 0.21 K/uL 0.04-0.54 BASOPHILS - ABS (CELLAVISION)(BEAKER) (test ieyu=8644) 0.08 K/uL 0.01-0.08 TOTAL COUNTED (BEAKER) (test yqfw=6474) 100 WBC MORPHOLOGY (BEAKER) (test imvg=232) Normal PLT MORPHOLOGY (BEAKER) (test brdu=991) Normal ANISOCYTOSIS (BEAKER) (test wzzw=424) 2+ moderate MICROCYTES (BEAKER) (test nyeb=400) 2+ moderate ARTIFACT (CELLAVISION)(BEAKER) (test oafa=5442) Present PLATELET CONCENTRATION (CELLAVISION)(BEAKER) (test oxcw=7917) Decreased Received comment: User comments: Slide comments: TACROLIMUS [id number] 08:31:00* Test Item Value Reference Range Comments TACROLIMUS BLOOD (BEAKER) (test swaa=950) 5.4 ng/mL 10.0-20.0 POCT-GLUCOSE [id number] 07:33:00* Test Item Value Reference Range Comments POC-GLUCOSE METER (BEAKER) (test pmir=8292) 119 mg/dL 70-110 TESTED AT [address] [address] URINE [id number] 07:33:00* Test Item Value Reference Range Comments CULTURE (BEAKER) (test dgnd=0830) No growth CALCIUM, [id number] 06:51:00* Test Item Value Reference Range Comments CALCIUM IONIZED (BEAKER) (test sjws=882) 1.08 mmol/L 1.12-1.27 PH, BLOOD (BEAKER) (test vocr=9282) 7.39 COMPREHENSIVE METABOLIC [id number] 05:41:00* Test Item Value Reference Range Comments TOTAL PROTEIN (BEAKER) (test tiwn=848) 4.8 gm/dL 6.0-8.3 ALBUMIN (BEAKER) (test uljo=0312) 2.9 g/dL 3.5-5.0 ALKALINE PHOSPHATASE (BEAKER) (test uvwx=916) 38 U/L 40-150 BILIRUBIN TOTAL (BEAKER) (test qnvk=213) 3.7 mg/dL 0.2-1.2 SODIUM (BEAKER) (test neny=197) 137 meq/L 136-145 POTASSIUM (BEAKER) (test vjsy=897) 4.3 meq/L 3.5-5.1 CHLORIDE (BEAKER) (test pvlc=539) 103 meq/L 98-107 CO2 (BEAKER) (test ottj=332) 25 meq/L 22-29 BLOOD UREA NITROGEN (BEAKER) (test eooe=122) 84 mg/dL 7-21 CREATININE (BEAKER) (test toms=101) 5.35 mg/dL 0.57-1.25 GLUCOSE RANDOM (BEAKER) (test kkxy=912) 122 mg/dL 70-105 CALCIUM (BEAKER) (test tuqa=085) 7.9 mg/dL 8.4-10.2 AST (SGOT) (BEAKER) (test lwzo=920) 15 U/L 5-34 ALT (SGPT) (BEAKER) (test evhn=952) 49 U/L 6-55 EGFR (BEAKER) (test mtdx=7500) 11 mL/min/1.73 sq m ESTIMATED GFR IS NOT ACCURATE CREATININE CLEARANCE IN PREDICTING GLOMERULAR FILTRATION RATE. ESTIMATED GFR IS NOT APPLICABLE FOR DIALYSIS PATIENTS. Specimen slightly [id number] 05:39:00* Test Item Value Reference Range Comments PHOSPHORUS (BEAKER) (test kpfk=008) 5.3 mg/dL 2.3-4.7 [id number] 05:39:00* Test Item Value Reference Range Comments MAGNESIUM (BEAKER) (test unli=213) 2.1 mg/dL 1.6-2.6 HEPATIC FUNCTION [id number] 05:39:00* Test Item Value Reference Range Comments TOTAL PROTEIN (BEAKER) (test dhae=194) 4.8 gm/dL 6.0-8.3 ALBUMIN (BEAKER) (test plzs=1876) 2.9 g/dL 3.5-5.0 BILIRUBIN TOTAL (BEAKER) (test cwaq=436) 3.7 mg/dL 0.2-1.2 BILIRUBIN DIRECT (BEAKER) (test ngcv=479) 2.8 mg/dL 0.1-0.5 ALKALINE PHOSPHATASE (BEAKER) (test ldhg=095) 38 U/L 40-150 AST (SGOT) (BEAKER) (test qlrf=308) 15 U/L 5-34 ALT (SGPT) (BEAKER) (test cfkc=684) 49 U/L 6-55 Specimen slightly ictericPROTHROMBIN [id number] 05:37:00* Test Item Value Reference Range Comments PROTIME (CYNDY) (test eocr=378) 14.7 seconds 11.7-14.7 INR (BEAKER) (test xljc=050) 1.2 <=5.9 RECOMMENDED COUMADIN/WARFARIN INR THERAPY RANGESSTANDARD DOSE: 2.0 - 3.0 Inclu kaya: PROPHYLAXIS for venous thrombosis, systemic embolization; TREATMENT for barby ous thrombosis and/or pulmonary embolus.HIGH RISK: Target INR is 2.5-3.5 for pat ients with mechanical heart valves.POCT-GLUCOSE [id number] 00:43:00* Test Item Value Reference Range Comments POC-GLUCOSE METER (CYNDY) (test abde=0572) 190 mg/dL 70-110 TESTED AT [place] [id number] POCT-GLUCOSE [id number] 00:41:00* Test Item Value Reference Range Comments POC-GLUCOSE METER (CYNDY) (test sisl=5651) 312 mg/dL 70-110 TESTED AT [address] [address] POCT-GLUCOSE [id number] 17:19:00* Test Item Value Reference Range Comments POC-GLUCOSE METER (CYNDY) (test nmrl=0470) 267 mg/dL 70-110 TESTED AT [place] [address] CMV PCR, [id number] 15:18:00* Test Item Value Reference Range Comments CMV VIRAL LOAD - NEGATIVE (CYNDY) (test ezwk=1519) Negative or below the linear range of the assay (<375 copies/mL) Cytomegalovirus (CMV) infection can cause significant disease in immunosuppresse d patients. However, it is common for CMV to manifest as a limited infection whi ch is of no clinical significance in immunosuppressed patients or in healthy ind ividuals.Viral load measurements are helpful to identify clinical CMV infection and to guide the pre-emptive management of antiviral therapy. For treatment of CMV infection due to reactivation in transplant recipients, a threshold between 4,000 and 5,000 copies/mL is suggested. For treatment of primary CMV infection, a lower threshold can be used.CMV infection may also be monitored using weekly serial measurements. Serial measurements of CMV DNA viral load can be evaluated by identifying a 10-fold change, as well as assessing the CMV DNA viral load and the clinical context for each patient.The plasma CMV DNA viral load was detected using quantitative polymerase chain reaction and fluorescent monitoring of a s pecific hybridized probe. Genetic variation and other factors can affect the acc uracy of nucleic acid testing. Therefore, the results should be interpreted in l ight of clinical data. A negative result may not exclude the presence of CMV dis ease.This test was developed and its performance characteristics determined by tamiko bishop [facility] Pathology Department, Section of Molecular Patholog y. It has not been cleared or approved by the U.S. Food and Drug Administration (FDA), since FDA approval is not required for clinical use of the test. Validati on was done as required by The Clinical Laboratory Improvement Amendments of 198 8.EBV VIRAL [id number] 15:15:00* Test Item Value Reference Range Comments EBV VIRAL LOAD - NEGATIVE (BEAKER) (test asjw=0533) Negative or below the linear range of the assay (<500 copies/mL) This assay was performed by real-time PCR for the detection of the Guerline-Acevedo virus (EBV) gene EBNA-1. The test is composed of (1) DNA extraction from patien t specimen, and (2) real-time PCR amplification and detection with HRPC-9-mgxtfb ic primers and probes. A well-conserved region of the EBNA-1 gene is targeted, a long with an internal control sequence used to confirm PCR amplification. Asympt omatic carriers and viral genetic variation, among other factors, can affect the accuracy of nucleic acid testing; therefore, results should be interpreted in l ight of clinical data.This test was developed and its performance characteristic s determined by the [facility] Pathology Department, Section of M olecular Pathology. It has not been cleared or approved by the U.S. Food and Bert g Administration (FDA), since FDA approval is not required for clinical use of t he test. Validation was done as required by The Clinical Laboratory Improvement Amendments of 1988.U/S, ABDOMINAL, WITH [id number] 13:27:00Referring:Dr. Marciano Villa for exam:->s/p OLT patent vessels?FINAL REPORT Abdominal ultrasound dated 12/06/2017 Clinical information: s/p OLT patent vessels? Comment: Real-time transabdominal ultrasound was performed. Liver is enlarged and measures 21 cm in length. The echogenicity of the liver is normal. No focal lesion is noted in the liver. Spleen is enlarged measuring 21.7 cm in length. Gallbladder is surgically absent. No biliary dilatation is seen. Common bile duct measures 3 mm in diameter. Main portal vein measures 12 mm in diameter. Pancreas is suboptimal visualized Right kidney measures 10.6 x 5.6 x 6 mm cm. Left kidney measures 10.0 x 4.8 x 4.7 cm. Echogenicity of both kidney is normal. No hydronephrosis or solid mass seen in either kidney. No cyst is seen in the either kidney. Trace ascites present in the abdomen. There is trace right pleural effusion. Abdominal aorta is normal in caliber. The IVC is patent. Real-time Color and Spectral doppler ultrasound of the abdomen was performed. Main portal vein measures 1.2 cm in diameter. There is hepatopedal flow in the main portal vein with velocity 52 cm/sec. Right and left portal veins are patent. Proper hepatic artery, right hepatic artery, and left hepatic artery are patent with resistive indices 0.6, 0.5, and 0.7 respectively. IVC, Hepatic venous confluence, right HV, middle HV and left HV are patent. Impr ession: 1. Unremarkable post transplant liver.2. Splenomegaly.3. Trace ascites a nd right pleural effusion.4. Suboptimal visualization the pancreas secondary to overlying gas.5. Patent hepatic artery and portal vein. Signed: Soumya Mckeon port Verified Date/Time: 12/06/2017 13:27:20 Reading Location: [facility] [id number] [facility] Reading Room Electronically signed by: SOUMYA MCKEON M.D. on 2017 01:27 PM TACROLIMUS [id number] 12:12:00* Test Item Value Reference Range Comments TACROLIMUS BLOOD (BEAKER) (test tzgf=940) 4.8 ng/mL 10.0-20.0 POCT-GLUCOSE [id number] 11:55:00* Test Item Value Reference Range Comments POC-GLUCOSE METER (BEAKER) (test pstz=5503) 75 mg/dL 70-110 TESTED AT [facility] [address] [facility] [address] POCT-GLUCOSE [id number] 07:51:00* Test Item Value Reference Range Comments POC-GLUCOSE METER (BEAKER) (test tcqe=8170) 93 mg/dL 70-110 TESTED AT [place] [id number] [facility] [address] CBC W/PLT COUNT & AUTO [id number] 07:11:00* Test Item Value Reference Range Comments WHITE BLOOD CELL COUNT (BEAKER) (test aqhs=808) 3.5 K/ L 3.5-10.5 RED BLOOD CELL COUNT (BEAKER) (test xvnk=174) 3.07 M/ L 4.63-6.08 HEMOGLOBIN (BEAKER) (test aqbg=224) 9.8 GM/DL 13.7-17.5 HEMATOCRIT (BEAKER) (test edmb=085) 28.4 % 40.1-51.0 MEAN CORPUSCULAR VOLUME (BEAKER) (test ivya=601) 92.5 fL 79.0-92.2 MEAN CORPUSCULAR HEMOGLOBIN (BEAKER) (test edak=280) 31.9 pg 25.7-32.2 MEAN CORPUSCULAR HEMOGLOBIN CONC (BEAKER) (test kuuf=172) 34.5 GM/DL 32.3-36.5 RED CELL DISTRIBUTION WIDTH (BEAKER) (test blcx=371) 17.3 % 11.6-14.4 PLATELET COUNT (BEAKER) (test votg=373) 26 K/CU MM 150-450 MEAN PLATELET VOLUME (BEAKER) (test dkpb=860) 11.2 fL 9.4-12.4 NUCLEATED RED BLOOD CELLS (BEAKER) (test epym=742) 0 /100 WBC 0-0 (CELLAVISION MANUAL DIFF)2017-12-06 07:11:00* Test Item Value Reference Range Comments NEUTROPHILS - REL (CELLAVISION)(BEAKER) (test bevd=1122) 83 % LYMPHOCYTES - REL (CELLAVISION)(BEAKER) (test bphv=2630) 8 % MONOCYTES - REL (CELLAVISION)(BEAKER) (test nmua=3423) 3 % EOSINOPHILS - REL (CELLAVISION)(BEAKER) (test jdyo=9039) 3 % BASOPHILS - REL (CELLAVISION)(BEAKER) (test lgts=0614) 1 % MYELOCYTES - REL (CELLAVISION)(BEAKER) (test niyg=7606) 1 % 0-0 ATYPICAL LYMPHOCYTES - REL (CELLAVISION)(BEAKER) (test ejby=5380) 1 % 0-0 NEUTROPHILS - ABS (CELLAVISION)(BEAKER) (test tdyv=1839) 2.91 K/ul 1.78-5.38 LYMPHOCYTES - ABS (CELLAVISION)(BEAKER) (test pmqh=2399) 0.28 K/ul 1.32-3.57 MONOCYTES - ABS (CELLAVISION)(BEAKER) (test zbzj=2084) 0.11 K/uL 0.30-0.82 EOSINOPHILS - ABS (CELLAVISION)(BEAKER) (test zxji=9669) 0.11 K/uL 0.04-0.54 BASOPHILS - ABS (CELLAVISION)(BEAKER) (test ckup=8110) 0.04 K/uL 0.01-0.08 MYELOCYTES-ABS (CELLAVISION)(BEAKER) (test fryz=4776) 0.04 K/uL 0.00-0.00 ATYPICAL LYMPHOCYTES - ABS (CELLAVISION)(BEAKER) (test wljt=5460) 0.04 K/uL 0.00-0.00 TOTAL COUNTED (BEAKER) (test tmxw=5422) 100 SMUDGE CELLS (BEAKER) (test mwrh=0909) Present GIANT PLATELETS (BEAKER) (test bvpw=342) Present ANISOCYTOSIS (BEAKER) (test kzei=696) 1+ few MICROCYTES (BEAKER) (test ksog=336) 1+ few POIKILOCYTES (BEAKER) (test mbcd=008) 1+ few PLATELET CONCENTRATION (CELLAVISION)(BEAKER) (test aysw=1385) Decreased Received comment: User comments: Slide comments: CALCIUM, [id number] 04:16:00* Test Item Value Reference Range Comments CALCIUM IONIZED (BEAKER) (test nsja=955) 1.10 mmol/L 1.12-1.27 PH, BLOOD (BEAKER) (test jqva=8960) 7.42 PROTHROMBIN [id number] 03:21:00* Test Item Value Reference Range Comments PROTIME (BEAKER) (test vgct=020) 15.2 seconds 11.7-14.7 INR (BEAKER) (test iqpj=450) 1.2 <=5.9 RECOMMENDED COUMADIN/WARFARIN INR THERAPY RANGESSTANDARD DOSE: 2.0 - 3.0 Inclu kaya: PROPHYLAXIS for venous thrombosis, systemic embolization; TREATMENT for barby ous thrombosis and/or pulmonary embolus.HIGH RISK: Target INR is 2.5-3.5 for pat ients with mechanical heart valves.COMPREHENSIVE METABOLIC [id number] 03:15:00* Test Item Value Reference Range Comments TOTAL PROTEIN (BEAKER) (test tavp=997) 5.3 gm/dL 6.0-8.3 ALBUMIN (BEAKER) (test uzft=4906) 3.2 g/dL 3.5-5.0 ALKALINE PHOSPHATASE (BEAKER) (test mxry=308) 40 U/L 40-150 BILIRUBIN TOTAL (BEAKER) (test tgkl=084) 4.1 mg/dL 0.2-1.2 SODIUM (BEAKER) (test jlbj=267) 138 meq/L 136-145 POTASSIUM (BEAKER) (test evfu=365) 4.1 meq/L 3.5-5.1 CHLORIDE (BEAKER) (test zdig=262) 104 meq/L 98-107 CO2 (BEAKER) (test rsrs=734) 24 meq/L 22-29 BLOOD UREA NITROGEN (BEAKER) (test drkp=764) 56 mg/dL 7-21 CREATININE (BEAKER) (test tivp=624) 3.54 mg/dL 0.57-1.25 GLUCOSE RANDOM (BEAKER) (test mkfs=366) 122 mg/dL 70-105 CALCIUM (BEAKER) (test mjxx=107) 8.1 mg/dL 8.4-10.2 AST (SGOT) (BEAKER) (test sipf=877) 20 U/L 5-34 ALT (SGPT) (BEAKER) (test gpmn=568) 63 U/L 6-55 EGFR (BEAKER) (test coss=5458) 18 mL/min/1.73 sq m ESTIMATED GFR IS NOT ACCURATE CREATININE CLEARANCE IN PREDICTING GLOMERULAR FILTRATION RATE. ESTIMATED GFR IS NOT APPLICABLE FOR DIALYSIS PATIENTS. Specimen moderately [id number] 03:10:00* Test Item Value Reference Range Comments PHOSPHORUS (BEAKER) (test xlvp=201) 3.6 mg/dL 2.3-4.7 [id number] 03:10:00* Test Item Value Reference Range Comments MAGNESIUM (BEAKER) (test ulqh=906) 2.0 mg/dL 1.6-2.6 HEPATIC FUNCTION [id number] 03:10:00* Test Item Value Reference Range Comments TOTAL PROTEIN (BEAKER) (test amou=727) 5.3 gm/dL 6.0-8.3 ALBUMIN (BEAKER) (test sors=6374) 3.2 g/dL 3.5-5.0 BILIRUBIN TOTAL (BEAKER) (test uaxn=050) 4.1 mg/dL 0.2-1.2 BILIRUBIN DIRECT (BEAKER) (test thtr=421) 3.3 mg/dL 0.1-0.5 ALKALINE PHOSPHATASE (BEAKER) (test ebxj=059) 40 U/L 40-150 AST (SGOT) (BEAKER) (test isoa=887) 20 U/L 5-34 ALT (SGPT) (BEAKER) (test wrag=197) 63 U/L 6-55 Specimen moderately [id number] 03:10:00* Test Item Value Reference Range Comments AMYLASE (BEAKER) (test dljr=355) 34 U/L 25-125 Specimen moderately [id number] 03:10:00* Test Item Value Reference Range Comments LIPASE (BEAKER) (test dlkg=830) 28 U/L 8-78 Specimen moderately ictericPOCT-GLUCOSE [id number] 22:23:00* Test Item Value Reference Range Comments POC-GLUCOSE METER (BEAKER) (test qdce=9392) 240 mg/dL 70-110 TESTED AT [address] [address] POCT-GLUCOSE [id number] 20:18:00* Test Item Value Reference Range Comments POC-GLUCOSE METER (BEAKER) (test orsh=8442) 301 mg/dL 70-110 TESTED AT [address] [address] POCT-GLUCOSE [id number] 19:04:00* Test Item Value Reference Range Comments POC-GLUCOSE METER (BEAKER) (test iypw=3793) 328 mg/dL 70-110 TESTED AT [address] [address] POCT-GLUCOSE [id number] 18:20:00* Test Item Value Reference Range Comments POC-GLUCOSE METER (BEAKER) (test vced=9804) 314 mg/dL 70-110 TESTED AT [address] [address] POCT-GLUCOSE [id number] 17:37:00* Test Item Value Reference Range Comments POC-GLUCOSE METER (BEAKER) (test cqea=1252) 424 mg/dL 70-110 TESTED AT [address] [address] CBC W/PLT COUNT & AUTO [id number] 17:07:00* Test Item Value Reference Range Comments WHITE BLOOD CELL COUNT (BEAKER) (test elar=683) 3.1 K/ L 3.5-10.5 RED BLOOD CELL COUNT (BEAKER) (test yneg=356) 2.67 M/ L 4.63-6.08 HEMOGLOBIN (BEAKER) (test vrzm=811) 8.6 GM/DL 13.7-17.5 HEMATOCRIT (BEAKER) (test mhim=245) 25.6 % 40.1-51.0 MEAN CORPUSCULAR VOLUME (BEAKER) (test uhrj=283) 95.9 fL 79.0-92.2 MEAN CORPUSCULAR HEMOGLOBIN (BEAKER) (test isoe=817) 32.2 pg 25.7-32.2 MEAN CORPUSCULAR HEMOGLOBIN CONC (BEAKER) (test iydk=682) 33.6 GM/DL 32.3-36.5 RED CELL DISTRIBUTION WIDTH (BEAKER) (test smkf=718) 18.8 % 11.6-14.4 PLATELET COUNT (BEAKER) (test rpaq=919) 30 K/CU MM 150-450 MEAN PLATELET VOLUME (BEAKER) (test rnok=720) 11.0 fL 9.4-12.4 NUCLEATED RED BLOOD CELLS (BEAKER) (test gzhn=243) 0 /100 WBC 0-0 (CELLAVISION MANUAL DIFF)2017-12-05 17:07:00* Test Item Value Reference Range Comments NEUTROPHILS - REL (CELLAVISION)(BEAKER) (test hjjj=1914) 94 % LYMPHOCYTES - REL (CELLAVISION)(BEAKER) (test ovho=2439) 4 % MONOCYTES - REL (CELLAVISION)(BEAKER) (test qdfv=5922) 2 % NEUTROPHILS - ABS (CELLAVISION)(BEAKER) (test ndlw=6296) 2.91 K/ul 1.78-5.38 LYMPHOCYTES - ABS (CELLAVISION)(BEAKER) (test jtzk=3973) 0.12 K/ul 1.32-3.57 MONOCYTES - ABS (CELLAVISION)(BEAKER) (test hutf=2120) 0.06 K/uL 0.30-0.82 TOTAL COUNTED (BEAKER) (test vlbb=1852) 100 WBC MORPHOLOGY (BEAKER) (test hurr=871) Normal PLT MORPHOLOGY (BEAKER) (test yfld=300) Normal POLYCHROMATOPHILLIC RBCS(BEAKER) (test pccb=778) 1+ few HYPOCHROMIA (BEAKER) (test radz=188) 1+ few ANISOCYTOSIS (BEAKER) (test osds=962) 2+ moderate SCHISTOCYTES (BEAKER) (test fpey=007) 1+ few OVALOCYTES (BEAKER) (test gzkl=249) 2+ moderate PLATELET CONCENTRATION (CELLAVISION)(BEAKER) (test waql=8163) Decreased Received comment: User comments: Slide comments: [id number] 17:01:00* Test Item Value Reference Range Comments GLUCOSE RANDOM (BEAKER) (test ciyf=420) 440 mg/dL 70-105 [id number] 16:54:00* Test Item Value Reference Range Comments POTASSIUM (BEAKER) (test tdin=982) 5.3 meq/L 3.5-5.1 POCT-GLUCOSE [id number] 14:47:00* Test Item Value Reference Range Comments POC-GLUCOSE METER (BEAKER) (test rpel=7346) > mg/dL 70-110 OUTSIDE MEASURING RANGETESTED AT [facility] [address] [facility] [address] POCT-GLUCOSE [id number] 13:36:00* Test Item Value Reference Range Comments POC-GLUCOSE METER (BEAKER) (test heru=3991) 415 mg/dL 70-110 TESTED AT [facility] [address] [facility] [address] URINALYSIS W/ REFLEX URINE [id number] 12:37:00* Test Item Value Reference Range Comments COLOR (BEAKER) (test tsup=378) Yellow CLARITY (BEAKER) (test lndz=844) Clear SPECIFIC GRAVITY UA (BEAKER) (test mrrg=551) 1.010 1.001-1.035 PH UA (BEAKER) (test dcwd=355) 6.5 5.0-8.0 PROTEIN UA (BEAKER) (test syeg=506) 100 mg/dL Negative GLUCOSE UA (BEAKER) (test pfjd=078) Negative Negative KETONES UA (BEAKER) (test asfz=689) Negative Negative BILIRUBIN UA (BEAKER) (test lgqh=018) Positive Negative BLOOD UA (BEAKER) (test iyiz=501) Moderate Negative NITRITE UA (BEAKER) (test ivox=039) Negative Negative LEUKOCYTE ESTERASE UA (BEAKER) (test xvur=697) Trace Negative UROBILINOGEN UA (BEAKER) (test nzwg=906) 0.2 mg/dL 0.2-1.0 RBC UA (BEAKER) (test loro=039) 1 /HPF WBC UA (BEAKER) (test ygup=773) 8 /HPF BACTERIA (BEAKER) (test uznk=616) Occasional MUCUS (BEAKER) (test nxln=5958) Occasional HYALINE CASTS (BEAKER) (test smdc=073) 2 /LPF SOURCE(BEAKER) (test xsjh=4395) TACROLIMUS [id number] 11:20:00* Test Item Value Reference Range Comments TACROLIMUS BLOOD (BEAKER) (test groq=645) 3.9 ng/mL 10.0-20.0 BILIRUBIN, [id number] 10:51:00* Test Item Value Reference Range Comments BILIRUBIN DIRECT (BEAKER) (test pbvy=619) 3.6 mg/dL 0.1-0.5 [id number] 10:51:00* Test Item Value Reference Range Comments GLUCOSE RANDOM (BEAKER) (test cvlo=638) 209 mg/dL 70-105 [id number] 10:51:00* Test Item Value Reference Range Comments PREALBUMIN (BEAKER) (test ntja=166) 37 mg/dL 14-45 IMMUNOGLOBULIN G (IGG)2017-12-05 10:51:00* Test Item Value Reference Range Comments IMMUNOGLOBULIN G (IGG) (BEAKER) (test ksda=979) 680 mg/dL 540-1822 POCT-GLUCOSE [id number] 10:01:00* Test Item Value Reference Range Comments POC-GLUCOSE METER (BEAKER) (test jxet=9296) 177 mg/dL 70-110 TESTED AT [facility] [address] [facility] [address] CBC W/PLT COUNT & AUTO [id number] 09:32:00* Test Item Value Reference Range Comments WHITE BLOOD CELL COUNT (BEAKER) (test qmji=393) 2.5 K/ L 3.5-10.5 RED BLOOD CELL COUNT (BEAKER) (test ggms=432) 2.45 M/ L 4.63-6.08 HEMOGLOBIN (BEAKER) (test gdgv=271) 7.9 GM/DL 13.7-17.5 HEMATOCRIT (BEAKER) (test rlrg=026) 23.2 % 40.1-51.0 MEAN CORPUSCULAR VOLUME (BEAKER) (test wprd=232) 94.7 fL 79.0-92.2 MEAN CORPUSCULAR HEMOGLOBIN (BEAKER) (test dpon=421) 32.2 pg 25.7-32.2 MEAN CORPUSCULAR HEMOGLOBIN CONC (BEAKER) (test vknz=388) 34.1 GM/DL 32.3-36.5 RED CELL DISTRIBUTION WIDTH (BEAKER) (test cjdt=440) 18.9 % 11.6-14.4 PLATELET COUNT (BEAKER) (test pcab=895) 21 K/CU MM 150-450 MEAN PLATELET VOLUME (BEAKER) (test rhei=145) 10.8 fL 9.4-12.4 NUCLEATED RED BLOOD CELLS (BEAKER) (test nwdo=682) 0 /100 WBC 0-0 (CELLAVISION MANUAL DIFF)2017-12-05 09:32:00* Test Item Value Reference Range Comments NEUTROPHILS - REL (CELLAVISION)(BEAKER) (test syxm=1989) 83 % LYMPHOCYTES - REL (CELLAVISION)(BEAKER) (test uwzz=8037) 12 % MONOCYTES - REL (CELLAVISION)(BEAKER) (test iamv=4566) 3 % BANDS - REL (CELLAVISION)(BEAKER) (test xcyw=2694) 1 % 0-10 ATYPICAL LYMPHOCYTES - REL (CELLAVISION)(BEAKER) (test xykj=5626) 1 % 0-0 NEUTROPHILS - ABS (CELLAVISION)(BEAKER) (test rlcj=1871) 2.08 K/ul 1.78-5.38 LYMPHOCYTES - ABS (CELLAVISION)(BEAKER) (test mink=7859) 0.30 K/ul 1.32-3.57 MONOCYTES - ABS (CELLAVISION)(BEAKER) (test dseh=6702) 0.08 K/uL 0.30-0.82 BANDS - ABS (CELLAVISION)(BEAKER) (test mbsk=7262) 0.03 K/uL 0.00-0.80 ATYPICAL LYMPHOCYTES - ABS (CELLAVISION)(BEAKER) (test fnga=6605) 0.03 K/uL 0.00-0.00 TOTAL COUNTED (BEAKER) (test rvxq=0834) 100 WBC MORPHOLOGY (BEAKER) (test bsxb=468) Normal LARGE PLT(BEAKER) (test qgpr=1001) Present POLYCHROMATOPHILLIC RBCS(BEAKER) (test smrf=998) 1+ few HYPOCHROMIA (BEAKER) (test kgrg=893) 1+ few ARTIFACT (CELLAVISION)(BEAKER) (test tdll=0801) Present PLATELET CONCENTRATION (CELLAVISION)(BEAKER) (test bysb=6131) Decreased Received comment: User comments: Slide comments: POCT-GLUCOSE [id number] 08:14:00* Test Item Value Reference Range Comments POC-GLUCOSE METER (BEAKER) (test hsxj=8917) 93 mg/dL 70-110 TESTED AT [facility] [address] [facility] [address] POCT-GLUCOSE [id number] 07:04:00* Test Item Value Reference Range Comments POC-GLUCOSE METER (BEAKER) (test vnhn=3171) 91 mg/dL 70-110 TESTED AT [place] [id number] [facility] [address] POCT-GLUCOSE [id number] 06:34:00* Test Item Value Reference Range Comments POC-GLUCOSE METER (BEAKER) (test ltqt=5809) 99 mg/dL 70-110 TESTED AT [address] [address] POCT-GLUCOSE [id number] 05:45:00* Test Item Value Reference Range Comments POC-GLUCOSE METER (BEAKER) (test epyx=5161) 130 mg/dL 70-110 TESTED AT [address] [address] COMPREHENSIVE METABOLIC [id number] 05:33:00* Test Item Value Reference Range Comments TOTAL PROTEIN (BEAKER) (test bsfw=216) 4.7 gm/dL 6.0-8.3 ALBUMIN (BEAKER) (test zdim=3447) 3.0 g/dL 3.5-5.0 ALKALINE PHOSPHATASE (BEAKER) (test tttj=909) 35 U/L 40-150 BILIRUBIN TOTAL (BEAKER) (test dwek=408) 4.0 mg/dL 0.2-1.2 SODIUM (BEAKER) (test mcye=797) 135 meq/L 136-145 POTASSIUM (BEAKER) (test qavu=189) 4.5 meq/L 3.5-5.1 CHLORIDE (BEAKER) (test jjkn=193) 102 meq/L 98-107 CO2 (BEAKER) (test duev=808) 20 meq/L 22-29 BLOOD UREA NITROGEN (BEAKER) (test qajb=801) 101 mg/dL 7-21 CREATININE (BEAKER) (test tqnh=354) 5.50 mg/dL 0.57-1.25 GLUCOSE RANDOM (BEAKER) (test moaw=621) 127 mg/dL 70-105 CALCIUM (BEAKER) (test cisw=904) 8.1 mg/dL 8.4-10.2 AST (SGOT) (BEAKER) (test xgmr=851) 20 U/L 5-34 ALT (SGPT) (BEAKER) (test sity=836) 72 U/L 6-55 EGFR (BEAKER) (test hbur=0199) 11 mL/min/1.73 sq m ESTIMATED GFR IS NOT ACCURATE CREATININE CLEARANCE IN PREDICTING GLOMERULAR FILTRATION RATE. ESTIMATED GFR IS NOT APPLICABLE FOR DIALYSIS PATIENTS. Specimen slightly [id number] 05:30:00* Test Item Value Reference Range Comments PHOSPHORUS (BEAKER) (test imaa=288) 5.8 mg/dL 2.3-4.7 [id number] 05:30:00* Test Item Value Reference Range Comments MAGNESIUM (BEAKER) (test dgpz=177) 2.1 mg/dL 1.6-2.6 HEPATIC FUNCTION [id number] 05:30:00* Test Item Value Reference Range Comments TOTAL PROTEIN (BEAKER) (test frrv=209) 4.7 gm/dL 6.0-8.3 ALBUMIN (BEAKER) (test kpou=3025) 3.0 g/dL 3.5-5.0 BILIRUBIN TOTAL (BEAKER) (test cjce=607) 4.0 mg/dL 0.2-1.2 BILIRUBIN DIRECT (BEAKER) (test bdbw=131) 3.1 mg/dL 0.1-0.5 ALKALINE PHOSPHATASE (BEAKER) (test nehp=758) 35 U/L 40-150 AST (SGOT) (BEAKER) (test awbn=667) 20 U/L 5-34 ALT (SGPT) (BEAKER) (test zeti=701) 72 U/L 6-55 Specimen slightly ictericCALCIUM, [id number] 05:29:00* Test Item Value Reference Range Comments CALCIUM IONIZED (BEAKER) (test sjfg=099) 1.09 mmol/L 1.12-1.27 PH, BLOOD (BEAKER) (test shky=7872) 7.37 POCT-GLUCOSE [id number] 05:28:00* Test Item Value Reference Range Comments POC-GLUCOSE METER (BEAKER) (test tuyc=5929) 161 mg/dL 70-110 TESTED AT [facility] [address] [facility] [address] PROTHROMBIN [id number] 05:10:00* Test Item Value Reference Range Comments PROTIME (BEAKER) (test wtjd=968) 16.0 seconds 11.7-14.7 INR (BEAKER) (test kaum=588) 1.3 <=5.9 RECOMMENDED COUMADIN/WARFARIN INR THERAPY RANGESSTANDARD DOSE: 2.0 - 3.0 Inclu kaya: PROPHYLAXIS for venous thrombosis, systemic embolization; TREATMENT for barby ous thrombosis and/or pulmonary embolus.HIGH RISK: Target INR is 2.5-3.5 for pat ients with mechanical heart valves.POCT-GLUCOSE [id number] 04:41:00* Test Item Value Reference Range Comments POC-GLUCOSE METER (BEAKER) (test spqy=9319) 187 mg/dL 70-110 TESTED AT [address] [address] POCT-GLUCOSE [id number] 04:41:00* Test Item Value Reference Range Comments POC-GLUCOSE METER (BEAKER) (test lzbp=7440) 265 mg/dL 70-110 TESTED AT [address] [address] POCT-GLUCOSE [id number] 04:40:00* Test Item Value Reference Range Comments POC-GLUCOSE METER (BEAKER) (test lalj=4388) 303 mg/dL 70-110 TESTED AT [address] [address] POCT-GLUCOSE [id number] 00:23:00* Test Item Value Reference Range Comments POC-GLUCOSE METER (BEAKER) (test nzou=0224) 298 mg/dL 70-110 TESTED AT [address] [address] POCT-GLUCOSE [id number] 23:24:00* Test Item Value Reference Range Comments POC-GLUCOSE METER (BEAKER) (test epgw=2915) 329 mg/dL 70-110 TESTED AT [address] [address] POCT-GLUCOSE [id number] 22:29:00* Test Item Value Reference Range Comments POC-GLUCOSE METER (BEAKER) (test elgo=3018) 372 mg/dL 70-110 TESTED AT [address] [address] POCT-GLUCOSE [id number] 22:28:00* Test Item Value Reference Range Comments POC-GLUCOSE METER (BEAKER) (test lhvc=9324) 469 mg/dL 70-110 TESTED AT [address] [address] POCT-GLUCOSE [id number] 20:16:00* Test Item Value Reference Range Comments POC-GLUCOSE METER (BEAKER) (test tjeg=3869) > mg/dL 70-110 OUTSIDE MEASURING RANGETESTED AT [address] [address] POCT-GLUCOSE [id number] 19:00:00* Test Item Value Reference Range Comments POC-GLUCOSE METER (BEAKER) (test glqi=6240) 429 mg/dL 70-110 TESTED AT [address] [address] POCT-GLUCOSE [id number] 17:39:00* Test Item Value Reference Range Comments POC-GLUCOSE METER (BEAKER) (test ztmr=6061) > mg/dL 70-110 OUTSIDE MEASURING RANGEVerify with Lab draw/TESTED AT [address] [address] POCT-GLUCOSE [id number] 13:41:00* Test Item Value Reference Range Comments POC-GLUCOSE METER (BEAKER) (test zbyq=0122) 292 mg/dL 70-110 TESTED AT [address] [address] TACROLIMUS [id number] 10:22:00* Test Item Value Reference Range Comments TACROLIMUS BLOOD (BEAKER) (test llww=138) 4.9 ng/mL 10.0-20.0 POCT-GLUCOSE [id number] 08:51:00* Test Item Value Reference Range Comments POC-GLUCOSE METER (BEAKER) (test cwpk=2854) 133 mg/dL 70-110 TESTED AT [address] [address] CALCIUM, [id number] 06:24:00* Test Item Value Reference Range Comments CALCIUM IONIZED (BEAKER) (test mkub=721) 1.15 mmol/L 1.12-1.27 PH, BLOOD (BEAKER) (test qmlm=3896) 7.41 VANCOMYCIN LEVEL, [id number] 06:16:00* Test Item Value Reference Range Comments VANCOMYCIN RANDOM (BEAKER) (test rgkt=699) 16.6 ug/mL Reference Range: No NormalsCOMPREHENSIVE METABOLIC [id number] 06:03:00* Test Item Value Reference Range Comments TOTAL PROTEIN (BEAKER) (test bjci=133) 5.6 gm/dL 6.0-8.3 Specimen slightly hemolyzed ALBUMIN (BEAKER) (test usih=9737) 3.3 g/dL 3.5-5.0 Specimen slightly hemolyzed ALKALINE PHOSPHATASE (BEAKER) (test uabp=370) 36 U/L 40-150 BILIRUBIN TOTAL (BEAKER) (test ozvi=084) 5.0 mg/dL 0.2-1.2 Specimen slightly hemolyzed SODIUM (BEAKER) (test wehe=723) 135 meq/L 136-145 POTASSIUM (BEAKER) (test dhzl=464) 4.4 meq/L 3.5-5.1 Specimen slightly hemolyzed CHLORIDE (BEAKER) (test mryq=481) 103 meq/L 98-107 CO2 (BEAKER) (test ujey=484) 20 meq/L 22-29 BLOOD UREA NITROGEN (BEAKER) (test iuyz=419) 70 mg/dL 7-21 CREATININE (BEAKER) (test qpzu=542) 3.77 mg/dL 0.57-1.25 Specimen slightly hemolyzed GLUCOSE RANDOM (BEAKER) (test ofif=614) 123 mg/dL 70-105 CALCIUM (BEAKER) (test sgdl=499) 8.7 mg/dL 8.4-10.2 AST (SGOT) (BEAKER) (test iiin=278) 29 U/L 5-34 Specimen slightly hemolyzed ALT (SGPT) (BEAKER) (test buny=801) 95 U/L 6-55 Specimen slightly hemolyzed EGFR (BEAKER) (test ikft=9824) 17 mL/min/1.73 sq m ESTIMATED GFR IS NOT ACCURATE CREATININE CLEARANCE IN PREDICTING GLOMERULAR FILTRATION RATE. ESTIMATED GFR IS NOT APPLICABLE FOR DIALYSIS PATIENTS. Specimen slightly ictericPOCT-GLUCOSE [id number] 05:27:00* Test Item Value Reference Range Comments POC-GLUCOSE METER (BEAKER) (test kouh=0090) 137 mg/dL 70-110 TESTED AT [facility] [address] [facility] [address] [id number] 02:08:00* Test Item Value Reference Range Comments PHOSPHORUS (BEAKER) (test fuan=734) 5.1 mg/dL 2.3-4.7 [id number] 02:08:00* Test Item Value Reference Range Comments MAGNESIUM (BEAKER) (test iqmx=808) 2.0 mg/dL 1.6-2.6 BASIC METABOLIC [id number] 02:08:00* Test Item Value Reference Range Comments SODIUM (BEAKER) (test xofa=729) 135 meq/L 136-145 POTASSIUM (BEAKER) (test flxy=685) 4.0 meq/L 3.5-5.1 CHLORIDE (BEAKER) (test gfro=902) 103 meq/L 98-107 CO2 (BEAKER) (test vzct=379) 20 meq/L 22-29 BLOOD UREA NITROGEN (BEAKER) (test ztwv=621) 77 mg/dL 7-21 CREATININE (BEAKER) (test pxob=535) 4.08 mg/dL 0.57-1.25 GLUCOSE RANDOM (BEAKER) (test thuk=747) 96 mg/dL 70-105 CALCIUM (BEAKER) (test zalh=837) 8.4 mg/dL 8.4-10.2 EGFR (BEAKER) (test yikk=3760) 16 mL/min/1.73 sq m ESTIMATED GFR IS NOT ACCURATE CREATININE CLEARANCE IN PREDICTING GLOMERULAR FILTRATION RATE. ESTIMATED GFR IS NOT APPLICABLE FOR DIALYSIS PATIENTS. Specimen moderately ictericCALCIUM, [id number] 01:57:00* Test Item Value Reference Range Comments CALCIUM IONIZED (BEAKER) (test vnzi=887) 1.16 mmol/L 1.12-1.27 PH, BLOOD (BEAKER) (test awar=0826) 7.40 POCT-GLUCOSE [id number] 01:50:00* Test Item Value Reference Range Comments POC-GLUCOSE METER (BEAKER) (test eocv=0670) 121 mg/dL 70-110 TESTED AT [address] [address] POCT-GLUCOSE [id number] 23:22:00* Test Item Value Reference Range Comments POC-GLUCOSE METER (BEAKER) (test wswv=2983) 204 mg/dL 70-110 TESTED AT [address] [address] POCT-GLUCOSE [id number] 18:51:00* Test Item Value Reference Range Comments POC-GLUCOSE METER (BEAKER) (test biab=5718) 243 mg/dL 70-110 TESTED AT [address] [address] POCT-GLUCOSE [id number] 17:37:00* Test Item Value Reference Range Comments POC-GLUCOSE METER (BEAKER) (test ndwt=1511) 309 mg/dL 70-110 TESTED AT [address] [address] POCT-GLUCOSE [id number] 17:37:00* Test Item Value Reference Range Comments POC-GLUCOSE METER (BEAKER) (test rjgz=1303) 147 mg/dL 70-110 TESTED AT [place] [address] POCT-GLUCOSE [id number] 15:23:00* Test Item Value Reference Range Comments POC-GLUCOSE METER (BEAKER) (test jqil=6977) 275 mg/dL 70-110 TESTED AT [place] [address] BODY FLUID CULTURE + GRAM [id number] 13:35:00* Test Item Value Reference Range Comments CULTURE (BEAKER) (test fzia=0691) No growth GRAM STAIN RESULT (BEAKER) (test kcgk=5272) No White blood cells seen GRAM STAIN RESULT (BEAKER) (test lhjj=17236) No organisms seen POCT-GLUCOSE [id number] 12:19:00* Test Item Value Reference Range Comments POC-GLUCOSE METER (BEAKER) (test sjyy=8076) 172 mg/dL 70-110 TESTED AT [place] [address] VANCOMYCIN LEVEL, [id number] 10:59:00* Test Item Value Reference Range Comments VANCOMYCIN RANDOM (BEAKER) (test eauj=266) 26.2 ug/mL Reference Range: No NormalsPOCT-GLUCOSE [id number] 10:28:00* Test Item Value Reference Range Comments POC-GLUCOSE METER (BEAKER) (test hgxf=5098) 197 mg/dL 70-110 TESTED AT [place] [address] TACROLIMUS [id number] 09:00:00* Test Item Value Reference Range Comments TACROLIMUS BLOOD (BEAKER) (test ueox=179) 3.6 ng/mL 10.0-20.0 CBC W/PLT COUNT & AUTO [id number] 08:53:00* Test Item Value Reference Range Comments WHITE BLOOD CELL COUNT (BEAKER) (test dmuc=204) 6.1 K/ L 3.5-10.5 RED BLOOD CELL COUNT (BEAKER) (test tjlg=781) 3.13 M/ L 4.63-6.08 HEMOGLOBIN (BEAKER) (test kbwk=980) 10.1 GM/DL 13.7-17.5 HEMATOCRIT (BEAKER) (test nobm=718) 29.2 % 40.1-51.0 MEAN CORPUSCULAR VOLUME (BEAKER) (test xhps=339) 93.3 fL 79.0-92.2 MEAN CORPUSCULAR HEMOGLOBIN (BEAKER) (test juev=297) 32.3 pg 25.7-32.2 MEAN CORPUSCULAR HEMOGLOBIN CONC (BEAKER) (test cdbg=712) 34.6 GM/DL 32.3-36.5 RED CELL DISTRIBUTION WIDTH (BEAKER) (test xwlt=304) 20.2 % 11.6-14.4 PLATELET COUNT (BEAKER) (test ywvh=288) 33 K/CU MM 150-450 MEAN PLATELET VOLUME (BEAKER) (test bxua=033) fL 9.4-12.4 Unable to report due to abnormal Platelet population distribution. NUCLEATED RED BLOOD CELLS (BEAKER) (test dqag=136) 0 /100 WBC 0-0 (CELLAVISION MANUAL DIFF)2017-12-03 08:53:00* Test Item Value Reference Range Comments NEUTROPHILS - REL (CELLAVISION)(BEAKER) (test mfui=1919) 90 % LYMPHOCYTES - REL (CELLAVISION)(BEAKER) (test xnfl=6940) 3 % MONOCYTES - REL (CELLAVISION)(BEAKER) (test tusb=8705) 7 % NEUTROPHILS - ABS (CELLAVISION)(BEAKER) (test pacp=8462) 5.49 K/ul 1.78-5.38 LYMPHOCYTES - ABS (CELLAVISION)(BEAKER) (test rozj=4076) 0.18 K/ul 1.32-3.57 MONOCYTES - ABS (CELLAVISION)(BEAKER) (test aiyl=9590) 0.43 K/uL 0.30-0.82 TOTAL COUNTED (BEAKER) (test ofkz=6505) 100 WBC MORPHOLOGY (BEAKER) (test wjge=285) Normal GIANT PLATELETS (BEAKER) (test jabn=275) Present ANISOCYTOSIS (BEAKER) (test oyrt=592) 1+ few MICROCYTES (BEAKER) (test ebrx=779) 1+ few POIKILOCYTES (BEAKER) (test aehg=870) 2+ moderate SCHISTOCYTES (BEAKER) (test jgyx=284) 1+ few NICKY CELLS (BEAKER) (test ksqy=130) 1+ few PLATELET CONCENTRATION (CELLAVISION)(BEAKER) (test wjbz=4811) Decreased Received comment: User comments: Slide comments: BILIRUBIN, [id number] 08:42:00* Test Item Value Reference Range Comments BILIRUBIN DIRECT (BEAKER) (test eqri=218) 3.5 mg/dL 0.1-0.5 PROTHROMBIN [id number] 08:35:00* Test Item Value Reference Range Comments PROTIME (BEAKER) (test uyke=919) 15.3 seconds 11.7-14.7 INR (BEAKER) (test hzvq=524) 1.2 <=5.9 RECOMMENDED COUMADIN/WARFARIN INR THERAPY RANGESSTANDARD DOSE: 2.0 - 3.0 Inclu kaya: PROPHYLAXIS for venous thrombosis, systemic embolization; TREATMENT for barby ous thrombosis and/or pulmonary embolus.HIGH RISK: Target INR is 2.5-3.5 for pat ients with mechanical heart valves.POCT-GLUCOSE [id number] 08:13:00* Test Item Value Reference Range Comments POC-GLUCOSE METER (BEAKER) (test wayd=9435) 161 mg/dL 70-110 TESTED AT [facility] [address] [facility] [address] CALCIUM, [id number] 06:23:00* Test Item Value Reference Range Comments CALCIUM IONIZED (BEAKER) (test stnl=732) 1.05 mmol/L 1.12-1.27 PH, BLOOD (BEAKER) (test hflm=5456) 7.45 COMPREHENSIVE METABOLIC [id number] 06:18:00* Test Item Value Reference Range Comments TOTAL PROTEIN (BEAKER) (test gzng=211) 4.9 gm/dL 6.0-8.3 ALBUMIN (BEAKER) (test bsgk=1319) 3.1 g/dL 3.5-5.0 ALKALINE PHOSPHATASE (BEAKER) (test pbgt=015) 29 U/L 40-150 BILIRUBIN TOTAL (BEAKER) (test zzvu=873) 4.6 mg/dL 0.2-1.2 SODIUM (BEAKER) (test eyjb=699) 137 meq/L 136-145 POTASSIUM (BEAKER) (test acyk=687) 3.9 meq/L 3.5-5.1 CHLORIDE (BEAKER) (test buqj=364) 104 meq/L 98-107 CO2 (BEAKER) (test aebb=430) 18 meq/L 22-29 BLOOD UREA NITROGEN (BEAKER) (test tstt=073) 85 mg/dL 7-21 CREATININE (BEAKER) (test ceqt=496) 5.04 mg/dL 0.57-1.25 GLUCOSE RANDOM (BEAKER) (test mifp=352) 127 mg/dL 70-105 CALCIUM (BEAKER) (test fvav=177) 8.2 mg/dL 8.4-10.2 AST (SGOT) (BEAKER) (test daqn=154) 32 U/L 5-34 ALT (SGPT) (BEAKER) (test ljxh=275) 105 U/L 6-55 EGFR (BEAKER) (test wiqn=6883) 12 mL/min/1.73 sq m ESTIMATED GFR IS NOT ACCURATE CREATININE CLEARANCE IN PREDICTING GLOMERULAR FILTRATION RATE. ESTIMATED GFR IS NOT APPLICABLE FOR DIALYSIS PATIENTS. Specimen slightly ictericPOCT-GLUCOSE [id number] 05:49:00* Test Item Value Reference Range Comments POC-GLUCOSE METER (BEAKER) (test wsrb=6236) 120 mg/dL 70-110 TESTED AT [facility] [address] [facility] [address] CALCIUM, [id number] 23:57:00* Test Item Value Reference Range Comments CALCIUM IONIZED (BEAKER) (test cswn=189) 1.10 mmol/L 1.12-1.27 PH, BLOOD (BEAKER) (test ppvk=9749) 7.42 BASIC METABOLIC [id number] 23:46:00* Test Item Value Reference Range Comments SODIUM (BEAKER) (test ycsq=140) 136 meq/L 136-145 POTASSIUM (BEAKER) (test gffi=028) 4.0 meq/L 3.5-5.1 CHLORIDE (BEAKER) (test yize=981) 104 meq/L 98-107 CO2 (BEAKER) (test pmca=294) 16 meq/L 22-29 BLOOD UREA NITROGEN (BEAKER) (test mvjk=665) 87 mg/dL 7-21 CREATININE (BEAKER) (test hxza=249) 5.12 mg/dL 0.57-1.25 GLUCOSE RANDOM (BEAKER) (test jyeq=411) 138 mg/dL 70-105 CALCIUM (BEAKER) (test ftvu=540) 8.6 mg/dL 8.4-10.2 EGFR (BEAKER) (test dgkw=9457) 12 mL/min/1.73 sq m ESTIMATED GFR IS NOT ACCURATE CREATININE CLEARANCE IN PREDICTING GLOMERULAR FILTRATION RATE. ESTIMATED GFR IS NOT APPLICABLE FOR DIALYSIS PATIENTS. Specimen moderately [id number] 23:41:00* Test Item Value Reference Range Comments PHOSPHORUS (BEAKER) (test qkqp=374) 6.6 mg/dL 2.3-4.7 [id number] 23:41:00* Test Item Value Reference Range Comments MAGNESIUM (BEAKER) (test mixd=754) 2.1 mg/dL 1.6-2.6 POCT-GLUCOSE [id number] 19:33:00* Test Item Value Reference Range Comments POC-GLUCOSE METER (BEAKER) (test loje=0013) 189 mg/dL 70-110 TESTED AT [facility] [address] [facility] [address] POCT-GLUCOSE [id number] 14:15:00* Test Item Value Reference Range Comments POC-GLUCOSE METER (BEAKER) (test wado=7314) 133 mg/dL 70-110 TESTED AT [facility] [address] [facility] [address] POCT-GLUCOSE [id number] 14:15:00* Test Item Value Reference Range Comments POC-GLUCOSE METER (BEAKER) (test qsrp=5190) 138 mg/dL 70-110 TESTED AT [place] [id number] [facility] [address] TACROLIMUS [id number] 12:40:00* Test Item Value Reference Range Comments TACROLIMUS BLOOD (BEAKER) (test qyll=169) < ng/mL 10.0-20.0 BLOOD [id number] 11:00:00* Test Item Value Reference Range Comments CULTURE (BEAKER) (test esjc=4987) No growth in 5 days BLOOD [id number] 11:00:00* Test Item Value Reference Range Comments CULTURE (BEAKER) (test bjga=9438) No growth in 5 days CBC W/PLT COUNT & AUTO [id number] 07:40:00* Test Item Value Reference Range Comments WHITE BLOOD CELL COUNT (BEAKER) (test lacd=259) 9.4 K/ L 3.5-10.5 RED BLOOD CELL COUNT (BEAKER) (test zsew=152) 3.55 M/ L 4.63-6.08 HEMOGLOBIN (BEAKER) (test gqoy=997) 11.2 GM/DL 13.7-17.5 HEMATOCRIT (BEAKER) (test vnmn=688) 32.5 % 40.1-51.0 MEAN CORPUSCULAR VOLUME (BEAKER) (test cvbt=008) 91.5 fL 79.0-92.2 MEAN CORPUSCULAR HEMOGLOBIN (BEAKER) (test rmfs=555) 31.5 pg 25.7-32.2 MEAN CORPUSCULAR HEMOGLOBIN CONC (BEAKER) (test udnz=864) 34.5 GM/DL 32.3-36.5 RED CELL DISTRIBUTION WIDTH (BEAKER) (test mjug=685) 21.2 % 11.6-14.4 PLATELET COUNT (BEAKER) (test dcfb=080) 49 K/CU MM 150-450 MEAN PLATELET VOLUME (BEAKER) (test plwt=351) fL 9.4-12.4 Unable to report due to abnormal Platelet population distribution. NUCLEATED RED BLOOD CELLS (BEAKER) (test yuld=264) 0 /100 WBC 0-0 (CELLAVISION MANUAL DIFF)2017-12-02 07:40:00* Test Item Value Reference Range Comments NEUTROPHILS - REL (CELLAVISION)(BEAKER) (test osmz=1512) 91 % LYMPHOCYTES - REL (CELLAVISION)(BEAKER) (test stui=9672) 4 % MONOCYTES - REL (CELLAVISION)(BEAKER) (test terq=1508) 1 % BANDS - REL (CELLAVISION)(BEAKER) (test hxrx=9217) 4 % 0-10 NEUTROPHILS - ABS (CELLAVISION)(BEAKER) (test kqwe=8405) 8.55 K/ul 1.78-5.38 LYMPHOCYTES - ABS (CELLAVISION)(BEAKER) (test urmr=9692) 0.38 K/ul 1.32-3.57 MONOCYTES - ABS (CELLAVISION)(BEAKER) (test mnnl=1524) 0.09 K/uL 0.30-0.82 BANDS - ABS (CELLAVISION)(BEAKER) (test xock=7502) 0.38 K/uL 0.00-0.80 TOTAL COUNTED (BEAKER) (test tydm=5472) 100 SMUDGE CELLS (BEAKER) (test qisv=5587) Present GIANT PLATELETS (BEAKER) (test rnpm=445) Present ANISOCYTOSIS (BEAKER) (test fngx=706) 1+ few MACROCYTES (BEAKER) (test jbok=786) 1+ few POIKILOCYTES (BEAKER) (test sxrg=909) 2+ moderate SCHISTOCYTES (BEAKER) (test tjoa=608) 1+ few NICKY CELLS (BEAKER) (test ylee=231) 1+ few PLATELET CONCENTRATION (CELLAVISION)(BEAKER) (test ripq=9016) Decreased Received comment: User comments: Slide comments: HEPATITIS C PCR, QUANTITATIVE 2017-12-02 06:54:00* Test Item Value Reference Range Comments HCV RESULT COMPONENT (BEAKER) (test udra=5262) HCV RNA not detected HCV RNA not detected This test uses a Real-Time Polymerase Chain Reaction (RT-PCR) methodology and wa s performed using CHARLES Ampliprep/CHARLES TaqMan HCV test kit version 2.0 ([employer]).Reportable range for this assay is 15 - 100,000,000 IU per mL (1.18 - 8.00 Log IU/mL).HIV-1 PCR, [id number] 06:51:00* Test Item Value Reference Range Comments HIV-1 RESULT COMPONENT (BEAKER) (test uegt=9055) HIV RNA not detected HIV RNA not detected This test uses a Real-Time Polymerase Chain Reaction (RT-PCR) methodology to det ect a highly conserved region of the HIV-1 gag gene and was performed using the CHARLES AmpliPrep/CHARLES TaqMan HIV-1 test kit version 2.0 ([employer]Reportable range for this assay is 20 - 10,000,000 copies per mL (1.3 - 7.0 Log copies/mL).POCT-GLUCOSE [id number] 06:33:00* Test Item Value Reference Range Comments POC-GLUCOSE METER (BEAKER) (test znob=6673) 159 mg/dL 70-110 TESTED AT [facility] [address] [facility] [address] POCT-GLUCOSE [id number] 06:14:00* Test Item Value Reference Range Comments POC-GLUCOSE METER (BEAKER) (test zyfn=1542) 144 mg/dL 70-110 TESTED AT [facility] [address] [facility] [address] VANCOMYCIN LEVEL, [id number] 05:15:00* Test Item Value Reference Range Comments VANCOMYCIN RANDOM (BEAKER) (test hzyj=880) 34.9 ug/mL Reference Range: No NormalsCOMPREHENSIVE METABOLIC [id number] 05:03:00* Test Item Value Reference Range Comments TOTAL PROTEIN (BEAKER) (test lqcr=838) 5.2 gm/dL 6.0-8.3 ALBUMIN (BEAKER) (test xzfv=4293) 3.4 g/dL 3.5-5.0 ALKALINE PHOSPHATASE (BEAKER) (test mjcz=183) 30 U/L 40-150 BILIRUBIN TOTAL (BEAKER) (test nqwh=343) 5.1 mg/dL 0.2-1.2 SODIUM (BEAKER) (test ieec=062) 139 meq/L 136-145 POTASSIUM (BEAKER) (test fbbn=172) 4.1 meq/L 3.5-5.1 CHLORIDE (BEAKER) (test bgvj=024) 105 meq/L 98-107 CO2 (BEAKER) (test batp=333) 17 meq/L 22-29 BLOOD UREA NITROGEN (BEAKER) (test xknd=978) 99 mg/dL 7-21 CREATININE (BEAKER) (test tkhh=238) 6.27 mg/dL 0.57-1.25 GLUCOSE RANDOM (BEAKER) (test uzoz=613) 157 mg/dL 70-105 CALCIUM (BEAKER) (test zbdy=337) 8.7 mg/dL 8.4-10.2 AST (SGOT) (BEAKER) (test lrfz=548) 64 U/L 5-34 ALT (SGPT) (BEAKER) (test znsx=434) 147 U/L 6-55 EGFR (BEAKER) (test rwbd=4224) 10 mL/min/1.73 sq m ESTIMATED GFR IS NOT ACCURATE CREATININE CLEARANCE IN PREDICTING GLOMERULAR FILTRATION RATE. ESTIMATED GFR IS NOT APPLICABLE FOR DIALYSIS PATIENTS. Specimen moderately [id number] 04:57:00* Test Item Value Reference Range Comments PHOSPHORUS (BEAKER) (test pfqv=876) 8.5 mg/dL 2.3-4.7 [id number] 04:57:00* Test Item Value Reference Range Comments MAGNESIUM (BEAKER) (test kecm=614) 2.1 mg/dL 1.6-2.6 HEPATIC FUNCTION [id number] 04:57:00* Test Item Value Reference Range Comments TOTAL PROTEIN (BEAKER) (test tgve=730) 5.2 gm/dL 6.0-8.3 ALBUMIN (BEAKER) (test bgjm=9460) 3.4 g/dL 3.5-5.0 BILIRUBIN TOTAL (BEAKER) (test pmhn=472) 5.1 mg/dL 0.2-1.2 BILIRUBIN DIRECT (BEAKER) (test ribm=034) 4.1 mg/dL 0.1-0.5 ALKALINE PHOSPHATASE (BEAKER) (test qmeh=514) 30 U/L 40-150 AST (SGOT) (BEAKER) (test uxmm=156) 64 U/L 5-34 ALT (SGPT) (BEAKER) (test kxgs=879) 147 U/L 6-55 Specimen moderately ictericPROTHROMBIN TIME/[id number] 04:33:00* Test Item Value Reference Range Comments PROTIME (BEAKER) (test qksa=129) 15.1 seconds 11.7-14.7 INR (BEAKER) (test wpsj=996) 1.2 <=5.9 RECOMMENDED COUMADIN/WARFARIN INR THERAPY RANGESSTANDARD DOSE: 2.0 - 3.0 Inclu kaya: PROPHYLAXIS for venous thrombosis, systemic embolization; TREATMENT for barby ous thrombosis and/or pulmonary embolus.HIGH RISK: Target INR is 2.5-3.5 for pat ients with mechanical heart valves.PT/[id number] 04:33:00* Test Item Value Reference Range Comments PROTIME (BEAKER) (test clgs=200) 15.1 seconds 11.7-14.7 INR (BEAKER) (test qvtw=288) 1.2 <=5.9 PARTIAL THROMBOPLASTIN TIME (BEAKER) (test jejy=305) 27.2 seconds 22.5-36.0 RECOMMENDED COUMADIN/WARFARIN INR THERAPY RANGESSTANDARD DOSE: 2.0 - 3.0 Inclu kaya: PROPHYLAXIS for venous thrombosis, systemic embolization; TREATMENT for barby ous thrombosis and/or pulmonary embolus.HIGH RISK: Target INR is 2.5-3.5 for pat ients with mechanical heart valves.POCT-GLUCOSE [id number] 04:04:00* Test Item Value Reference Range Comments POC-GLUCOSE METER (BEAKER) (test ujpi=8537) 103 mg/dL 70-110 TESTED AT [place] [address] [id number] 02:56:00* Test Item Value Reference Range Comments RPR SCREEN (BEAKER) (test likc=218) Nonreactive Nonreactive POCT-GLUCOSE [id number] 00:18:00* Test Item Value Reference Range Comments POC-GLUCOSE METER (BEAKER) (test rpnq=3793) 142 mg/dL 70-110 TESTED AT [place] [id number] POCT-GLUCOSE [id number] 00:18:00* Test Item Value Reference Range Comments POC-GLUCOSE METER (BEAKER) (test hqxc=8014) 157 mg/dL 70-110 TESTED AT [place] [address] POCT-GLUCOSE [id number] 20:23:00* Test Item Value Reference Range Comments POC-GLUCOSE METER (BEAKER) (test poay=5024) 163 mg/dL 70-110 TESTED AT [address] [address] POCT-GLUCOSE [id number] 19:44:00* Test Item Value Reference Range Comments POC-GLUCOSE METER (BEAKER) (test phnx=6170) 151 mg/dL 70-110 TESTED AT [address] [address] POCT-GLUCOSE [id number] 17:38:00* Test Item Value Reference Range Comments POC-GLUCOSE METER (BEAKER) (test bhtm=2810) 189 mg/dL 70-110 TESTED AT [address] [address] BASIC METABOLIC [id number] 16:38:00* Test Item Value Reference Range Comments SODIUM (BEAKER) (test bton=024) 143 meq/L 136-145 POTASSIUM (BEAKER) (test chlb=612) 4.2 meq/L 3.5-5.1 CHLORIDE (BEAKER) (test ikin=789) 110 meq/L 98-107 CO2 (BEAKER) (test gtwo=999) 15 meq/L 22-29 BLOOD UREA NITROGEN (BEAKER) (test eqxt=287) 84 mg/dL 7-21 CREATININE (BEAKER) (test gikq=107) 5.71 mg/dL 0.57-1.25 GLUCOSE RANDOM (BEAKER) (test ekey=000) 178 mg/dL 70-105 CALCIUM (BEAKER) (test kvlb=166) 8.8 mg/dL 8.4-10.2 EGFR (BEAKER) (test llpn=3518) 11 mL/min/1.73 sq m ESTIMATED GFR IS NOT ACCURATE CREATININE CLEARANCE IN PREDICTING GLOMERULAR FILTRATION RATE. ESTIMATED GFR IS NOT APPLICABLE FOR DIALYSIS PATIENTS. Call [id number] with resultsSpecimen moderately [id number] 16:37:00* Test Item Value Reference Range Comments PHOSPHORUS (BEAKER) (test bljo=807) 7.6 mg/dL 2.3-4.7 POCT-GLUCOSE [id number] 16:02:00* Test Item Value Reference Range Comments POC-GLUCOSE METER (BEAKER) (test szqu=9664) 147 mg/dL 70-110 TESTED AT [facility] [address] [facility] [address] PERIPHERAL BLOOD SMEAR - PATHOLOGIST [id number] 13:33:00* Test Item Value Reference Range Comments RBC MORPHOLOGY (BEAKER) (test yfwx=8083) Poikilocytosis PERIPHERAL SMR REVIEW (BEAKER) (test pgwp=4505) Cell counts confirmed. Poikilocytosis inclues occasional shistocytes - clinical correlation recommended. [id number] (BEAKER) (test pklx=7424) Halley Madden M.D. (electronic signature) HEPATITIS B PCR, [id number] 13:18:00* Test Item Value Reference Range Comments HBV RESULT COMPONENT (BEAKER) (test jzps=8574) HBV DNA not detected HBV DNA not detected This test uses a Real-Time Polymerase Chain Reaction (RT-PCR) methodology and wa s performed using CHARLES AmpliPrep/CHARLES TaqMan HBV Test, v2.0 ([employer]Reportable range for this assay is 20 - 170,000,000 IU per mL ( 1.30 - 8.23 Log IU/mL).HEPATIC FUNCTION [id number] 08:19:00* Test Item Value Reference Range Comments TOTAL PROTEIN (BEAKER) (test freh=629) 5.1 gm/dL 6.0-8.3 ALBUMIN (BEAKER) (test dwdh=0394) 3.6 g/dL 3.5-5.0 BILIRUBIN TOTAL (BEAKER) (test pukp=641) 7.1 mg/dL 0.2-1.2 BILIRUBIN DIRECT (BEAKER) (test uggq=445) 5.7 mg/dL 0.1-0.5 ALKALINE PHOSPHATASE (BEAKER) (test ebsy=677) 33 U/L 40-150 AST (SGOT) (BEAKER) (test lckq=278) 298 U/L 5-34 ALT (SGPT) (BEAKER) (test mtkr=806) 251 U/L 6-55 Specimen moderately ictericPOCT-GLUCOSE [id number] 06:23:00* Test Item Value Reference Range Comments POC-GLUCOSE METER (BEAKER) (test wiic=7135) 159 mg/dL 70-110 TESTED AT [address] [address] POCT-GLUCOSE [id number] 06:23:00* Test Item Value Reference Range Comments POC-GLUCOSE METER (BEAKER) (test qhrr=3282) 195 mg/dL 70-110 TESTED AT [address] [address] POCT-GLUCOSE [id number] 06:23:00* Test Item Value Reference Range Comments POC-GLUCOSE METER (BEAKER) (test eapy=1195) 193 mg/dL 70-110 TESTED AT [address] [address] POCT-GLUCOSE [id number] 06:23:00* Test Item Value Reference Range Comments POC-GLUCOSE METER (BEAKER) (test supz=5040) 244 mg/dL 70-110 TESTED AT [address] [address] BLOOD GAS, [id number] 05:34:00* Test Item Value Reference Range Comments PH ARTERIAL (BEAKER) (test npyb=900) 7.40 7.35-7.45 PCO2 ARTERIAL (BEAKER) (test mnzh=806) 34 mmHg 35-45 PO2 ARTERIAL (BEAKER) (test ydqw=594) 173 mmHg 80-90 O2 SATURATION ARTERIAL (BEAKER) (test kfak=492) 99.2 % 96.0-97.0 HCO3 ARTERIAL (BEAKER) (test xrqd=074) 21 mmol/L 21-29 BASE EXCESS ARTERIAL (BEAKER) (test ypsr=243) -3.5 mmol/L -2.0-3.0 PATIENT TEMPERATURE (BEAKER) (test sapn=3009) 36.7 C FIO2 (BEAKER) (test zpxe=3221) 36.0 % CBC W/PLT COUNT & AUTO [id number] 05:01:00* Test Item Value Reference Range Comments WHITE BLOOD CELL COUNT (BEAKER) (test iaqg=885) 9.0 K/ L 3.5-10.5 RED BLOOD CELL COUNT (BEAKER) (test kovp=811) 3.46 M/ L 4.63-6.08 HEMOGLOBIN (BEAKER) (test zeek=939) 11.2 GM/DL 13.7-17.5 HEMATOCRIT (BEAKER) (test nfeh=948) 32.5 % 40.1-51.0 MEAN CORPUSCULAR VOLUME (BEAKER) (test vfem=737) 93.9 fL 79.0-92.2 MEAN CORPUSCULAR HEMOGLOBIN (BEAKER) (test oani=321) 32.4 pg 25.7-32.2 MEAN CORPUSCULAR HEMOGLOBIN CONC (BEAKER) (test gwpv=618) 34.5 GM/DL 32.3-36.5 RED CELL DISTRIBUTION WIDTH (BEAKER) (test elhb=488) 21.2 % 11.6-14.4 PLATELET COUNT (BEAKER) (test ptzp=141) 71 K/CU MM 150-450 MEAN PLATELET VOLUME (BEAKER) (test qkpa=760) 12.1 fL 9.4-12.4 NUCLEATED RED BLOOD CELLS (BEAKER) (test ktvt=706) 0 /100 WBC 0-0 BASIC METABOLIC [id number] 04:16:00* Test Item Value Reference Range Comments SODIUM (BEAKER) (test dafv=151) 146 meq/L 136-145 POTASSIUM (BEAKER) (test brcn=135) 4.1 meq/L 3.5-5.1 Specimen slightly hemolyzed CHLORIDE (BEAKER) (test bvst=267) 111 meq/L 98-107 CO2 (BEAKER) (test kkqi=218) 17 meq/L 22-29 BLOOD UREA NITROGEN (BEAKER) (test nvdr=682) 72 mg/dL 7-21 CREATININE (BEAKER) (test cyyq=090) 5.05 mg/dL 0.57-1.25 Specimen slightly hemolyzed GLUCOSE RANDOM (BEAKER) (test ndgg=440) 248 mg/dL 70-105 CALCIUM (BEAKER) (test efud=415) 9.2 mg/dL 8.4-10.2 EGFR (BEAKER) (test bxpl=6922) 12 mL/min/1.73 sq m ESTIMATED GFR IS NOT ACCURATE CREATININE CLEARANCE IN PREDICTING GLOMERULAR FILTRATION RATE. ESTIMATED GFR IS NOT APPLICABLE FOR DIALYSIS PATIENTS. Specimen moderately [id number] 04:08:00* Test Item Value Reference Range Comments MAGNESIUM (BEAKER) (test pdro=787) 2.0 mg/dL 1.6-2.6 Specimen slightly hemolyzed [id number] 04:08:00* Test Item Value Reference Range Comments PHOSPHORUS (BEAKER) (test ebrf=468) 7.7 mg/dL 2.3-4.7 Specimen slightly hemolyzed BLOOD GAS, [id number] 04:01:00* Test Item Value Reference Range Comments PH ARTERIAL (BEAKER) (test pcxm=014) 7.39 7.35-7.45 PCO2 ARTERIAL (BEAKER) (test qojl=927) 33 mmHg 35-45 PO2 ARTERIAL (BEAKER) (test bnuw=105) 116 mmHg 80-90 O2 SATURATION ARTERIAL (BEAKER) (test bmhu=363) 98.2 % 96.0-97.0 HCO3 ARTERIAL (BEAKER) (test aodu=826) 19 mmol/L 21-29 BASE EXCESS ARTERIAL (BEAKER) (test lpzw=008) -4.7 mmol/L -2.0-3.0 PATIENT TEMPERATURE (BEAKER) (test enuw=6767) 37.2 C FIO2 (BEAKER) (test yzql=1878) 40.0 % PROTHROMBIN [id number] 03:59:00* Test Item Value Reference Range Comments PROTIME (BEAKER) (test kicn=277) 19.0 seconds 11.7-14.7 INR (BEAKER) (test wznq=909) 1.6 <=5.9 RECOMMENDED COUMADIN/WARFARIN INR THERAPY RANGESSTANDARD DOSE: 2.0 - 3.0 Inclu kaya: PROPHYLAXIS for venous thrombosis, systemic embolization; TREATMENT for barby ous thrombosis and/or pulmonary embolus.HIGH RISK: Target INR is 2.5-3.5 for pat ients with mechanical heart valves.PT/[id number] 03:59:00* Test Item Value Reference Range Comments PROTIME (BEAKER) (test pqop=973) 19.0 seconds 11.7-14.7 INR (BEAKER) (test jkam=940) 1.6 <=5.9 PARTIAL THROMBOPLASTIN TIME (BEAKER) (test eabe=387) 35.5 seconds 22.5-36.0 RECOMMENDED COUMADIN/WARFARIN INR THERAPY RANGESSTANDARD DOSE: 2.0 - 3.0 Inclu kaya: PROPHYLAXIS for venous thrombosis, systemic embolization; TREATMENT for barby ous thrombosis and/or pulmonary embolus.HIGH RISK: Target INR is 2.5-3.5 for pat ients with mechanical heart valves.LACTIC ACID, ARTERIAL, WHOLE [id number] 03:56:00* Test Item Value Reference Range Comments LACTATE BLOOD ARTERIAL (2) (BEAKER) (test uuhp=4560) 2.3 mmol/L 0.5-2.2 Effective 07/08/2015: Units/Reference Range ChangeNew: 0.5-2.2 mmol/L Previous: 5 -20 mg/dLSpecimen moderately ictericCALCIUM, [id number] 03:55:00* Test Item Value Reference Range Comments CALCIUM IONIZED (BEAKER) (test dndj=133) 1.16 mmol/L 1.12-1.27 PH, BLOOD (BEAKER) (test vcop=5575) 7.39 OXYGEN SATURATION, [id number] 03:54:00* Test Item Value Reference Range Comments O2 SATURATION (MEASURED) (BEAKER) (test qcws=1046) 85.5 % POCT-GLUCOSE [id number] 03:28:00* Test Item Value Reference Range Comments POC-GLUCOSE METER (BEAKER) (test drjr=3586) 290 mg/dL 70-110 TESTED AT [place] [id number] [facility] [address] POCT-GLUCOSE [id number] 03:28:00* Test Item Value Reference Range Comments POC-GLUCOSE METER (BEAKER) (test spzh=6520) 332 mg/dL 70-110 Will Repeat Test/TESTED AT [address] [address] POCT-GLUCOSE [id number] 03:28:00* Test Item Value Reference Range Comments POC-GLUCOSE METER (BEAKER) (test voqc=4491) 355 mg/dL 70-110 TESTED AT [address] [address] POCT-GLUCOSE [id number] 03:28:00* Test Item Value Reference Range Comments POC-GLUCOSE METER (BEAKER) (test wzoh=6075) 383 mg/dL 70-110 Will Repeat Test/TESTED AT [address] [address] [id number] 03:03:00* Test Item Value Reference Range Comments POTASSIUM (BEAKER) (test zkss=271) 4.0 meq/L 3.5-5.1 RAD, CHEST, 1 VIEW, NON [id number] 02:38:00Referring:Dr. Marciano Zelaya Reason for exam:->Status post central venous line placementFINAL REPORT EXAMINATION: AP PORTABLE CHEST RADIOGRAPH CLINICAL INDICATION: Central line placement IMPRESSION: Compared with 11/29/2017. The tip of the new endotracheal tube projects over the midline approximately 6.6 cm superior to the kriss. The tip of the nasogastric tube extends below the diaphragm and inferior margin of today's study. The tip of the right jugular central line projects over the superior vena cava. The tip of the left jugular central line projects over the junction of the left innominate vein and superior vena cava. Subtle streaky opacities are again noted along the heart borders. Atelectasis and/or scarring favored. An underlying pneumonia cannot be excluded. No evidence of pulmonary edema or pneumothorax. Heart size is normal for this projection. Signed: Onur Marmolejo MDReport Verified Date/Time: 12/01/2017 02:38:55 Reading Location: [address] Reading Room D GAS, [id number] 01:37:00* Test Item Value Reference Range Comments PH ARTERIAL (BEAKER) (test mequ=853) 7.36 7.35-7.45 PCO2 ARTERIAL (BEAKER) (test lovk=192) 33 mmHg 35-45 PO2 ARTERIAL (BEAKER) (test irbq=243) 125 mmHg 80-90 O2 SATURATION ARTERIAL (BEAKER) (test knnc=281) 98.4 % 96.0-97.0 HCO3 ARTERIAL (BEAKER) (test aqtn=595) 18 mmol/L 21-29 BASE EXCESS ARTERIAL (BEAKER) (test uwej=435) -6.7 mmol/L -2.0-3.0 PATIENT TEMPERATURE (BEAKER) (test lxzc=7055) 36.7 C FIO2 (BEAKER) (test ozuh=6059) 40.0 % [id number] 00:00:00* Test Item Value Reference Range Comments POTASSIUM (BEAKER) (test wfxp=600) 4.3 meq/L 3.5-5.1 BLOOD GAS, [id number] 23:56:00* Test Item Value Reference Range Comments PH ARTERIAL (BEAKER) (test ibro=034) 7.31 7.35-7.45 PCO2 ARTERIAL (BEAKER) (test odzk=819) 37 mmHg 35-45 PO2 ARTERIAL (BEAKER) (test ewpk=050) 107 mmHg 80-90 O2 SATURATION ARTERIAL (BEAKER) (test ewlz=984) 97.6 % 96.0-97.0 HCO3 ARTERIAL (BEAKER) (test eeid=734) 18 mmol/L 21-29 BASE EXCESS ARTERIAL (BEAKER) (test gljq=765) -7.2 mmol/L -2.0-3.0 PATIENT TEMPERATURE (BEAKER) (test asih=7699) 36.7 C FIO2 (BEAKER) (test idrl=2869) 60.0 % BASIC METABOLIC [id number] 23:06:00* Test Item Value Reference Range Comments SODIUM (BEAKER) (test lfiv=373) 145 meq/L 136-145 POTASSIUM (BEAKER) (test exby=612) 4.4 meq/L 3.5-5.1 CHLORIDE (BEAKER) (test wrgw=934) 108 meq/L 98-107 CO2 (BEAKER) (test dlsg=067) 19 meq/L 22-29 BLOOD UREA NITROGEN (BEAKER) (test hvjm=470) 65 mg/dL 7-21 CREATININE (BEAKER) (test iqcz=167) 4.43 mg/dL 0.57-1.25 GLUCOSE RANDOM (BEAKER) (test zucd=852) 368 mg/dL 70-105 CALCIUM (BEAKER) (test fquy=379) 9.6 mg/dL 8.4-10.2 EGFR (BEAKER) (test sxaq=5657) 14 mL/min/1.73 sq m ESTIMATED GFR IS NOT ACCURATE CREATININE CLEARANCE IN PREDICTING GLOMERULAR FILTRATION RATE. ESTIMATED GFR IS NOT APPLICABLE FOR DIALYSIS PATIENTS. Specimen markedly ictericPT/[id number] 23:03:00* Test Item Value Reference Range Comments PROTIME (BEAKER) (test gyes=282) 21.3 seconds 11.7-14.7 INR (BEAKER) (test ypqk=507) 1.8 <=5.9 PARTIAL THROMBOPLASTIN TIME (BEAKER) (test pttq=491) 48.2 seconds 22.5-36.0 RECOMMENDED COUMADIN/WARFARIN INR THERAPY RANGESSTANDARD DOSE: 2.0 - 3.0 Inclu kyaa: PROPHYLAXIS for venous thrombosis, systemic embolization; TREATMENT for barby ous thrombosis and/or pulmonary embolus.HIGH RISK: Target INR is 2.5-3.5 for pat ients with mechanical heart valves.[id number] 23:00:00* Test Item Value Reference Range Comments PHOSPHORUS (BEAKER) (test iuet=593) 8.5 mg/dL 2.3-4.7 [id number] 23:00:00* Test Item Value Reference Range Comments MAGNESIUM (BEAKER) (test iwrk=593) 1.9 mg/dL 1.6-2.6 LACTIC ACID, ARTERIAL, WHOLE [id number] 22:56:00* Test Item Value Reference Range Comments LACTATE BLOOD ARTERIAL (2) (BEAKER) (test bzsu=1787) 1.5 mmol/L 0.5-2.2 Specimen slightly hemolyzed Effective 07/08/2015: Units/Reference Range ChangeNew: 0.5-2.2 mmol/L Previous: 5 -20 mg/dLSpecimen markedly ictericPROTHROMBIN TIME/[id number] 22:52:00* Test Item Value Reference Range Comments PROTIME (BEAKER) (test axpy=708) 21.3 seconds 11.7-14.7 INR (BEAKER) (test atqa=298) 1.8 <=5.9 RECOMMENDED COUMADIN/WARFARIN INR THERAPY RANGESSTANDARD DOSE: 2.0 - 3.0 Inclu kaya: PROPHYLAXIS for venous thrombosis, systemic embolization; TREATMENT for barby ous thrombosis and/or pulmonary embolus.HIGH RISK: Target INR is 2.5-3.5 for pat ients with mechanical heart valves.CBC W/PLT COUNT & AUTO [id number] 22:45:00* Test Item Value Reference Range Comments WHITE BLOOD CELL COUNT (BEAKER) (test reaj=477) 9.7 K/ L 3.5-10.5 RED BLOOD CELL COUNT (BEAKER) (test cftk=706) 3.79 M/ L 4.63-6.08 HEMOGLOBIN (BEAKER) (test gjii=541) 12.1 GM/DL 13.7-17.5 HEMATOCRIT (BEAKER) (test gmri=227) 35.9 % 40.1-51.0 MEAN CORPUSCULAR VOLUME (BEAKER) (test dxov=138) 94.7 fL 79.0-92.2 MEAN CORPUSCULAR HEMOGLOBIN (BEAKER) (test cdvm=025) 31.9 pg 25.7-32.2 MEAN CORPUSCULAR HEMOGLOBIN CONC (BEAKER) (test sjlv=722) 33.7 GM/DL 32.3-36.5 RED CELL DISTRIBUTION WIDTH (BEAKER) (test xlhr=792) 20.3 % 11.6-14.4 PLATELET COUNT (BEAKER) (test fdgh=152) 87 K/CU MM 150-450 MEAN PLATELET VOLUME (BEAKER) (test qxgd=573) 11.8 fL 9.4-12.4 NUCLEATED RED BLOOD CELLS (BEAKER) (test gcna=128) 0 /100 WBC 0-0 NEUTROPHILS RELATIVE PERCENT (BEAKER) (test yqca=304) 85 % LYMPHOCYTES RELATIVE PERCENT (BEAKER) (test noom=522) 5 % MONOCYTES RELATIVE PERCENT (BEAKER) (test rdxe=690) 7 % EOSINOPHILS RELATIVE PERCENT (BEAKER) (test ebcg=447) 0 % BASOPHILS RELATIVE PERCENT (BEAKER) (test jzuv=970) 0 % NEUTROPHILS ABSOLUTE COUNT (BEAKER) (test srwz=066) 8.23 K/ L 1.78-5.38 LYMPHOCYTES ABSOLUTE COUNT (BEAKER) (test zljp=073) 0.51 K/ L 1.32-3.57 MONOCYTES ABSOLUTE COUNT (BEAKER) (test bvia=186) 0.71 K/ L 0.30-0.82 EOSINOPHILS ABSOLUTE COUNT (BEAKER) (test wrcf=836) 0.01 K/ L 0.04-0.54 BASOPHILS ABSOLUTE COUNT (BEAKER) (test jhcs=527) 0.02 K/ L 0.01-0.08 IMMATURE GRANULOCYTES-RELATIVE PERCENT (BEAKER) (test vhul=3658) 2 % 0-1 BLOOD GAS, [id number] 22:25:00* Test Item Value Reference Range Comments PH ARTERIAL (BEAKER) (test gcnj=077) 7.29 7.35-7.45 PCO2 ARTERIAL (BEAKER) (test laky=650) 42 mmHg 35-45 PO2 ARTERIAL (BEAKER) (test ezrt=273) 148 mmHg 80-90 O2 SATURATION ARTERIAL (BEAKER) (test lgdg=146) 98.7 % 96.0-97.0 HCO3 ARTERIAL (BEAKER) (test yqdk=689) 20 mmol/L 21-29 BASE EXCESS ARTERIAL (BEAKER) (test uqdl=874) -6.2 mmol/L -2.0-3.0 PATIENT TEMPERATURE (BEAKER) (test nmvy=3362) 36.7 C FIO2 (BEAKER) (test rmac=8394) 60.0 % GLUCOSE-STAT [id number] 22:25:00* Test Item Value Reference Range Comments GLUCOSE RANDOM (BEAKER) (test bbkq=345) 347 mg/dL 70-110 HGB/HCT (H&H) - STAT [id number] 22:25:00* Test Item Value Reference Range Comments HEMOGLOBIN (BEAKER) (test hcyf=852) 12.3 g/dL 13.0-16.8 HEMATOCRIT (BEAKER) (test jjll=620) 36.0 % 40.0-50.0 OXYGEN SATURATION, [id number] 22:22:00* Test Item Value Reference Range Comments O2 SATURATION (MEASURED) (BEAKER) (test wwlm=3327) 91.4 % SODIUM NA-STAT [id number] 22:22:00* Test Item Value Reference Range Comments SODIUM (BEAKER) (test xela=403) 143 meq/L 135-148 POTASSIUM-STAT [id number] 22:22:00* Test Item Value Reference Range Comments POTASSIUM (BEAKER) (test tmsn=511) 4.2 meq/L 3.6-5.5 CALCIUM, [id number] 22:22:00* Test Item Value Reference Range Comments CALCIUM IONIZED (BEAKER) (test tdqv=208) 1.22 mmol/L 1.12-1.27 PH, BLOOD (BEAKER) (test oexr=3225) 7.29 THROMBOELASTOGRAPH (TEG)2017-11-30 21:14:00* Test Item Value Reference Range Comments TEG ACTIVATED CLOTTING TIME (BEAKER) (test xiba=9298) 6.6 minutes 4.0-7.0 TEG FIBRINOGEN ACTIVITY (BEAKER) (test vayx=3478) 53.0 degrees 61.0-73.0 TEG PLT. AGGREGATION (BEAKER) (test lzcx=0014) 40.8 MM 55.0-65.0 TGH ACTIVATED CLOTTING TIME (BEAKER) (test lzlu=3167) 6.7 minutes 4.0-7.0 TGH FIBRINOGEN ACTIVITY (BEAKER) (test qsbu=5020) 50.6 degrees 61.0-73.0 TGH PLT. AGGREGATION (BEAKER) (test asce=3268) 38.7 MM 55.0-65.0 SODIUM NA-STAT [id number] 20:39:00* Test Item Value Reference Range Comments SODIUM (BEAKER) (test xqqc=917) 142 meq/L 135-148 POTASSIUM-STAT [id number] 20:39:00* Test Item Value Reference Range Comments POTASSIUM (BEAKER) (test mrzx=856) 4.6 meq/L 3.6-5.5 BLOOD GAS, [id number] 20:39:00* Test Item Value Reference Range Comments PH ARTERIAL (BEAKER) (test wwhi=245) 7.30 7.35-7.45 PCO2 ARTERIAL (BEAKER) (test wake=768) 40 mmHg 35-45 PO2 ARTERIAL (BEAKER) (test mzof=594) 178 mmHg 80-90 O2 SATURATION ARTERIAL (BEAKER) (test cddc=157) 99.1 % 96.0-97.0 HCO3 ARTERIAL (BEAKER) (test bawq=113) 20 mmol/L 21-29 BASE EXCESS ARTERIAL (BEAKER) (test ojfz=576) -6.9 mmol/L -2.0-3.0 PATIENT TEMPERATURE (BEAKER) (test gkfg=9935) 35.6 C FIO2 (BEAKER) (test gsej=4961) 52.0 % GLUCOSE-STAT [id number] 20:39:00* Test Item Value Reference Range Comments GLUCOSE RANDOM (BEAKER) (test yrxg=737) 313 mg/dL 70-110 HGB/HCT (H&H) - STAT [id number] 20:39:00* Test Item Value Reference Range Comments HEMOGLOBIN (BEAKER) (test pwwp=814) 12.0 g/dL 13.0-16.8 HEMATOCRIT (BEAKER) (test mmpm=929) 35.0 % 40.0-50.0 [id number] 20:18:00* Test Item Value Reference Range Comments FIBRINOGEN LEVEL (BEAKER) (test btir=064) 103 mg/dl 225-434 [id number] 20:14:00* Test Item Value Reference Range Comments PARTIAL THROMBOPLASTIN TIME (BEAKER) (test dklh=860) 70.6 seconds 22.5-36.0 PROTHROMBIN TIME/[id number] 20:12:00* Test Item Value Reference Range Comments PROTIME (BEAKER) (test rnan=465) 27.4 seconds 11.7-14.7 INR (BEAKER) (test nbmg=564) 2.6 <=5.9 RECOMMENDED COUMADIN/WARFARIN INR THERAPY RANGESSTANDARD DOSE: 2.0 - 3.0 Inclu kaya: PROPHYLAXIS for venous thrombosis, systemic embolization; TREATMENT for barby ous thrombosis and/or pulmonary embolus.HIGH RISK: Target INR is 2.5-3.5 for pat ients with mechanical heart valves.PLATELET [id number] 20:04:00* Test Item Value Reference Range Comments PLATELET COUNT (BEAKER) (test mjee=821) 77 K/CU MM 150-450 SODIUM NA-STAT [id number] 19:55:00* Test Item Value Reference Range Comments SODIUM (BEAKER) (test dzgm=752) 141 meq/L 135-148 POTASSIUM-STAT [id number] 19:55:00* Test Item Value Reference Range Comments POTASSIUM (BEAKER) (test ueva=293) 4.2 meq/L 3.6-5.5 CALCIUM, [id number] 19:55:00* Test Item Value Reference Range Comments CALCIUM IONIZED (BEAKER) (test zgnb=960) 1.21 mmol/L 1.12-1.27 PH, BLOOD (BEAKER) (test pste=2756) 7.32 BLOOD GAS, [id number] 19:55:00* Test Item Value Reference Range Comments PH ARTERIAL (BEAKER) (test ypcx=066) 7.32 7.35-7.45 PCO2 ARTERIAL (BEAKER) (test kqhk=920) 40 mmHg 35-45 PO2 ARTERIAL (BEAKER) (test nwna=723) 206 mmHg 80-90 O2 SATURATION ARTERIAL (BEAKER) (test vefb=473) 99.3 % 96.0-97.0 HCO3 ARTERIAL (BEAKER) (test ctrv=047) 20 mmol/L 21-29 BASE EXCESS ARTERIAL (BEAKER) (test awbn=051) -5.8 mmol/L -2.0-3.0 PATIENT TEMPERATURE (BEAKER) (test msoz=9726) 36.6 C FIO2 (BEAKER) (test chkm=1704) 53.0 % GLUCOSE-STAT [id number] 19:55:00* Test Item Value Reference Range Comments GLUCOSE RANDOM (BEAKER) (test oabw=296) 271 mg/dL 70-110 HGB/HCT (H&H) - STAT [id number] 19:55:00* Test Item Value Reference Range Comments HEMOGLOBIN (BEAKER) (test zdvw=012) 10.9 g/dL 13.0-16.8 HEMATOCRIT (BEAKER) (test qgcg=528) 32.0 % 40.0-50.0 CALCIUM, [id number] 18:59:00* Test Item Value Reference Range Comments CALCIUM IONIZED (BEAKER) (test kiob=823) 1.15 mmol/L 1.12-1.27 PH, BLOOD (BEAKER) (test fgrr=9121) 7.37 SODIUM NA-STAT [id number] 18:59:00* Test Item Value Reference Range Comments SODIUM (BEAKER) (test otcy=781) 143 meq/L 135-148 POTASSIUM-STAT [id number] 18:59:00* Test Item Value Reference Range Comments POTASSIUM (BEAKER) (test rfbs=404) 4.4 meq/L 3.6-5.5 BLOOD GAS, [id number] 18:59:00* Test Item Value Reference Range Comments PH ARTERIAL (BEAKER) (test tjak=791) 7.37 7.35-7.45 PCO2 ARTERIAL (BEAKER) (test mfeh=244) 30 mmHg 35-45 PO2 ARTERIAL (BEAKER) (test atvd=969) 209 mmHg 80-90 O2 SATURATION ARTERIAL (BEAKER) (test hrmw=745) 99.4 % 96.0-97.0 HCO3 ARTERIAL (BEAKER) (test ukwj=438) 17 mmol/L 21-29 BASE EXCESS ARTERIAL (BEAKER) (test icgc=167) -7.7 mmol/L -2.0-3.0 PATIENT TEMPERATURE (BEAKER) (test klcz=5375) 34.6 C FIO2 (BEAKER) (test zzgt=5381) 50.0 % GLUCOSE-STAT [id number] 18:59:00* Test Item Value Reference Range Comments GLUCOSE RANDOM (BEAKER) (test yatb=406) 131 mg/dL 70-110 HGB/HCT (H&H) - STAT [id number] 18:59:00* Test Item Value Reference Range Comments HEMOGLOBIN (BEAKER) (test yuzc=291) 12.9 g/dL 13.0-16.8 HEMATOCRIT (BEAKER) (test dbbo=914) 38.0 % 40.0-50.0 SODIUM NA-STAT [id number] 18:41:00* Test Item Value Reference Range Comments SODIUM (BEAKER) (test mvuz=250) 142 meq/L 135-148 POTASSIUM-STAT [id number] 18:41:00* Test Item Value Reference Range Comments POTASSIUM (BEAKER) (test vppc=814) 4.6 meq/L 3.6-5.5 CALCIUM, [id number] 18:41:00* Test Item Value Reference Range Comments CALCIUM IONIZED (BEAKER) (test gpnm=117) 0.85 mmol/L 1.12-1.27 PH, BLOOD (BEAKER) (test kdds=1328) 7.32 BLOOD GAS, [id number] 18:41:00* Test Item Value Reference Range Comments PH ARTERIAL (BEAKER) (test duxr=417) 7.32 7.35-7.45 PCO2 ARTERIAL (BEAKER) (test vaea=123) 28 mmHg 35-45 PO2 ARTERIAL (BEAKER) (test qtnt=169) 193 mmHg 80-90 O2 SATURATION ARTERIAL (BEAKER) (test iqpr=237) 99.3 % 96.0-97.0 HCO3 ARTERIAL (BEAKER) (test qwlc=859) 15 mmol/L 21-29 BASE EXCESS ARTERIAL (BEAKER) (test mdcw=740) -10.5 mmol/L -2.0-3.0 PATIENT TEMPERATURE (BEAKER) (test rfim=6956) 34.8 C FIO2 (BEAKER) (test zlbg=0510) 56.0 % GLUCOSE-STAT [id number] 18:41:00* Test Item Value Reference Range Comments GLUCOSE RANDOM (BEAKER) (test ucsb=940) 138 mg/dL 70-110 HGB/HCT (H&H) - STAT [id number] 18:41:00* Test Item Value Reference Range Comments HEMOGLOBIN (BEAKER) (test zjkh=557) 12.0 g/dL 13.0-16.8 HEMATOCRIT (BEAKER) (test bptm=911) 35.0 % 40.0-50.0 CALCIUM, [id number] 18:10:00* Test Item Value Reference Range Comments CALCIUM IONIZED (BEAKER) (test gnzc=084) 0.97 mmol/L 1.12-1.27 PH, BLOOD (BEAKER) (test acox=8003) 7.34 SODIUM NA-STAT [id number] 18:10:00* Test Item Value Reference Range Comments SODIUM (BEAKER) (test xtqs=715) 144 meq/L 135-148 POTASSIUM-STAT [id number] 18:10:00* Test Item Value Reference Range Comments POTASSIUM (BEAKER) (test jmsu=927) 4.0 meq/L 3.6-5.5 BLOOD GAS, [id number] 18:10:00* Test Item Value Reference Range Comments PH ARTERIAL (BEAKER) (test zpnb=159) 7.34 7.35-7.45 PCO2 ARTERIAL (BEAKER) (test gziw=914) 30 mmHg 35-45 PO2 ARTERIAL (BEAKER) (test gjku=407) 225 mmHg 80-90 O2 SATURATION ARTERIAL (BEAKER) (test gvjz=558) 99.5 % 96.0-97.0 HCO3 ARTERIAL (BEAKER) (test uzdn=815) 17 mmol/L 21-29 BASE EXCESS ARTERIAL (BEAKER) (test wezb=989) -8.8 mmol/L -2.0-3.0 PATIENT TEMPERATURE (BEAKER) (test avvg=7565) 34.6 C FIO2 (BEAKER) (test zeqh=6455) 50.0 % GLUCOSE-STAT [id number] 18:10:00* Test Item Value Reference Range Comments GLUCOSE RANDOM (BEAKER) (test vwxq=061) 121 mg/dL 70-110 HGB/HCT (H&H) - STAT [id number] 18:10:00* Test Item Value Reference Range Comments HEMOGLOBIN (BEAKER) (test mgol=976) 9.9 g/dL 13.0-16.8 HEMATOCRIT (BEAKER) (test emst=971) 29.0 % 40.0-50.0 CALCIUM, [id number] 17:17:00* Test Item Value Reference Range Comments CALCIUM IONIZED (BEAKER) (test tqez=436) 1.10 mmol/L 1.12-1.27 PH, BLOOD (BEAKER) (test rttu=6425) 7.28 BLOOD GAS, [id number] 17:17:00* Test Item Value Reference Range Comments PH ARTERIAL (BEAKER) (test rcvz=624) 7.28 7.35-7.45 PCO2 ARTERIAL (BEAKER) (test uvdy=649) 34 mmHg 35-45 PO2 ARTERIAL (BEAKER) (test havo=856) 248 mmHg 80-90 O2 SATURATION ARTERIAL (BEAKER) (test aahs=069) 99.5 % 96.0-97.0 HCO3 ARTERIAL (BEAKER) (test inzq=130) 16 mmol/L 21-29 BASE EXCESS ARTERIAL (BEAKER) (test dxgh=307) -10.2 mmol/L -2.0-3.0 PATIENT TEMPERATURE (BEAKER) (test wzay=2699) 36.0 C FIO2 (BEAKER) (test pirf=0379) 50.0 % HGB/HCT (H&H) - STAT [id number] 17:17:00* Test Item Value Reference Range Comments HEMOGLOBIN (BEAKER) (test ezip=887) 9.9 g/dL 13.0-16.8 HEMATOCRIT (BEAKER) (test wsif=335) 29.0 % 40.0-50.0 GLUCOSE-STAT [id number] 17:16:00* Test Item Value Reference Range Comments GLUCOSE RANDOM (BEAKER) (test spvx=484) 110 mg/dL 70-110 SODIUM NA-STAT [id number] 17:16:00* Test Item Value Reference Range Comments SODIUM (BEAKER) (test doaz=891) 140 meq/L 135-148 POTASSIUM-STAT [id number] 17:16:00* Test Item Value Reference Range Comments POTASSIUM (BEAKER) (test ggeb=712) 4.0 meq/L 3.6-5.5 BLOOD GAS, [id number] 16:23:00* Test Item Value Reference Range Comments PH ARTERIAL (BEAKER) (test rqoi=433) 7.34 7.35-7.45 PCO2 ARTERIAL (BEAKER) (test enam=496) 29 mmHg 35-45 PO2 ARTERIAL (BEAKER) (test xqmt=231) 251 mmHg 80-90 O2 SATURATION ARTERIAL (BEAKER) (test bzmo=642) 99.6 % 96.0-97.0 HCO3 ARTERIAL (BEAKER) (test fomp=282) 16 mmol/L 21-29 BASE EXCESS ARTERIAL (BEAKER) (test vkur=898) -9.8 mmol/L -2.0-3.0 PATIENT TEMPERATURE (BEAKER) (test uhse=2185) 34.0 C FIO2 (BEAKER) (test wkuz=4808) 70.0 % HGB/HCT (H&H) - STAT [id number] 16:23:00* Test Item Value Reference Range Comments HEMOGLOBIN (BEAKER) (test gzvr=892) 9.1 g/dL 13.0-16.8 HEMATOCRIT (BEAKER) (test baly=348) 27.0 % 40.0-50.0 CALCIUM, [id number] 16:23:00* Test Item Value Reference Range Comments CALCIUM IONIZED (BEAKER) (test xbxf=262) 1.15 mmol/L 1.12-1.27 PH, BLOOD (BEAKER) (test baok=9929) 7.34 GLUCOSE-STAT [id number] 16:22:00* Test Item Value Reference Range Comments GLUCOSE RANDOM (BEAKER) (test jwgv=388) 101 mg/dL 70-110 SODIUM NA-STAT [id number] 16:22:00* Test Item Value Reference Range Comments SODIUM (BEAKER) (test ikmj=075) 138 meq/L 135-148 POTASSIUM-STAT [id number] 16:22:00* Test Item Value Reference Range Comments POTASSIUM (BEAKER) (test jqni=390) 3.6 meq/L 3.6-5.5 HEPATITIS B [id number] 15:07:00* Test Item Value Reference Range Comments HEPATITIS B CORE TOTAL ANTIBODY (BEAKER) (test dxqy=196) Nonreactive Nonreactive HEPATITIS B SURFACE ANTIBODY (BEAKER) (test cvnt=356) < mIU/mL <8.0 HEPATITIS B SURFACE ANTIGEN (2) (BEAKER) (test hjcr=7406) Nonreactive Nonreactive HEPATITIS C [id number] 14:59:00* Test Item Value Reference Range Comments HEPATITIS C ANTIBODY (BEAKER) (test ycpy=726) Nonreactive Nonreactive BASIC METABOLIC [id number] 14:39:00* Test Item Value Reference Range Comments SODIUM (BEAKER) (test ckdr=444) 140 meq/L 136-145 POTASSIUM (BEAKER) (test obrd=950) 3.8 meq/L 3.5-5.1 CHLORIDE (BEAKER) (test towq=312) 108 meq/L 98-107 CO2 (BEAKER) (test huas=118) 15 meq/L 22-29 BLOOD UREA NITROGEN (BEAKER) (test ssni=207) 67 mg/dL 7-21 CREATININE (BEAKER) (test zncy=190) 5.35 mg/dL 0.57-1.25 GLUCOSE RANDOM (BEAKER) (test hzzn=569) 102 mg/dL 70-105 CALCIUM (BEAKER) (test suyv=584) 10.3 mg/dL 8.4-10.2 EGFR (BEAKER) (test qnot=1275) 11 mL/min/1.73 sq m ESTIMATED GFR IS NOT ACCURATE CREATININE CLEARANCE IN PREDICTING GLOMERULAR FILTRATION RATE. ESTIMATED GFR IS NOT APPLICABLE FOR DIALYSIS PATIENTS. Specimen markedly ictericMISCELLANEOUS LAB [id number] 12:56:00* Test Item Value Reference Range Comments SCAN RESULT (test vssr=[id number]) MISCELLANEOUS LAB [id number] 10:22:00* Test Item Value Reference Range Comments SCAN RESULT (test sfdz=7294905) (MANUAL DIFFERENTIAL)2017-11-30 10:01:00* Test Item Value Reference Range Comments NEUTROPHILS - REL (DIFF) (BEAKER) (test txuh=8316) 85 % LYMPHOCYTES - REL (DIFF) (BEAKER) (test ziqo=6148) 9 % MONOCYTES - REL (DIFF) (BEAKER) (test nxxq=3975) 2 % EOSINOPHILS - REL (DIFF) (BEAKER) (test nvnv=2691) 2 % BASOPHILS - REL (DIFF) (BEAKER) (test jfov=5267) 1 % ATYPICAL LYMPHOCYTE - REL (DIFF) (BEAKER) (test qhax=839) 1 % 0-0 NEUTROPHILS - ABS (DIFF) (BEAKER) (test pfxl=2302) 2.55 K/ L 1.80-8.00 LYMPHOCYTES - ABS (DIFF) (BEAKER) (test uxbv=5921) 0.27 K/ L 1.48-4.50 MONOCYTES - ABS (DIFF) (BEAKER) (test vkvj=2147) 0.06 K/ L 0.00-1.30 EOSINOPHILS - ABS (DIFF) (BEAKER) (test cfji=7603) 0.06 K/ L 0.00-0.50 BASOPHILS - ABS (DIFF) (BEAKER) (test rrwz=5682) 0.03 K/ L 0.00-0.20 ATYPICAL LYMPHOCYTES - ABS (DIFF) (BEAKER) (test mxoi=005) 0.03 K/ L 0.00-0.00 TOTAL COUNTED (BEAKER) (test jksr=4274) 100 WBC MORPHOLOGY (BEAKER) (test lvat=800) Normal PLT MORPHOLOGY (BEAKER) (test rtvl=472) Normal SCHISTOCYTES (BEAKER) (test kbyj=781) 1+ few NICKY CELLS (BEAKER) (test yuvj=114) 2+ moderate HYPOCHROMIA (BEAKER) (test tnkw=804) 1+ few POLYCHROMATOPHILLIC RBCS(BEAKER) (test cyrz=618) 2+ moderate CBC W/PLT COUNT & AUTO [id number] 09:44:00* Test Item Value Reference Range Comments WHITE BLOOD CELL COUNT (BEAKER) (test othi=805) 3.0 K/ L 3.5-10.5 RED BLOOD CELL COUNT (BEAKER) (test jtxz=300) 2.43 M/ L 4.63-6.08 HEMOGLOBIN (BEAKER) (test wxol=278) 8.3 GM/DL 13.7-17.5 HEMATOCRIT (BEAKER) (test xxhk=953) 25.0 % 40.1-51.0 MEAN CORPUSCULAR VOLUME (BEAKER) (test hhhr=276) 102.9 fL 79.0-92.2 MEAN CORPUSCULAR HEMOGLOBIN (BEAKER) (test iycp=430) 34.2 pg 25.7-32.2 MEAN CORPUSCULAR HEMOGLOBIN CONC (BEAKER) (test hrrx=377) 33.2 GM/DL 32.3-36.5 RED CELL DISTRIBUTION WIDTH (BEAKER) (test mvep=523) 22.0 % 11.6-14.4 PLATELET COUNT (BEAKER) (test onzm=597) 26 K/CU MM 150-450 MEAN PLATELET VOLUME (BEAKER) (test keoe=104) fL 9.4-12.4 Unable to report due to abnormal Platelet population distribution. NUCLEATED RED BLOOD CELLS (BEAKER) (test xlna=946) 0 /100 WBC 0-0 CALCIUM, [id number] 05:54:00* Test Item Value Reference Range Comments CALCIUM IONIZED (BEAKER) (test jdub=547) 1.03 mmol/L 1.12-1.27 PH, BLOOD (BEAKER) (test voqo=9092) 7.40 BASIC METABOLIC [id number] 05:32:00* Test Item Value Reference Range Comments SODIUM (BEAKER) (test leom=696) 142 meq/L 136-145 POTASSIUM (BEAKER) (test cyno=287) 4.0 meq/L 3.5-5.1 CHLORIDE (BEAKER) (test uuel=659) 111 meq/L 98-107 CO2 (BEAKER) (test rxsq=610) 16 meq/L 22-29 BLOOD UREA NITROGEN (BEAKER) (test hkxv=767) 60 mg/dL 7-21 CREATININE (BEAKER) (test ueat=867) 4.68 mg/dL 0.57-1.25 GLUCOSE RANDOM (BEAKER) (test vcqj=080) 98 mg/dL 70-105 CALCIUM (BEAKER) (test jthb=499) 9.6 mg/dL 8.4-10.2 EGFR (BEAKER) (test auqz=4499) 13 mL/min/1.73 sq m ESTIMATED GFR IS NOT ACCURATE CREATININE CLEARANCE IN PREDICTING GLOMERULAR FILTRATION RATE. ESTIMATED GFR IS NOT APPLICABLE FOR DIALYSIS PATIENTS. Specimen markedly ictericHEPATIC FUNCTION [id number] 05:32:00* Test Item Value Reference Range Comments TOTAL PROTEIN (BEAKER) (test oawd=275) 5.4 gm/dL 6.0-8.3 ALBUMIN (BEAKER) (test tfhf=8277) 3.8 g/dL 3.5-5.0 BILIRUBIN TOTAL (BEAKER) (test tudb=183) 35.3 mg/dL 0.2-1.2 BILIRUBIN DIRECT (BEAKER) (test lgik=399) 24.5 mg/dL 0.1-0.5 ALKALINE PHOSPHATASE (BEAKER) (test piky=381) 58 U/L 40-150 AST (SGOT) (BEAKER) (test ivcx=223) 280 U/L 5-34 ALT (SGPT) (BEAKER) (test iolj=406) 154 U/L 6-55 Specimen markedly ictericCOMPREHENSIVE METABOLIC [id number] 05:32:00* Test Item Value Reference Range Comments TOTAL PROTEIN (BEAKER) (test drfl=442) 5.4 gm/dL 6.0-8.3 ALBUMIN (BEAKER) (test nilf=1832) 3.8 g/dL 3.5-5.0 ALKALINE PHOSPHATASE (BEAKER) (test enxv=150) 58 U/L 40-150 BILIRUBIN TOTAL (BEAKER) (test zmxx=503) 35.3 mg/dL 0.2-1.2 SODIUM (BEAKER) (test fiks=416) 142 meq/L 136-145 POTASSIUM (BEAKER) (test ghdd=556) 4.0 meq/L 3.5-5.1 CHLORIDE (BEAKER) (test clvn=962) 111 meq/L 98-107 CO2 (BEAKER) (test evwb=324) 16 meq/L 22-29 BLOOD UREA NITROGEN (BEAKER) (test xtvy=508) 60 mg/dL 7-21 CREATININE (BEAKER) (test ucsd=055) 4.68 mg/dL 0.57-1.25 GLUCOSE RANDOM (BEAKER) (test zbrp=586) 98 mg/dL 70-105 CALCIUM (BEAKER) (test byrs=063) 9.6 mg/dL 8.4-10.2 AST (SGOT) (BEAKER) (test ddpd=267) 280 U/L 5-34 ALT (SGPT) (BEAKER) (test pwzj=792) 154 U/L 6-55 EGFR (BEAKER) (test ijrb=8371) 13 mL/min/1.73 sq m ESTIMATED GFR IS NOT ACCURATE CREATININE CLEARANCE IN PREDICTING GLOMERULAR FILTRATION RATE. ESTIMATED GFR IS NOT APPLICABLE FOR DIALYSIS PATIENTS. Specimen markedly [id number] 05:31:00* Test Item Value Reference Range Comments PHOSPHORUS (BEAKER) (test nmdb=588) 5.8 mg/dL 2.3-4.7 [id number] 05:31:00* Test Item Value Reference Range Comments MAGNESIUM (BEAKER) (test pxnv=741) 2.0 mg/dL 1.6-2.6 PROTHROMBIN TIME/[id number] 05:12:00* Test Item Value Reference Range Comments PROTIME (BEAKER) (test yfjl=619) 29.5 seconds 11.7-14.7 INR (BEAKER) (test phwo=547) 2.8 <=5.9 RECOMMENDED COUMADIN/WARFARIN INR THERAPY RANGESSTANDARD DOSE: 2.0 - 3.0 Inclu kaya: PROPHYLAXIS for venous thrombosis, systemic embolization; TREATMENT for barby ous thrombosis and/or pulmonary embolus.HIGH RISK: Target INR is 2.5-3.5 for pat ients with mechanical heart valves.RAD, CHEST, 1 VIEW, NON [id number] 00:00:00Referring:Dr. Marciano Villa for exam:->pre transplantShould this be performed at the bedside?->YesFINAL REPORT Chest one view. Clinical history: pre transplant Comparison: Chest radiograph 11/21/2017 Technique: A single frontal view of the chest was obtained. Findings/impression:The heart is normal in size.There are surgical clips in the right infrahilar region, similar to prior exam. There is linear atelectasis in the left lower lobe. There is no focal pulmonary consolidation, pleural effusion or pneumothorax. Signed: Amy Kelloggort Verified Date/Time: 11/30/2017 00:00:40 Reading Location: [facility] C013Y CT Body Reading Room [id number] 20:28:00* Test Item Value Reference Range Comments PHOSPHORUS (BEAKER) (test sohk=986) 4.5 mg/dL 2.3-4.7 [id number] 20:23:00* Test Item Value Reference Range Comments MAGNESIUM (BEAKER) (test vksi=712) 2.0 mg/dL 1.6-2.6 BODY FLUID CULTURE + GRAM [id number] 15:44:00* Test Item Value Reference Range Comments CULTURE (BEAKER) (test exrw=7596) No growth GRAM STAIN RESULT (BEAKER) (test ekkw=3601) <1+ White blood cells seen GRAM STAIN RESULT (BEAKER) (test lqph=51685) No organisms seen URINE [id number] 12:43:00* Test Item Value Reference Range Comments CULTURE (BEAKER) (test ujrf=3608) No growth BLOOD [id number] 11:00:00* Test Item Value Reference Range Comments CULTURE (BEAKER) (test zosw=5856) No growth in 5 days BLOOD [id number] 11:00:00* Test Item Value Reference Range Comments CULTURE (BEAKER) (test ioqx=9661) No growth in 5 days VANCOMYCIN LEVEL, [id number] 10:00:00* Test Item Value Reference Range Comments VANCOMYCIN TROUGH (BEAKER) (test mrid=489) 46.6 ug/mL 10.0-20.0 [id number] 09:20:00* Test Item Value Reference Range Comments FIBRINOGEN LEVEL (BEAKER) (test aytt=160) 82 mg/dl 225-434 [id number] 09:08:00* Test Item Value Reference Range Comments D-DIMER QUANTITATIVE (BEAKER) (test mcdk=568) 3.15 MG/L FEU <0.50 Intended Use: The D-Dimer Assay can be used to aid in the diagnosis of Deep Vein Thrombosis (DVT) and Pulmonary Embolism Disease (PED).In patients with low pre- test probability, various studies concerning STA Liatest D-dimer test have repor alexi that with a cutoff value of 0.50 MG/L FEU, the Negative Predictive Value (GOLF BALL WINDER V) regarding the exclusion of thrombosis is within 95-100% range.[id number] 09:06:00* Test Item Value Reference Range Comments PARTIAL THROMBOPLASTIN TIME (BEAKER) (test dgtw=828) 52.0 seconds 22.5-36.0 CALCIUM, [id number] 07:18:00* Test Item Value Reference Range Comments CALCIUM IONIZED (BEAKER) (test flzi=663) 1.09 mmol/L 1.12-1.27 PH, BLOOD (BEAKER) (test lasa=8911) 7.41 HEPATIC FUNCTION [id number] 05:51:00* Test Item Value Reference Range Comments TOTAL PROTEIN (BEAKER) (test tvhn=139) 5.3 gm/dL 6.0-8.3 ALBUMIN (BEAKER) (test wthj=0119) 3.6 g/dL 3.5-5.0 BILIRUBIN TOTAL (BEAKER) (test xoze=644) 36.2 mg/dL 0.2-1.2 BILIRUBIN DIRECT (BEAKER) (test qocf=480) 24.4 mg/dL 0.1-0.5 ALKALINE PHOSPHATASE (BEAKER) (test tfqp=744) 65 U/L 40-150 AST (SGOT) (BEAKER) (test bcpy=565) 330 U/L 5-34 ALT (SGPT) (BEAKER) (test uptn=794) 172 U/L 6-55 Specimen markedly [id number] 05:50:00* Test Item Value Reference Range Comments PHOSPHORUS (BEAKER) (test cnrs=042) 3.9 mg/dL 2.3-4.7 [id number] 05:50:00* Test Item Value Reference Range Comments MAGNESIUM (BEAKER) (test pmpd=947) 2.0 mg/dL 1.6-2.6 COMPREHENSIVE METABOLIC [id number] 05:50:00* Test Item Value Reference Range Comments TOTAL PROTEIN (BEAKER) (test aodm=086) 5.3 gm/dL 6.0-8.3 ALBUMIN (BEAKER) (test qqdm=7659) 3.6 g/dL 3.5-5.0 ALKALINE PHOSPHATASE (BEAKER) (test cqec=299) 65 U/L 40-150 BILIRUBIN TOTAL (BEAKER) (test tbxe=987) 36.2 mg/dL 0.2-1.2 SODIUM (BEAKER) (test gnls=060) 144 meq/L 136-145 POTASSIUM (BEAKER) (test lxnh=680) 3.7 meq/L 3.5-5.1 CHLORIDE (BEAKER) (test uudw=975) 119 meq/L 98-107 CO2 (BEAKER) (test lucy=188) 13 meq/L 22-29 BLOOD UREA NITROGEN (BEAKER) (test cpou=519) 48 mg/dL 7-21 CREATININE (BEAKER) (test aouk=080) 3.24 mg/dL 0.57-1.25 GLUCOSE RANDOM (BEAKER) (test tqcd=312) 95 mg/dL 70-105 CALCIUM (BEAKER) (test vnhn=054) 9.6 mg/dL 8.4-10.2 AST (SGOT) (BEAKER) (test iwkq=833) 330 U/L 5-34 ALT (SGPT) (BEAKER) (test mmnz=454) 172 U/L 6-55 EGFR (BEAKER) (test lzwl=2306) 20 mL/min/1.73 sq m ESTIMATED GFR IS NOT ACCURATE CREATININE CLEARANCE IN PREDICTING GLOMERULAR FILTRATION RATE. ESTIMATED GFR IS NOT APPLICABLE FOR DIALYSIS PATIENTS. Specimen markedly ictericB-TYPE NATRIURETIC FACTOR (BNP)2017-11-29 05:41:00* Test Item Value Reference Range Comments B-TYPE NATRIURETIC PEPTIDE (BEAKER) (test oaqx=348) 48 pg/mL 0-100 PROTHROMBIN TIME/[id number] 05:34:00* Test Item Value Reference Range Comments PROTIME (BEAKER) (test coyt=809) 36.4 seconds 11.7-14.7 INR (BEAKER) (test lpsg=950) 3.7 <=5.9 RECOMMENDED COUMADIN/WARFARIN INR THERAPY RANGESSTANDARD DOSE: 2.0 - 3.0 Inclu kaya: PROPHYLAXIS for venous thrombosis, systemic embolization; TREATMENT for barby ous thrombosis and/or pulmonary embolus.HIGH RISK: Target INR is 2.5-3.5 for pat ients with mechanical heart valves.LACTIC ACID, VENOUS, WHOLE [id number] 05:31:00* Test Item Value Reference Range Comments LACTATE BLOOD VENOUS (2) (BEAKER) (test ioeg=1917) 0.7 mmol/L 0.5-2.2 Effective 07/08/2015: Units/Reference Range ChangeNew: 0.5-2.2 mmol/L Previous: 5 -20 mg/dLSpecimen markedly ictericCBC W/PLT COUNT & AUTO [id number] 05:28:00* Test Item Value Reference Range Comments WHITE BLOOD CELL COUNT (BEAKER) (test ztue=838) 3.0 K/ L 3.5-10.5 RED BLOOD CELL COUNT (BEAKER) (test ojca=833) 2.50 M/ L 4.63-6.08 HEMOGLOBIN (BEAKER) (test uqxm=957) 8.4 GM/DL 13.7-17.5 HEMATOCRIT (BEAKER) (test ysew=124) 26.0 % 40.1-51.0 MEAN CORPUSCULAR VOLUME (BEAKER) (test ebwi=096) 104.0 fL 79.0-92.2 MEAN CORPUSCULAR HEMOGLOBIN (BEAKER) (test brti=992) 33.6 pg 25.7-32.2 MEAN CORPUSCULAR HEMOGLOBIN CONC (BEAKER) (test dxdz=042) 32.3 GM/DL 32.3-36.5 RED CELL DISTRIBUTION WIDTH (BEAKER) (test pkgh=018) 21.9 % 11.6-14.4 PLATELET COUNT (BEAKER) (test cuby=536) 30 K/CU MM 150-450 MEAN PLATELET VOLUME (BEAKER) (test ghrv=433) 11.6 fL 9.4-12.4 NUCLEATED RED BLOOD CELLS (BEAKER) (test htwh=828) 0 /100 WBC 0-0 NEUTROPHILS RELATIVE PERCENT (BEAKER) (test jxuc=132) 70 % LYMPHOCYTES RELATIVE PERCENT (BEAKER) (test upjy=752) 14 % MONOCYTES RELATIVE PERCENT (BEAKER) (test ovbe=215) 9 % EOSINOPHILS RELATIVE PERCENT (BEAKER) (test yjhy=361) 3 % BASOPHILS RELATIVE PERCENT (BEAKER) (test nogp=918) 0 % NEUTROPHILS ABSOLUTE COUNT (BEAKER) (test rpwu=997) 2.09 K/ L 1.78-5.38 LYMPHOCYTES ABSOLUTE COUNT (BEAKER) (test xjbl=857) 0.42 K/ L 1.32-3.57 MONOCYTES ABSOLUTE COUNT (BEAKER) (test mcqr=259) 0.27 K/ L 0.30-0.82 EOSINOPHILS ABSOLUTE COUNT (BEAKER) (test pfmh=533) 0.08 K/ L 0.04-0.54 BASOPHILS ABSOLUTE COUNT (BEAKER) (test trbm=206) 0.01 K/ L 0.01-0.08 IMMATURE GRANULOCYTES-RELATIVE PERCENT (BEAKER) (test mkux=6618) 4 % 0-1 URINALYSIS W/ [id number] 00:48:00* Test Item Value Reference Range Comments COLOR (BEAKER) (test bfct=247) Dark Yellow CLARITY (BEAKER) (test ggja=838) Cloudy SPECIFIC GRAVITY UA (BEAKER) (test iipg=357) 1.014 1.001-1.035 PH UA (BEAKER) (test tnga=022) 6.0 5.0-8.0 PROTEIN UA (BEAKER) (test izfa=239) 50 mg/dL Negative GLUCOSE UA (BEAKER) (test bsws=400) Negative Negative KETONES UA (BEAKER) (test tlnk=369) 10 mg/dL Negative BILIRUBIN UA (BEAKER) (test ukfp=816) Positive Negative BLOOD UA (BEAKER) (test qqvu=703) Trace Negative NITRITE UA (BEAKER) (test mxwx=837) Negative Negative LEUKOCYTE ESTERASE UA (BEAKER) (test clgw=221) Negative Negative UROBILINOGEN UA (BEAKER) (test jvqn=091) 0.2 mg/dL 0.2-1.0 RBC UA (BEAKER) (test omqz=207) 32 /HPF WBC UA (BEAKER) (test zojh=231) 5 /HPF BACTERIA (BEAKER) (test kkyc=780) Moderate MUCUS (BEAKER) (test nfeq=3307) Rare SQUAMOUS EPITHELIAL (BEAKER) (test jwom=237) 2 /HPF AMORPHOUS CRYSTALS (BEAKER) (test fdsa=1252) Moderate SOURCE(BEAKER) (test cfpi=1767) Urine, Voided EOSINOPHIL SMEAR, [id number] 23:48:00* Test Item Value Reference Range Comments EOSINOPHIL SMEAR, URINE (BEAKER) (test zmip=9768) No EOS seen No EOS seen SODIUM, RANDOM [id number] 23:36:00* Test Item Value Reference Range Comments SODIUM URINE (BEAKER) (test nfex=103) < meq/L Reference Range: No NormalsCREATININE, RANDOM [id number] 23:24:00* Test Item Value Reference Range Comments CREATININE URINE (BEAKER) (test aoer=321) 151.7 mg/dL Reference Range: No NormalsPROTEIN, RANDOM [id number] 23:24:00* Test Item Value Reference Range Comments PROTEIN, URINE (BEAKER) (test sqau=8784) 86 mg/dL 0-14 HEPATITIS PANEL, [id number] 11:15:00* Test Item Value Reference Range Comments HEPATITIS A IGM ANTIBODY (BEAKER) (test zayt=519) Nonreactive Nonreactive HEPATITIS B CORE IGM ANTIBODY (BEAKER) (test hhmm=395) Nonreactive Nonreactive HEPATITIS C ANTIBODY (BEAKER) (test zvta=355) Nonreactive Nonreactive HEPATITIS B SURFACE ANTIGEN (2) (BEAKER) (test dgqa=6139) Nonreactive Nonreactive [id number] 05:58:00* Test Item Value Reference Range Comments PHOSPHORUS (BEAKER) (test vnlm=582) 2.2 mg/dL 2.3-4.7 [id number] 05:58:00* Test Item Value Reference Range Comments MAGNESIUM (BEAKER) (test inhi=285) 2.2 mg/dL 1.6-2.6 BASIC METABOLIC [id number] 05:58:00* Test Item Value Reference Range Comments SODIUM (BEAKER) (test rhzy=209) 142 meq/L 136-145 POTASSIUM (BEAKER) (test dkjp=478) 3.7 meq/L 3.5-5.1 CHLORIDE (BEAKER) (test nmce=355) 119 meq/L 98-107 CO2 (BEAKER) (test heey=497) 15 meq/L 22-29 BLOOD UREA NITROGEN (BEAKER) (test snap=958) 32 mg/dL 7-21 CREATININE (BEAKER) (test hffp=711) 1.69 mg/dL 0.57-1.25 GLUCOSE RANDOM (BEAKER) (test ufhk=692) 87 mg/dL 70-105 CALCIUM (BEAKER) (test zpxa=191) 9.6 mg/dL 8.4-10.2 EGFR (BEAKER) (test kwml=0172) 43 mL/min/1.73 sq m ESTIMATED GFR IS NOT ACCURATE CREATININE CLEARANCE IN PREDICTING GLOMERULAR FILTRATION RATE. ESTIMATED GFR IS NOT APPLICABLE FOR DIALYSIS PATIENTS. Specimen markedly ictericHEPATIC FUNCTION [id number] 05:58:00* Test Item Value Reference Range Comments TOTAL PROTEIN (BEAKER) (test nqox=201) 5.6 gm/dL 6.0-8.3 ALBUMIN (BEAKER) (test ecxb=1517) 3.6 g/dL 3.5-5.0 BILIRUBIN TOTAL (BEAKER) (test krhp=877) 38.7 mg/dL 0.2-1.2 BILIRUBIN DIRECT (BEAKER) (test feiz=198) 26.3 mg/dL 0.1-0.5 ALKALINE PHOSPHATASE (BEAKER) (test pkgw=911) 81 U/L 40-150 AST (SGOT) (BEAKER) (test anea=367) 409 U/L 5-34 ALT (SGPT) (BEAKER) (test rlzl=780) 190 U/L 6-55 Specimen markedly ictericPROTHROMBIN [id number] 05:35:00* Test Item Value Reference Range Comments PROTIME (BEAKER) (test tazx=558) 26.8 seconds 11.7-14.7 INR (BEAKER) (test eovv=607) 2.5 <=5.9 RECOMMENDED COUMADIN/WARFARIN INR THERAPY RANGESSTANDARD DOSE: 2.0 - 3.0 Inclu kaya: PROPHYLAXIS for venous thrombosis, systemic embolization; TREATMENT for barby ous thrombosis and/or pulmonary embolus.HIGH RISK: Target INR is 2.5-3.5 for pat ients with mechanical heart valves.CBC W/PLT COUNT & AUTO [id number] 05:27:00* Test Item Value Reference Range Comments WHITE BLOOD CELL COUNT (BEAKER) (test vvhn=837) 3.2 K/ L 3.5-10.5 RED BLOOD CELL COUNT (BEAKER) (test uigu=875) 2.69 M/ L 4.63-6.08 HEMOGLOBIN (BEAKER) (test lvtq=604) 8.9 GM/DL 13.7-17.5 HEMATOCRIT (BEAKER) (test cuvc=558) 27.5 % 40.1-51.0 MEAN CORPUSCULAR VOLUME (BEAKER) (test tzke=129) 102.2 fL 79.0-92.2 MEAN CORPUSCULAR HEMOGLOBIN (BEAKER) (test gkbn=042) 33.1 pg 25.7-32.2 MEAN CORPUSCULAR HEMOGLOBIN CONC (BEAKER) (test azom=547) 32.4 GM/DL 32.3-36.5 RED CELL DISTRIBUTION WIDTH (BEAKER) (test kiyi=455) 21.4 % 11.6-14.4 PLATELET COUNT (BEAKER) (test vudf=468) 41 K/CU MM 150-450 MEAN PLATELET VOLUME (BEAKER) (test gmeu=829) 11.9 fL 9.4-12.4 NUCLEATED RED BLOOD CELLS (BEAKER) (test lrhf=576) 0 /100 WBC 0-0 NEUTROPHILS RELATIVE PERCENT (BEAKER) (test dxqc=088) 72 % LYMPHOCYTES RELATIVE PERCENT (BEAKER) (test qbrt=752) 13 % MONOCYTES RELATIVE PERCENT (BEAKER) (test yizr=120) 10 % EOSINOPHILS RELATIVE PERCENT (BEAKER) (test dole=745) 3 % BASOPHILS RELATIVE PERCENT (BEAKER) (test lgtc=965) 0 % NEUTROPHILS ABSOLUTE COUNT (BEAKER) (test yyof=702) 2.34 K/ L 1.78-5.38 LYMPHOCYTES ABSOLUTE COUNT (BEAKER) (test weip=789) 0.43 K/ L 1.32-3.57 MONOCYTES ABSOLUTE COUNT (BEAKER) (test pzwi=966) 0.32 K/ L 0.30-0.82 EOSINOPHILS ABSOLUTE COUNT (BEAKER) (test tnfv=231) 0.10 K/ L 0.04-0.54 BASOPHILS ABSOLUTE COUNT (BEAKER) (test lvtp=999) 0.01 K/ L 0.01-0.08 IMMATURE GRANULOCYTES-RELATIVE PERCENT (BEAKER) (test pyig=2104) 1 % 0-1 CALCIUM, [id number] 05:17:00* Test Item Value Reference Range Comments CALCIUM IONIZED (BEAKER) (test ysvk=152) 1.19 mmol/L 1.12-1.27 PH, BLOOD (BEAKER) (test shfq=4441) 7.36 EBV VIRAL [id number] 14:34:00* Test Item Value Reference Range Comments EBV VIRAL LOAD - NEGATIVE (BEAKER) (test ycnp=2779) Negative or below the linear range of the assay (<500 copies/mL) This assay was performed by real-time PCR for the detection of the Guerline-Acevedo virus (EBV) gene EBNA-1. The test is composed of (1) DNA extraction from patien t specimen, and (2) real-time PCR amplification and detection with WVHE-4-yioawy ic primers and probes. A well-conserved region of the EBNA-1 gene is targeted, a long with an internal control sequence used to confirm PCR amplification. Asympt omatic carriers and viral genetic variation, among other factors, can affect the accuracy of nucleic acid testing; therefore, results should be interpreted in l ight of clinical data.This test was developed and its performance characteristic s determined by the [facility]ology Department, Section of M yissel Pathology. It has not been cleared or approved by the U.S. Food and Bert g Administration (FDA), since FDA approval is not required for clinical use of t he test. Validation was done as required by The Clinical Laboratory Improvement Amendments of 1988.CMV PCR, [id number] 14:33:00* Test Item Value Reference Range Comments CMV VIRAL LOAD - NEGATIVE (BEAKER) (test dgol=5235) Negative or below the linear range of the assay (<375 copies/mL) Cytomegalovirus (CMV) infection can cause significant disease in immunosuppresse d patients. However, it is common for CMV to manifest as a limited infection whi ch is of no clinical significance in immunosuppressed patients or in healthy ind ividuals.Viral load measurements are helpful to identify clinical CMV infection and to guide the pre-emptive management of antiviral therapy. For treatment of CMV infection due to reactivation in transplant recipients, a threshold between 4,000 and 5,000 copies/mL is suggested. For treatment of primary CMV infection, a lower threshold can be used.CMV infection may also be monitored using weekly serial measurements. Serial measurements of CMV DNA viral load can be evaluated by identifying a 10-fold change, as well as assessing the CMV DNA viral load and the clinical context for each patient.The plasma CMV DNA viral load was detected using quantitative polymerase chain reaction and fluorescent monitoring of a [employer] hybridized probe. Genetic variation and other factors can affect the acc uracy of nucleic acid testing. Therefore, the results should be interpreted in l ight of clinical data. A negative result may not exclude the presence of CMV dis ease.This test was developed and its performance characteristics determined by tamiko bishop [facility]ology Department, Section of Molecular Patholog y. It has not been cleared or approved by the U.S. Food and Drug Administration (FDA), since FDA approval is not required for clinical use of the test. Validati on was done as required by The Clinical Laboratory Improvement Amendments of 198 8.BODY FLUID CULTURE + GRAM [id number] 13:47:00* Test Item Value Reference Range Comments CULTURE (BEAKER) (test ejcb=8536) No growth GRAM STAIN RESULT (BEAKER) (test vfbt=6445) <1+ WBCs GRAM STAIN RESULT (BEAKER) (test zmmp=89820) No organisms seen URINALYSIS W/ [id number] 08:10:00* Test Item Value Reference Range Comments COLOR (BEAKER) (test wani=408) Dark Yellow CLARITY (BEAKER) (test sxlw=771) Clear SPECIFIC GRAVITY UA (BEAKER) (test dbfu=011) 1.009 1.001-1.035 PH UA (BEAKER) (test vzze=212) 6.5 5.0-8.0 PROTEIN UA (BEAKER) (test wltw=651) 20 mg/dL Negative GLUCOSE UA (BEAKER) (test hvni=679) Negative Negative KETONES UA (BEAKER) (test wple=317) Negative Negative BILIRUBIN UA (BEAKER) (test bygo=317) Positive Negative BLOOD UA (BEAKER) (test cchx=585) Negative Negative NITRITE UA (BEAKER) (test eced=518) Negative Negative LEUKOCYTE ESTERASE UA (BEAKER) (test llej=020) Negative Negative UROBILINOGEN UA (BEAKER) (test asgc=088) 0.2 mg/dL 0.2-1.0 RBC UA (BEAKER) (test unbo=424) < /HPF WBC UA (BEAKER) (test hsdz=572) 2 /HPF BACTERIA (BEAKER) (test uklt=167) Occasional MUCUS (BEAKER) (test jexo=0812) Occasional SQUAMOUS EPITHELIAL (BEAKER) (test xsih=298) < /HPF HYALINE CASTS (BEAKER) (test pbjo=251) 2 /LPF SOURCE(BEAKER) (test vmfb=8723) Urine, Clean Catch HEPATIC FUNCTION [id number] 05:49:00* Test Item Value Reference Range Comments TOTAL PROTEIN (BEAKER) (test ylfi=370) 5.7 gm/dL 6.0-8.3 ALBUMIN (BEAKER) (test cbcv=1879) 3.9 g/dL 3.5-5.0 BILIRUBIN TOTAL (BEAKER) (test ivhz=654) 39.2 mg/dL 0.2-1.2 BILIRUBIN DIRECT (BEAKER) (test qatl=335) 25.4 mg/dL 0.1-0.5 ALKALINE PHOSPHATASE (BEAKER) (test gssi=181) 69 U/L 40-150 AST (SGOT) (BEAKER) (test kmca=258) 396 U/L 5-34 ALT (SGPT) (BEAKER) (test jwel=631) 177 U/L 6-55 Specimen markedly [id number] 05:46:00* Test Item Value Reference Range Comments PHOSPHORUS (BEAKER) (test vevc=581) 2.4 mg/dL 2.3-4.7 [id number] 05:46:00* Test Item Value Reference Range Comments MAGNESIUM (BEAKER) (test sobp=054) 2.1 mg/dL 1.6-2.6 BASIC METABOLIC [id number] 05:46:00* Test Item Value Reference Range Comments SODIUM (BEAKER) (test avqi=040) 143 meq/L 136-145 POTASSIUM (BEAKER) (test tcsw=672) 3.2 meq/L 3.5-5.1 CHLORIDE (BEAKER) (test imkl=222) 117 meq/L 98-107 CO2 (BEAKER) (test hazs=903) 16 meq/L 22-29 BLOOD UREA NITROGEN (BEAKER) (test mdvh=886) 24 mg/dL 7-21 CREATININE (BEAKER) (test mwpk=170) 1.28 mg/dL 0.57-1.25 GLUCOSE RANDOM (BEAKER) (test xemc=245) 114 mg/dL 70-105 CALCIUM (BEAKER) (test wcyn=512) 10.0 mg/dL 8.4-10.2 EGFR (BEAKER) (test gfmv=7271) 59 mL/min/1.73 sq m ESTIMATED GFR IS NOT ACCURATE CREATININE CLEARANCE IN PREDICTING GLOMERULAR FILTRATION RATE. ESTIMATED GFR IS NOT APPLICABLE FOR DIALYSIS PATIENTS. Specimen markedly ictericCALCIUM, [id number] 05:45:00* Test Item Value Reference Range Comments CALCIUM IONIZED (BEAKER) (test rszx=483) 1.18 mmol/L 1.12-1.27 PH, BLOOD (BEAKER) (test saqu=1010) 7.39 PROTHROMBIN [id number] 05:15:00* Test Item Value Reference Range Comments PROTIME (BEAKER) (test ycjw=569) 27.5 seconds 11.7-14.7 INR (BEAKER) (test ravr=687) 2.6 <=5.9 RECOMMENDED COUMADIN/WARFARIN INR THERAPY RANGESSTANDARD DOSE: 2.0 - 3.0 Inclu kaya: PROPHYLAXIS for venous thrombosis, systemic embolization; TREATMENT for barby ous thrombosis and/or pulmonary embolus.HIGH RISK: Target INR is 2.5-3.5 for pat ients with mechanical heart valves.CBC W/PLT COUNT & AUTO [id number] 04:53:00* Test Item Value Reference Range Comments WHITE BLOOD CELL COUNT (BEAKER) (test dfmj=260) 2.5 K/ L 3.5-10.5 RED BLOOD CELL COUNT (BEAKER) (test iyss=084) 2.63 M/ L 4.63-6.08 HEMOGLOBIN (BEAKER) (test uqvg=297) 8.6 GM/DL 13.7-17.5 HEMATOCRIT (BEAKER) (test brrj=448) 26.8 % 40.1-51.0 MEAN CORPUSCULAR VOLUME (BEAKER) (test vlvj=075) 101.9 fL 79.0-92.2 MEAN CORPUSCULAR HEMOGLOBIN (BEAKER) (test eequ=049) 32.7 pg 25.7-32.2 MEAN CORPUSCULAR HEMOGLOBIN CONC (BEAKER) (test akmu=660) 32.1 GM/DL 32.3-36.5 RED CELL DISTRIBUTION WIDTH (BEAKER) (test lhhi=816) 21.2 % 11.6-14.4 PLATELET COUNT (BEAKER) (test voln=710) 39 K/CU MM 150-450 MEAN PLATELET VOLUME (BEAKER) (test nffu=164) 11.6 fL 9.4-12.4 NUCLEATED RED BLOOD CELLS (BEAKER) (test fdsd=375) 0 /100 WBC 0-0 NEUTROPHILS RELATIVE PERCENT (BEAKER) (test pzcg=432) 71 % LYMPHOCYTES RELATIVE PERCENT (BEAKER) (test ssia=894) 14 % MONOCYTES RELATIVE PERCENT (BEAKER) (test cgvp=073) 9 % EOSINOPHILS RELATIVE PERCENT (BEAKER) (test ybyz=179) 3 % BASOPHILS RELATIVE PERCENT (BEAKER) (test ecrg=213) 0 % NEUTROPHILS ABSOLUTE COUNT (BEAKER) (test dfdl=419) 1.75 K/ L 1.78-5.38 LYMPHOCYTES ABSOLUTE COUNT (BEAKER) (test koft=510) 0.34 K/ L 1.32-3.57 MONOCYTES ABSOLUTE COUNT (BEAKER) (test fciu=950) 0.22 K/ L 0.30-0.82 EOSINOPHILS ABSOLUTE COUNT (BEAKER) (test uktp=232) 0.08 K/ L 0.04-0.54 BASOPHILS ABSOLUTE COUNT (BEAKER) (test oagj=346) 0.01 K/ L 0.01-0.08 IMMATURE GRANULOCYTES-RELATIVE PERCENT (BEAKER) (test qpmr=0538) 2 % 0-1 BLOOD [id number] 00:00:00* Test Item Value Reference Range Comments CULTURE (BEAKER) (test saph=0019) No growth in 5 days BLOOD [id number] 00:00:00* Test Item Value Reference Range Comments CULTURE (BEAKER) (test bdmk=1435) No growth in 5 days BODY FLUID CELL COUNT WITH [id number] 18:39:00* Test Item Value Reference Range Comments APPEARANCE FLUID (BEAKER) (test cjqr=366) Clear Clear COLOR FLUID (BEAKER) (test xakv=545) Yellow Colorless, Straw RBC FLUID (BEAKER) (test ndan=209) 420 /cu mm <=1 ADJUSTED WBC FLUID (BEAKER) (test gvxw=9308) 123 /cu mm <=5 LINING CELLS (BEAKER) (test ujqd=7750) 5 /cu mm <=1 NEUTROPHILS FLUID (BEAKER) (test pqac=8401) 20 % LYMPHS FLUID (BEAKER) (test azcu=150) 30 % MONO/MACROPHAGE FLUID (BEAKER) (test svxl=559) 50 % EOSINOPHILS FLUID (BEAKER) (test czan=135) 0 % BASO FLUID (BEAKER) (test ajgp=529) 0 % CONTAINER BODY FLUID (BEAKER) (test ysbf=6794) EDTA Tube U/S, [id number] 16:46:00Referring:Dr. Marciano Villa for exam:-> ascites leakage from para site; need to remove max 4L (renal issues) for pressur e reliefFINAL REPORT Procedure: Ultrasound Guided Paracentesis: Pre procedure Diagnosis: Ascites Post procedure Diagnosis: Same Sedation: None Local anesthesia: 1% Xylocaine. Description/findings: The risks, benefits, and alternatives of the procedure were explained. Questions were answered, and informed, written consent was then obtained. The right lower quadrant was prepped and draped and local anesthesia given. A 5 F paracentesis catheter was inserted into the peritoneal space and 4000 cc of clear moise- colored ascites was aspirated. Specimen were collected for the lab. No immediate complications were noted. Estimated blood loss: none. Impression: Uncomplicated ultrasound-guided paracentesis Signed: Luis Armando Vasquez MDReport Verified Date/Time: 11/26/2017 16:46:12 Reading Location: [facility] B1 [id number] [facility] Consult Reading Room OMYCIN LEVEL, [id number] 11:10:00* Test Item Value Reference Range Comments VANCOMYCIN TROUGH (BEAKER) (test smxp=614) 17.9 ug/mL 10.0-20.0 COMPREHENSIVE METABOLIC [id number] 07:36:00* Test Item Value Reference Range Comments TOTAL PROTEIN (BEAKER) (test aoim=933) 5.6 gm/dL 6.0-8.3 ALBUMIN (BEAKER) (test xoxq=4378) 3.7 g/dL 3.5-5.0 ALKALINE PHOSPHATASE (BEAKER) (test rbfi=207) 64 U/L 40-150 BILIRUBIN TOTAL (BEAKER) (test unzv=428) 40.8 mg/dL 0.2-1.2 SODIUM (BEAKER) (test wewr=122) 143 meq/L 136-145 POTASSIUM (BEAKER) (test buuv=055) 3.2 meq/L 3.5-5.1 CHLORIDE (BEAKER) (test jtge=302) 119 meq/L 98-107 CO2 (BEAKER) (test xucl=152) 16 meq/L 22-29 BLOOD UREA NITROGEN (BEAKER) (test clbc=350) 27 mg/dL 7-21 CREATININE (BEAKER) (test ylxw=836) 1.42 mg/dL 0.57-1.25 GLUCOSE RANDOM (BEAKER) (test dcta=172) 98 mg/dL 70-105 CALCIUM (BEAKER) (test qijb=751) 9.8 mg/dL 8.4-10.2 AST (SGOT) (BEAKER) (test sfpi=108) 420 U/L 5-34 ALT (SGPT) (BEAKER) (test asik=382) 177 U/L 6-55 EGFR (BEAKER) (test xtmd=6609) 53 mL/min/1.73 sq m ESTIMATED GFR IS NOT ACCURATE CREATININE CLEARANCE IN PREDICTING GLOMERULAR FILTRATION RATE. ESTIMATED GFR IS NOT APPLICABLE FOR DIALYSIS PATIENTS. Specimen markedly ictericHEPATIC FUNCTION [id number] 07:36:00* Test Item Value Reference Range Comments TOTAL PROTEIN (BEAKER) (test ekvv=167) 5.6 gm/dL 6.0-8.3 ALBUMIN (BEAKER) (test fpdb=8214) 3.7 g/dL 3.5-5.0 BILIRUBIN TOTAL (BEAKER) (test vhhi=487) 40.8 mg/dL 0.2-1.2 BILIRUBIN DIRECT (BEAKER) (test deum=244) 27.2 mg/dL 0.1-0.5 ALKALINE PHOSPHATASE (BEAKER) (test uvnb=530) 64 U/L 40-150 AST (SGOT) (BEAKER) (test lsbx=051) 420 U/L 5-34 ALT (SGPT) (BEAKER) (test flap=863) 177 U/L 6-55 Specimen markedly [id number] 07:15:00* Test Item Value Reference Range Comments MAGNESIUM (BEAKER) (test cqfi=130) 1.7 mg/dL 1.6-2.6 PROTHROMBIN [id number] 06:41:00* Test Item Value Reference Range Comments PROTIME (BEAKER) (test bklz=952) 26.7 seconds 11.7-14.7 INR (BEAKER) (test mgcb=094) 2.5 <=5.9 RECOMMENDED COUMADIN/WARFARIN INR THERAPY RANGESSTANDARD DOSE: 2.0 - 3.0 Inclu kaya: PROPHYLAXIS for venous thrombosis, systemic embolization; TREATMENT for barby ous thrombosis and/or pulmonary embolus.HIGH RISK: Target INR is 2.5-3.5 for pat ients with mechanical heart valves.CBC W/PLT COUNT & AUTO [id number] 06:38:00* Test Item Value Reference Range Comments WHITE BLOOD CELL COUNT (BEAKER) (test murc=374) 2.3 K/ L 3.5-10.5 RED BLOOD CELL COUNT (BEAKER) (test ebjc=977) 2.57 M/ L 4.63-6.08 HEMOGLOBIN (BEAKER) (test zmov=975) 8.6 GM/DL 13.7-17.5 HEMATOCRIT (BEAKER) (test iytg=431) 25.8 % 40.1-51.0 MEAN CORPUSCULAR VOLUME (BEAKER) (test mddi=712) 100.4 fL 79.0-92.2 MEAN CORPUSCULAR HEMOGLOBIN (BEAKER) (test hzeg=798) 33.5 pg 25.7-32.2 MEAN CORPUSCULAR HEMOGLOBIN CONC (BEAKER) (test ilxo=139) 33.3 GM/DL 32.3-36.5 RED CELL DISTRIBUTION WIDTH (BEAKER) (test wisf=661) 21.2 % 11.6-14.4 PLATELET COUNT (BEAKER) (test tzkd=226) 26 K/CU MM 150-450 MEAN PLATELET VOLUME (BEAKER) (test ggqu=611) fL 9.4-12.4 Unable to report due to abnormal Platelet population distribution. NUCLEATED RED BLOOD CELLS (BEAKER) (test kkii=416) 0 /100 WBC 0-0 NEUTROPHILS RELATIVE PERCENT (BEAKER) (test brfc=008) 70 % LYMPHOCYTES RELATIVE PERCENT (BEAKER) (test unsx=282) 17 % MONOCYTES RELATIVE PERCENT (BEAKER) (test rtwp=686) 8 % EOSINOPHILS RELATIVE PERCENT (BEAKER) (test bwpq=142) 3 % BASOPHILS RELATIVE PERCENT (BEAKER) (test ejht=937) 0 % NEUTROPHILS ABSOLUTE COUNT (BEAKER) (test btbh=194) 1.57 K/ L 1.78-5.38 LYMPHOCYTES ABSOLUTE COUNT (BEAKER) (test dvfq=709) 0.38 K/ L 1.32-3.57 MONOCYTES ABSOLUTE COUNT (BEAKER) (test grdd=262) 0.19 K/ L 0.30-0.82 EOSINOPHILS ABSOLUTE COUNT (BEAKER) (test hunc=498) 0.07 K/ L 0.04-0.54 BASOPHILS ABSOLUTE COUNT (BEAKER) (test zcxw=382) 0.01 K/ L 0.01-0.08 IMMATURE GRANULOCYTES-RELATIVE PERCENT (BEAKER) (test hawd=5890) 1 % 0-1 HEPATIC FUNCTION [id number] 09:07:00* Test Item Value Reference Range Comments TOTAL PROTEIN (BEAKER) (test bukf=288) 6.4 gm/dL 6.0-8.3 ALBUMIN (BEAKER) (test ztwa=6625) 4.1 g/dL 3.5-5.0 BILIRUBIN TOTAL (BEAKER) (test ajlc=124) 45.2 mg/dL 0.2-1.2 BILIRUBIN DIRECT (BEAKER) (test twvw=733) 28.7 mg/dL 0.1-0.5 ALKALINE PHOSPHATASE (BEAKER) (test eetz=172) 77 U/L 40-150 AST (SGOT) (BEAKER) (test kjpj=248) 404 U/L 5-34 ALT (SGPT) (BEAKER) (test zmfn=618) 170 U/L 6-55 Specimen markedly ictericCOMPREHENSIVE METABOLIC [id number] 09:02:00* Test Item Value Reference Range Comments TOTAL PROTEIN (BEAKER) (test ozqz=407) 6.4 gm/dL 6.0-8.3 ALBUMIN (BEAKER) (test sgra=8853) 4.1 g/dL 3.5-5.0 ALKALINE PHOSPHATASE (BEAKER) (test jpdx=977) 77 U/L 40-150 BILIRUBIN TOTAL (BEAKER) (test mfba=228) 45.2 mg/dL 0.2-1.2 SODIUM (BEAKER) (test zbjh=631) 142 meq/L 136-145 POTASSIUM (BEAKER) (test vrlw=179) 3.7 meq/L 3.5-5.1 CHLORIDE (BEAKER) (test wyim=715) 118 meq/L 98-107 CO2 (BEAKER) (test syeq=637) 16 meq/L 22-29 BLOOD UREA NITROGEN (BEAKER) (test lenl=503) 30 mg/dL 7-21 CREATININE (BEAKER) (test iopd=681) 1.63 mg/dL 0.57-1.25 GLUCOSE RANDOM (BEAKER) (test foxo=561) 104 mg/dL 70-105 CALCIUM (BEAKER) (test klwk=311) 10.1 mg/dL 8.4-10.2 AST (SGOT) (BEAKER) (test boju=623) 404 U/L 5-34 ALT (SGPT) (BEAKER) (test vdhx=606) 170 U/L 6-55 EGFR (BEAKER) (test rsce=2246) 45 mL/min/1.73 sq m ESTIMATED GFR IS NOT ACCURATE CREATININE CLEARANCE IN PREDICTING GLOMERULAR FILTRATION RATE. ESTIMATED GFR IS NOT APPLICABLE FOR DIALYSIS PATIENTS. Specimen markedly [id number] 08:59:00* Test Item Value Reference Range Comments PHOSPHORUS (BEAKER) (test ooja=474) 1.9 mg/dL 2.3-4.7 [id number] 08:59:00* Test Item Value Reference Range Comments MAGNESIUM (BEAKER) (test fgpo=069) 2.0 mg/dL 1.6-2.6 PROTHROMBIN TIME/[id number] 06:52:00* Test Item Value Reference Range Comments PROTIME (BEAKER) (test lrra=147) 25.4 seconds 11.7-14.7 INR (BEAKER) (test jpve=753) 2.3 <=5.9 RECOMMENDED COUMADIN/WARFARIN INR THERAPY RANGESSTANDARD DOSE: 2.0 - 3.0 Inclu kaya: PROPHYLAXIS for venous thrombosis, systemic embolization; TREATMENT for barby ous thrombosis and/or pulmonary embolus.HIGH RISK: Target INR is 2.5-3.5 for pat ients with mechanical heart valves.CALCIUM, [id number] 06:32:00* Test Item Value Reference Range Comments CALCIUM IONIZED (BEAKER) (test ngst=749) 1.26 mmol/L 1.12-1.27 PH, BLOOD (BEAKER) (test fjqz=6963) 7.35 CBC W/PLT COUNT & AUTO [id number] 05:40:00* Test Item Value Reference Range Comments WHITE BLOOD CELL COUNT (BEAKER) (test vvlc=286) 3.2 K/ L 3.5-10.5 RED BLOOD CELL COUNT (BEAKER) (test lrou=695) 2.92 M/ L 4.63-6.08 HEMOGLOBIN (BEAKER) (test gozp=593) 9.5 GM/DL 13.7-17.5 HEMATOCRIT (BEAKER) (test uant=502) 29.4 % 40.1-51.0 MEAN CORPUSCULAR VOLUME (BEAKER) (test cvcd=029) 100.7 fL 79.0-92.2 MEAN CORPUSCULAR HEMOGLOBIN (BEAKER) (test blvb=558) 32.5 pg 25.7-32.2 MEAN CORPUSCULAR HEMOGLOBIN CONC (BEAKER) (test vraq=234) 32.3 GM/DL 32.3-36.5 RED CELL DISTRIBUTION WIDTH (BEAKER) (test medg=160) 21.6 % 11.6-14.4 PLATELET COUNT (BEAKER) (test jico=547) 39 K/CU MM 150-450 MEAN PLATELET VOLUME (BEAKER) (test eohq=388) 12.1 fL 9.4-12.4 NUCLEATED RED BLOOD CELLS (BEAKER) (test zgec=136) 0 /100 WBC 0-0 NEUTROPHILS RELATIVE PERCENT (BEAKER) (test zivw=311) 71 % LYMPHOCYTES RELATIVE PERCENT (BEAKER) (test tkyx=060) 18 % MONOCYTES RELATIVE PERCENT (BEAKER) (test qkxj=877) 7 % EOSINOPHILS RELATIVE PERCENT (BEAKER) (test ttgq=987) 3 % BASOPHILS RELATIVE PERCENT (BEAKER) (test zjkj=406) 0 % NEUTROPHILS ABSOLUTE COUNT (BEAKER) (test fizj=790) 2.28 K/ L 1.78-5.38 LYMPHOCYTES ABSOLUTE COUNT (BEAKER) (test tlfv=149) 0.59 K/ L 1.32-3.57 MONOCYTES ABSOLUTE COUNT (BEAKER) (test nzzl=867) 0.23 K/ L 0.30-0.82 EOSINOPHILS ABSOLUTE COUNT (BEAKER) (test lwaj=602) 0.08 K/ L 0.04-0.54 BASOPHILS ABSOLUTE COUNT (BEAKER) (test vfsx=346) 0.01 K/ L 0.01-0.08 IMMATURE GRANULOCYTES-RELATIVE PERCENT (BEAKER) (test usxa=2469) 1 % 0-1 BODY FLUID CELL COUNT WITH [id number] 19:45:00* Test Item Value Reference Range Comments APPEARANCE FLUID (BEAKER) (test kajf=231) Hazy Clear COLOR FLUID (BEAKER) (test bqtr=100) Yellow Colorless, Straw RBC FLUID (BEAKER) (test wqsk=507) 880 /cu mm <=1 ADJUSTED WBC FLUID (BEAKER) (test syoy=9843) 70 /cu mm <=5 LINING CELLS (BEAKER) (test enfp=5722) 0 /cu mm <=1 NEUTROPHILS FLUID (BEAKER) (test oput=2051) 51 % LYMPHS FLUID (BEAKER) (test adpr=787) 25 % MONO/MACROPHAGE FLUID (BEAKER) (test xoxn=337) 24 % EOSINOPHILS FLUID (BEAKER) (test nwem=874) 0 % BASO FLUID (BEAKER) (test qilh=632) 0 % CONTAINER BODY FLUID (BEAKER) (test vwel=5156) EDTA Tube U/S, [id number] 14:18:00Referring:Dr. Marciano Guerreromit fluid removal to no more than 5 liters.Reason for exam:->ascites, abdominal distentionFINAL REPORT Indication: Ascites. Technique: Ultrasound guided paracentesis. Findings:Preliminary ultrasound confirms ascites. A safe window was identified in the right lower quadrant. The procedure was explained to the patient and informed consent was signed. The skin was marked and prepped in s tandard sterile fashion. Lidocaine was used for local anesthesia. A 5 [place] nee dle catheter system was advanced into the peritoneal space. 4500 cc moise-colore d fluid was taken off. Patient tolerated the procedure well. Impression: Ultraso und guided paracentesis. Signed: Gita Zieglereport Verified Date/Time: 11/24/2017 14:18:55 Reading Location: [address] Ultrasound Reading Room Elect ronically signed by: GITA ZIEGLER M.D. on 11/24/2017 02:18 PM CALCIUM, [id number] 07:30:00* Test Item Value Reference Range Comments CALCIUM IONIZED (BEAKER) (test aemc=943) 1.20 mmol/L 1.12-1.27 PH, BLOOD (BEAKER) (test xzdu=2960) 7.37 HEPATIC FUNCTION [id number] 06:18:00* Test Item Value Reference Range Comments TOTAL PROTEIN (BEAKER) (test ltwt=199) 6.0 gm/dL 6.0-8.3 ALBUMIN (BEAKER) (test aeun=9726) 3.8 g/dL 3.5-5.0 BILIRUBIN TOTAL (BEAKER) (test avgp=116) 43.7 mg/dL 0.2-1.2 BILIRUBIN DIRECT (BEAKER) (test lgzh=454) 29.2 mg/dL 0.1-0.5 ALKALINE PHOSPHATASE (BEAKER) (test bwxz=307) 78 U/L 40-150 AST (SGOT) (BEAKER) (test deqb=061) 347 U/L 5-34 ALT (SGPT) (BEAKER) (test vhpr=448) 162 U/L 6-55 Specimen markedly ictericCOMPREHENSIVE METABOLIC [id number] 06:18:00* Test Item Value Reference Range Comments TOTAL PROTEIN (BEAKER) (test hgre=960) 6.0 gm/dL 6.0-8.3 ALBUMIN (BEAKER) (test dglb=7105) 3.8 g/dL 3.5-5.0 ALKALINE PHOSPHATASE (BEAKER) (test gori=796) 78 U/L 40-150 BILIRUBIN TOTAL (BEAKER) (test rtid=586) 43.7 mg/dL 0.2-1.2 SODIUM (BEAKER) (test zzvk=266) 141 meq/L 136-145 POTASSIUM (BEAKER) (test mhwd=273) 3.1 meq/L 3.5-5.1 CHLORIDE (BEAKER) (test wjsm=024) 114 meq/L 98-107 CO2 (BEAKER) (test vcii=387) 18 meq/L 22-29 BLOOD UREA NITROGEN (BEAKER) (test eiiu=019) 31 mg/dL 7-21 CREATININE (BEAKER) (test zngm=724) 1.72 mg/dL 0.57-1.25 GLUCOSE RANDOM (BEAKER) (test hojb=431) 91 mg/dL 70-105 CALCIUM (BEAKER) (test wvcf=625) 9.9 mg/dL 8.4-10.2 AST (SGOT) (BEAKER) (test jmnk=146) 347 U/L 5-34 ALT (SGPT) (BEAKER) (test jqhh=303) 162 U/L 6-55 EGFR (BEAKER) (test cekx=1864) 42 mL/min/1.73 sq m ESTIMATED GFR IS NOT ACCURATE CREATININE CLEARANCE IN PREDICTING GLOMERULAR FILTRATION RATE. ESTIMATED GFR IS NOT APPLICABLE FOR DIALYSIS PATIENTS. Specimen markedly [id number] 06:11:00* Test Item Value Reference Range Comments PHOSPHORUS (BEAKER) (test gmuq=781) 2.5 mg/dL 2.3-4.7 [id number] 06:11:00* Test Item Value Reference Range Comments MAGNESIUM (BEAKER) (test kkov=197) 2.1 mg/dL 1.6-2.6 PROTHROMBIN TIME/[id number] 06:00:00* Test Item Value Reference Range Comments PROTIME (BEAKER) (test uzzn=469) 26.1 seconds 11.7-14.7 INR (BEAKER) (test ysha=532) 2.4 <=5.9 RECOMMENDED COUMADIN/WARFARIN INR THERAPY RANGESSTANDARD DOSE: 2.0 - 3.0 Inclu kaya: PROPHYLAXIS for venous thrombosis, systemic embolization; TREATMENT for barby ous thrombosis and/or pulmonary embolus.HIGH RISK: Target INR is 2.5-3.5 for pat ients with mechanical heart valves.CBC W/PLT COUNT & AUTO [id number] 05:38:00* Test Item Value Reference Range Comments WHITE BLOOD CELL COUNT (BEAKER) (test cgyr=760) 3.1 K/ L 3.5-10.5 RED BLOOD CELL COUNT (BEAKER) (test uinc=438) 2.86 M/ L 4.63-6.08 HEMOGLOBIN (BEAKER) (test nmjq=504) 9.3 GM/DL 13.7-17.5 HEMATOCRIT (BEAKER) (test fpjt=481) 28.0 % 40.1-51.0 MEAN CORPUSCULAR VOLUME (BEAKER) (test vjzv=877) 97.9 fL 79.0-92.2 MEAN CORPUSCULAR HEMOGLOBIN (BEAKER) (test xsjb=846) 32.5 pg 25.7-32.2 MEAN CORPUSCULAR HEMOGLOBIN CONC (BEAKER) (test tpfj=816) 33.2 GM/DL 32.3-36.5 RED CELL DISTRIBUTION WIDTH (BEAKER) (test pvmh=953) 21.4 % 11.6-14.4 PLATELET COUNT (BEAKER) (test mtzr=245) 41 K/CU MM 150-450 MEAN PLATELET VOLUME (BEAKER) (test izzv=687) 11.4 fL 9.4-12.4 NUCLEATED RED BLOOD CELLS (BEAKER) (test qkgl=881) 0 /100 WBC 0-0 NEUTROPHILS RELATIVE PERCENT (BEAKER) (test wszn=126) 70 % LYMPHOCYTES RELATIVE PERCENT (BEAKER) (test vhra=020) 17 % MONOCYTES RELATIVE PERCENT (BEAKER) (test hflt=372) 7 % EOSINOPHILS RELATIVE PERCENT (BEAKER) (test zoew=275) 3 % BASOPHILS RELATIVE PERCENT (BEAKER) (test rtby=133) 0 % NEUTROPHILS ABSOLUTE COUNT (BEAKER) (test zsds=969) 2.18 K/ L 1.78-5.38 LYMPHOCYTES ABSOLUTE COUNT (BEAKER) (test kgei=562) 0.53 K/ L 1.32-3.57 MONOCYTES ABSOLUTE COUNT (BEAKER) (test makx=588) 0.23 K/ L 0.30-0.82 EOSINOPHILS ABSOLUTE COUNT (BEAKER) (test qxac=334) 0.09 K/ L 0.04-0.54 BASOPHILS ABSOLUTE COUNT (BEAKER) (test dptn=491) 0.01 K/ L 0.01-0.08 IMMATURE GRANULOCYTES-RELATIVE PERCENT (BEAKER) (test ndpf=3915) 2 % 0-1 U/S, DUPLEX, [id number] 23:42:00Referring:Dr. Marciano Villa for exam:-> assess portal vein patencyShould this be performed at the bedside?->NoFINAL REPORT Ultrasound of the Abdomen, 11/23/2017. Clinical History: Assess portal vein patency. Comparison: 09/20/2017. Discussion:Sono graphic evaluation of the abdomen is performed. In addition, color Doppler and spectral wave form analysis evaluations of the abdominal vasculature are perform ed. Liver: 11.0 cm in length at the right midclavicular line, cirrhotic morpho logy. No appreciable mass. Biliary tree: Common duct 8 mm. No biliary dilata tion. Gallbladder: Biliary sludge present. No gallstones. No wall thickening. No pericholecystic fluid. Absent sonographic Gaytan sign. Pancreas: Obscured by bowel gas. Ascites: Small-moderate ascites. Spleen: 25 cm in length, enlarged. Kidneys: Right kidney 11.0 cm in length, normal in size, with cortical th ickness of 1.6 cm. Left kidney 10.7 cm in length, normal in size, with cortical thickness of 1.6 cm. Normal cortical echogenicity. No mass. No shadowing adilson culus. No hydronephrosis. IVC/Aorta: Segments partially seen. Unremarkable. D oppler: Doppler interrogation of the liver demonstrates a main portal vein diame ter measuring 1.6 cm with a peak systolic velocity of 26 cm/sec. Hepatopetal inf low is seen in the right, left, main portal and splenic veins. The resistive in dices in the proper, right and left hepatic arteries are 0.7, 0.7 and 0.7 respec tively. Outflow with appropriate directionality is seen in the IVC, hepatic veno us confluence as well as the right, middle and left hepatic veins. Impression:1. Cirrhotic liver.2. Unremarkable Doppler interrogation of the hepatic vasculatur e.3. Ascites and splenomegaly. Signed: Michael Gutierrez Verified Date/Ti me: 11/23/2017 23:42:53 Reading Location: [address] Consult Reading Room El ectronically signed by: MICHAEL GUTIERREZ M.D. on 11/23/2017 11:42 PM U/S, ABDOMINAL, [id number] 23:42:00Referring:Dr. Marciano Zelaya Abdomen limited area? Add comment if clarification is needed.->Right upper quadrant Reason for exam:->ASSESS PORTAL VEIN PATENCYFINAL REPORT Ultrasound of the Abdomen, 11/23/2017. Clinical History: Assess portal vein patency. Comparison: 09/20/2017. Discussion:Sonographic evaluation of the abdomen is performed. In addition, color Doppler and spectral wave form analysis evaluations of the abdominal vasculature are performed. Liver: 11.0 cm in length at the right midclavicular line, cirrhotic morphology. No appreciable mass. Biliary tree: Common duct 8 mm. No biliary dilatation. Gallbladder: Biliary sludge present. No gallstones. No wall thickening. No pericholecystic fluid. Absent sonographic Gaytan sign. Pancreas: Obscured by bowel gas. Ascites: Small-moderate ascites. Spleen: 25 cm in length, enlarged. Kidneys: Right kidney 11.0 cm in length, normal in size, with cortical thickness of 1.6 cm. Left kidney 10.7 cm in length, normal in size, with cortical thickness of 1.6 cm. Normal cortical echogenicity. No mass. No shadowing calculus. No hydronephrosis. IVC/Aorta: Segments partially seen. Unremarkable. Doppler: Doppler interrogation of the liver demonstrates a main portal vein diameter measuring 1.6 cm with a peak systolic velocity of 26 cm/sec. Hepatopetal inflow is seen in the right, left, main portal and splenic veins. The resistive in dices in the proper, right and left hepatic arteries are 0.7, 0.7 and 0.7 respec tively. Outflow with appropriate directionality is seen in the IVC, hepatic veno us confluence as well as the right, middle and left hepatic veins. Impression:1. Cirrhotic liver.2. Unremarkable Doppler interrogation of the hepatic vasculatur e.3. Ascites and splenomegaly. Signed: Michael Gutierrezeport Verified Date/Ti me: 11/23/2017 23:42:53 Reading Location: [facility] C013[facility] Reading Room El ectronically signed by: MICHAEL GUTIERREZ M.D. on 11/23/2017 11:42 PM C[facility] [id number] 18:27:00* Test Item Value Reference Range Comments CDT TOXIN (test lwep=[id number]) Negative Negative CDT GDH ANTIGEN (test hthn=[id number]) Negative Negative No indication of Clostridium difficile infection and no colonization. Discontinue enteric isolation and therapy. Testing performed by [employer] Rapid Cassette Assay. For GDH, published sensitivity of the assay is 98.7% compared to cytotoxicity testing. For Toxin AB, published sensitivity is 87.8% and specificity 99.4% compared to cytotoxicity testing.Ve rification of kit performance was done by the [facility] Microbiology Lab prior to cl inical use.URINE [id number] 09:49:00* Test Item Value Reference Range Comments CULTURE (BEAKER) (test jrsh=2512) No growth COMPREHENSIVE METABOLIC [id number] 07:24:00* Test Item Value Reference Range Comments TOTAL PROTEIN (BEAKER) (test yeoo=116) 5.8 gm/dL 6.0-8.3 ALBUMIN (BEAKER) (test jikv=7920) 3.5 g/dL 3.5-5.0 ALKALINE PHOSPHATASE (BEAKER) (test tirm=673) 75 U/L 40-150 BILIRUBIN TOTAL (BEAKER) (test pigm=584) 38.9 mg/dL 0.2-1.2 SODIUM (BEAKER) (test flhr=415) 138 meq/L 136-145 POTASSIUM (BEAKER) (test ldfm=744) 3.6 meq/L 3.5-5.1 CHLORIDE (BEAKER) (test sjej=750) 114 meq/L 98-107 CO2 (BEAKER) (test tiir=966) 16 meq/L 22-29 BLOOD UREA NITROGEN (BEAKER) (test crrb=530) 32 mg/dL 7-21 CREATININE (BEAKER) (test jlnp=365) 1.88 mg/dL 0.57-1.25 GLUCOSE RANDOM (BEAKER) (test cfdy=866) 92 mg/dL 70-105 CALCIUM (BEAKER) (test aeiv=841) 9.4 mg/dL 8.4-10.2 AST (SGOT) (BEAKER) (test dtwk=651) 245 U/L 5-34 ALT (SGPT) (BEAKER) (test pfjk=332) 130 U/L 6-55 EGFR (BEAKER) (test xmfd=0291) 38 mL/min/1.73 sq m ESTIMATED GFR IS NOT ACCURATE CREATININE CLEARANCE IN PREDICTING GLOMERULAR FILTRATION RATE. ESTIMATED GFR IS NOT APPLICABLE FOR DIALYSIS PATIENTS. Specimen markedly [id number] 07:22:00* Test Item Value Reference Range Comments PHOSPHORUS (BEAKER) (test ighi=137) 2.7 mg/dL 2.3-4.7 [id number] 07:22:00* Test Item Value Reference Range Comments MAGNESIUM (BEAKER) (test gixy=163) 2.3 mg/dL 1.6-2.6 PROTHROMBIN TIME/[id number] 07:02:00* Test Item Value Reference Range Comments PROTIME (BEAKER) (test zzxm=024) 30.0 seconds 11.7-14.7 INR (BEAKER) (test vmlu=352) 2.9 <=5.9 RECOMMENDED COUMADIN/WARFARIN INR THERAPY RANGESSTANDARD DOSE: 2.0 - 3.0 Inclu kaya: PROPHYLAXIS for venous thrombosis, systemic embolization; TREATMENT for barby ous thrombosis and/or pulmonary embolus.HIGH RISK: Target INR is 2.5-3.5 for pat ients with mechanical heart valves.CBC W/PLT COUNT & AUTO [id number] 07:01:00* Test Item Value Reference Range Comments WHITE BLOOD CELL COUNT (BEAKER) (test osuh=167) 3.1 K/ L 3.5-10.5 RED BLOOD CELL COUNT (BEAKER) (test xhql=782) 2.71 M/ L 4.63-6.08 HEMOGLOBIN (BEAKER) (test uswa=463) 8.8 GM/DL 13.7-17.5 HEMATOCRIT (BEAKER) (test kslc=325) 26.6 % 40.1-51.0 MEAN CORPUSCULAR VOLUME (BEAKER) (test pfrc=246) 98.2 fL 79.0-92.2 MEAN CORPUSCULAR HEMOGLOBIN (BEAKER) (test ifqc=962) 32.5 pg 25.7-32.2 MEAN CORPUSCULAR HEMOGLOBIN CONC (BEAKER) (test dcvp=476) 33.1 GM/DL 32.3-36.5 RED CELL DISTRIBUTION WIDTH (BEAKER) (test sule=876) 21.4 % 11.6-14.4 PLATELET COUNT (BEAKER) (test nxvk=723) 34 K/CU MM 150-450 MEAN PLATELET VOLUME (BEAKER) (test onpf=925) 11.5 fL 9.4-12.4 NUCLEATED RED BLOOD CELLS (BEAKER) (test nqnl=076) 0 /100 WBC 0-0 NEUTROPHILS RELATIVE PERCENT (BEAKER) (test wfaj=702) 69 % LYMPHOCYTES RELATIVE PERCENT (BEAKER) (test erdj=578) 20 % MONOCYTES RELATIVE PERCENT (BEAKER) (test ouuu=932) 6 % EOSINOPHILS RELATIVE PERCENT (BEAKER) (test fpjh=362) 3 % BASOPHILS RELATIVE PERCENT (BEAKER) (test rqlj=850) 1 % NEUTROPHILS ABSOLUTE COUNT (BEAKER) (test ziwn=979) 2.16 K/ L 1.78-5.38 LYMPHOCYTES ABSOLUTE COUNT (BEAKER) (test oumh=455) 0.61 K/ L 1.32-3.57 MONOCYTES ABSOLUTE COUNT (BEAKER) (test hbhy=012) 0.19 K/ L 0.30-0.82 EOSINOPHILS ABSOLUTE COUNT (BEAKER) (test txpm=146) 0.09 K/ L 0.04-0.54 BASOPHILS ABSOLUTE COUNT (BEAKER) (test hsai=343) 0.02 K/ L 0.01-0.08 IMMATURE GRANULOCYTES-RELATIVE PERCENT (BEAKER) (test cood=1737) 2 % 0-1 CALCIUM, [id number] 06:37:00* Test Item Value Reference Range Comments CALCIUM IONIZED (BEAKER) (test owmy=812) 1.14 mmol/L 1.12-1.27 PH, BLOOD (BEAKER) (test klzq=8964) 7.41 RAD, MANDIBLE, MIN 4 [id number] 22:18:00Referring:Dr. Marciano Villa for exam:->r/u infection/ abcess. pre transplant evalFINAL REPORT INDICATION: r/u infection/ abcess. pre transplant eval COMPARISON: August 16, 2017 TECHNIQUE: Frontal, oblique and submental vertex, and lateral views of the mandible. FINDINGS:The mandible is intact. The temporomandibular joints are normally aligned. There are no periapical lucencies. Stable, multifocal dental amalgam. IMPRESSION: Intact mandible. Signed: KlingJR smalls Robert MDReport Verified Date/Time: 11/22/2017 22:18:21 Reading Location: [facility] B1 C013Y CT Body Reading Room , SINUS, WITHOUT IV [id number] 22:02:00Referring:Dr. Marciano Villa for exam:->rhinorrhea, evaluate for infection, hyperbilirubinemia, listed for OLTFINAL REPORT EXAM: CT SINUS WITHOUT CONTRAST INDICATION: rhinorrhea, evaluate for infection, hyperbilirubinemia, listed for OLT TECHNIQUE: Axial CT images are obtained through the paranasal sinuses without intravenous contrast. Coronal and sagittal reformatted images are provided. DOSE REDUCTION: Dose modulation, iterative reconstruction, and/or weight-based adjustment of the mA/kV was utilized to reduce the radiation dose to as low as reasonably achievable. COMPARISON: None FINDINGS:Single mucosal polyp versus retention cyst noted in the left maxillary chamber. There is no evidence of acute or chronic sinusitis. Maxillary chambers are otherwise clear. The ostiomeatal complexes are patent bilaterally. Anterior ethmoid air cells are well pneumatized. Frontal sinus and frontal sinus recesses are clear. Posterior ethmoid air cells, sphenoid chambers and sphenoid ostia are clear. Coronal reformatted images demonstrate intact appearance of the cribriform plate, fovea ethmoidalis, and anterior skull base. The nasal septum is intact, slightly deviated to the right, and but without mucosal contact with the inferior turbinate. There is no cortical thickening in the osseous structures of the paranasal sinus chambers. Included portions of the brain parenchyma are unremarkable. The mastoid air cells and middle ear cavities are clear. Temporomandibular joints are normal. Orbits are unremarkable. IMPRESSI ON: No evidence for acute or chronic sinusitis. Signed: JR Ardon Rober t MDReport Verified Date/Time: 11/22/2017 22:02:13 Reading Location: [facility] B1 C[address] Body Reading Room Electronically signed by: BLANCA ARDON on 0 11/22/2017 10:02 PM RESPIRATORY PANEL [id number] 20:19:00* Test Item Value Reference Range Comments HUMAN METAPNEUMOVIRUS (BEAKER) (test elkd=8433) Not detected Not detected, Equivocal RHINOVIRUS (BEAKER) (test bale=9321) Not detected Not detected, Equivocal INFLUENZA A (BEAKER) (test enbx=0979) Not detected Not detected, Equivocal INFLUENZA A (NO SUBTYPE) (test ezqs=6444) Not detected Not detected, Equivocal INFLUENZA A SUBTYPE H1 (BEAKER) (test slhi=6390) Not detected Not detected, Equivocal INFLUENZA A SUBTYPE H3 (BEAKER) (test qgwu=2203) Not detected Not detected, Equivocal INFLUENZA A SUBTYPE H1-2009 (BEAKER) (test duaz=7453) Not detected Not detected, Equivocal INFLUENZA B (BEAKER) (test jigr=1153) Not detected Not detected, Equivocal RESPIRATORY SYNCYTIAL VIRUS (BEAKER) (test dtth=8805) Not detected Not detected, Equivocal PARAINFLUENZA VIRUS 1 (BEAKER) (test pqmj=3741) Not detected Not detected, Equivocal PARAINFLUENZA VIRUS 2 (BEAKER) (test eluz=4536) Not detected Not detected, Equivocal PARAINFLUENZA VIRUS 3 (BEAKER) (test kgpt=3944) Not detected Not detected, Equivocal PARAINFLUENZA VIRUS 4 (BEAKER) (test zcur=0626) Not detected Not detected, Equivocal ADENOVIRUS (BEAKER) (test masz=6058) Not detected Not detected, Equivocal CORONAVIRUS 229E (BEAKER) (test yyfd=9568) Not detected Not detected, Equivocal CORONAVIRUS HKU1 (BEAKER) (test azmd=0886) Not detected Not detected, Equivocal CORONAVIRUS NL63 (BEAKER) (test wfjy=7384) Not detected Not detected, Equivocal CORONAVIRUS OC43 (BEAKER) (test vagj=0479) Not detected Not detected, Equivocal BORDETELLA PERTUSSIS (BEAKER) (test ilto=5437) Not detected Not detected, Equivocal CHLAMYDOPHILA PNEUMONIAE (BEAKER) (test pitq=4983) Not detected Not detected, Equivocal MYCOPLASMA PNEUMONIAE (BEAKER) (test khdx=6932) Not detected Not detected, Equivocal Other viruses and bacteria not targeted by this PCR panel cannot be excluded; th erefore clinical correlation and follow up of serology, culture results, and ot er molecular studies is required. The results are not intended to be used as the sole means for clinical diagnosis or patient management decisions. This sample was tested at the [facility] Molecular Diagnostics Laboratory using the [employer] Film[employer] rray Respiratory Panel. It is FDA cleared and has been verified and approved by the [facility] Diagnostics [facility] for clinical use on nasal swab specim ens. It is not FDA-cleared for use on bronchial wash/lavage samples. However, fo r this sample type, validation was performed and test characteristics were deter mined and approved, by [facility] Molecular Diagnostics laboratory for clinical use u nder the Clinical Laboratory Improvement Amendments (CLIA) of 1988 requirements. Therefore, FDA clearance is not required. This laboratory is CLIA-certified and [employer] ([employer])-accredited to perform high complexity t esting.Other viruses and bacteria not targeted by this PCR panel cannot be exclu ded; therefore clinical correlation and follow up of serology, culture results, and other molecular studies is required. The results are not intended to be used as the sole means for clinical diagnosis or patient management decisions. This sample was tested at the [facility] Molecular Diagnostics Laboratory using the [employer] FilmArray Respiratory Panel. It is FDA cleared and has been verified and appro momo by the [facility] Molecular Diagnostics [facility] for clinical use on nasal swab specimens. It is not FDA-cleared for use on bronchial wash/lavage samples. Barry jessica, for this sample type, validation was performed and test characteristics wer e determined and approved, by [facility] Molecular Diagnostics laboratory for clinica l use under the Clinical Laboratory Improvement Amendments (CLIA) of 1988 requir ements. Therefore, FDA clearance is not required. This laboratory is CLIA-certi fied and [employer] ([employer])-accredited to perform high compl exity testing.LACTIC ACID, VENOUS, WHOLE [id number] 15:19:00* Test Item Value Reference Range Comments LACTATE BLOOD VENOUS (2) (BEAKER) (test bolm=3057) 2.3 mmol/L 0.5-2.2 Effective 07/08/2015: Units/Reference Range ChangeNew: 0.5-2.2 mmol/L Previous: 5 -20 mg/dLSpecimen markedly [id number] 15:19:00* Test Item Value Reference Range Comments SODIUM (BEAKER) (test wlvh=475) 135 meq/L 136-145 POTASSIUM (BEAKER) (test pjte=379) 2.8 meq/L 3.5-5.1 CHLORIDE (BEAKER) (test pgak=476) 111 meq/L 98-107 CO2 (BEAKER) (test ycvu=978) 15 meq/L 22-29 Call [id number] FUNCTION [id number] 06:20:00* Test Item Value Reference Range Comments TOTAL PROTEIN (BEAKER) (test nobl=053) 5.6 gm/dL 6.0-8.3 ALBUMIN (BEAKER) (test eucf=6555) 3.0 g/dL 3.5-5.0 BILIRUBIN TOTAL (BEAKER) (test hcko=371) 39.0 mg/dL 0.2-1.2 BILIRUBIN DIRECT (BEAKER) (test gtow=479) 26.4 mg/dL 0.1-0.5 ALKALINE PHOSPHATASE (BEAKER) (test abyf=121) 87 U/L 40-150 AST (SGOT) (BEAKER) (test lhhm=021) 249 U/L 5-34 ALT (SGPT) (BEAKER) (test tzyp=146) 143 U/L 6-55 Specimen markedly [id number] 06:05:00* Test Item Value Reference Range Comments PHOSPHORUS (BEAKER) (test crjr=536) 3.3 mg/dL 2.3-4.7 [id number] 06:05:00* Test Item Value Reference Range Comments MAGNESIUM (BEAKER) (test oljh=196) 1.8 mg/dL 1.6-2.6 BASIC METABOLIC [id number] 06:05:00* Test Item Value Reference Range Comments SODIUM (BEAKER) (test dxze=133) 134 meq/L 136-145 POTASSIUM (BEAKER) (test ilba=151) 2.7 meq/L 3.5-5.1 CHLORIDE (BEAKER) (test hncd=549) 111 meq/L 98-107 CO2 (BEAKER) (test uczs=746) 16 meq/L 22-29 BLOOD UREA NITROGEN (BEAKER) (test deel=456) 31 mg/dL 7-21 CREATININE (BEAKER) (test vefx=007) 1.91 mg/dL 0.57-1.25 GLUCOSE RANDOM (BEAKER) (test nrql=505) 135 mg/dL 70-105 CALCIUM (BEAKER) (test mszu=833) 8.9 mg/dL 8.4-10.2 EGFR (BEAKER) (test tjty=0345) 37 mL/min/1.73 sq m ESTIMATED GFR IS NOT ACCURATE CREATININE CLEARANCE IN PREDICTING GLOMERULAR FILTRATION RATE. ESTIMATED GFR IS NOT APPLICABLE FOR DIALYSIS PATIENTS. Specimen markedly ictericPH, [id number] 05:54:00* Test Item Value Reference Range Comments PH VENOUS (BEAKER) (test rcfn=891) 7.36 7.32-7.42 CBC W/PLT COUNT & AUTO [id number] 05:30:00* Test Item Value Reference Range Comments WHITE BLOOD CELL COUNT (BEAKER) (test qalc=322) 3.3 K/ L 3.5-10.5 RED BLOOD CELL COUNT (BEAKER) (test fecj=921) 2.92 M/ L 4.63-6.08 HEMOGLOBIN (BEAKER) (test qjvc=927) 9.5 GM/DL 13.7-17.5 HEMATOCRIT (BEAKER) (test mgfl=833) 27.8 % 40.1-51.0 MEAN CORPUSCULAR VOLUME (BEAKER) (test clmo=694) 95.2 fL 79.0-92.2 MEAN CORPUSCULAR HEMOGLOBIN (BEAKER) (test zydm=332) 32.5 pg 25.7-32.2 MEAN CORPUSCULAR HEMOGLOBIN CONC (BEAKER) (test mxln=080) 34.2 GM/DL 32.3-36.5 RED CELL DISTRIBUTION WIDTH (BEAKER) (test wplu=123) 21.2 % 11.6-14.4 PLATELET COUNT (BEAKER) (test mnuw=605) 37 K/CU MM 150-450 MEAN PLATELET VOLUME (BEAKER) (test wpza=028) 10.5 fL 9.4-12.4 NUCLEATED RED BLOOD CELLS (BEAKER) (test ywph=434) 0 /100 WBC 0-0 NEUTROPHILS RELATIVE PERCENT (BEAKER) (test rbfx=682) 76 % LYMPHOCYTES RELATIVE PERCENT (BEAKER) (test zqvq=000) 16 % MONOCYTES RELATIVE PERCENT (BEAKER) (test uizv=400) 4 % EOSINOPHILS RELATIVE PERCENT (BEAKER) (test ouvx=489) 2 % BASOPHILS RELATIVE PERCENT (BEAKER) (test kpzp=229) 0 % NEUTROPHILS ABSOLUTE COUNT (BEAKER) (test sraz=264) 2.53 K/ L 1.78-5.38 LYMPHOCYTES ABSOLUTE COUNT (BEAKER) (test bsma=661) 0.52 K/ L 1.32-3.57 MONOCYTES ABSOLUTE COUNT (BEAKER) (test qldq=671) 0.14 K/ L 0.30-0.82 EOSINOPHILS ABSOLUTE COUNT (BEAKER) (test onsn=552) 0.08 K/ L 0.04-0.54 BASOPHILS ABSOLUTE COUNT (BEAKER) (test ikql=727) 0.01 K/ L 0.01-0.08 IMMATURE GRANULOCYTES-RELATIVE PERCENT (BEAKER) (test ptmg=6379) 2 % 0-1 PROTHROMBIN [id number] 05:28:00* Test Item Value Reference Range Comments PROTIME (BEAKER) (test dfge=396) 25.2 seconds 11.7-14.7 INR (BEAKER) (test zsrx=395) 2.3 <=5.9 RECOMMENDED COUMADIN/WARFARIN INR THERAPY RANGESSTANDARD DOSE: 2.0 - 3.0 Inclu kaya: PROPHYLAXIS for venous thrombosis, systemic embolization; TREATMENT for barby ous thrombosis and/or pulmonary embolus.HIGH RISK: Target INR is 2.5-3.5 for pat ients with mechanical heart valves.RAD, CHEST, 1 VIEW, NON [id number] 01:43:00Referring:Dr. Marciano Villa for exam:->congestion, wheezingShould this be performed at the bedside?->YesFINAL REPORT Chest one view. Clinical history: congestion, wheezing Comparison: Chest radiograph 11/14/2017 Technique: A single frontal view of the chest was obtained. Findings/impression: Cardiomediastinal contours are unchanged. There is a trace left pleural effusion with associated mild subsegmental atelectasis. There is no pneumothorax or focal pulmonary consolidation. Signed: Amy Kellogg Verified Date/Time: 11/22/2017 01:43:43 Reading Location: [facility] C013Y CT Body Reading Room UM, RANDOM [id number] 01:11:00* Test Item Value Reference Range Comments SODIUM URINE (BEAKER) (test zbyo=884) < meq/L Reference Range: No NormalsCREATININE, RANDOM [id number] 01:04:00* Test Item Value Reference Range Comments CREATININE URINE (BEAKER) (test uhit=476) 72.9 mg/dL Reference Range: No NormalsPROTEIN, RANDOM [id number] 01:04:00* Test Item Value Reference Range Comments PROTEIN, URINE (BEAKER) (test rydk=4897) 15 mg/dL 0-14 URINALYSIS W/ [id number] 00:58:00* Test Item Value Reference Range Comments COLOR (BEAKER) (test ujgt=392) Dark Yellow CLARITY (BEAKER) (test jdox=806) Clear SPECIFIC GRAVITY UA (BEAKER) (test rfdh=497) 1.009 1.001-1.035 PH UA (BEAKER) (test buuh=860) 6.0 5.0-8.0 PROTEIN UA (BEAKER) (test odss=658) 10 mg/dL Negative GLUCOSE UA (BEAKER) (test qafi=074) Negative Negative KETONES UA (BEAKER) (test uluv=914) Negative Negative BILIRUBIN UA (BEAKER) (test lvki=645) Positive Negative BLOOD UA (BEAKER) (test xden=389) Trace Negative NITRITE UA (BEAKER) (test ysto=536) Negative Negative LEUKOCYTE ESTERASE UA (BEAKER) (test pdkb=571) Negative Negative UROBILINOGEN UA (BEAKER) (test twpu=362) 0.2 mg/dL 0.2-1.0 RBC UA (BEAKER) (test uxzt=618) 1 /HPF WBC UA (BEAKER) (test jyxg=229) 4 /HPF BACTERIA (BEAKER) (test zlog=818) Occasional MUCUS (BEAKER) (test yrul=1158) Rare SQUAMOUS EPITHELIAL (BEAKER) (test okhq=308) < /HPF HYALINE CASTS (BEAKER) (test ejwj=044) 1 /LPF GRANULAR CASTS (BEAKER) (test zyjh=245) 1 /LPF MIXED CELL CASTS (BEAKER) (test ehmv=3954) 4 /LPF SOURCE(BEAKER) (test pyvg=8104) Urine, Voided BODY FLUID CELL COUNT WITH [id number] 19:13:00* Test Item Value Reference Range Comments APPEARANCE FLUID (BEAKER) (test gffj=638) Clear Clear COLOR FLUID (BEAKER) (test iusy=116) Yellow Colorless, Straw RBC FLUID (BEAKER) (test dece=499) 1370 /cu mm <=1 ADJUSTED WBC FLUID (BEAKER) (test ulrh=9965) 67 /cu mm <=5 LINING CELLS (BEAKER) (test qxfd=6032) 7 /cu mm <=1 NEUTROPHILS FLUID (BEAKER) (test tfsn=9824) 50 % LYMPHS FLUID (BEAKER) (test jgpa=878) 14 % MONO/MACROPHAGE FLUID (BEAKER) (test eoab=315) 36 % EOSINOPHILS FLUID (BEAKER) (test dbuc=933) 0 % BASO FLUID (BEAKER) (test myto=739) 0 % CONTAINER BODY FLUID (BEAKER) (test ydkh=9601) EDTA Tube U/S, [id number] 16:38:00Referring:Dr. Tariq ManiAdminister 200 mL of albumin 25% (50 grams) IV x1 after paracentesis if 3 or more liters removed.Send ascitic fluid for cell count and differential.Reason for Exam:->ascitesFINAL REPORT Paracentesis: Performing MD: Anurag CastanedaPreoperative Diagnosis:AscitesPostoperative Diagnosis: AscitesAssistant: noneS pecimen: As requestedEstimated Blood Loss: less than 10 ccComplications: noneAne sthesia: local 2% subcutaneously at the insertion site Grafts or Implants: noneM odality: sonographySedation: noneApproach: Right lower quadrant, anterior abdomi nal wall Technique: After informed written consent was obtained, the patient wa s prepped and draped in the usual sterile manner. Access was obtained using son ographic guidance. Images documented fluid. The images were saved to PACS. Th e right lower quadrant anterior abdominal wall was instrumented. A small bore catheter was advanced into the peritoneal space. The patient tolerated the pro cedure well. Impression:Successful, uncomplicated ultrasound guided paracente sis of the right lower quadrant peritoneal space. 7400 cc of serous fluid was r emoved. Signed: Sonja Leonardo MDReport Verified Date/Time: 11/21/2017 16:38 :26 Reading Location: [facility] [id number] Ultrasound Reading Room Electronically s igned by: SONJA LEONARDO M.D. on 11/21/2017 04:38 PM COMPREHENSIVE METABOLIC [id number] 14:07:00* Test Item Value Reference Range Comments TOTAL PROTEIN (BEAKER) (test jftg=842) 6.9 gm/dL 6.0-8.3 ALBUMIN (BEAKER) (test zkfy=1134) 3.0 g/dL 3.5-5.0 ALKALINE PHOSPHATASE (BEAKER) (test oiki=065) 137 U/L 40-150 BILIRUBIN TOTAL (BEAKER) (test upcc=396) 46.0 mg/dL 0.2-1.2 SODIUM (BEAKER) (test voij=482) 134 meq/L 136-145 POTASSIUM (BEAKER) (test fsni=835) 2.9 meq/L 3.5-5.1 CHLORIDE (BEAKER) (test lvum=635) 109 meq/L 98-107 CO2 (BEAKER) (test dkpp=898) 17 meq/L 22-29 BLOOD UREA NITROGEN (BEAKER) (test vaae=579) 28 mg/dL 7-21 CREATININE (BEAKER) (test nbej=476) 2.03 mg/dL 0.57-1.25 GLUCOSE RANDOM (BEAKER) (test vnzm=625) 123 mg/dL 70-105 CALCIUM (BEAKER) (test jvsn=653) 9.5 mg/dL 8.4-10.2 AST (SGOT) (BEAKER) (test leqs=888) 386 U/L 5-34 ALT (SGPT) (BEAKER) (test qdqp=280) 214 U/L 6-55 EGFR (BEAKER) (test tcst=6304) 35 mL/min/1.73 sq m ESTIMATED GFR IS NOT ACCURATE CREATININE CLEARANCE IN PREDICTING GLOMERULAR FILTRATION RATE. ESTIMATED GFR IS NOT APPLICABLE FOR DIALYSIS PATIENTS. Specimen markedly ictericBILIRUBIN, [id number] 14:07:00* Test Item Value Reference Range Comments BILIRUBIN DIRECT (BEAKER) (test kpwa=520) 31.4 mg/dL 0.1-0.5 CBC W/PLT COUNT & AUTO [id number] 13:26:00* Test Item Value Reference Range Comments WHITE BLOOD CELL COUNT (BEAKER) (test womh=557) 7.5 K/ L 3.5-10.5 RED BLOOD CELL COUNT (BEAKER) (test ggqs=551) 3.69 M/ L 4.63-6.08 HEMOGLOBIN (BEAKER) (test xtcn=427) 11.9 GM/DL 13.7-17.5 HEMATOCRIT (BEAKER) (test otlo=445) 35.5 % 40.1-51.0 MEAN CORPUSCULAR VOLUME (BEAKER) (test fwix=117) 96.2 fL 79.0-92.2 MEAN CORPUSCULAR HEMOGLOBIN (BEAKER) (test xevh=156) 32.2 pg 25.7-32.2 MEAN CORPUSCULAR HEMOGLOBIN CONC (BEAKER) (test yutx=087) 33.5 GM/DL 32.3-36.5 RED CELL DISTRIBUTION WIDTH (BEAKER) (test xmgn=671) 21.7 % 11.6-14.4 PLATELET COUNT (BEAKER) (test jiko=749) 86 K/CU MM 150-450 MEAN PLATELET VOLUME (BEAKER) (test adtw=313) 12.4 fL 9.4-12.4 NUCLEATED RED BLOOD CELLS (BEAKER) (test eooc=870) 0 /100 WBC 0-0 NEUTROPHILS RELATIVE PERCENT (BEAKER) (test zcye=427) 81 % LYMPHOCYTES RELATIVE PERCENT (BEAKER) (test rkxp=287) 12 % MONOCYTES RELATIVE PERCENT (BEAKER) (test dkwr=627) 3 % EOSINOPHILS RELATIVE PERCENT (BEAKER) (test wsjd=790) 2 % BASOPHILS RELATIVE PERCENT (BEAKER) (test ouar=170) 1 % NEUTROPHILS ABSOLUTE COUNT (BEAKER) (test qbxj=102) 6.06 K/ L 1.78-5.38 LYMPHOCYTES ABSOLUTE COUNT (BEAKER) (test jmuc=126) 0.90 K/ L 1.32-3.57 MONOCYTES ABSOLUTE COUNT (BEAKER) (test frdn=948) 0.24 K/ L 0.30-0.82 EOSINOPHILS ABSOLUTE COUNT (BEAKER) (test qrzi=687) 0.14 K/ L 0.04-0.54 BASOPHILS ABSOLUTE COUNT (BEAKER) (test ajwo=531) 0.05 K/ L 0.01-0.08 IMMATURE GRANULOCYTES-RELATIVE PERCENT (BEAKER) (test aofa=5054) 2 % 0-1 PROTHROMBIN [id number] 13:24:00* Test Item Value Reference Range Comments PROTIME (BEAKER) (test rjou=820) 22.1 seconds 11.7-14.7 INR (BEAKER) (test swqr=023) 1.9 <=5.9 RECOMMENDED COUMADIN/WARFARIN INR THERAPY RANGESSTANDARD DOSE: 2.0 - 3.0 Inclu kaya: PROPHYLAXIS for venous thrombosis, systemic embolization; TREATMENT for barby ous thrombosis and/or pulmonary embolus.HIGH RISK: Target INR is 2.5-3.5 for pat ients with mechanical heart valves.BODY FLUID CULTURE + GRAM [id number] 16:23:00* Test Item Value Reference Range Comments CULTURE (BEAKER) (test dpnu=3556) No growth GRAM STAIN RESULT (BEAKER) (test zich=4432) No WBCs GRAM STAIN RESULT (BEAKER) (test nctv=29248) No organisms seen BASIC METABOLIC [id number] 15:41:00* Test Item Value Reference Range Comments SODIUM (BEAKER) (test kbrh=862) 136 meq/L 136-145 POTASSIUM (BEAKER) (test hgdi=987) 3.0 meq/L 3.5-5.1 CHLORIDE (BEAKER) (test vhwl=002) 111 meq/L 98-107 CO2 (BEAKER) (test incs=130) 18 meq/L 22-29 BLOOD UREA NITROGEN (BEAKER) (test qjyv=168) 25 mg/dL 7-21 CREATININE (BEAKER) (test lntj=033) 1.47 mg/dL 0.57-1.25 GLUCOSE RANDOM (BEAKER) (test giig=352) 139 mg/dL 70-105 CALCIUM (BEAKER) (test eatf=424) 9.1 mg/dL 8.4-10.2 EGFR (BEAKER) (test wjhd=3782) 51 mL/min/1.73 sq m ESTIMATED GFR IS NOT ACCURATE CREATININE CLEARANCE IN PREDICTING GLOMERULAR FILTRATION RATE. ESTIMATED GFR IS NOT APPLICABLE FOR DIALYSIS PATIENTS. Specimen markedly [id number] 14:34:00* Test Item Value Reference Range Comments PHOSPHORUS (BEAKER) (test eaql=843) 2.9 mg/dL 2.3-4.7 [id number] 14:34:00* Test Item Value Reference Range Comments MAGNESIUM (BEAKER) (test yvsu=473) 1.7 mg/dL 1.6-2.6 HEPATIC FUNCTION [id number] 06:54:00* Test Item Value Reference Range Comments TOTAL PROTEIN (BEAKER) (test khpz=913) 5.7 gm/dL 6.0-8.3 ALBUMIN (BEAKER) (test mvxb=3185) 2.6 g/dL 3.5-5.0 BILIRUBIN TOTAL (BEAKER) (test gpdl=321) 33.4 mg/dL 0.2-1.2 BILIRUBIN DIRECT (BEAKER) (test aeix=224) 23.8 mg/dL 0.1-0.5 ALKALINE PHOSPHATASE (BEAKER) (test ayug=011) 108 U/L 40-150 AST (SGOT) (BEAKER) (test fbru=571) 348 U/L 5-34 ALT (SGPT) (BEAKER) (test jfku=951) 172 U/L 6-55 Specimen markedly ictericBASIC METABOLIC [id number] 06:53:00* Test Item Value Reference Range Comments SODIUM (BEAKER) (test ojem=304) 135 meq/L 136-145 POTASSIUM (BEAKER) (test vfks=272) 2.7 meq/L 3.5-5.1 CHLORIDE (BEAKER) (test lihv=629) 111 meq/L 98-107 CO2 (BEAKER) (test aipr=301) 17 meq/L 22-29 BLOOD UREA NITROGEN (BEAKER) (test cyjl=087) 27 mg/dL 7-21 CREATININE (BEAKER) (test qiqs=390) 1.39 mg/dL 0.57-1.25 GLUCOSE RANDOM (BEAKER) (test zaes=627) 113 mg/dL 70-105 CALCIUM (BEAKER) (test ttqe=765) 8.5 mg/dL 8.4-10.2 EGFR (BEAKER) (test kjmu=8384) 54 mL/min/1.73 sq m ESTIMATED GFR IS NOT ACCURATE CREATININE CLEARANCE IN PREDICTING GLOMERULAR FILTRATION RATE. ESTIMATED GFR IS NOT APPLICABLE FOR DIALYSIS PATIENTS. Specimen markedly ictericCBC W/PLT COUNT & AUTO [id number] 06:49:00 * Test Item Value Reference Range Comments WHITE BLOOD CELL COUNT (BEAKER) (test vlyz=604) 3.2 K/ L 3.5-10.5 RED BLOOD CELL COUNT (BEAKER) (test baht=023) 2.96 M/ L 4.63-6.08 HEMOGLOBIN (BEAKER) (test rzkk=711) 9.5 GM/DL 13.7-17.5 HEMATOCRIT (BEAKER) (test ffrb=570) 27.8 % 40.1-51.0 MEAN CORPUSCULAR VOLUME (BEAKER) (test nbkb=973) 93.9 fL 79.0-92.2 MEAN CORPUSCULAR HEMOGLOBIN (BEAKER) (test mffa=582) 32.1 pg 25.7-32.2 MEAN CORPUSCULAR HEMOGLOBIN CONC (BEAKER) (test xdbf=899) 34.2 GM/DL 32.3-36.5 RED CELL DISTRIBUTION WIDTH (BEAKER) (test fojm=591) 20.9 % 11.6-14.4 PLATELET COUNT (BEAKER) (test zmtv=954) 60 K/CU MM 150-450 MEAN PLATELET VOLUME (BEAKER) (test ulhs=174) 11.6 fL 9.4-12.4 NUCLEATED RED BLOOD CELLS (BEAKER) (test vqhe=541) 0 /100 WBC 0-0 NEUTROPHILS RELATIVE PERCENT (BEAKER) (test muyc=415) 73 % LYMPHOCYTES RELATIVE PERCENT (BEAKER) (test zkea=256) 17 % MONOCYTES RELATIVE PERCENT (BEAKER) (test upxl=534) 6 % EOSINOPHILS RELATIVE PERCENT (BEAKER) (test gwfr=536) 3 % BASOPHILS RELATIVE PERCENT (BEAKER) (test kgqn=087) 0 % NEUTROPHILS ABSOLUTE COUNT (BEAKER) (test rsaq=960) 2.30 K/ L 1.78-5.38 LYMPHOCYTES ABSOLUTE COUNT (BEAKER) (test vgot=141) 0.53 K/ L 1.32-3.57 MONOCYTES ABSOLUTE COUNT (BEAKER) (test sgkv=858) 0.19 K/ L 0.30-0.82 EOSINOPHILS ABSOLUTE COUNT (BEAKER) (test bpxf=626) 0.08 K/ L 0.04-0.54 BASOPHILS ABSOLUTE COUNT (BEAKER) (test oerh=788) 0.01 K/ L 0.01-0.08 IMMATURE GRANULOCYTES-RELATIVE PERCENT (BEAKER) (test fzhl=8585) 1 % 0-1 PROTHROMBIN [id number] 06:18:00* Test Item Value Reference Range Comments PROTIME (BEAKER) (test oxzp=508) 23.2 seconds 11.7-14.7 INR (BEAKER) (test fvyx=585) 2.1 <=5.9 RECOMMENDED COUMADIN/WARFARIN INR THERAPY RANGESSTANDARD DOSE: 2.0 - 3.0 Inclu kaya: PROPHYLAXIS for venous thrombosis, systemic embolization; TREATMENT for barby ous thrombosis and/or pulmonary embolus.HIGH RISK: Target INR is 2.5-3.5 for pat ients with mechanical heart valves.RAD, CHEST, 1 VIEW, NON [id number] 22:52:00Referring:Dr. Marciano Villa for exam:->sobShould this be performed at the bedside?->YesFINAL REPORT History: Shortness of breath. Comparison: A 2518 Findings: A single view of the chest is submitted. The cardiomediastinal contours are unremarkable. Postsurgical changes are present in the right hilum. The lung volumes are low. Blunting of the costophrenic sulci may reflect pleural scarring or trace effusions. There is no focal consolidation, pneumothorax or acute bony abnormality. Signed: Parveen Vázquez MDReport Verified Date/Time: 11/14/2017 22:52:57 Reading Location: [address] Reading Room TIC FUNCTION [id number] 22:03:00* Test Item Value Reference Range Comments TOTAL PROTEIN (BEAKER) (test cdwr=642) 7.6 gm/dL 6.0-8.3 ALBUMIN (BEAKER) (test igbw=5484) 3.5 g/dL 3.5-5.0 BILIRUBIN TOTAL (BEAKER) (test flpq=711) 45.1 mg/dL 0.2-1.2 BILIRUBIN DIRECT (BEAKER) (test gcwl=748) 30.2 mg/dL 0.1-0.5 ALKALINE PHOSPHATASE (BEAKER) (test bvdy=818) 142 U/L 40-150 AST (SGOT) (BEAKER) (test bzfs=077) 493 U/L 5-34 ALT (SGPT) (BEAKER) (test xxtr=165) 251 U/L 6-55 Specimen markedly ictericCOMPREHENSIVE METABOLIC [id number] 22:03:00* Test Item Value Reference Range Comments TOTAL PROTEIN (BEAKER) (test luez=999) 7.6 gm/dL 6.0-8.3 ALBUMIN (BEAKER) (test boxr=0175) 3.5 g/dL 3.5-5.0 ALKALINE PHOSPHATASE (BEAKER) (test beog=502) 142 U/L 40-150 BILIRUBIN TOTAL (BEAKER) (test khaz=138) 45.1 mg/dL 0.2-1.2 SODIUM (BEAKER) (test emuk=061) 138 meq/L 136-145 POTASSIUM (BEAKER) (test oesz=796) 3.1 meq/L 3.5-5.1 CHLORIDE (BEAKER) (test anbb=771) 108 meq/L 98-107 CO2 (BEAKER) (test rjqz=043) 18 meq/L 22-29 BLOOD UREA NITROGEN (BEAKER) (test bgfn=217) 26 mg/dL 7-21 CREATININE (BEAKER) (test fpzu=011) 1.68 mg/dL 0.57-1.25 GLUCOSE RANDOM (BEAKER) (test puup=048) 121 mg/dL 70-105 CALCIUM (BEAKER) (test ubxd=781) 9.6 mg/dL 8.4-10.2 AST (SGOT) (BEAKER) (test ycxo=703) 493 U/L 5-34 ALT (SGPT) (BEAKER) (test zudq=101) 251 U/L 6-55 EGFR (BEAKER) (test exun=2567) 43 mL/min/1.73 sq m ESTIMATED GFR IS NOT ACCURATE CREATININE CLEARANCE IN PREDICTING GLOMERULAR FILTRATION RATE. ESTIMATED GFR IS NOT APPLICABLE FOR DIALYSIS PATIENTS. Specimen markedly ictericPT/[id number] 21:35:00* Test Item Value Reference Range Comments PROTIME (BEAKER) (test rluf=432) 20.6 seconds 11.7-14.7 INR (BEAKER) (test oydq=732) 1.8 <=5.9 PARTIAL THROMBOPLASTIN TIME (BEAKER) (test bsvm=000) 44.5 seconds 22.5-36.0 RECOMMENDED COUMADIN/WARFARIN INR THERAPY RANGESSTANDARD DOSE: 2.0 - 3.0 Inclu kaya: PROPHYLAXIS for venous thrombosis, systemic embolization; TREATMENT for barby ous thrombosis and/or pulmonary embolus.HIGH RISK: Target INR is 2.5-3.5 for pat ients with mechanical heart valves.CBC W/PLT COUNT & AUTO [id number] 21:30:00* Test Item Value Reference Range Comments WHITE BLOOD CELL COUNT (BEAKER) (test ulzq=465) 3.9 K/ L 3.5-10.5 RED BLOOD CELL COUNT (BEAKER) (test nonb=699) 3.91 M/ L 4.63-6.08 HEMOGLOBIN (BEAKER) (test zoui=381) 12.4 GM/DL 13.7-17.5 HEMATOCRIT (BEAKER) (test exye=294) 37.6 % 40.1-51.0 MEAN CORPUSCULAR VOLUME (BEAKER) (test cgja=594) 96.2 fL 79.0-92.2 MEAN CORPUSCULAR HEMOGLOBIN (BEAKER) (test ugjn=054) 31.7 pg 25.7-32.2 MEAN CORPUSCULAR HEMOGLOBIN CONC (BEAKER) (test hiad=083) 33.0 GM/DL 32.3-36.5 RED CELL DISTRIBUTION WIDTH (BEAKER) (test plex=230) 21.2 % 11.6-14.4 PLATELET COUNT (BEAKER) (test ahyc=280) 73 K/CU MM 150-450 MEAN PLATELET VOLUME (BEAKER) (test srzy=378) 10.0 fL 9.4-12.4 NUCLEATED RED BLOOD CELLS (BEAKER) (test gsay=038) 0 /100 WBC 0-0 NEUTROPHILS RELATIVE PERCENT (BEAKER) (test pitv=851) 76 % LYMPHOCYTES RELATIVE PERCENT (BEAKER) (test zkuh=037) 15 % MONOCYTES RELATIVE PERCENT (BEAKER) (test gicq=649) 5 % EOSINOPHILS RELATIVE PERCENT (BEAKER) (test dcgw=392) 2 % BASOPHILS RELATIVE PERCENT (BEAKER) (test tnoz=918) 1 % NEUTROPHILS ABSOLUTE COUNT (BEAKER) (test zndj=432) 2.95 K/ L 1.78-5.38 LYMPHOCYTES ABSOLUTE COUNT (BEAKER) (test efof=913) 0.60 K/ L 1.32-3.57 MONOCYTES ABSOLUTE COUNT (BEAKER) (test knzu=241) 0.20 K/ L 0.30-0.82 EOSINOPHILS ABSOLUTE COUNT (BEAKER) (test jpgo=336) 0.08 K/ L 0.04-0.54 BASOPHILS ABSOLUTE COUNT (BEAKER) (test uepg=601) 0.02 K/ L 0.01-0.08 IMMATURE GRANULOCYTES-RELATIVE PERCENT (BEAKER) (test oqvx=4799) 1 % 0-1 BODY FLUID CELL COUNT WITH [id number] 19:57:00* Test Item Value Reference Range Comments APPEARANCE FLUID (BEAKER) (test pggf=976) Slightly Hazy Clear COLOR FLUID (BEAKER) (test dncu=754) Yellow Colorless, Straw RBC FLUID (BEAKER) (test mzsk=781) 100 /cu mm <=1 ADJUSTED WBC FLUID (BEAKER) (test gpwx=9282) 105 /cu mm <=5 LINING CELLS (BEAKER) (test slbf=9523) 15 /cu mm <=1 NEUTROPHILS FLUID (BEAKER) (test zyif=0305) 25 % LYMPHS FLUID (BEAKER) (test kicy=670) 16 % MONO/MACROPHAGE FLUID (BEAKER) (test jtph=705) 59 % EOSINOPHILS FLUID (BEAKER) (test gzvz=971) 0 % BASO FLUID (BEAKER) (test ctnk=100) 0 % CONTAINER BODY FLUID (BEAKER) (test uyki=2000) EDTA Tube U/S, [id number] 17:16:00Referring:Dr. Marciano Napierdminister 200 mL of albumin 25% (50 grams) IV x1 after paracentesis if 3 or more liters removed.Send ascitic fluid for cell count and differential.Reason for Exam:->ascitesFINAL REPORT Ultrasound guided paracentesis, 11/13/2017. Clinical History: Ascites. Sedation: None. Product Expert: Cholo Liu MD Manager Concrete: None. Estimated Blood Loss: < 1 cc. Specimen: 3000 cc of clear yellow fluid, samples sent to laboratory. Technique: Informed consent was obtained. The risks of pain, bleeding, infection, bowel perforation, injury to adjacent structures, and adverse medication reactions were discussed with the patient. After informed consent was obtained, the p atient's abdomen was scanned. The right lower quadrant of the abdomen was selec alexi for paracentesis. After the largest fluid pocket area was marked, and the a nterior abdominal wall was evaluated with color Doppler to exclude presence of b lood vessels traversing the area, the skin was prepped and draped in the usual s terile manner. After local anesthesia was achieved with 1% lidocaine, a 5 Frenc h one-step catheter was advanced into the peritoneal cavity under ultrasound gely dance. After completion of drainage, the catheter was removed. There was no evid ence of complication. Patient Disposition: The patient was discharged from the ultrasound department after the paracentesis, in good condition. Impression:Suc cessful ultrasound guided paracentesis. Signed: Tom Liu Date/Time: 11/13/2017 17:16:04 Reading Location: [facility] [id number] Ultrasound Read ing Room REHENSIVE METABOLIC [id number] 15:12:00* Test Item Value Reference Range Comments TOTAL PROTEIN (BEAKER) (test lfnq=740) 6.9 gm/dL 6.0-8.3 ALBUMIN (BEAKER) (test tsso=3105) 2.8 g/dL 3.5-5.0 ALKALINE PHOSPHATASE (BEAKER) (test frfa=552) 145 U/L 40-150 BILIRUBIN TOTAL (BEAKER) (test xowc=661) 38.5 mg/dL 0.2-1.2 SODIUM (BEAKER) (test rsuv=058) 134 meq/L 136-145 POTASSIUM (BEAKER) (test rujk=297) 2.8 meq/L 3.5-5.1 CHLORIDE (BEAKER) (test hjjf=721) 106 meq/L 98-107 CO2 (BEAKER) (test swuv=919) 23 meq/L 22-29 BLOOD UREA NITROGEN (BEAKER) (test xqbc=344) 26 mg/dL 7-21 CREATININE (BEAKER) (test noag=234) 1.60 mg/dL 0.57-1.25 GLUCOSE RANDOM (BEAKER) (test lncr=479) 128 mg/dL 70-105 CALCIUM (BEAKER) (test vjcc=967) 9.1 mg/dL 8.4-10.2 AST (SGOT) (BEAKER) (test yzrp=303) 472 U/L 5-34 ALT (SGPT) (BEAKER) (test kyog=562) 233 U/L 6-55 EGFR (BEAKER) (test gons=2850) 46 mL/min/1.73 sq m ESTIMATED GFR IS NOT ACCURATE CREATININE CLEARANCE IN PREDICTING GLOMERULAR FILTRATION RATE. ESTIMATED GFR IS NOT APPLICABLE FOR DIALYSIS PATIENTS. Specimen markedly ictericBILIRUBIN, [id number] 15:12:00* Test Item Value Reference Range Comments BILIRUBIN DIRECT (BEAKER) (test ltyr=694) 27.6 mg/dL 0.1-0.5 PROTHROMBIN TIME/[id number] 14:39:00* Test Item Value Reference Range Comments PROTIME (BEAKER) (test ntiw=417) 21.1 seconds 11.7-14.7 INR (BEAKER) (test iust=429) 1.8 <=5.9 RECOMMENDED COUMADIN/WARFARIN INR THERAPY RANGESSTANDARD DOSE: 2.0 - 3.0 Inclu kaya: PROPHYLAXIS for venous thrombosis, systemic embolization; TREATMENT for barby ous thrombosis and/or pulmonary embolus.HIGH RISK: Target INR is 2.5-3.5 for pat ients with mechanical heart valves.CBC W/PLT COUNT & AUTO [id number] 14:33:00* Test Item Value Reference Range Comments WHITE BLOOD CELL COUNT (BEAKER) (test nuyb=276) 5.2 K/ L 3.5-10.5 RED BLOOD CELL COUNT (BEAKER) (test tfmz=148) 3.61 M/ L 4.63-6.08 HEMOGLOBIN (BEAKER) (test nlgw=401) 11.5 GM/DL 13.7-17.5 HEMATOCRIT (BEAKER) (test clof=306) 34.7 % 40.1-51.0 MEAN CORPUSCULAR VOLUME (BEAKER) (test mron=251) 96.1 fL 79.0-92.2 MEAN CORPUSCULAR HEMOGLOBIN (BEAKER) (test bdth=632) 31.9 pg 25.7-32.2 MEAN CORPUSCULAR HEMOGLOBIN CONC (BEAKER) (test npfs=683) 33.1 GM/DL 32.3-36.5 RED CELL DISTRIBUTION WIDTH (BEAKER) (test naks=851) 20.9 % 11.6-14.4 PLATELET COUNT (BEAKER) (test eciq=603) 88 K/CU MM 150-450 MEAN PLATELET VOLUME (BEAKER) (test daum=605) 10.9 fL 9.4-12.4 NUCLEATED RED BLOOD CELLS (BEAKER) (test piac=576) 0 /100 WBC 0-0 NEUTROPHILS RELATIVE PERCENT (BEAKER) (test fnhv=979) 78 % LYMPHOCYTES RELATIVE PERCENT (BEAKER) (test zgfy=411) 13 % MONOCYTES RELATIVE PERCENT (BEAKER) (test audi=516) 5 % EOSINOPHILS RELATIVE PERCENT (BEAKER) (test tknj=857) 3 % BASOPHILS RELATIVE PERCENT (BEAKER) (test pkke=404) 1 % NEUTROPHILS ABSOLUTE COUNT (BEAKER) (test ijyz=684) 4.02 K/ L 1.78-5.38 LYMPHOCYTES ABSOLUTE COUNT (BEAKER) (test jxhh=581) 0.68 K/ L 1.32-3.57 MONOCYTES ABSOLUTE COUNT (BEAKER) (test qgyf=341) 0.24 K/ L 0.30-0.82 EOSINOPHILS ABSOLUTE COUNT (BEAKER) (test xbxw=400) 0.13 K/ L 0.04-0.54 BASOPHILS ABSOLUTE COUNT (BEAKER) (test ilwi=796) 0.03 K/ L 0.01-0.08 IMMATURE GRANULOCYTES-RELATIVE PERCENT (BEAKER) (test uzfl=9631) 2 % 0-1 BLOOD [id number] 06:00:00* Test Item Value Reference Range Comments CULTURE (BEAKER) (test agoy=3891) No growth in 5 days BLOOD [id number] 06:00:00* Test Item Value Reference Range Comments CULTURE (BEAKER) (test jmyz=8122) No growth in 5 days COMPREHENSIVE METABOLIC [id number] 06:46:00* Test Item Value Reference Range Comments TOTAL PROTEIN (BEAKER) (test djbs=777) 6.6 gm/dL 6.0-8.3 ALBUMIN (BEAKER) (test wvja=6057) 3.2 g/dL 3.5-5.0 ALKALINE PHOSPHATASE (BEAKER) (test rgtp=356) 95 U/L 40-150 BILIRUBIN TOTAL (BEAKER) (test redv=866) 29.0 mg/dL 0.2-1.2 SODIUM (BEAKER) (test gkjm=381) 139 meq/L 136-145 POTASSIUM (BEAKER) (test wtwo=644) 3.4 meq/L 3.5-5.1 CHLORIDE (BEAKER) (test hlfd=681) 105 meq/L 98-107 CO2 (BEAKER) (test nvej=708) 25 meq/L 22-29 BLOOD UREA NITROGEN (BEAKER) (test qhiw=229) 16 mg/dL 7-21 CREATININE (BEAKER) (test npdz=432) 1.07 mg/dL 0.57-1.25 GLUCOSE RANDOM (BEAKER) (test zomm=924) 115 mg/dL 70-105 CALCIUM (BEAKER) (test vmsk=057) 9.1 mg/dL 8.4-10.2 AST (SGOT) (BEAKER) (test hjde=802) 606 U/L 5-34 ALT (SGPT) (BEAKER) (test yobq=112) 302 U/L 6-55 EGFR (BEAKER) (test aahg=7880) 73 mL/min/1.73 sq m ESTIMATED GFR IS NOT ACCURATE CREATININE CLEARANCE IN PREDICTING GLOMERULAR FILTRATION RATE. ESTIMATED GFR IS NOT APPLICABLE FOR DIALYSIS PATIENTS. Specimen markedly [id number] 06:45:00* Test Item Value Reference Range Comments PHOSPHORUS (BEAKER) (test ibrn=965) 2.9 mg/dL 2.3-4.7 [id number] 06:45:00* Test Item Value Reference Range Comments MAGNESIUM (BEAKER) (test hcta=704) 1.9 mg/dL 1.6-2.6 CBC W/PLT COUNT & AUTO [id number] 06:25:00* Test Item Value Reference Range Comments WHITE BLOOD CELL COUNT (BEAKER) (test bbqh=372) 3.8 K/ L 3.5-10.5 RED BLOOD CELL COUNT (BEAKER) (test dlee=647) 3.45 M/ L 4.63-6.08 HEMOGLOBIN (BEAKER) (test yjqd=674) 10.8 GM/DL 13.7-17.5 HEMATOCRIT (BEAKER) (test jjlt=835) 33.6 % 40.1-51.0 MEAN CORPUSCULAR VOLUME (BEAKER) (test myrw=536) 97.4 fL 79.0-92.2 MEAN CORPUSCULAR HEMOGLOBIN (BEAKER) (test egfq=021) 31.3 pg 25.7-32.2 MEAN CORPUSCULAR HEMOGLOBIN CONC (BEAKER) (test liir=442) 32.1 GM/DL 32.3-36.5 RED CELL DISTRIBUTION WIDTH (BEAKER) (test rcyo=620) 21.1 % 11.6-14.4 PLATELET COUNT (BEAKER) (test qstw=109) 46 K/CU MM 150-450 MEAN PLATELET VOLUME (BEAKER) (test dymz=221) fL 9.4-12.4 Unable to report due to abnormal Platelet population distribution. NUCLEATED RED BLOOD CELLS (BEAKER) (test bzow=130) 0 /100 WBC 0-0 NEUTROPHILS RELATIVE PERCENT (BEAKER) (test wwjd=944) 70 % LYMPHOCYTES RELATIVE PERCENT (BEAKER) (test edhh=441) 15 % MONOCYTES RELATIVE PERCENT (BEAKER) (test vzwl=797) 12 % EOSINOPHILS RELATIVE PERCENT (BEAKER) (test qmkg=991) 2 % BASOPHILS RELATIVE PERCENT (BEAKER) (test tsrb=685) 0 % NEUTROPHILS ABSOLUTE COUNT (BEAKER) (test ualx=787) 2.68 K/ L 1.78-5.38 LYMPHOCYTES ABSOLUTE COUNT (BEAKER) (test edwr=315) 0.56 K/ L 1.32-3.57 MONOCYTES ABSOLUTE COUNT (BEAKER) (test dppv=798) 0.46 K/ L 0.30-0.82 EOSINOPHILS ABSOLUTE COUNT (BEAKER) (test ibnh=991) 0.07 K/ L 0.04-0.54 BASOPHILS ABSOLUTE COUNT (BEAKER) (test mggb=103) 0.01 K/ L 0.01-0.08 IMMATURE GRANULOCYTES-RELATIVE PERCENT (BEAKER) (test ffaq=9808) 1 % 0-1 [id number] 12:15:00* Test Item Value Reference Range Comments MAGNESIUM (BEAKER) (test vrkv=486) 1.5 mg/dL 1.6-2.6 VANCOMYCIN LEVEL, [id number] 10:04:00* Test Item Value Reference Range Comments VANCOMYCIN TROUGH (BEAKER) (test pvhh=248) 23.4 ug/mL 10.0-20.0 COMPREHENSIVE METABOLIC [id number] 07:05:00* Test Item Value Reference Range Comments TOTAL PROTEIN (BEAKER) (test hovc=657) 6.2 gm/dL 6.0-8.3 ALBUMIN (BEAKER) (test cfsf=7997) 3.0 g/dL 3.5-5.0 ALKALINE PHOSPHATASE (BEAKER) (test aeah=310) 80 U/L 40-150 BILIRUBIN TOTAL (BEAKER) (test hefc=313) 28.4 mg/dL 0.2-1.2 SODIUM (BEAKER) (test imgs=773) 139 meq/L 136-145 POTASSIUM (BEAKER) (test swka=265) 3.3 meq/L 3.5-5.1 CHLORIDE (BEAKER) (test icsd=247) 108 meq/L 98-107 CO2 (BEAKER) (test lvdu=859) 21 meq/L 22-29 BLOOD UREA NITROGEN (BEAKER) (test taxu=125) 18 mg/dL 7-21 CREATININE (BEAKER) (test laky=967) 1.10 mg/dL 0.57-1.25 GLUCOSE RANDOM (BEAKER) (test xbzs=534) 97 mg/dL 70-105 CALCIUM (BEAKER) (test moaa=933) 9.2 mg/dL 8.4-10.2 AST (SGOT) (BEAKER) (test jqtr=082) 578 U/L 5-34 ALT (SGPT) (BEAKER) (test kqpn=820) 271 U/L 6-55 EGFR (BEAKER) (test wbup=8558) 71 mL/min/1.73 sq m ESTIMATED GFR IS NOT ACCURATE CREATININE CLEARANCE IN PREDICTING GLOMERULAR FILTRATION RATE. ESTIMATED GFR IS NOT APPLICABLE FOR DIALYSIS PATIENTS. Specimen markedly ictericCBC W/PLT COUNT & AUTO [id number] 06:13:00 * Test Item Value Reference Range Comments WHITE BLOOD CELL COUNT (BEAKER) (test wowq=516) 3.8 K/ L 3.5-10.5 RED BLOOD CELL COUNT (BEAKER) (test abmp=555) 3.34 M/ L 4.63-6.08 HEMOGLOBIN (BEAKER) (test zhsx=308) 10.3 GM/DL 13.7-17.5 HEMATOCRIT (BEAKER) (test owvz=329) 33.1 % 40.1-51.0 MEAN CORPUSCULAR VOLUME (BEAKER) (test wvso=062) 99.1 fL 79.0-92.2 Discordant MCV result compared to previous one; Clinical correlation required. MEAN CORPUSCULAR HEMOGLOBIN (BEAKER) (test ifwv=895) 30.8 pg 25.7-32.2 MEAN CORPUSCULAR HEMOGLOBIN CONC (BEAKER) (test coyy=360) 31.1 GM/DL 32.3-36.5 RED CELL DISTRIBUTION WIDTH (BEAKER) (test vial=237) 21.2 % 11.6-14.4 PLATELET COUNT (BEAKER) (test sogg=432) 45 K/CU MM 150-450 MEAN PLATELET VOLUME (BEAKER) (test ywsf=633) fL 9.4-12.4 Unable to report due to abnormal Platelet population distribution. NUCLEATED RED BLOOD CELLS (BEAKER) (test xevm=203) 0 /100 WBC 0-0 NEUTROPHILS RELATIVE PERCENT (BEAKER) (test syjb=629) 67 % LYMPHOCYTES RELATIVE PERCENT (BEAKER) (test vnvw=998) 17 % MONOCYTES RELATIVE PERCENT (BEAKER) (test bzxz=963) 12 % EOSINOPHILS RELATIVE PERCENT (BEAKER) (test wozg=935) 2 % BASOPHILS RELATIVE PERCENT (BEAKER) (test wkgg=950) 1 % NEUTROPHILS ABSOLUTE COUNT (BEAKER) (test kgxv=981) 2.56 K/ L 1.78-5.38 LYMPHOCYTES ABSOLUTE COUNT (BEAKER) (test vukm=947) 0.65 K/ L 1.32-3.57 MONOCYTES ABSOLUTE COUNT (BEAKER) (test dehx=704) 0.46 K/ L 0.30-0.82 EOSINOPHILS ABSOLUTE COUNT (BEAKER) (test ziua=894) 0.07 K/ L 0.04-0.54 BASOPHILS ABSOLUTE COUNT (BEAKER) (test jlob=701) 0.02 K/ L 0.01-0.08 IMMATURE GRANULOCYTES-RELATIVE PERCENT (BEAKER) (test sbzo=0766) 1 % 0-1 URINALYSIS W/ REFLEX URINE [id number] 17:28:00* Test Item Value Reference Range Comments COLOR (BEAKER) (test tuoy=432) Yellow CLARITY (BEAKER) (test ewje=417) Clear SPECIFIC GRAVITY UA (BEAKER) (test gsjw=935) 1.007 1.001-1.035 PH UA (BEAKER) (test tedo=510) 6.0 5.0-8.0 PROTEIN UA (BEAKER) (test zxey=586) Negative Negative GLUCOSE UA (BEAKER) (test ykjf=931) Negative Negative KETONES UA (BEAKER) (test ulce=325) Negative Negative BILIRUBIN UA (BEAKER) (test caol=388) Positive Negative BLOOD UA (BEAKER) (test ofok=237) Negative Negative NITRITE UA (BEAKER) (test zdgs=780) Negative Negative LEUKOCYTE ESTERASE UA (BEAKER) (test tvzs=813) Negative Negative UROBILINOGEN UA (BEAKER) (test vdjc=729) 0.2 mg/dL 0.2-1.0 RBC UA (BEAKER) (test rttl=073) 0 /HPF WBC UA (BEAKER) (test khyf=227) 0 /HPF BACTERIA (BEAKER) (test asxs=913) Rare MUCUS (BEAKER) (test iwaa=4713) Rare SQUAMOUS EPITHELIAL (BEAKER) (test yxex=846) < /HPF HYALINE CASTS (BEAKER) (test ritw=858) 1 /LPF SOURCE(BEAKER) (test mgfj=2877) RAD, CHEST, 1 VIEW, NON [id number] 13:18:00Referring:Dr. Marciano Villa for exam:->r/u PNAShould this be performed at the bedside?->YesFINAL REPORT INDICATION: r/u PNA TECHNIQUE: Chest radiograph, single view, portable technique. FINDINGS / IMPRESSION: There is no evidence of pneumonia or pulmonary edema. Left base subsegmental atelectasis and right infrahilar surgical clips noted. No pneumothorax or large pleural effusion. Cardiac and mediastinal contours unremarkable. Osseous structures unremarkable. Signed: Gita Ziegler MDReport Verified Date/Time: 10/28/2017 13:18:23 Reading L ocation: [facility] B1 C013X Ortho Consult Reading Room [id number] 03:16:00* Test Item Value Reference Range Comments AMMONIA (BEAKER) (test avrk=233) 90 mol/L 18-72 COMPREHENSIVE METABOLIC [id number] 02:58:00* Test Item Value Reference Range Comments TOTAL PROTEIN (BEAKER) (test hlhj=527) 6.5 gm/dL 6.0-8.3 Specimen slightly hemolyzed ALBUMIN (BEAKER) (test erah=0823) 3.3 g/dL 3.5-5.0 Specimen slightly hemolyzed ALKALINE PHOSPHATASE (BEAKER) (test xfwl=329) 80 U/L 40-150 BILIRUBIN TOTAL (BEAKER) (test sciz=806) 29.9 mg/dL 0.2-1.2 Specimen slightly hemolyzed SODIUM (BEAKER) (test igul=658) 140 meq/L 136-145 POTASSIUM (BEAKER) (test ukyh=383) 3.3 meq/L 3.5-5.1 Specimen slightly hemolyzed CHLORIDE (BEAKER) (test tpcd=333) 110 meq/L 98-107 CO2 (BEAKER) (test tgye=467) 20 meq/L 22-29 BLOOD UREA NITROGEN (BEAKER) (test hrcy=290) 20 mg/dL 7-21 CREATININE (BEAKER) (test eiiz=265) 0.92 mg/dL 0.57-1.25 Specimen slightly hemolyzed GLUCOSE RANDOM (BEAKER) (test xgmf=125) 146 mg/dL 70-105 CALCIUM (BEAKER) (test zzlh=751) 8.9 mg/dL 8.4-10.2 AST (SGOT) (BEAKER) (test bzcn=412) 549 U/L 5-34 Specimen slightly hemolyzed ALT (SGPT) (BEAKER) (test jpzf=691) 247 U/L 6-55 Specimen slightly hemolyzed EGFR (BEAKER) (test hlov=8471) 87 mL/min/1.73 sq m ESTIMATED GFR IS NOT ACCURATE CREATININE CLEARANCE IN PREDICTING GLOMERULAR FILTRATION RATE. ESTIMATED GFR IS NOT APPLICABLE FOR DIALYSIS PATIENTS. Specimen markedly ictericCBC W/PLT COUNT & AUTO [id number] 02:15:00 * Test Item Value Reference Range Comments WHITE BLOOD CELL COUNT (BEAKER) (test vdhw=701) 3.6 K/ L 3.5-10.5 RED BLOOD CELL COUNT (BEAKER) (test uzpy=487) 3.32 M/ L 4.63-6.08 HEMOGLOBIN (BEAKER) (test pscy=983) 10.4 GM/DL 13.7-17.5 HEMATOCRIT (BEAKER) (test wlvb=471) 31.4 % 40.1-51.0 MEAN CORPUSCULAR VOLUME (BEAKER) (test vrnq=522) 94.6 fL 79.0-92.2 MEAN CORPUSCULAR HEMOGLOBIN (BEAKER) (test idtk=004) 31.3 pg 25.7-32.2 MEAN CORPUSCULAR HEMOGLOBIN CONC (BEAKER) (test ocel=030) 33.1 GM/DL 32.3-36.5 RED CELL DISTRIBUTION WIDTH (BEAKER) (test yspm=376) 20.8 % 11.6-14.4 PLATELET COUNT (BEAKER) (test enmt=340) 43 K/CU MM 150-450 MEAN PLATELET VOLUME (BEAKER) (test jdtu=871) 10.8 fL 9.4-12.4 NUCLEATED RED BLOOD CELLS (BEAKER) (test mymt=535) 0 /100 WBC 0-0 NEUTROPHILS RELATIVE PERCENT (BEAKER) (test dxvq=522) 74 % LYMPHOCYTES RELATIVE PERCENT (BEAKER) (test hurr=210) 12 % MONOCYTES RELATIVE PERCENT (BEAKER) (test nkpc=896) 10 % EOSINOPHILS RELATIVE PERCENT (BEAKER) (test kkne=449) 1 % BASOPHILS RELATIVE PERCENT (BEAKER) (test tegc=093) 1 % NEUTROPHILS ABSOLUTE COUNT (BEAKER) (test cpqm=597) 2.64 K/ L 1.78-5.38 LYMPHOCYTES ABSOLUTE COUNT (BEAKER) (test yzky=628) 0.44 K/ L 1.32-3.57 MONOCYTES ABSOLUTE COUNT (BEAKER) (test ntug=958) 0.37 K/ L 0.30-0.82 EOSINOPHILS ABSOLUTE COUNT (BEAKER) (test zmte=038) 0.05 K/ L 0.04-0.54 BASOPHILS ABSOLUTE COUNT (BEAKER) (test svyx=774) 0.02 K/ L 0.01-0.08 IMMATURE GRANULOCYTES-RELATIVE PERCENT (BEAKER) (test encg=5429) 1 % 0-1 BODY FLUID CULTURE + GRAM [id number] 12:39:00* Test Item Value Reference Range Comments CULTURE (BEAKER) (test soni=0883) No growth GRAM STAIN RESULT (BEAKER) (test wwgl=0151) 1+ WBCs GRAM STAIN RESULT (BEAKER) (test jjmx=88697) No organisms seen COMPREHENSIVE METABOLIC [id number] 06:45:00* Test Item Value Reference Range Comments TOTAL PROTEIN (BEAKER) (test zfcg=621) 6.0 gm/dL 6.0-8.3 ALBUMIN (BEAKER) (test tsoc=2887) 3.4 g/dL 3.5-5.0 ALKALINE PHOSPHATASE (BEAKER) (test twcw=138) 69 U/L 40-150 BILIRUBIN TOTAL (BEAKER) (test owzz=662) 28.3 mg/dL 0.2-1.2 SODIUM (BEAKER) (test oqip=510) 139 meq/L 136-145 POTASSIUM (BEAKER) (test tzza=928) 3.7 meq/L 3.5-5.1 CHLORIDE (BEAKER) (test dycv=860) 114 meq/L 98-107 CO2 (BEAKER) (test wuwt=256) 18 meq/L 22-29 BLOOD UREA NITROGEN (BEAKER) (test fmjj=247) 19 mg/dL 7-21 CREATININE (BEAKER) (test wwqu=924) 1.01 mg/dL 0.57-1.25 GLUCOSE RANDOM (BEAKER) (test qtea=694) 108 mg/dL 70-105 CALCIUM (BEAKER) (test dkbm=586) 9.6 mg/dL 8.4-10.2 AST (SGOT) (BEAKER) (test nfng=981) 398 U/L 5-34 ALT (SGPT) (BEAKER) (test xlno=726) 173 U/L 6-55 EGFR (BEAKER) (test wpop=6522) 78 mL/min/1.73 sq m ESTIMATED GFR IS NOT ACCURATE CREATININE CLEARANCE IN PREDICTING GLOMERULAR FILTRATION RATE. ESTIMATED GFR IS NOT APPLICABLE FOR DIALYSIS PATIENTS. Specimen markedly [id number] 06:44:00* Test Item Value Reference Range Comments PHOSPHORUS (BEAKER) (test ypji=826) 1.9 mg/dL 2.3-4.7 [id number] 06:44:00* Test Item Value Reference Range Comments MAGNESIUM (BEAKER) (test uhab=577) 1.6 mg/dL 1.6-2.6 CBC W/PLT COUNT & AUTO [id number] 06:31:00* Test Item Value Reference Range Comments WHITE BLOOD CELL COUNT (BEAKER) (test bfen=494) 3.8 K/ L 3.5-10.5 RED BLOOD CELL COUNT (BEAKER) (test zemu=368) 3.24 M/ L 4.63-6.08 HEMOGLOBIN (BEAKER) (test veld=469) 10.0 GM/DL 13.7-17.5 HEMATOCRIT (BEAKER) (test oyfw=667) 30.9 % 40.1-51.0 MEAN CORPUSCULAR VOLUME (BEAKER) (test bddm=454) 95.4 fL 79.0-92.2 MEAN CORPUSCULAR HEMOGLOBIN (BEAKER) (test lkge=776) 30.9 pg 25.7-32.2 MEAN CORPUSCULAR HEMOGLOBIN CONC (BEAKER) (test szsq=630) 32.4 GM/DL 32.3-36.5 RED CELL DISTRIBUTION WIDTH (BEAKER) (test jncn=808) 20.6 % 11.6-14.4 PLATELET COUNT (BEAKER) (test hnrj=592) 52 K/CU MM 150-450 MEAN PLATELET VOLUME (BEAKER) (test jmag=198) 10.8 fL 9.4-12.4 NUCLEATED RED BLOOD CELLS (BEAKER) (test nopz=950) 0 /100 WBC 0-0 NEUTROPHILS RELATIVE PERCENT (BEAKER) (test ydcb=354) 70 % LYMPHOCYTES RELATIVE PERCENT (BEAKER) (test txtg=037) 16 % MONOCYTES RELATIVE PERCENT (BEAKER) (test ewrg=255) 9 % EOSINOPHILS RELATIVE PERCENT (BEAKER) (test wblb=740) 3 % BASOPHILS RELATIVE PERCENT (BEAKER) (test dukn=655) 1 % NEUTROPHILS ABSOLUTE COUNT (BEAKER) (test qbmp=707) 2.61 K/ L 1.78-5.38 LYMPHOCYTES ABSOLUTE COUNT (BEAKER) (test ldlh=941) 0.61 K/ L 1.32-3.57 MONOCYTES ABSOLUTE COUNT (BEAKER) (test wxyy=109) 0.34 K/ L 0.30-0.82 EOSINOPHILS ABSOLUTE COUNT (BEAKER) (test jduj=026) 0.12 K/ L 0.04-0.54 BASOPHILS ABSOLUTE COUNT (BEAKER) (test sycz=212) 0.02 K/ L 0.01-0.08 IMMATURE GRANULOCYTES-RELATIVE PERCENT (BEAKER) (test raru=0578) 2 % 0-1 PROTHROMBIN [id number] 05:49:00* Test Item Value Reference Range Comments PROTIME (BEAKER) (test xmzi=485) 22.2 seconds 11.7-14.7 INR (BEAKER) (test upgk=943) 2.0 <=5.9 RECOMMENDED COUMADIN/WARFARIN INR THERAPY RANGESSTANDARD DOSE: 2.0 - 3.0 Inclu kaya: PROPHYLAXIS for venous thrombosis, systemic embolization; TREATMENT for barby ous thrombosis and/or pulmonary embolus.HIGH RISK: Target INR is 2.5-3.5 for pat ients with mechanical heart valves.CALCIUM, [id number] 05:40:00* Test Item Value Reference Range Comments CALCIUM IONIZED (BEAKER) (test cbbx=723) 1.12 mmol/L 1.12-1.27 PH, BLOOD (BEAKER) (test taaa=2122) 7.51 BODY FLUID CELL COUNT WITH [id number] 16:27:00* Test Item Value Reference Range Comments APPEARANCE FLUID (BEAKER) (test mwgx=855) Clear Clear COLOR FLUID (BEAKER) (test yjuu=708) Yellow Colorless, Straw RBC FLUID (BEAKER) (test cztt=181) 320 /cu mm <=1 ADJUSTED WBC FLUID (BEAKER) (test lzgc=9251) 80 /cu mm <=5 LINING CELLS (BEAKER) (test wxaz=2424) 0 /cu mm <=1 NEUTROPHILS FLUID (BEAKER) (test krtp=9387) 35 % LYMPHS FLUID (BEAKER) (test hhfi=512) 16 % MONO/MACROPHAGE FLUID (BEAKER) (test dzkn=960) 51 % EOSINOPHILS FLUID (BEAKER) (test okme=473) 0 % BASO FLUID (BEAKER) (test wokt=329) 0 % CONTAINER BODY FLUID (BEAKER) (test tljy=1979) EDTA Tube U/S, [id number] 13:32:00Referring:Dr. Marciano Cm remove around 3L (small volume given MARY). Send for cell count and culture.Reason for exam:-> large ascitesShould this be performed at the bedside?->NoFINAL REPORT Paracentesis dated 10/25/2017 Procedure: Ultrasound-guided paracentesis. Preprocedure diagnosis: Ascites Postprocedure diagnosis: Ascites Conscious sedation: None. Radiologist: Soumya Mckeon M.D. Manager Concrete: None Anesthesia: 1% Xylocaine mixed with sodium bicarbonate local anesthesia. T echnique: After obtaining informed consent, ultrasound-guided paracentesis was performed under usual sterile technique. Using a 5 icelandic drainage catheter, pun cture was made in the right lower quadrant abdomen. Approximately 3000 cc of yel lowish fluid was removed. Patient tolerated the procedure well without complicat ion. Complication: None Graft/Implant: None Estimated Blood Loss: None Impressio n: Ultrasound-guided paracentesis. Signed: Soumya Mckeoneport Verified Date/Ti me: 10/25/2017 13:32:46 Reading Location: [facility] P006J Ultrasound Reading Room IUM, [id number] 05:41:00* Test Item Value Reference Range Comments CALCIUM IONIZED (BEAKER) (test nvrw=531) 1.14 mmol/L 1.12-1.27 PH, BLOOD (BEAKER) (test abcp=3783) 7.46 COMPREHENSIVE METABOLIC [id number] 05:33:00* Test Item Value Reference Range Comments TOTAL PROTEIN (BEAKER) (test xchb=754) 5.9 gm/dL 6.0-8.3 Specimen slightly hemolyzed ALBUMIN (BEAKER) (test dykr=2632) 3.2 g/dL 3.5-5.0 Specimen slightly hemolyzed ALKALINE PHOSPHATASE (BEAKER) (test qwgo=918) 76 U/L 40-150 BILIRUBIN TOTAL (BEAKER) (test uzpj=549) 25.2 mg/dL 0.2-1.2 Specimen slightly hemolyzed SODIUM (BEAKER) (test nker=162) 140 meq/L 136-145 POTASSIUM (BEAKER) (test iwft=230) 3.4 meq/L 3.5-5.1 Specimen slightly hemolyzed CHLORIDE (BEAKER) (test ykzj=400) 114 meq/L 98-107 CO2 (BEAKER) (test nsxd=393) 18 meq/L 22-29 BLOOD UREA NITROGEN (BEAKER) (test gomq=242) 24 mg/dL 7-21 CREATININE (BEAKER) (test fnhh=467) 1.24 mg/dL 0.57-1.25 Specimen slightly hemolyzed GLUCOSE RANDOM (BEAKER) (test fddy=270) 114 mg/dL 70-105 CALCIUM (BEAKER) (test xmyr=296) 9.0 mg/dL 8.4-10.2 AST (SGOT) (BEAKER) (test jopz=652) 290 U/L 5-34 Specimen slightly hemolyzed ALT (SGPT) (BEAKER) (test yvew=087) 145 U/L 6-55 Specimen slightly hemolyzed EGFR (BEAKER) (test asxl=8779) 62 mL/min/1.73 sq m ESTIMATED GFR IS NOT ACCURATE CREATININE CLEARANCE IN PREDICTING GLOMERULAR FILTRATION RATE. ESTIMATED GFR IS NOT APPLICABLE FOR DIALYSIS PATIENTS. Specimen markedly [id number] 05:32:00* Test Item Value Reference Range Comments MAGNESIUM (BEAKER) (test bhnx=146) 1.9 mg/dL 1.6-2.6 Specimen slightly hemolyzed [id number] 05:32:00* Test Item Value Reference Range Comments PHOSPHORUS (BEAKER) (test sstw=635) 2.2 mg/dL 2.3-4.7 Specimen slightly hemolyzed PROTHROMBIN [id number] 05:15:00* Test Item Value Reference Range Comments PROTIME (BEAKER) (test gilz=967) 22.4 seconds 11.7-14.7 INR (BEAKER) (test luqm=890) 2.0 <=5.9 RECOMMENDED COUMADIN/WARFARIN INR THERAPY RANGESSTANDARD DOSE: 2.0 - 3.0 Inclu kaya: PROPHYLAXIS for venous thrombosis, systemic embolization; TREATMENT for barby ous thrombosis and/or pulmonary embolus.HIGH RISK: Target INR is 2.5-3.5 for pat ients with mechanical heart valves.CBC W/PLT COUNT & AUTO [id number] 05:11:00* Test Item Value Reference Range Comments WHITE BLOOD CELL COUNT (BEAKER) (test trrm=741) 3.3 K/ L 3.5-10.5 RED BLOOD CELL COUNT (BEAKER) (test gxms=863) 3.04 M/ L 4.63-6.08 HEMOGLOBIN (BEAKER) (test lvnt=138) 9.5 GM/DL 13.7-17.5 HEMATOCRIT (BEAKER) (test vigr=437) 28.7 % 40.1-51.0 MEAN CORPUSCULAR VOLUME (BEAKER) (test aunv=110) 94.4 fL 79.0-92.2 MEAN CORPUSCULAR HEMOGLOBIN (BEAKER) (test iyuy=384) 31.3 pg 25.7-32.2 MEAN CORPUSCULAR HEMOGLOBIN CONC (BEAKER) (test fswv=679) 33.1 GM/DL 32.3-36.5 RED CELL DISTRIBUTION WIDTH (BEAKER) (test mirb=978) 21.2 % 11.6-14.4 PLATELET COUNT (BEAKER) (test avwg=294) 56 K/CU MM 150-450 MEAN PLATELET VOLUME (BEAKER) (test nsby=027) 12.1 fL 9.4-12.4 NUCLEATED RED BLOOD CELLS (BEAKER) (test zwbq=843) 0 /100 WBC 0-0 NEUTROPHILS RELATIVE PERCENT (BEAKER) (test bysu=279) 68 % LYMPHOCYTES RELATIVE PERCENT (BEAKER) (test cghh=604) 18 % MONOCYTES RELATIVE PERCENT (BEAKER) (test svrk=866) 9 % EOSINOPHILS RELATIVE PERCENT (BEAKER) (test knty=870) 3 % BASOPHILS RELATIVE PERCENT (BEAKER) (test wkon=024) 0 % NEUTROPHILS ABSOLUTE COUNT (BEAKER) (test mhaa=771) 2.22 K/ L 1.78-5.38 LYMPHOCYTES ABSOLUTE COUNT (BEAKER) (test xmar=592) 0.60 K/ L 1.32-3.57 MONOCYTES ABSOLUTE COUNT (BEAKER) (test rqev=289) 0.31 K/ L 0.30-0.82 EOSINOPHILS ABSOLUTE COUNT (BEAKER) (test grxh=915) 0.09 K/ L 0.04-0.54 BASOPHILS ABSOLUTE COUNT (BEAKER) (test dqef=632) 0.01 K/ L 0.01-0.08 IMMATURE GRANULOCYTES-RELATIVE PERCENT (BEAKER) (test rbyu=2530) 2 % 0-1 RAD, CHEST, 1 VIEW, NON [id number] 11:29:00Referring:Dr. Marciano Villa for exam:->edemaShould this be performed at the bedside?->YesFINAL REPORT Chest one view compared to September 27, 2017 Discussion: Ill-defined new density is seen at both lung bases. Atelectasis and small effusions are possible. Correlate clinically for pneumonia. Lungs otherwise clear. Heart size normal. No pneumothorax. Signed: Nisbet, Ivan MDReport Verified Date/Time: 10/24/2017 11:29:00 Reading Location: [facility] Radiology Reading Room MIN, BODY [id number] 07:40:00* Test Item Value Reference Range Comments ALBUMIN FLUID (BEAKER) (test exit=511) 0.4 gm/dL Reference Range: No Normals Assay performance has not been validated for this type of specimen.CALCIUM, [id number] 06:44:00* Test Item Value Reference Range Comments CALCIUM IONIZED (BEAKER) (test pomo=514) 1.08 mmol/L 1.12-1.27 PH, BLOOD (BEAKER) (test rdmn=0809) 7.45 COMPREHENSIVE METABOLIC [id number] 05:24:00* Test Item Value Reference Range Comments TOTAL PROTEIN (BEAKER) (test pwuu=531) 6.1 gm/dL 6.0-8.3 ALBUMIN (BEAKER) (test dzkl=4588) 3.0 g/dL 3.5-5.0 ALKALINE PHOSPHATASE (BEAKER) (test mzxe=794) 88 U/L 40-150 BILIRUBIN TOTAL (BEAKER) (test dwry=856) 25.5 mg/dL 0.2-1.2 SODIUM (BEAKER) (test geab=487) 138 meq/L 136-145 POTASSIUM (BEAKER) (test nrse=658) 3.2 meq/L 3.5-5.1 CHLORIDE (BEAKER) (test vxzg=991) 113 meq/L 98-107 CO2 (BEAKER) (test vnjr=867) 18 meq/L 22-29 BLOOD UREA NITROGEN (BEAKER) (test dbgx=289) 28 mg/dL 7-21 CREATININE (BEAKER) (test imdm=467) 1.59 mg/dL 0.57-1.25 GLUCOSE RANDOM (BEAKER) (test qrta=880) 107 mg/dL 70-105 CALCIUM (BEAKER) (test ible=517) 9.0 mg/dL 8.4-10.2 AST (SGOT) (BEAKER) (test johr=393) 255 U/L 5-34 ALT (SGPT) (BEAKER) (test lfwj=522) 149 U/L 6-55 EGFR (BEAKER) (test hfnn=6266) 46 mL/min/1.73 sq m ESTIMATED GFR IS NOT ACCURATE CREATININE CLEARANCE IN PREDICTING GLOMERULAR FILTRATION RATE. ESTIMATED GFR IS NOT APPLICABLE FOR DIALYSIS PATIENTS. Specimen markedly ictericHEPATIC FUNCTION [id number] 05:24:00* Test Item Value Reference Range Comments TOTAL PROTEIN (BEAKER) (test qyra=525) 6.1 gm/dL 6.0-8.3 ALBUMIN (BEAKER) (test yzgf=1787) 3.0 g/dL 3.5-5.0 BILIRUBIN TOTAL (BEAKER) (test ekjm=289) 25.5 mg/dL 0.2-1.2 BILIRUBIN DIRECT (BEAKER) (test xurv=121) 18.7 mg/dL 0.1-0.5 ALKALINE PHOSPHATASE (BEAKER) (test xvjt=608) 88 U/L 40-150 AST (SGOT) (BEAKER) (test ludc=936) 255 U/L 5-34 ALT (SGPT) (BEAKER) (test wqsg=843) 149 U/L 6-55 Specimen markedly [id number] 05:22:00* Test Item Value Reference Range Comments PHOSPHORUS (BEAKER) (test sghn=203) 2.3 mg/dL 2.3-4.7 [id number] 05:22:00* Test Item Value Reference Range Comments MAGNESIUM (BEAKER) (test zlbn=768) 2.0 mg/dL 1.6-2.6 PROTHROMBIN [id number] 05:18:00* Test Item Value Reference Range Comments PROTIME (BEAKER) (test akpg=597) 21.7 seconds 11.7-14.7 INR (BEAKER) (test wnfz=056) 1.9 <=5.9 RECOMMENDED COUMADIN/WARFARIN INR THERAPY RANGESSTANDARD DOSE: 2.0 - 3.0 Inclu kaya: PROPHYLAXIS for venous thrombosis, systemic embolization; TREATMENT for barby ous thrombosis and/or pulmonary embolus.HIGH RISK: Target INR is 2.5-3.5 for pat ients with mechanical heart valves.CBC W/PLT COUNT & AUTO [id number] 05:17:00* Test Item Value Reference Range Comments WHITE BLOOD CELL COUNT (BEAKER) (test nvkv=009) 3.8 K/ L 3.5-10.5 RED BLOOD CELL COUNT (BEAKER) (test wlpi=481) 3.09 M/ L 4.63-6.08 HEMOGLOBIN (BEAKER) (test roid=487) 9.6 GM/DL 13.7-17.5 HEMATOCRIT (BEAKER) (test xarw=867) 28.6 % 40.1-51.0 MEAN CORPUSCULAR VOLUME (BEAKER) (test nvgj=826) 92.6 fL 79.0-92.2 MEAN CORPUSCULAR HEMOGLOBIN (BEAKER) (test ufwp=792) 31.1 pg 25.7-32.2 MEAN CORPUSCULAR HEMOGLOBIN CONC (BEAKER) (test nwdv=867) 33.6 GM/DL 32.3-36.5 RED CELL DISTRIBUTION WIDTH (BEAKER) (test tkbm=768) 21.5 % 11.6-14.4 PLATELET COUNT (BEAKER) (test uxky=849) 61 K/CU MM 150-450 MEAN PLATELET VOLUME (BEAKER) (test arwg=367) 11.1 fL 9.4-12.4 NUCLEATED RED BLOOD CELLS (BEAKER) (test xdef=497) 0 /100 WBC 0-0 NEUTROPHILS RELATIVE PERCENT (BEAKER) (test ciot=581) 74 % LYMPHOCYTES RELATIVE PERCENT (BEAKER) (test hpeu=363) 13 % MONOCYTES RELATIVE PERCENT (BEAKER) (test cjet=148) 9 % EOSINOPHILS RELATIVE PERCENT (BEAKER) (test ymko=847) 2 % BASOPHILS RELATIVE PERCENT (BEAKER) (test zvji=948) 0 % NEUTROPHILS ABSOLUTE COUNT (BEAKER) (test vjjl=507) 2.82 K/ L 1.78-5.38 LYMPHOCYTES ABSOLUTE COUNT (BEAKER) (test ftjs=015) 0.49 K/ L 1.32-3.57 MONOCYTES ABSOLUTE COUNT (BEAKER) (test snvi=264) 0.35 K/ L 0.30-0.82 EOSINOPHILS ABSOLUTE COUNT (BEAKER) (test gosb=552) 0.09 K/ L 0.04-0.54 BASOPHILS ABSOLUTE COUNT (BEAKER) (test doxx=916) 0.01 K/ L 0.01-0.08 IMMATURE GRANULOCYTES-RELATIVE PERCENT (BEAKER) (test dlnu=9942) 1 % 0-1 EOSINOPHIL SMEAR, [id number] 20:16:00* Test Item Value Reference Range Comments EOSINOPHIL SMEAR, URINE (BEAKER) (test wmez=1153) No EOS seen No EOS seen SODIUM, RANDOM [id number] 19:30:00* Test Item Value Reference Range Comments SODIUM URINE (BEAKER) (test fknp=874) < meq/L Reference Range: No NormalsCREATININE, RANDOM [id number] 19:28:00* Test Item Value Reference Range Comments CREATININE URINE (BEAKER) (test bdmp=135) 95.0 mg/dL Reference Range: No NormalsPROTEIN, RANDOM [id number] 19:28:00* Test Item Value Reference Range Comments PROTEIN, URINE (BEAKER) (test fkrz=8942) 9 mg/dL 0-14 URINALYSIS W/ [id number] 19:16:00* Test Item Value Reference Range Comments COLOR (BEAKER) (test ones=611) Dark Yellow CLARITY (BEAKER) (test xcoh=427) Hazy SPECIFIC GRAVITY UA (BEAKER) (test fsza=625) 1.014 1.001-1.035 PH UA (BEAKER) (test avjk=602) 6.0 5.0-8.0 PROTEIN UA (BEAKER) (test ckdw=499) 10 mg/dL Negative GLUCOSE UA (BEAKER) (test ejlj=219) Negative Negative KETONES UA (BEAKER) (test xjor=019) Negative Negative BILIRUBIN UA (BEAKER) (test oijt=439) Positive Negative BLOOD UA (BEAKER) (test jhoh=117) Negative Negative NITRITE UA (BEAKER) (test qulb=696) Negative Negative LEUKOCYTE ESTERASE UA (BEAKER) (test lmwp=271) Negative Negative UROBILINOGEN UA (BEAKER) (test hhfk=345) 3.0 mg/dL 0.2-1.0 RBC UA (BEAKER) (test sfzu=611) 0 /HPF WBC UA (BEAKER) (test vozj=639) 2 /HPF BACTERIA (BEAKER) (test axnn=671) Few MUCUS (BEAKER) (test zeci=0304) Occasional HYALINE CASTS (BEAKER) (test imil=694) 5 /LPF SOURCE(BEAKER) (test beeq=5541) BODY FLUID CELL COUNT WITH [id number] 15:37:00* Test Item Value Reference Range Comments APPEARANCE FLUID (BEAKER) (test lujt=854) Clear Clear COLOR FLUID (BEAKER) (test aqmh=413) Yellow Colorless, Straw RBC FLUID (BEAKER) (test pddf=381) 400 /cu mm <=1 ADJUSTED WBC FLUID (BEAKER) (test douk=4502) 30 /cu mm <=5 LINING CELLS (BEAKER) (test xbpc=7424) 0 /cu mm <=1 NEUTROPHILS FLUID (BEAKER) (test pvci=6745) 29 % LYMPHS FLUID (BEAKER) (test tvyd=366) 35 % MONO/MACROPHAGE FLUID (BEAKER) (test qnkx=174) 34 % EOSINOPHILS FLUID (BEAKER) (test sqfm=111) 2 % BASO FLUID (BEAKER) (test rffr=337) 0 % CONTAINER BODY FLUID (BEAKER) (test uzha=0496) EDTA Tube PROTEIN, BODY [id number] 14:39:00* Test Item Value Reference Range Comments PROTEIN FLUID (BEAKER) (test iyjd=486) 0.9 g/dL Absence of reference range indicates that normals have not been defined.Assay pe rformance has not been validated for this type of specimen.BASIC METABOLIC PANEL 2017-10-23 14:15:00* Test Item Value Reference Range Comments SODIUM (BEAKER) (test xjqc=131) 135 meq/L 136-145 POTASSIUM (BEAKER) (test gaig=714) 2.9 meq/L 3.5-5.1 CHLORIDE (BEAKER) (test onfb=556) 109 meq/L 98-107 CO2 (BEAKER) (test kwaf=857) 17 meq/L 22-29 BLOOD UREA NITROGEN (BEAKER) (test wpev=725) 30 mg/dL 7-21 CREATININE (BEAKER) (test xyjv=489) 1.63 mg/dL 0.57-1.25 GLUCOSE RANDOM (BEAKER) (test roqe=597) 206 mg/dL 70-105 CALCIUM (BEAKER) (test xowy=447) 9.0 mg/dL 8.4-10.2 EGFR (BEAKER) (test jypt=4760) 45 mL/min/1.73 sq m ESTIMATED GFR IS NOT ACCURATE CREATININE CLEARANCE IN PREDICTING GLOMERULAR FILTRATION RATE. ESTIMATED GFR IS NOT APPLICABLE FOR DIALYSIS PATIENTS. Specimen markedly ictericU/S, [id number] 11:51:00Referring:Dr. Marciano Villa for exam:->singh Harris for exam:->SHORTNESS OF BREATHFINAL REPORT PROCEDURE: Ultrasound-guided paracentesis. INDICATION: 52-year-old man with ascites. DESCRIPTION: After obtaining informed written consent, ultrasound scan of the abdomen identified ascites in the right lower quadrant. The overlying skin was prepped and draped in the usual, sterile f ashion and local 1% lidocaine anesthesia was administered. A 5 [place] catheter w as advanced into the peritoneal cavity and 5000 cc of serous fluid was removed. The catheter was removed without immediate complication. Samples were sent for a nalysis. IMPRESSION:Uncomplicated ultrasound-guided paracentesis with 5000 cc fl uid removed. Signed: Génesis [place] Verified Date/Time: 10/23/2017 11 :51:16 Reading Location: [address] Ultrasound Reading Room TIC FUNCTION [id number] 06:39:00* Test Item Value Reference Range Comments TOTAL PROTEIN (BEAKER) (test odaa=023) 6.2 gm/dL 6.0-8.3 ALBUMIN (BEAKER) (test dhmn=8746) 2.5 g/dL 3.5-5.0 BILIRUBIN TOTAL (BEAKER) (test hodm=638) 27.8 mg/dL 0.2-1.2 BILIRUBIN DIRECT (BEAKER) (test qkqq=920) 20.0 mg/dL 0.1-0.5 ALKALINE PHOSPHATASE (BEAKER) (test cbbw=020) 100 U/L 40-150 AST (SGOT) (BEAKER) (test lyfg=436) 309 U/L 5-34 ALT (SGPT) (BEAKER) (test dzvq=547) 186 U/L 6-55 Specimen markedly ictericCBC W/PLT COUNT & AUTO [id number] 06:04:00 * Test Item Value Reference Range Comments WHITE BLOOD CELL COUNT (BEAKER) (test fepa=669) 3.7 K/ L 3.5-10.5 RED BLOOD CELL COUNT (BEAKER) (test ztvh=852) 3.24 M/ L 4.63-6.08 HEMOGLOBIN (BEAKER) (test jrpe=341) 10.1 GM/DL 13.7-17.5 HEMATOCRIT (BEAKER) (test kbnu=643) 29.9 % 40.1-51.0 MEAN CORPUSCULAR VOLUME (BEAKER) (test owux=835) 92.3 fL 79.0-92.2 MEAN CORPUSCULAR HEMOGLOBIN (BEAKER) (test fbko=967) 31.2 pg 25.7-32.2 MEAN CORPUSCULAR HEMOGLOBIN CONC (BEAKER) (test pedu=266) 33.8 GM/DL 32.3-36.5 RED CELL DISTRIBUTION WIDTH (BEAKER) (test ehni=220) 21.4 % 11.6-14.4 PLATELET COUNT (BEAKER) (test ahzq=101) 68 K/CU MM 150-450 MEAN PLATELET VOLUME (BEAKER) (test yiho=043) 11.9 fL 9.4-12.4 NUCLEATED RED BLOOD CELLS (BEAKER) (test bfet=409) 0 /100 WBC 0-0 NEUTROPHILS RELATIVE PERCENT (BEAKER) (test jjix=849) 71 % LYMPHOCYTES RELATIVE PERCENT (BEAKER) (test oypr=647) 16 % MONOCYTES RELATIVE PERCENT (BEAKER) (test hgah=689) 8 % EOSINOPHILS RELATIVE PERCENT (BEAKER) (test zfhy=940) 3 % BASOPHILS RELATIVE PERCENT (BEAKER) (test bmtq=194) 1 % NEUTROPHILS ABSOLUTE COUNT (BEAKER) (test vhcs=713) 2.63 K/ L 1.78-5.38 LYMPHOCYTES ABSOLUTE COUNT (BEAKER) (test pupm=334) 0.59 K/ L 1.32-3.57 MONOCYTES ABSOLUTE COUNT (BEAKER) (test osdf=271) 0.30 K/ L 0.30-0.82 EOSINOPHILS ABSOLUTE COUNT (BEAKER) (test vplu=254) 0.10 K/ L 0.04-0.54 BASOPHILS ABSOLUTE COUNT (BEAKER) (test lsas=943) 0.02 K/ L 0.01-0.08 IMMATURE GRANULOCYTES-RELATIVE PERCENT (BEAKER) (test fmir=8325) 2 % 0-1 PROTHROMBIN [id number] 06:01:00* Test Item Value Reference Range Comments PROTIME (BEAKER) (test pefe=860) 21.5 seconds 11.7-14.7 INR (BEAKER) (test gezo=476) 1.9 <=5.9 RECOMMENDED COUMADIN/WARFARIN INR THERAPY RANGESSTANDARD DOSE: 2.0 - 3.0 Inclu kaya: PROPHYLAXIS for venous thrombosis, systemic embolization; TREATMENT for barby ous thrombosis and/or pulmonary embolus.HIGH RISK: Target INR is 2.5-3.5 for pat ients with mechanical heart valves.PROTHROMBIN [id number] 23:26:00* Test Item Value Reference Range Comments PROTIME (BEAKER) (test nqhe=803) 20.4 seconds 11.7-14.7 INR (BEAKER) (test xadk=852) 1.8 <=5.9 RECOMMENDED COUMADIN/WARFARIN INR THERAPY RANGESSTANDARD DOSE: 2.0 - 3.0 Inclu kaya: PROPHYLAXIS for venous thrombosis, systemic embolization; TREATMENT for barby ous thrombosis and/or pulmonary embolus.HIGH RISK: Target INR is 2.5-3.5 for pat ients with mechanical heart valves.HEPATIC FUNCTION [id number] 22:43:00* Test Item Value Reference Range Comments TOTAL PROTEIN (BEAKER) (test zvvd=429) 7.2 gm/dL 6.0-8.3 ALBUMIN (BEAKER) (test qkpb=8373) 2.6 g/dL 3.5-5.0 BILIRUBIN TOTAL (BEAKER) (test sngp=117) 30.1 mg/dL 0.2-1.2 BILIRUBIN DIRECT (BEAKER) (test zhab=102) 22.6 mg/dL 0.1-0.5 ALKALINE PHOSPHATASE (BEAKER) (test gyat=414) 133 U/L 40-150 AST (SGOT) (BEAKER) (test ykja=071) 366 U/L 5-34 ALT (SGPT) (BEAKER) (test njsq=164) 220 U/L 6-55 Specimen markedly ictericCREATINE KINASE (CK), TOTAL AND [id number] 21:07:00* Test Item Value Reference Range Comments CREATINE KINASE TOTAL (BEAKER) (test aoys=465) 189 U/L 29-200 CREATINE KINASE-MB (BEAKER) (test auiu=541) 8.6 ng/mL 0.0-6.6 CREATINE KINASE-MB INDEX (BEAKER) (test mund=379) 4.6 % CK-MB Reference Range:<6.7 Normal6.7-10.0 Borderline>10.0 Abnormal TROPONIN [id number] 21:07:00* Test Item Value Reference Range Comments TROPONIN I (BEAKER) (test jucc=787) < ng/mL 0.00-0.03 Troponin I (TnI) levels must be interpreted in the context of the presenting sym ptoms and the clinical findings. Elevated TnI levels indicate myocardial damage, but are not specific for ischemic heart disease. Elevated TnI levels are seen in patients with other cardiac conditions (including myocarditis and congestive h eart failure), and slight TnI elevations occur in patients with other conditions , including sepsis, renal failure, acidosis, acute neurological disease, and per sistent tachyarrhythmia.B-TYPE NATRIURETIC FACTOR (BNP)2017-10-22 21:07:00* Test Item Value Reference Range Comments B-TYPE NATRIURETIC PEPTIDE (BEAKER) (test wpbw=062) 74 pg/mL 0-100 BASIC METABOLIC [id number] 20:59:00* Test Item Value Reference Range Comments SODIUM (BEAKER) (test iyvi=349) 135 meq/L 136-145 POTASSIUM (BEAKER) (test egwc=371) 3.3 meq/L 3.5-5.1 CHLORIDE (BEAKER) (test vrvb=561) 109 meq/L 98-107 CO2 (BEAKER) (test azmo=673) 19 meq/L 22-29 BLOOD UREA NITROGEN (BEAKER) (test zctq=008) 25 mg/dL 7-21 CREATININE (BEAKER) (test cclj=946) 1.71 mg/dL 0.57-1.25 GLUCOSE RANDOM (BEAKER) (test nghf=938) 141 mg/dL 70-105 CALCIUM (BEAKER) (test yqmw=449) 9.4 mg/dL 8.4-10.2 EGFR (BEAKER) (test oaoi=5908) 43 mL/min/1.73 sq m ESTIMATED GFR IS NOT ACCURATE CREATININE CLEARANCE IN PREDICTING GLOMERULAR FILTRATION RATE. ESTIMATED GFR IS NOT APPLICABLE FOR DIALYSIS PATIENTS. Specimen markedly ictericCBC W/PLT COUNT & AUTO [id number] 20:40:00 * Test Item Value Reference Range Comments WHITE BLOOD CELL COUNT (BEAKER) (test vfxo=191) 6.0 K/ L 3.5-10.5 RED BLOOD CELL COUNT (BEAKER) (test vwbr=084) 3.84 M/ L 4.63-6.08 HEMOGLOBIN (BEAKER) (test yxbp=654) 12.0 GM/DL 13.7-17.5 HEMATOCRIT (BEAKER) (test rdzj=931) 36.6 % 40.1-51.0 MEAN CORPUSCULAR VOLUME (BEAKER) (test degw=604) 95.3 fL 79.0-92.2 MEAN CORPUSCULAR HEMOGLOBIN (BEAKER) (test jmrl=081) 31.3 pg 25.7-32.2 MEAN CORPUSCULAR HEMOGLOBIN CONC (BEAKER) (test cdqs=377) 32.8 GM/DL 32.3-36.5 RED CELL DISTRIBUTION WIDTH (BEAKER) (test ixjh=826) 21.5 % 11.6-14.4 PLATELET COUNT (BEAKER) (test rasq=373) 99 K/CU MM 150-450 MEAN PLATELET VOLUME (BEAKER) (test syvr=004) 12.0 fL 9.4-12.4 NUCLEATED RED BLOOD CELLS (BEAKER) (test oxeh=313) 0 /100 WBC 0-0 NEUTROPHILS RELATIVE PERCENT (BEAKER) (test icxe=120) 79 % LYMPHOCYTES RELATIVE PERCENT (BEAKER) (test hkey=188) 12 % MONOCYTES RELATIVE PERCENT (BEAKER) (test vxof=590) 5 % EOSINOPHILS RELATIVE PERCENT (BEAKER) (test tesc=203) 2 % BASOPHILS RELATIVE PERCENT (BEAKER) (test ndjq=238) 0 % NEUTROPHILS ABSOLUTE COUNT (BEAKER) (test xpjt=421) 4.75 K/ L 1.78-5.38 LYMPHOCYTES ABSOLUTE COUNT (BEAKER) (test cshh=873) 0.71 K/ L 1.32-3.57 MONOCYTES ABSOLUTE COUNT (BEAKER) (test hfzq=001) 0.32 K/ L 0.30-0.82 EOSINOPHILS ABSOLUTE COUNT (BEAKER) (test bkzq=822) 0.12 K/ L 0.04-0.54 BASOPHILS ABSOLUTE COUNT (BEAKER) (test wotm=893) 0.02 K/ L 0.01-0.08 IMMATURE GRANULOCYTES-RELATIVE PERCENT (BEAKER) (test sgil=0823) 1 % 0-1 BILIRUBIN, [id number] 14:40:00* Test Item Value Reference Range Comments BILIRUBIN DIRECT (BEAKER) (test jmkd=701) 21.8 mg/dL 0.1-0.5 COMPREHENSIVE METABOLIC [id number] 14:40:00* Test Item Value Reference Range Comments TOTAL PROTEIN (BEAKER) (test mhbb=990) 7.3 gm/dL 6.0-8.3 ALBUMIN (BEAKER) (test nobw=4989) 2.7 g/dL 3.5-5.0 ALKALINE PHOSPHATASE (BEAKER) (test rbcq=644) 125 U/L 40-150 BILIRUBIN TOTAL (BEAKER) (test ejun=643) 28.1 mg/dL 0.2-1.2 SODIUM (BEAKER) (test qrbo=201) 138 meq/L 136-145 POTASSIUM (BEAKER) (test lwar=327) 3.2 meq/L 3.5-5.1 CHLORIDE (BEAKER) (test mcow=192) 109 meq/L 98-107 CO2 (BEAKER) (test buln=753) 22 meq/L 22-29 BLOOD UREA NITROGEN (BEAKER) (test bklh=340) 17 mg/dL 7-21 CREATININE (BEAKER) (test fyvx=074) 1.34 mg/dL 0.57-1.25 GLUCOSE RANDOM (BEAKER) (test mdlp=714) 102 mg/dL 70-105 CALCIUM (BEAKER) (test bhdf=526) 9.3 mg/dL 8.4-10.2 AST (SGOT) (BEAKER) (test ekvu=004) 506 U/L 5-34 ALT (SGPT) (BEAKER) (test zfzv=003) 268 U/L 6-55 EGFR (BEAKER) (test tmfu=3132) 56 mL/min/1.73 sq m ESTIMATED GFR IS NOT ACCURATE CREATININE CLEARANCE IN PREDICTING GLOMERULAR FILTRATION RATE. ESTIMATED GFR IS NOT APPLICABLE FOR DIALYSIS PATIENTS. Specimen markedly ictericPROTHROMBIN [id number] 13:59:00* Test Item Value Reference Range Comments PROTIME (BEAKER) (test pqum=227) 19.8 seconds 11.7-14.7 INR (BEAKER) (test iwsa=604) 1.7 <=5.9 RECOMMENDED COUMADIN/WARFARIN INR THERAPY RANGESSTANDARD DOSE: 2.0 - 3.0 Inclu kaya: PROPHYLAXIS for venous thrombosis, systemic embolization; TREATMENT for barby ous thrombosis and/or pulmonary embolus.HIGH RISK: Target INR is 2.5-3.5 for pat ients with mechanical heart valves.CBC W/PLT COUNT & AUTO [id number] 13:39:00* Test Item Value Reference Range Comments WHITE BLOOD CELL COUNT (BEAKER) (test lgtp=286) 4.0 K/ L 3.5-10.5 RED BLOOD CELL COUNT (BEAKER) (test igbo=111) 3.73 M/ L 4.63-6.08 HEMOGLOBIN (BEAKER) (test qxuz=108) 11.6 GM/DL 13.7-17.5 HEMATOCRIT (BEAKER) (test bixj=456) 35.4 % 40.1-51.0 MEAN CORPUSCULAR VOLUME (BEAKER) (test frjr=746) 94.9 fL 79.0-92.2 MEAN CORPUSCULAR HEMOGLOBIN (BEAKER) (test lvwn=484) 31.1 pg 25.7-32.2 MEAN CORPUSCULAR HEMOGLOBIN CONC (BEAKER) (test uwxr=713) 32.8 GM/DL 32.3-36.5 RED CELL DISTRIBUTION WIDTH (BEAKER) (test fkxq=590) 22.5 % 11.6-14.4 PLATELET COUNT (BEAKER) (test siej=262) 66 K/CU MM 150-450 MEAN PLATELET VOLUME (BEAKER) (test aspr=351) 11.4 fL 9.4-12.4 NUCLEATED RED BLOOD CELLS (BEAKER) (test guhv=472) 0 /100 WBC 0-0 NEUTROPHILS RELATIVE PERCENT (BEAKER) (test ltjz=383) 72 % LYMPHOCYTES RELATIVE PERCENT (BEAKER) (test xfsc=814) 15 % MONOCYTES RELATIVE PERCENT (BEAKER) (test sqss=957) 10 % EOSINOPHILS RELATIVE PERCENT (BEAKER) (test wvvb=592) 3 % BASOPHILS RELATIVE PERCENT (BEAKER) (test erti=073) 1 % NEUTROPHILS ABSOLUTE COUNT (BEAKER) (test kuot=345) 2.90 K/ L 1.78-5.38 LYMPHOCYTES ABSOLUTE COUNT (BEAKER) (test mheb=949) 0.59 K/ L 1.32-3.57 MONOCYTES ABSOLUTE COUNT (BEAKER) (test xplp=844) 0.39 K/ L 0.30-0.82 EOSINOPHILS ABSOLUTE COUNT (BEAKER) (test jqjn=372) 0.12 K/ L 0.04-0.54 BASOPHILS ABSOLUTE COUNT (BEAKER) (test gjbq=520) 0.02 K/ L 0.01-0.08 IMMATURE GRANULOCYTES-RELATIVE PERCENT (BEAKER) (test plqn=7977) 1 % 0-1 BLOOD [id number] 00:00:00* Test Item Value Reference Range Comments CULTURE (BEAKER) (test imnn=6083) No growth in 5 days BLOOD [id number] 00:00:00* Test Item Value Reference Range Comments CULTURE (BEAKER) (test yesq=0294) No growth in 5 days [id number] 06:06:00* Test Item Value Reference Range Comments PHOSPHORUS (BEAKER) (test pmmo=707) 2.0 mg/dL 2.3-4.7 [id number] 06:06:00* Test Item Value Reference Range Comments MAGNESIUM (BEAKER) (test cium=872) 1.9 mg/dL 1.6-2.6 COMPREHENSIVE METABOLIC [id number] 06:06:00* Test Item Value Reference Range Comments TOTAL PROTEIN (BEAKER) (test npcb=015) 6.9 gm/dL 6.0-8.3 ALBUMIN (BEAKER) (test wzma=2937) 2.9 g/dL 3.5-5.0 ALKALINE PHOSPHATASE (BEAKER) (test ndur=127) 117 U/L 40-150 BILIRUBIN TOTAL (BEAKER) (test hgxw=313) 16.9 mg/dL 0.2-1.2 SODIUM (BEAKER) (test csbc=460) 133 meq/L 136-145 POTASSIUM (BEAKER) (test wzmy=846) 4.7 meq/L 3.5-5.1 CHLORIDE (BEAKER) (test ppeq=517) 106 meq/L 98-107 CO2 (BEAKER) (test axxg=288) 22 meq/L 22-29 BLOOD UREA NITROGEN (BEAKER) (test vwgt=208) 17 mg/dL 7-21 CREATININE (BEAKER) (test ceek=868) 1.07 mg/dL 0.57-1.25 GLUCOSE RANDOM (BEAKER) (test hcqb=395) 139 mg/dL 70-105 CALCIUM (BEAKER) (test uxki=078) 9.3 mg/dL 8.4-10.2 AST (SGOT) (BEAKER) (test nmks=094) 517 U/L 5-34 ALT (SGPT) (BEAKER) (test mwaa=776) 254 U/L 6-55 EGFR (BEAKER) (test pvre=1784) 73 mL/min/1.73 sq m ESTIMATED GFR IS NOT ACCURATE CREATININE CLEARANCE IN PREDICTING GLOMERULAR FILTRATION RATE. ESTIMATED GFR IS NOT APPLICABLE FOR DIALYSIS PATIENTS. Specimen markedly ictericHEPATIC FUNCTION [id number] 06:06:00* Test Item Value Reference Range Comments TOTAL PROTEIN (BEAKER) (test tfvo=286) 6.9 gm/dL 6.0-8.3 ALBUMIN (BEAKER) (test tzws=6101) 2.9 g/dL 3.5-5.0 BILIRUBIN TOTAL (BEAKER) (test hfqw=771) 16.9 mg/dL 0.2-1.2 BILIRUBIN DIRECT (BEAKER) (test pymk=683) 11.9 mg/dL 0.1-0.5 ALKALINE PHOSPHATASE (BEAKER) (test rrrn=232) 117 U/L 40-150 AST (SGOT) (BEAKER) (test azmb=700) 517 U/L 5-34 ALT (SGPT) (BEAKER) (test dyyf=325) 254 U/L 6-55 Specimen markedly ictericCALCIUM, [id number] 05:56:00* Test Item Value Reference Range Comments CALCIUM IONIZED (BEAKER) (test btzy=043) 1.15 mmol/L 1.12-1.27 PH, BLOOD (BEAKER) (test mjdf=6098) 7.40 CBC W/PLT COUNT & AUTO [id number] 05:35:00* Test Item Value Reference Range Comments WHITE BLOOD CELL COUNT (BEAKER) (test aaqy=203) 3.2 K/ L 3.5-10.5 RED BLOOD CELL COUNT (BEAKER) (test lyoa=864) 3.56 M/ L 4.63-6.08 HEMOGLOBIN (BEAKER) (test inbc=304) 10.7 GM/DL 13.7-17.5 HEMATOCRIT (BEAKER) (test nsxn=291) 33.0 % 40.1-51.0 MEAN CORPUSCULAR VOLUME (BEAKER) (test riuo=374) 92.7 fL 79.0-92.2 MEAN CORPUSCULAR HEMOGLOBIN (BEAKER) (test jlam=512) 30.1 pg 25.7-32.2 MEAN CORPUSCULAR HEMOGLOBIN CONC (BEAKER) (test jwxo=343) 32.4 GM/DL 32.3-36.5 RED CELL DISTRIBUTION WIDTH (BEAKER) (test rilx=751) 19.9 % 11.6-14.4 PLATELET COUNT (BEAKER) (test mnku=290) 52 K/CU MM 150-450 MEAN PLATELET VOLUME (BEAKER) (test rknz=508) fL 9.4-12.4 Unable to report due to abnormal Platelet population distribution. NUCLEATED RED BLOOD CELLS (BEAKER) (test dzlo=985) 0 /100 WBC 0-0 NEUTROPHILS RELATIVE PERCENT (BEAKER) (test umbq=857) 86 % LYMPHOCYTES RELATIVE PERCENT (BEAKER) (test bmbr=986) 11 % MONOCYTES RELATIVE PERCENT (BEAKER) (test befl=534) 2 % EOSINOPHILS RELATIVE PERCENT (BEAKER) (test gqhc=230) 0 % BASOPHILS RELATIVE PERCENT (BEAKER) (test xvgc=653) 0 % NEUTROPHILS ABSOLUTE COUNT (BEAKER) (test mkvl=350) 2.76 K/ L 1.78-5.38 LYMPHOCYTES ABSOLUTE COUNT (BEAKER) (test xfnx=445) 0.36 K/ L 1.32-3.57 MONOCYTES ABSOLUTE COUNT (BEAKER) (test ygkh=861) 0.07 K/ L 0.30-0.82 EOSINOPHILS ABSOLUTE COUNT (BEAKER) (test vyoi=852) 0.01 K/ L 0.04-0.54 BASOPHILS ABSOLUTE COUNT (BEAKER) (test tloc=613) 0.01 K/ L 0.01-0.08 IMMATURE GRANULOCYTES-RELATIVE PERCENT (BEAKER) (test hjqz=9575) 1 % 0-1 PROTHROMBIN [id number] 05:28:00* Test Item Value Reference Range Comments PROTIME (BEAKER) (test romz=058) 18.7 seconds 11.7-14.7 INR (BEAKER) (test vsmb=702) 1.6 <=5.9 RECOMMENDED COUMADIN/WARFARIN INR THERAPY RANGESSTANDARD DOSE: 2.0 - 3.0 Inclu kaya: PROPHYLAXIS for venous thrombosis, systemic embolization; TREATMENT for barby ous thrombosis and/or pulmonary embolus.HIGH RISK: Target INR is 2.5-3.5 for pat ients with mechanical heart valves.BODY FLUID CELL COUNT WITH DIFFERENTIAL 2017-09-28 18:20:00* Test Item Value Reference Range Comments APPEARANCE FLUID (BEAKER) (test xrtu=371) Slightly Hazy Clear COLOR FLUID (BEAKER) (test iixs=950) Yellow Colorless, Straw RBC FLUID (BEAKER) (test rwqc=536) 190 /cu mm <=1 ADJUSTED WBC FLUID (BEAKER) (test mrlr=0598) 228 /cu mm <=5 LINING CELLS (BEAKER) (test kcjc=5737) 2 /cu mm <=1 NEUTROPHILS FLUID (BEAKER) (test itbl=9233) 3 % LYMPHS FLUID (BEAKER) (test maxv=585) 38 % MONO/MACROPHAGE FLUID (BEAKER) (test loab=322) 59 % EOSINOPHILS FLUID (BEAKER) (test kulz=561) 0 % BASO FLUID (BEAKER) (test qdcj=620) 0 % CONTAINER BODY FLUID (BEAKER) (test yicm=6529) EDTA Tube ALBUMIN, BODY [id number] 15:08:00* Test Item Value Reference Range Comments ALBUMIN FLUID (BEAKER) (test ntdf=888) 1.0 gm/dL Reference Range: No Normals Assay performance has not been validated for this type of specimen.PROTEIN, BODY [id number] 15:00:00* Test Item Value Reference Range Comments PROTEIN FLUID (BEAKER) (test scdx=079) 2.0 g/dL Absence of reference range indicates that normals have not been defined.Assay pe rformance has not been validated for this type of specimen.U/S, PARACENTESIS 2017-09-28 12:08:00Referring:Dr. Marciano Villa for exam:->diagnostic para for ascitesFINAL REPORT Ultrasound-guided diagnostic paracentesis. Clinical History: Ascites Informed consent was obtained from the patient and the risks of the procedure were explained including bleeding, infection, bowel perforation and visceral injury. Sedation: 1% Xylocaine was used as local sedation. Conscious sedation protocol was not utilized as no systemic analgesia was administered. Technique: Using sterile technique, ultrasound guidance and a 22-gauge needle needle, a single pass left upper quadrant diagnostic paracentesis was performed. The procedure yielded 50 cc of yellow fluid. The needle was then removed. No immediate complications developed. Labs were sent as requested. Estimated blood loss: None Patient disposition: The patient was asymptomatic at the end of the exam. Impression: Successful diagnostic paracentesis yielding 50 cc of fluid. The patient only has minimal ascites in the left upper quadrant and therefore a therapeutic paracentesis was not performed. Signed: Joey Lance MDReport Verified Date/Time: 09/28/2017 12:08:45 Reading Location: [address] Ultrasound Reading Room [id number] 06:56:00* Test Item Value Reference Range Comments PHOSPHORUS (BEAKER) (test kqvp=311) 2.4 mg/dL 2.3-4.7 [id number] 06:56:00* Test Item Value Reference Range Comments MAGNESIUM (BEAKER) (test tqrx=215) 1.6 mg/dL 1.6-2.6 COMPREHENSIVE METABOLIC [id number] 06:56:00* Test Item Value Reference Range Comments TOTAL PROTEIN (BEAKER) (test zdjc=983) 6.4 gm/dL 6.0-8.3 ALBUMIN (BEAKER) (test wwui=5552) 2.9 g/dL 3.5-5.0 ALKALINE PHOSPHATASE (BEAKER) (test ybtd=972) 106 U/L 40-150 BILIRUBIN TOTAL (BEAKER) (test ctyj=675) 15.9 mg/dL 0.2-1.2 SODIUM (BEAKER) (test odea=763) 136 meq/L 136-145 POTASSIUM (BEAKER) (test qfjn=357) 3.9 meq/L 3.5-5.1 CHLORIDE (BEAKER) (test dfoh=552) 105 meq/L 98-107 CO2 (BEAKER) (test qbls=976) 22 meq/L 22-29 BLOOD UREA NITROGEN (BEAKER) (test vmgt=324) 27 mg/dL 7-21 CREATININE (BEAKER) (test trrk=903) 1.20 mg/dL 0.57-1.25 GLUCOSE RANDOM (BEAKER) (test vfux=576) 90 mg/dL 70-105 CALCIUM (BEAKER) (test wezw=540) 8.5 mg/dL 8.4-10.2 AST (SGOT) (BEAKER) (test ttgu=690) 410 U/L 5-34 ALT (SGPT) (BEAKER) (test hqob=717) 203 U/L 6-55 EGFR (BEAKER) (test ogjx=2168) 64 mL/min/1.73 sq m ESTIMATED GFR IS NOT ACCURATE CREATININE CLEARANCE IN PREDICTING GLOMERULAR FILTRATION RATE. ESTIMATED GFR IS NOT APPLICABLE FOR DIALYSIS PATIENTS. Specimen markedly ictericPROTHROMBIN [id number] 06:46:00* Test Item Value Reference Range Comments PROTIME (BEAKER) (test ffwy=002) 19.8 seconds 11.7-14.7 INR (BEAKER) (test kxzr=642) 1.7 <=5.9 RECOMMENDED COUMADIN/WARFARIN INR THERAPY RANGESSTANDARD DOSE: 2.0 - 3.0 Inclu kaya: PROPHYLAXIS for venous thrombosis, systemic embolization; TREATMENT for barby ous thrombosis and/or pulmonary embolus.HIGH RISK: Target INR is 2.5-3.5 for pat ients with mechanical heart valves.CALCIUM, [id number] 06:40:00* Test Item Value Reference Range Comments CALCIUM IONIZED (BEAKER) (test gfcy=142) 1.02 mmol/L 1.12-1.27 PH, BLOOD (BEAKER) (test lzpl=7703) 7.47 CBC W/PLT COUNT & AUTO [id number] 06:27:00* Test Item Value Reference Range Comments WHITE BLOOD CELL COUNT (BEAKER) (test ytpo=585) 3.0 K/ L 3.5-10.5 RED BLOOD CELL COUNT (BEAKER) (test chzw=289) 3.03 M/ L 4.63-6.08 HEMOGLOBIN (BEAKER) (test then=498) 9.2 GM/DL 13.7-17.5 HEMATOCRIT (BEAKER) (test fhuc=588) 28.3 % 40.1-51.0 MEAN CORPUSCULAR VOLUME (BEAKER) (test mkuo=616) 93.4 fL 79.0-92.2 MEAN CORPUSCULAR HEMOGLOBIN (BEAKER) (test uezb=753) 30.4 pg 25.7-32.2 MEAN CORPUSCULAR HEMOGLOBIN CONC (BEAKER) (test tgim=665) 32.5 GM/DL 32.3-36.5 RED CELL DISTRIBUTION WIDTH (BEAKER) (test yqqc=872) 20.4 % 11.6-14.4 PLATELET COUNT (BEAKER) (test wpzt=871) 55 K/CU MM 150-450 MEAN PLATELET VOLUME (BEAKER) (test jrcf=082) 11.5 fL 9.4-12.4 NUCLEATED RED BLOOD CELLS (BEAKER) (test axow=773) 0 /100 WBC 0-0 NEUTROPHILS RELATIVE PERCENT (BEAKER) (test oddg=100) 67 % LYMPHOCYTES RELATIVE PERCENT (BEAKER) (test gaud=522) 21 % MONOCYTES RELATIVE PERCENT (BEAKER) (test ilyj=066) 9 % EOSINOPHILS RELATIVE PERCENT (BEAKER) (test jfuc=644) 2 % BASOPHILS RELATIVE PERCENT (BEAKER) (test ksys=265) 0 % NEUTROPHILS ABSOLUTE COUNT (BEAKER) (test sdoq=319) 2.03 K/ L 1.78-5.38 LYMPHOCYTES ABSOLUTE COUNT (BEAKER) (test blrv=314) 0.62 K/ L 1.32-3.57 MONOCYTES ABSOLUTE COUNT (BEAKER) (test heer=106) 0.28 K/ L 0.30-0.82 EOSINOPHILS ABSOLUTE COUNT (BEAKER) (test folr=511) 0.06 K/ L 0.04-0.54 BASOPHILS ABSOLUTE COUNT (BEAKER) (test bsel=860) 0.01 K/ L 0.01-0.08 IMMATURE GRANULOCYTES-RELATIVE PERCENT (BEAKER) (test lfpn=8303) 1 % 0-1 CREATININE, RANDOM [id number] 23:12:00* Test Item Value Reference Range Comments CREATININE URINE (BEAKER) (test dkat=162) 79.7 mg/dL Reference Range: No NormalsPROTEIN, RANDOM [id number] 23:12:00* Test Item Value Reference Range Comments PROTEIN, URINE (BEAKER) (test elmd=4026) 8 mg/dL 0-14 SODIUM, RANDOM [id number] 23:12:00* Test Item Value Reference Range Comments SODIUM URINE (BEAKER) (test hcqo=704) 61 meq/L Reference Range: No NormalsURINALYSIS W/ REFLEX URINE [id number] 23:00:00 * Test Item Value Reference Range Comments COLOR (BEAKER) (test wrqw=648) Dark Yellow CLARITY (BEAKER) (test vhun=638) Clear SPECIFIC GRAVITY UA (BEAKER) (test vhkk=672) 1.012 1.001-1.035 PH UA (BEAKER) (test dlqw=580) 7.0 5.0-8.0 PROTEIN UA (BEAKER) (test gqyj=173) Negative Negative GLUCOSE UA (BEAKER) (test udxa=861) Negative Negative KETONES UA (BEAKER) (test ftod=678) Negative Negative BILIRUBIN UA (BEAKER) (test ajeo=593) Positive Negative BLOOD UA (BEAKER) (test nagb=121) Negative Negative NITRITE UA (BEAKER) (test fbgg=830) Negative Negative LEUKOCYTE ESTERASE UA (BEAKER) (test qcau=571) Negative Negative UROBILINOGEN UA (BEAKER) (test yazz=917) 3.0 mg/dL 0.2-1.0 RBC UA (BEAKER) (test qbln=191) < /HPF WBC UA (BEAKER) (test ylsl=392) 1 /HPF BACTERIA (BEAKER) (test zxqd=279) Rare MUCUS (BEAKER) (test owvn=3444) Rare SOURCE(BEAKER) (test kcwl=5254) U/S, RENAL, [id number] 20:40:00Referring:Dr. Marciano Villa for exam:-> ABNORMAL LABon liver transplant listFINAL REPORT Renal ultrasound Comparison: No comparison renal ultrasound Clinical History: Abnormal lab Technique:Sonographic evaluation of the kidneys was performed. 35 images were submitted for interpretation, using a five MHz transducer. Right kidney:The kidney measures 11.5 cm in length. The cortical echogenicity is within normal limits. The cortex measures 11.6 cm. There is no evidence of a focal mass. There is no evidence of hydronephrosis. There is no evidence of a shadowing stone. There is no evidence of a cyst. There is no evidence of a perinephric fluid collection. Flow was visualized to the right kidney. Left kidney:The kidney measures 10.4 cm in length. The cortical echogenicity is within normal limits. The cortex measures 1.1 cm. There is no evidence of a focal mass. There is no evidence of hydronephrosis. There is no evidence of a shadowing stone. There is no evidence of a cyst. There is no evidence of a perinephric fluid collection. Flow was visualized to the left kidney. Survey images of the bladder demonstrate no abnormality. The volume measured 200 cc Impression:The kidneys are normal in size without evidence of hydronephrosis. The echogenicity is unremarkable. Signed: Sonja Leonardo MDReport Verified Date/Time: 09/27/2017 20:40:01 Reading Location: [facility] B1 [id number] Consult Reading R oom REHENSIVE METABOLIC [id number] 20:10:00* Test Item Value Reference Range Comments TOTAL PROTEIN (BEAKER) (test pqcs=581) 7.1 gm/dL 6.0-8.3 ALBUMIN (BEAKER) (test lpdo=8463) 2.6 g/dL 3.5-5.0 ALKALINE PHOSPHATASE (BEAKER) (test kacv=830) 139 U/L 40-150 BILIRUBIN TOTAL (BEAKER) (test nazv=935) 20.0 mg/dL 0.2-1.2 SODIUM (BEAKER) (test byhg=820) 137 meq/L 136-145 POTASSIUM (BEAKER) (test fmjz=689) 3.6 meq/L 3.5-5.1 CHLORIDE (BEAKER) (test znna=484) 101 meq/L 98-107 CO2 (BEAKER) (test yuoz=883) 27 meq/L 22-29 BLOOD UREA NITROGEN (BEAKER) (test kpig=706) 26 mg/dL 7-21 CREATININE (BEAKER) (test uvtg=934) 1.31 mg/dL 0.57-1.25 GLUCOSE RANDOM (BEAKER) (test nbll=276) 79 mg/dL 70-105 CALCIUM (BEAKER) (test uwwh=775) 8.8 mg/dL 8.4-10.2 AST (SGOT) (BEAKER) (test wnmi=428) 517 U/L 5-34 ALT (SGPT) (BEAKER) (test ctmi=390) 263 U/L 6-55 EGFR (BEAKER) (test yndp=2014) 58 mL/min/1.73 sq m ESTIMATED GFR IS NOT ACCURATE CREATININE CLEARANCE IN PREDICTING GLOMERULAR FILTRATION RATE. ESTIMATED GFR IS NOT APPLICABLE FOR DIALYSIS PATIENTS. Specimen markedly ictericCBC W/PLT COUNT & AUTO [id number] 17:51:00 * Test Item Value Reference Range Comments WHITE BLOOD CELL COUNT (BEAKER) (test ybir=423) 3.3 K/ L 3.5-10.5 RED BLOOD CELL COUNT (BEAKER) (test zyet=169) 3.79 M/ L 4.63-6.08 HEMOGLOBIN (BEAKER) (test oqcr=441) 11.5 GM/DL 13.7-17.5 HEMATOCRIT (BEAKER) (test xvmg=443) 35.6 % 40.1-51.0 MEAN CORPUSCULAR VOLUME (BEAKER) (test nhsp=711) 93.9 fL 79.0-92.2 MEAN CORPUSCULAR HEMOGLOBIN (BEAKER) (test kjwr=163) 30.3 pg 25.7-32.2 MEAN CORPUSCULAR HEMOGLOBIN CONC (BEAKER) (test dgem=924) 32.3 GM/DL 32.3-36.5 RED CELL DISTRIBUTION WIDTH (BEAKER) (test ibys=782) 20.7 % 11.6-14.4 PLATELET COUNT (BEAKER) (test qfxq=692) 75 K/CU MM 150-450 MEAN PLATELET VOLUME (BEAKER) (test fjmu=314) 11.3 fL 9.4-12.4 NUCLEATED RED BLOOD CELLS (BEAKER) (test zdub=458) 0 /100 WBC 0-0 NEUTROPHILS RELATIVE PERCENT (BEAKER) (test venv=974) 73 % LYMPHOCYTES RELATIVE PERCENT (BEAKER) (test anaj=449) 15 % MONOCYTES RELATIVE PERCENT (BEAKER) (test gcjl=418) 9 % EOSINOPHILS RELATIVE PERCENT (BEAKER) (test npdj=678) 2 % BASOPHILS RELATIVE PERCENT (BEAKER) (test qjnz=396) 1 % NEUTROPHILS ABSOLUTE COUNT (BEAKER) (test yxri=863) 2.45 K/ L 1.78-5.38 LYMPHOCYTES ABSOLUTE COUNT (BEAKER) (test gqur=337) 0.51 K/ L 1.32-3.57 MONOCYTES ABSOLUTE COUNT (BEAKER) (test udzk=975) 0.29 K/ L 0.30-0.82 EOSINOPHILS ABSOLUTE COUNT (BEAKER) (test xadz=505) 0.05 K/ L 0.04-0.54 BASOPHILS ABSOLUTE COUNT (BEAKER) (test kooq=675) 0.02 K/ L 0.01-0.08 IMMATURE GRANULOCYTES-RELATIVE PERCENT (BEAKER) (test dxdn=1668) 1 % 0-1 HEPATIC FUNCTION [id number] 17:47:00* Test Item Value Reference Range Comments TOTAL PROTEIN (BEAKER) (test dbhy=335) 7.5 gm/dL 6.0-8.3 ALBUMIN (BEAKER) (test regj=9165) 2.8 g/dL 3.5-5.0 BILIRUBIN TOTAL (BEAKER) (test nptw=059) 21.3 mg/dL 0.2-1.2 BILIRUBIN DIRECT (BEAKER) (test ivxg=388) 14.7 mg/dL 0.1-0.5 ALKALINE PHOSPHATASE (BEAKER) (test awna=273) 141 U/L 40-150 AST (SGOT) (BEAKER) (test zkqe=919) 598 U/L 5-34 ALT (SGPT) (BEAKER) (test kdlb=422) 300 U/L 6-55 Specimen markedly ictericBASIC METABOLIC [id number] 17:45:00* Test Item Value Reference Range Comments SODIUM (BEAKER) (test xkcy=147) 136 meq/L 136-145 POTASSIUM (BEAKER) (test vzem=219) 3.8 meq/L 3.5-5.1 CHLORIDE (BEAKER) (test wzuv=110) 100 meq/L 98-107 CO2 (BEAKER) (test aokn=790) 29 meq/L 22-29 BLOOD UREA NITROGEN (BEAKER) (test vkmy=897) 28 mg/dL 7-21 CREATININE (BEAKER) (test jjxw=065) 1.59 mg/dL 0.57-1.25 GLUCOSE RANDOM (BEAKER) (test aidf=599) 168 mg/dL 70-105 CALCIUM (BEAKER) (test oxtm=159) 9.5 mg/dL 8.4-10.2 EGFR (BEAKER) (test jplg=7339) 46 mL/min/1.73 sq m ESTIMATED GFR IS NOT ACCURATE CREATININE CLEARANCE IN PREDICTING GLOMERULAR FILTRATION RATE. ESTIMATED GFR IS NOT APPLICABLE FOR DIALYSIS PATIENTS. Specimen markedly ictericPT/[id number] 17:41:00* Test Item Value Reference Range Comments PROTIME (BEAKER) (test kfll=666) 18.3 seconds 11.7-14.7 INR (BEAKER) (test wsgl=787) 1.5 <=5.9 PARTIAL THROMBOPLASTIN TIME (BEAKER) (test qzaa=398) 39.4 seconds 22.5-36.0 RECOMMENDED COUMADIN/WARFARIN INR THERAPY RANGESSTANDARD DOSE: 2.0 - 3.0 Inclu kaya: PROPHYLAXIS for venous thrombosis, systemic embolization; TREATMENT for barby ous thrombosis and/or pulmonary embolus.HIGH RISK: Target INR is 2.5-3.5 for pat ients with mechanical heart valves.RAD, CHEST, 1 VIEW, NON [id number] 17:38:00Referring:Dr. aMrciano Villa for exam:->coughon liver transplant list FINAL REPORT Follow up Chest radiograph Clinical History: CoughComparison: September 19, 2017Views: One AP lordotic Chest x-ray:The cardiac and mediastinal silhouettes are unchanged. There is no evidence of a pneumothorax. There is no evidence of a pleural effusion. There is no evidence of overt c ardiac failure. There is no evidence of a focal parenchymal opacity. Postoperat diego changes are visualized at the right hilum. Volume loss changes are present o n the right. Impression:No active cardiopulmonary disease and no significant anya nge Signed: Sonja Leonardo MDReport Verified Date/Time: 09/27/2017 17:38:52 Hayden espinoza Location: [address] Consult Reading Room -MITOCHONDRIAL AB, REFLEX TO TITER 2017-09-27 08:40:00* Test Item Value Reference Range Comments SCAN RESULT (test [id number]=[id number]) ANTI-NUCLEAR ANTIBODY (RAVINDER)2017-09-27 05:00:00* Test Item Value Reference Range Comments ANTI-NUCLEAR ANTIBODY (RAVINDER) (BEAKER) (test bjrf=916) Positive Negative Test performed by IFA method.RAVINDER TITER AND [id number] 05:00:00* Test Item Value Reference Range Comments RAVINDER TITER (BEAKER) (test nazp=3710) :640 RAVINDER PATTERN (BEAKER) (test wpzm=6405) Homogeneous BLOOD [id number] 00:00:00* Test Item Value Reference Range Comments CULTURE (BEAKER) (test ekpj=5877) No growth in 5 days BLOOD [id number] 00:00:00* Test Item Value Reference Range Comments CULTURE (BEAKER) (test ovau=7400) No growth in 5 days BODY FLUID CULTURE + GRAM [id number] 17:55:00* Test Item Value Reference Range Comments CULTURE (BEAKER) (test bkfs=4934) No growth GRAM STAIN RESULT (BEAKER) (test mqsa=8204) 1+ WBCs GRAM STAIN RESULT (BEAKER) (test qcxj=14981) No organisms seen CALCIUM, [id number] 06:04:00* Test Item Value Reference Range Comments CALCIUM IONIZED (BEAKER) (test ethp=589) 0.99 mmol/L 1.12-1.27 PH, BLOOD (BEAKER) (test jphu=7704) 7.47 [id number] 06:02:00* Test Item Value Reference Range Comments PHOSPHORUS (BEAKER) (test tbvf=604) 2.9 mg/dL 2.3-4.7 [id number] 06:02:00* Test Item Value Reference Range Comments MAGNESIUM (BEAKER) (test ccec=605) 1.2 mg/dL 1.6-2.6 COMPREHENSIVE METABOLIC [id number] 06:02:00* Test Item Value Reference Range Comments TOTAL PROTEIN (BEAKER) (test fbmk=503) 6.3 gm/dL 6.0-8.3 ALBUMIN (BEAKER) (test goir=3366) 2.5 g/dL 3.5-5.0 ALKALINE PHOSPHATASE (BEAKER) (test hrau=346) 117 U/L 40-150 BILIRUBIN TOTAL (BEAKER) (test wpgi=588) 14.3 mg/dL 0.2-1.2 SODIUM (BEAKER) (test xhso=461) 137 meq/L 136-145 POTASSIUM (BEAKER) (test payf=179) 3.1 meq/L 3.5-5.1 CHLORIDE (BEAKER) (test ozyj=549) 102 meq/L 98-107 CO2 (BEAKER) (test wssp=273) 25 meq/L 22-29 BLOOD UREA NITROGEN (BEAKER) (test fypo=168) 18 mg/dL 7-21 CREATININE (BEAKER) (test fkiq=821) 1.07 mg/dL 0.57-1.25 GLUCOSE RANDOM (BEAKER) (test synw=295) 93 mg/dL 70-105 CALCIUM (BEAKER) (test rtst=609) 8.5 mg/dL 8.4-10.2 AST (SGOT) (BEAKER) (test deen=382) 487 U/L 5-34 ALT (SGPT) (BEAKER) (test beul=397) 234 U/L 6-55 EGFR (BEAKER) (test sqzz=7606) 73 mL/min/1.73 sq m ESTIMATED GFR IS NOT ACCURATE CREATININE CLEARANCE IN PREDICTING GLOMERULAR FILTRATION RATE. ESTIMATED GFR IS NOT APPLICABLE FOR DIALYSIS PATIENTS. Specimen markedly ictericHEPATIC FUNCTION [id number] 06:02:00* Test Item Value Reference Range Comments TOTAL PROTEIN (BEAKER) (test zqre=174) 6.3 gm/dL 6.0-8.3 ALBUMIN (BEAKER) (test kntq=4308) 2.5 g/dL 3.5-5.0 BILIRUBIN TOTAL (BEAKER) (test rylx=828) 14.3 mg/dL 0.2-1.2 BILIRUBIN DIRECT (BEAKER) (test gmiu=722) 10.5 mg/dL 0.1-0.5 ALKALINE PHOSPHATASE (BEAKER) (test kvdr=528) 117 U/L 40-150 AST (SGOT) (BEAKER) (test vlzi=115) 487 U/L 5-34 ALT (SGPT) (BEAKER) (test buym=051) 234 U/L 6-55 Specimen markedly ictericPROTHROMBIN TIME/[id number] 05:27:00* Test Item Value Reference Range Comments PROTIME (BEAKER) (test qkos=541) 19.2 seconds 11.7-14.7 INR (BEAKER) (test rpfo=066) 1.6 <=5.9 RECOMMENDED COUMADIN/WARFARIN INR THERAPY RANGESSTANDARD DOSE: 2.0 - 3.0 Inclu kaya: PROPHYLAXIS for venous thrombosis, systemic embolization; TREATMENT for barby ous thrombosis and/or pulmonary embolus.HIGH RISK: Target INR is 2.5-3.5 for pat ients with mechanical heart valves.CBC W/PLT COUNT & AUTO [id number] 05:26:00* Test Item Value Reference Range Comments WHITE BLOOD CELL COUNT (BEAKER) (test lqqd=541) 2.6 K/ L 3.5-10.5 RED BLOOD CELL COUNT (BEAKER) (test oatm=974) 3.18 M/ L 4.63-6.08 HEMOGLOBIN (BEAKER) (test lzoh=862) 9.5 GM/DL 13.7-17.5 HEMATOCRIT (BEAKER) (test yyjd=660) 28.7 % 40.1-51.0 MEAN CORPUSCULAR VOLUME (BEAKER) (test xwae=534) 90.3 fL 79.0-92.2 MEAN CORPUSCULAR HEMOGLOBIN (BEAKER) (test pjga=624) 29.9 pg 25.7-32.2 MEAN CORPUSCULAR HEMOGLOBIN CONC (BEAKER) (test nuoe=672) 33.1 GM/DL 32.3-36.5 RED CELL DISTRIBUTION WIDTH (BEAKER) (test xxsk=640) 21.2 % 11.6-14.4 PLATELET COUNT (BEAKER) (test adav=057) 58 K/CU MM 150-450 MEAN PLATELET VOLUME (BEAKER) (test qdrd=529) 10.7 fL 9.4-12.4 NUCLEATED RED BLOOD CELLS (BEAKER) (test joum=848) 0 /100 WBC 0-0 NEUTROPHILS RELATIVE PERCENT (BEAKER) (test fxdb=099) 61 % LYMPHOCYTES RELATIVE PERCENT (BEAKER) (test xmot=856) 25 % MONOCYTES RELATIVE PERCENT (BEAKER) (test gmcl=186) 10 % EOSINOPHILS RELATIVE PERCENT (BEAKER) (test pxip=443) 4 % BASOPHILS RELATIVE PERCENT (BEAKER) (test hbdk=408) 0 % NEUTROPHILS ABSOLUTE COUNT (BEAKER) (test ecbw=538) 1.58 K/ L 1.78-5.38 LYMPHOCYTES ABSOLUTE COUNT (BEAKER) (test ugph=529) 0.64 K/ L 1.32-3.57 MONOCYTES ABSOLUTE COUNT (BEAKER) (test pdun=395) 0.25 K/ L 0.30-0.82 EOSINOPHILS ABSOLUTE COUNT (BEAKER) (test pvzw=633) 0.09 K/ L 0.04-0.54 BASOPHILS ABSOLUTE COUNT (BEAKER) (test kcbz=266) 0.01 K/ L 0.01-0.08 IMMATURE GRANULOCYTES-RELATIVE PERCENT (BEAKER) (test ykeh=1980) 0 % 0-1 PROTEIN, BODY [id number] 20:57:00* Test Item Value Reference Range Comments PROTEIN FLUID (BEAKER) (test tthj=288) 0.9 g/dL Absence of reference range indicates that normals have not been defined.Assay pe rformance has not been validated for this type of specimen.ALBUMIN, BODY FLUID 2017-09-21 20:57:00* Test Item Value Reference Range Comments ALBUMIN FLUID (BEAKER) (test ctjd=527) 0.4 gm/dL Reference Range: No Normals Assay performance has not been validated for this type of specimen.BODY FLUID CELL COUNT WITH [id number] 17:15:00* Test Item Value Reference Range Comments APPEARANCE FLUID (BEAKER) (test ekjg=232) Slightly Hazy Clear COLOR FLUID (BEAKER) (test vzzy=911) Yellow Colorless, Straw RBC FLUID (BEAKER) (test bbmt=888) 80 /cu mm <=1 ADJUSTED WBC FLUID (BEAKER) (test wixb=8965) 108 /cu mm <=5 LINING CELLS (BEAKER) (test ttti=1676) 2 /cu mm <=1 NEUTROPHILS FLUID (BEAKER) (test svfr=3691) 14 % LYMPHS FLUID (BEAKER) (test exck=368) 28 % MONO/MACROPHAGE FLUID (BEAKER) (test uqnd=815) 58 % EOSINOPHILS FLUID (BEAKER) (test cuaj=748) 0 % BASO FLUID (BEAKER) (test buwn=448) 0 % CONTAINER BODY FLUID (BEAKER) (test wtyz=3456) EDTA Tube U/S, [id number] 13:32:00Referring:Dr. Marciano Villa for exam:-> ascitesFINAL REPORT Paracentesis dated 09/21/2017 Procedure: Ultrasound-guided paracentesis. Preprocedure diagnosis: Ascites Postprocedure diagnosis: Ascites Conscious sedation: None. Radiologist: Soumya Mckeon M.D. Manager Concrete: None Anesthesia: 1% Xylocaine mixed with sodium bicarbonate local anesthesia. Technique: After obtaining informed consent, ultrasound-guided paracentesis was performed under usual sterile technique. Using a 5 icelandic drainage catheter, puncture was made in the right lower quadrant abdomen. Approximately 4000 cc of serous fluid was removed. Patient tolerated the procedure well without complication. Complication: None Graft/Implant: None Estimated Blood Loss: None Impression: Ultrasound-guided paracentesis. Signed: Soumya Mckeon MDReport Verified Date/Time: 09/21/2017 13:32:05 Reading Location: [address] Ultrasound Reading Room C METABOLIC [id number] 07:31:00* Test Item Value Reference Range Comments SODIUM (BEAKER) (test skra=050) 137 meq/L 136-145 POTASSIUM (BEAKER) (test zmal=405) 3.0 meq/L 3.5-5.1 CHLORIDE (BEAKER) (test xufc=849) 106 meq/L 98-107 CO2 (BEAKER) (test ypnm=505) 21 meq/L 22-29 BLOOD UREA NITROGEN (BEAKER) (test xjur=238) 15 mg/dL 7-21 CREATININE (BEAKER) (test mghm=868) 1.11 mg/dL 0.57-1.25 GLUCOSE RANDOM (BEAKER) (test mtqn=008) 123 mg/dL 70-105 CALCIUM (BEAKER) (test jqsz=641) 8.6 mg/dL 8.4-10.2 EGFR (BEAKER) (test ztvo=2477) 70 mL/min/1.73 sq m ESTIMATED GFR IS NOT ACCURATE CREATININE CLEARANCE IN PREDICTING GLOMERULAR FILTRATION RATE. ESTIMATED GFR IS NOT APPLICABLE FOR DIALYSIS PATIENTS. Specimen markedly ictericHEPATIC FUNCTION [id number] 07:31:00* Test Item Value Reference Range Comments TOTAL PROTEIN (BEAKER) (test ihdi=393) 7.4 gm/dL 6.0-8.3 ALBUMIN (BEAKER) (test szjb=8859) 2.6 g/dL 3.5-5.0 BILIRUBIN TOTAL (BEAKER) (test havs=140) 16.9 mg/dL 0.2-1.2 BILIRUBIN DIRECT (BEAKER) (test nrez=299) 12.1 mg/dL 0.1-0.5 ALKALINE PHOSPHATASE (BEAKER) (test cnid=080) 152 U/L 40-150 AST (SGOT) (BEAKER) (test mqqk=692) 574 U/L 5-34 ALT (SGPT) (BEAKER) (test ldtb=004) 282 U/L 6-55 Specimen markedly ictericCBC W/PLT COUNT & AUTO [id number] 06:07:00 * Test Item Value Reference Range Comments WHITE BLOOD CELL COUNT (BEAKER) (test blze=136) 3.7 K/ L 3.5-10.5 RED BLOOD CELL COUNT (BEAKER) (test imhu=973) 3.75 M/ L 4.63-6.08 HEMOGLOBIN (BEAKER) (test rdtn=486) 11.2 GM/DL 13.7-17.5 HEMATOCRIT (BEAKER) (test eyyk=519) 34.5 % 40.1-51.0 MEAN CORPUSCULAR VOLUME (BEAKER) (test vdax=476) 92.0 fL 79.0-92.2 MEAN CORPUSCULAR HEMOGLOBIN (BEAKER) (test mwhk=608) 29.9 pg 25.7-32.2 MEAN CORPUSCULAR HEMOGLOBIN CONC (BEAKER) (test xzlm=908) 32.5 GM/DL 32.3-36.5 RED CELL DISTRIBUTION WIDTH (BEAKER) (test osqt=319) 21.8 % 11.6-14.4 PLATELET COUNT (BEAKER) (test idsa=029) 95 K/CU MM 150-450 MEAN PLATELET VOLUME (BEAKER) (test yvqs=036) 12.5 fL 9.4-12.4 NUCLEATED RED BLOOD CELLS (BEAKER) (test eyrf=843) 0 /100 WBC 0-0 NEUTROPHILS RELATIVE PERCENT (BEAKER) (test dzuj=370) 66 % LYMPHOCYTES RELATIVE PERCENT (BEAKER) (test qmdi=927) 21 % MONOCYTES RELATIVE PERCENT (BEAKER) (test qzkv=213) 9 % EOSINOPHILS RELATIVE PERCENT (BEAKER) (test svgw=863) 3 % BASOPHILS RELATIVE PERCENT (BEAKER) (test hmfj=610) 1 % NEUTROPHILS ABSOLUTE COUNT (BEAKER) (test dkbo=807) 2.44 K/ L 1.78-5.38 LYMPHOCYTES ABSOLUTE COUNT (BEAKER) (test pgip=412) 0.78 K/ L 1.32-3.57 MONOCYTES ABSOLUTE COUNT (BEAKER) (test bxwk=947) 0.34 K/ L 0.30-0.82 EOSINOPHILS ABSOLUTE COUNT (BEAKER) (test xfxq=602) 0.11 K/ L 0.04-0.54 BASOPHILS ABSOLUTE COUNT (BEAKER) (test vpjt=614) 0.02 K/ L 0.01-0.08 IMMATURE GRANULOCYTES-RELATIVE PERCENT (BEAKER) (test hbsq=8514) 0 % 0-1 PROTHROMBIN [id number] 05:32:00* Test Item Value Reference Range Comments PROTIME (BEAKER) (test hqqo=859) 17.6 seconds 11.7-14.7 INR (BEAKER) (test wean=665) 1.4 <=5.9 RECOMMENDED COUMADIN/WARFARIN INR THERAPY RANGESSTANDARD DOSE: 2.0 - 3.0 Inclu kaya: PROPHYLAXIS for venous thrombosis, systemic embolization; TREATMENT for barby ous thrombosis and/or pulmonary embolus.HIGH RISK: Target INR is 2.5-3.5 for pat ients with mechanical heart valves.URINALYSIS W/ [id number] 22:18:00 * Test Item Value Reference Range Comments COLOR (BEAKER) (test qbxg=069) Dark Yellow CLARITY (BEAKER) (test xtze=392) Hazy SPECIFIC GRAVITY UA (BEAKER) (test xqqs=330) 1.016 1.001-1.035 PH UA (BEAKER) (test siwx=982) 6.0 5.0-8.0 PROTEIN UA (BEAKER) (test tzke=347) 20 mg/dL Negative GLUCOSE UA (BEAKER) (test xdvq=184) Negative Negative KETONES UA (BEAKER) (test lflp=297) Negative Negative BILIRUBIN UA (BEAKER) (test ymtz=208) Positive Negative BLOOD UA (BEAKER) (test mgss=672) Negative Negative NITRITE UA (BEAKER) (test ufjr=676) Negative Negative LEUKOCYTE ESTERASE UA (BEAKER) (test svzf=349) Negative Negative UROBILINOGEN UA (BEAKER) (test sbol=452) 4.0 mg/dL 0.2-1.0 RBC UA (BEAKER) (test kjfa=461) < /HPF WBC UA (BEAKER) (test cdoc=226) 0 /HPF MUCUS (BEAKER) (test eihn=2022) Occasional SOURCE(BEAKER) (test odlo=0435) PROTEIN, RANDOM [id number] 21:55:00* Test Item Value Reference Range Comments PROTEIN, URINE (BEAKER) (test owhi=3325) 16 mg/dL 0-14 CREATININE, RANDOM [id number] 21:53:00* Test Item Value Reference Range Comments CREATININE URINE (BEAKER) (test gdlo=982) 138.7 mg/dL Reference Range: No NormalsHEPATITIS PANEL, [id number] 07:45:00* Test Item Value Reference Range Comments HEPATITIS A IGM ANTIBODY (BEAKER) (test uttu=601) Nonreactive Nonreactive HEPATITIS B CORE IGM ANTIBODY (BEAKER) (test awdk=506) Nonreactive Nonreactive HEPATITIS C ANTIBODY (BEAKER) (test pntm=402) Nonreactive Nonreactive HEPATITIS B SURFACE ANTIGEN (2) (BEAKER) (test galk=5686) Nonreactive Nonreactive GAMMA GLUTAMYL TRANSFERASE (GGT)2017-09-20 07:09:00* Test Item Value Reference Range Comments GAMMA GLUTAMYL TRANSFERASE (BEAKER) (test ennk=306) 31 U/L 9-64 Specimen markedly ictericC-REACTIVE [id number] 07:09:00* Test Item Value Reference Range Comments C-REACTIVE PROTEIN (BEAKER) (test tsfr=463) 4.72 mg/dL 0.00-0.50 [id number] 07:07:00* Test Item Value Reference Range Comments MAGNESIUM (BEAKER) (test otxr=500) 1.5 mg/dL 1.6-2.6 BASIC METABOLIC [id number] 07:07:00* Test Item Value Reference Range Comments SODIUM (BEAKER) (test vxdr=670) 138 meq/L 136-145 POTASSIUM (BEAKER) (test ljms=043) 3.2 meq/L 3.5-5.1 CHLORIDE (BEAKER) (test bbxo=198) 112 meq/L 98-107 CO2 (BEAKER) (test zged=403) 18 meq/L 22-29 BLOOD UREA NITROGEN (BEAKER) (test wwic=339) 15 mg/dL 7-21 CREATININE (BEAKER) (test owpf=115) 0.86 mg/dL 0.57-1.25 GLUCOSE RANDOM (BEAKER) (test koxi=132) 93 mg/dL 70-105 CALCIUM (BEAKER) (test dupn=249) 8.4 mg/dL 8.4-10.2 EGFR (BEAKER) (test xgda=9285) 94 mL/min/1.73 sq m ESTIMATED GFR IS NOT ACCURATE CREATININE CLEARANCE IN PREDICTING GLOMERULAR FILTRATION RATE. ESTIMATED GFR IS NOT APPLICABLE FOR DIALYSIS PATIENTS. Specimen markedly ictericHEPATIC FUNCTION [id number] 07:07:00* Test Item Value Reference Range Comments TOTAL PROTEIN (BEAKER) (test glwq=050) 6.4 gm/dL 6.0-8.3 ALBUMIN (BEAKER) (test axzr=6731) 2.3 g/dL 3.5-5.0 BILIRUBIN TOTAL (BEAKER) (test heig=494) 15.1 mg/dL 0.2-1.2 BILIRUBIN DIRECT (BEAKER) (test hspn=878) 11.2 mg/dL 0.1-0.5 ALKALINE PHOSPHATASE (BEAKER) (test yhoi=138) 131 U/L 40-150 AST (SGOT) (BEAKER) (test lhpm=691) 458 U/L 5-34 ALT (SGPT) (BEAKER) (test yvax=437) 232 U/L 6-55 Specimen markedly ictericURINALYSIS W/ REFLEX URINE [id number] 07:04:00* Test Item Value Reference Range Comments COLOR (BEAKER) (test zrfv=658) Brown CLARITY (BEAKER) (test vgyc=094) Clear SPECIFIC GRAVITY UA (BEAKER) (test diix=631) 1.018 1.001-1.035 PH UA (BEAKER) (test wdwe=999) 6.0 5.0-8.0 PROTEIN UA (BEAKER) (test ahjw=278) 20 mg/dL Negative GLUCOSE UA (BEAKER) (test efkx=189) Negative Negative KETONES UA (BEAKER) (test wnmr=639) Negative Negative BILIRUBIN UA (BEAKER) (test cviw=323) Positive Negative BLOOD UA (BEAKER) (test cxwn=664) Negative Negative NITRITE UA (BEAKER) (test evqo=087) Negative Negative LEUKOCYTE ESTERASE UA (BEAKER) (test qztz=287) Negative Negative UROBILINOGEN UA (BEAKER) (test mkmc=224) 2.0 mg/dL 0.2-1.0 RBC UA (BEAKER) (test lnel=663) 0 /HPF WBC UA (BEAKER) (test wtuy=973) < /HPF MUCUS (BEAKER) (test cjcc=8115) Occasional SQUAMOUS EPITHELIAL (BEAKER) (test cxbp=866) < /HPF HYALINE CASTS (BEAKER) (test vjin=503) 2 /LPF SOURCE(BEAKER) (test ayou=9812) PROTHROMBIN [id number] 06:59:00* Test Item Value Reference Range Comments PROTIME (BEAKER) (test jnrq=085) 21.3 seconds 11.7-14.7 INR (BEAKER) (test xbgu=746) 1.8 <=5.9 RECOMMENDED COUMADIN/WARFARIN INR THERAPY RANGESSTANDARD DOSE: 2.0 - 3.0 Inclu kaya: PROPHYLAXIS for venous thrombosis, systemic embolization; TREATMENT for barby ous thrombosis and/or pulmonary embolus.HIGH RISK: Target INR is 2.5-3.5 for pat ients with mechanical heart valves.CBC W/PLT COUNT & AUTO [id number] 06:52:00* Test Item Value Reference Range Comments WHITE BLOOD CELL COUNT (BEAKER) (test pxmw=447) 2.5 K/ L 3.5-10.5 RED BLOOD CELL COUNT (BEAKER) (test wifl=320) 3.33 M/ L 4.63-6.08 HEMOGLOBIN (BEAKER) (test zclz=602) 10.0 GM/DL 13.7-17.5 HEMATOCRIT (BEAKER) (test qtrp=031) 30.5 % 40.1-51.0 MEAN CORPUSCULAR VOLUME (BEAKER) (test crtn=958) 91.6 fL 79.0-92.2 MEAN CORPUSCULAR HEMOGLOBIN (BEAKER) (test wpwv=457) 30.0 pg 25.7-32.2 MEAN CORPUSCULAR HEMOGLOBIN CONC (BEAKER) (test czkt=757) 32.8 GM/DL 32.3-36.5 RED CELL DISTRIBUTION WIDTH (BEAKER) (test rqxh=061) 21.9 % 11.6-14.4 PLATELET COUNT (BEAKER) (test wvri=077) 75 K/CU MM 150-450 MEAN PLATELET VOLUME (BEAKER) (test mqir=931) 12.1 fL 9.4-12.4 NUCLEATED RED BLOOD CELLS (BEAKER) (test iotz=182) 0 /100 WBC 0-0 NEUTROPHILS RELATIVE PERCENT (BEAKER) (test ucgt=623) 58 % LYMPHOCYTES RELATIVE PERCENT (BEAKER) (test phop=088) 29 % MONOCYTES RELATIVE PERCENT (BEAKER) (test mldx=477) 9 % EOSINOPHILS RELATIVE PERCENT (BEAKER) (test qpum=113) 3 % BASOPHILS RELATIVE PERCENT (BEAKER) (test ursz=883) 0 % NEUTROPHILS ABSOLUTE COUNT (BEAKER) (test khep=441) 1.43 K/ L 1.78-5.38 LYMPHOCYTES ABSOLUTE COUNT (BEAKER) (test sqjj=540) 0.70 K/ L 1.32-3.57 MONOCYTES ABSOLUTE COUNT (BEAKER) (test xpaw=929) 0.22 K/ L 0.30-0.82 EOSINOPHILS ABSOLUTE COUNT (BEAKER) (test atob=244) 0.07 K/ L 0.04-0.54 BASOPHILS ABSOLUTE COUNT (BEAKER) (test rpkb=710) 0.01 K/ L 0.01-0.08 IMMATURE GRANULOCYTES-RELATIVE PERCENT (BEAKER) (test ruft=3353) 1 % 0-1 U/S, ABDOMINAL, [id number] 05:39:00Referring:Dr. Marciano Villa for exam:->cirrhosisFINAL REPORT U/S, ABDOMINAL, COMPLETE INDICATION: "cirrhosis" abdominal pain COMPARISON: MRI abdomen 08/16/2017 TECHNIQUE: Real-time transabdominal burger scale and color Doppler ultrasound of the abdomen. FINDINGS:Pancreas not visualized due to overlying bowel gas.Large volume ascites.Cirrhosis of the liver without intrahepatic bile duct dilation or a discrete mass.Normal caliber CBD at 4 mm.Wall thickening which is nonspecific in the setting of ascites. No cholelithiasis. Visualized portions of the kidneys are unremarkable without obvious hydronephrosis.Splenomegaly and 20 cm.The visualized portions of the IVC and aorta are unremarkable. IMPRESSION: Cirrhosis, splenomegaly, and large volume ascites. Signed: Sara Corral MDReport Verified Date/Time: 09/20/2017 05:39:12 Reading Location: [address] Reading Room , CHEST, 1 VIEW, NON [id number] 20:18:00Referring:Dr. Marciano Villa for exam:->EDEMAShould this be performed at the bedside?->Yes FINAL REPORT INDICATION: EDEMA COMPARISON: August 16 2017 TECHNIQUE: Single frontal view of the chest. FINDINGS: Lungs and pleura: Clear lungs. No effusion.Heart and mediastinum: Normal heart size. Unremarkable medias tinal contours.Osseous structures: No acute abnormality.Other: None. IMPRESSION : No acute intrathoracic abnormality. Signed: JR Ardon Robert MDReport Verified Date/Time: 09/19/2017 20:18:33 Reading Location: [address] ton Reading Room 18 08:18 PM CREATINE KINASE (CK), TOTAL AND [id number] 19:35:00* Test Item Value Reference Range Comments CREATINE KINASE TOTAL (BEAKER) (test qtxi=855) 156 U/L 29-200 CREATINE KINASE-MB (BEAKER) (test gcvm=555) 4.3 ng/mL 0.0-6.6 CREATINE KINASE-MB INDEX (BEAKER) (test scgn=247) 2.8 % CK-MB Reference Range:<6.7 Normal6.7-10.0 Borderline>10.0 Abnormal TROPONIN [id number] 19:35:00* Test Item Value Reference Range Comments TROPONIN I (BEAKER) (test dxiv=682) < ng/mL 0.00-0.03 Troponin I (TnI) levels must be interpreted in the context of the presenting sym ptoms and the clinical findings. Elevated TnI levels indicate myocardial damage, but are not specific for ischemic heart disease. Elevated TnI levels are seen in patients with other cardiac conditions (including myocarditis and congestive h eart failure), and slight TnI elevations occur in patients with other conditions , including sepsis, renal failure, acidosis, acute neurological disease, and per sistent tachyarrhythmia.B-TYPE NATRIURETIC FACTOR (BNP)2017-09-19 19:34:00* Test Item Value Reference Range Comments B-TYPE NATRIURETIC PEPTIDE (BEAKER) (test stqc=644) 73 pg/mL 0-100 COMPREHENSIVE METABOLIC [id number] 19:28:00* Test Item Value Reference Range Comments TOTAL PROTEIN (BEAKER) (test ekhc=183) 6.9 gm/dL 6.0-8.3 ALBUMIN (BEAKER) (test xgxw=0485) 2.5 g/dL 3.5-5.0 ALKALINE PHOSPHATASE (BEAKER) (test kyiq=055) 142 U/L 40-150 BILIRUBIN TOTAL (BEAKER) (test xczt=781) 16.5 mg/dL 0.2-1.2 SODIUM (BEAKER) (test bmsu=660) 140 meq/L 136-145 POTASSIUM (BEAKER) (test zdmr=948) 3.2 meq/L 3.5-5.1 CHLORIDE (BEAKER) (test ndbi=141) 112 meq/L 98-107 CO2 (BEAKER) (test xqel=525) 20 meq/L 22-29 BLOOD UREA NITROGEN (BEAKER) (test erro=810) 18 mg/dL 7-21 CREATININE (BEAKER) (test ycdb=544) 1.07 mg/dL 0.57-1.25 GLUCOSE RANDOM (BEAKER) (test pets=796) 117 mg/dL 70-105 CALCIUM (BEAKER) (test xqxw=337) 8.6 mg/dL 8.4-10.2 AST (SGOT) (BEAKER) (test zcvv=555) 453 U/L 5-34 ALT (SGPT) (BEAKER) (test qxsi=335) 232 U/L 6-55 EGFR (BEAKER) (test ghgj=7776) 73 mL/min/1.73 sq m ESTIMATED GFR IS NOT ACCURATE CREATININE CLEARANCE IN PREDICTING GLOMERULAR FILTRATION RATE. ESTIMATED GFR IS NOT APPLICABLE FOR DIALYSIS PATIENTS. Specimen markedly [id number] 19:28:00* Test Item Value Reference Range Comments LIPASE (BEAKER) (test frjk=605) 55 U/L 8-78 Specimen markedly ictericLACTIC ACID, VENOUS, WHOLE [id number] 19:22:00* Test Item Value Reference Range Comments LACTATE BLOOD VENOUS (2) (BEAKER) (test vddd=1737) 1.4 mmol/L 0.5-2.2 Effective 07/08/2015: Units/Reference Range ChangeNew: 0.5-2.2 mmol/L Previous: 5 -20 mg/dLSpecimen markedly ictericCBC W/PLT COUNT & AUTO [id number] 19:13:00* Test Item Value Reference Range Comments WHITE BLOOD CELL COUNT (BEAKER) (test duwu=265) 3.1 K/ L 3.5-10.5 RED BLOOD CELL COUNT (BEAKER) (test sduy=507) 3.53 M/ L 4.63-6.08 HEMOGLOBIN (BEAKER) (test giwz=334) 10.5 GM/DL 13.7-17.5 HEMATOCRIT (BEAKER) (test akzf=594) 33.1 % 40.1-51.0 MEAN CORPUSCULAR VOLUME (BEAKER) (test pchu=948) 93.8 fL 79.0-92.2 MEAN CORPUSCULAR HEMOGLOBIN (BEAKER) (test imkr=510) 29.7 pg 25.7-32.2 MEAN CORPUSCULAR HEMOGLOBIN CONC (BEAKER) (test exkm=107) 31.7 GM/DL 32.3-36.5 RED CELL DISTRIBUTION WIDTH (BEAKER) (test ebzd=753) 21.9 % 11.6-14.4 PLATELET COUNT (BEAKER) (test dgul=241) 79 K/CU MM 150-450 MEAN PLATELET VOLUME (BEAKER) (test ylhb=599) 11.1 fL 9.4-12.4 NUCLEATED RED BLOOD CELLS (BEAKER) (test kcab=310) 0 /100 WBC 0-0 NEUTROPHILS RELATIVE PERCENT (BEAKER) (test gfmc=310) 65 % LYMPHOCYTES RELATIVE PERCENT (BEAKER) (test mxyo=870) 21 % MONOCYTES RELATIVE PERCENT (BEAKER) (test tukd=162) 11 % EOSINOPHILS RELATIVE PERCENT (BEAKER) (test osmg=167) 2 % BASOPHILS RELATIVE PERCENT (BEAKER) (test fffq=723) 0 % NEUTROPHILS ABSOLUTE COUNT (BEAKER) (test hbuq=583) 2.03 K/ L 1.78-5.38 LYMPHOCYTES ABSOLUTE COUNT (BEAKER) (test xkre=649) 0.65 K/ L 1.32-3.57 MONOCYTES ABSOLUTE COUNT (BEAKER) (test rzgz=243) 0.34 K/ L 0.30-0.82 EOSINOPHILS ABSOLUTE COUNT (BEAKER) (test whkq=094) 0.07 K/ L 0.04-0.54 BASOPHILS ABSOLUTE COUNT (BEAKER) (test kjco=002) 0.00 K/ L 0.01-0.08 IMMATURE GRANULOCYTES-RELATIVE PERCENT (BEAKER) (test aorm=7069) 0 % 0-1 RAD, BONE DENSITY [id number] 13:38:00Referring:Dr. Marciano Villa for Exam:->evaluation for liver transplantFINAL REPORT Bone mineral density study 08/16/2017. CLINICAL INDICATION: Osteoporosis. COMPARISON: None available FINDINGS: Evaluation of the left and right femoral necks and lumbar spine was performed utilizing a Remedify bone densitometer. Data reflect young adult matched T-scores and age-matched Z scores. IMPRESSION: The left femoral neck bone mineral density is 1.004gm/cm2, the T-score is -0.5, and the Z-score is 0.1. The right femoral neck total bone mineral density is 0.987gm/cm2, the T-score is -0.6, and the Z-score is 0.0. The lumbar spine total bone mineral density is 1.276gm/cm2, the T-score is 0.5, and the Z-score is 0.7. Signed: Michael Gutierrez MDReport Verified Date/Time: 08/18/2017 13:38:57 Reading Location: [address] Reading Room TOCOCCAL [id number] 02:31:00* Test Item Value Reference Range Comments CRYPTOCOCCAL ANTIGEN, SERUM (CYNDY) (test keax=5943) Negative Negative, Interference [id number] 02:30:00* Test Item Value Reference Range Comments RPR SCREEN (CYNDY) (test ppao=685) Nonreactive Nonreactive MR, ABDOMEN, [id number] 19:02:00Referring:Dr. Tariq ManiFINAL REPORT MRI of the abdomen dated September 02, 2017 Comment: Multiplanar T1 and T2-weighted images of the abdomen, postcontrast axial and coronal T1- weighted images of the abdomen were obtained. Liver is cirrhotic in appearance with irregular margins. Multiple early enhancing foci are seen in the liver without delayed washout thought to represent vascular shunting. No suspicious mass is seen in the liver. Spleen is enlarged measuring approximately 22.7 x 6.1 x 13.5 cm. The splenic, superior mesenteric, portal, and hepatic veins are patent. Main portal vein measures approximately 1.6 cm in diameter. There is re cannulization periumbilical vein. Gallbladder is distended. No gallstone or bili susana dilatation is seen. Pancreas and adrenals are unremarkable. Both kidneys are normal in size and functioning. Trace amount of free fluid is seen in the perih epatic and perisplenic space. The visualized small and large bowel are unremarka ble. IMPRESSION:1. Cirrhosis with splenomegaly and portal hypertension.2. No emely picious hepatic mass. Signed: Soumya Mckeon MDReport Verified Date/Time: 08/17/19 19:02:54 Reading Location: [facility] C013Y CT Body Reading Room [employer] [facility] signed by: SOUMYA MCKEON M.D. on 08/16/2017 07:02 PM URINALYSIS W/ [id number] 13:42:00* Test Item Value Reference Range Comments COLOR (BEAKER) (test yeku=917) Brown CLARITY (BEAKER) (test yaao=563) Clear SPECIFIC GRAVITY UA (BEAKER) (test bfgp=509) 1.019 1.001-1.035 PH UA (BEAKER) (test guzr=170) 6.0 5.0-8.0 PROTEIN UA (BEAKER) (test jkcl=996) 20 mg/dL Negative GLUCOSE UA (BEAKER) (test qrfb=825) Negative Negative KETONES UA (BEAKER) (test kagg=622) Negative Negative BILIRUBIN UA (BEAKER) (test bisg=243) Positive Negative BLOOD UA (BEAKER) (test ranf=266) Negative Negative NITRITE UA (BEAKER) (test kezt=457) Negative Negative LEUKOCYTE ESTERASE UA (BEAKER) (test xple=120) Negative Negative UROBILINOGEN UA (BEAKER) (test jvwz=581) 2.0 mg/dL 0.2-1.0 RBC UA (BEAKER) (test cybj=829) 1 /HPF WBC UA (BEAKER) (test fumo=207) 0 /HPF MUCUS (BEAKER) (test rxai=4302) Occasional SOURCE(BEAKER) (test aobg=9369) [id number] 13:26:00* Test Item Value Reference Range Comments TRANSFERRIN (CYNDY) (test kelj=214) 293 mg/dL 174-382 Specimen moderately ictericRAD, CHEST, 2 [id number] 12:41:00Referring:Dr. Marciano Villa for Exam:->evaluation for liver transplantFINAL REPORT Chest, two views. Clinical history: Evaluate for liver transplant. COMPARISON STUDY: April 12, 2017. FINDINGS: The cardiac silhouette is unremarkable. Postsurgical changes are seen in the right hilar region. Some mild linear opacities are seen in the right lower lung field. No pleural effusion or pneumothorax is noted. Degenerative changes are seen. IMPRESSION: No significant change. Signed: Joey Lance Verified Date/Time: 0 08/16/2017 12:41:59 Reading Location: [address] Radiology Reading Room E lectronically signed by: JOEY LANCE M.D. on 08/16/2017 12:41 PM RAD, MANDIBLE, MIN 4 [id number] 12:13:00Referring:Dr. Marciano Villa for Exam:- >evaluation for liver transplantFINAL REPORT Mandible. MEDICAL HISTORY: Evaluate for liver transplant. COMPARISON STUDY: None available. FINDINGS: Five views of the mandible demonstrate no evidence of fracture or malalignment. No regions of focal osteopenia or periosteal reaction are seen to suggest osteomyelitis. IMPRESSION: Unremarkable mandibular series. Signed: Joey Lance Verified Date/Time: 08/16/2017 12:13:53 Reading Location: [address] Radiology Reading Room GLOBIN [id number] 11:47:00* Test Item Value Reference Range Comments HEMOGLOBIN A1C (CYNDY) (test adbq=720) 4.1 % 4.3-6.1 CYTOMEGALOVIRUS ANTIBODY, [id number] 11:42:00* Test Item Value Reference Range Comments CYTOMEGALOVIRUS IGG ANTIBODY (CYNDY) (test gfrw=375) Negative CYTOMEGALOVIRUS ANTIBODY, [id number] 11:42:00* Test Item Value Reference Range Comments CYTOMEGALOVIRUS IGM ANTIBODY (BEAKER) (test hiiu=912) Negative EBV-VCA ANTIBODY, [id number] 11:42:00* Test Item Value Reference Range Comments GUERLINE-ACEVEDO VCA IGG (BEAKER) (test krjj=396) Positive EBV-VCA ANTIBODY, [id number] 11:42:00* Test Item Value Reference Range Comments GUERLINE-ACEVEDO VCA IGM (BEAKER) (test aiuk=506) Negative [id number] 10:18:00* Test Item Value Reference Range Comments T4 TOTAL (BEAKER) (test wzkz=302) 6.5 ug/dL 4.9-11.7 [id number] 10:18:00* Test Item Value Reference Range Comments T3 TOTAL (BEAKER) (test wdgv=038) 82 ng/dL 48-159 CARCINOEMBRYONIC ANTIGEN (CEA)2017-08-16 10:18:00* Test Item Value Reference Range Comments CARCINOEMBRYONIC ANTIGEN (BEAKER) (test gghc=571) 3.2 ng/mL 0.0-5.0 [id number] 09:38:00* Test Item Value Reference Range Comments PROSTATE SPECIFIC ANTIGEN (BEAKER) (test dwwg=397) 0.4 ng/mL 0.0-4.0 VITAMIN D, [id number] 09:38:00* Test Item Value Reference Range Comments VITAMIN D 25-OH (BEAKER) (test rzwc=0618) 5.8 ng/mL 6.6-49.9 Effective 12/14/2016: Reference Range ChangeNew: 6.6-49.9 ng/mL Previous: 13.0 -47.8 ng/mLRecommended Vitamin D Target Range: 30.0-40.0 ng/mLCBC W/PLT COUNT & AUTO [id number] 09:17:00* Test Item Value Reference Range Comments WHITE BLOOD CELL COUNT (BEAKER) (test qicp=738) 3.0 K/ L 3.5-10.5 RED BLOOD CELL COUNT (BEAKER) (test dwdl=243) 3.50 M/ L 4.63-6.08 HEMOGLOBIN (BEAKER) (test xief=298) 10.1 GM/DL 13.7-17.5 HEMATOCRIT (BEAKER) (test hzqk=974) 31.5 % 40.1-51.0 MEAN CORPUSCULAR VOLUME (BEAKER) (test twqt=019) 90.0 fL 79.0-92.2 MEAN CORPUSCULAR HEMOGLOBIN (BEAKER) (test znlh=216) 28.9 pg 25.7-32.2 MEAN CORPUSCULAR HEMOGLOBIN CONC (BEAKER) (test haxz=727) 32.1 GM/DL 32.3-36.5 RED CELL DISTRIBUTION WIDTH (BEAKER) (test dsng=051) 21.1 % 11.6-14.4 PLATELET COUNT (BEAKER) (test ypjy=789) 59 K/CU MM 150-450 MEAN PLATELET VOLUME (BEAKER) (test vrqf=075) 12.5 fL 9.4-12.4 NUCLEATED RED BLOOD CELLS (BEAKER) (test xmnk=266) 0 /100 WBC 0-0 NEUTROPHILS RELATIVE PERCENT (BEAKER) (test jubm=439) 68 % LYMPHOCYTES RELATIVE PERCENT (BEAKER) (test ltau=939) 21 % MONOCYTES RELATIVE PERCENT (BEAKER) (test artz=071) 8 % EOSINOPHILS RELATIVE PERCENT (BEAKER) (test dqtj=573) 2 % BASOPHILS RELATIVE PERCENT (BEAKER) (test mlpb=535) 0 % NEUTROPHILS ABSOLUTE COUNT (BEAKER) (test amxf=747) 2.02 K/ L 1.78-5.38 LYMPHOCYTES ABSOLUTE COUNT (BEAKER) (test yvyt=060) 0.62 K/ L 1.32-3.57 MONOCYTES ABSOLUTE COUNT (BEAKER) (test uwru=412) 0.25 K/ L 0.30-0.82 EOSINOPHILS ABSOLUTE COUNT (BEAKER) (test jczn=501) 0.07 K/ L 0.04-0.54 BASOPHILS ABSOLUTE COUNT (BEAKER) (test truf=716) 0.01 K/ L 0.01-0.08 IMMATURE GRANULOCYTES-RELATIVE PERCENT (BEAKER) (test lmdn=4194) 0 % 0-1 [id number] 09:06:00* Test Item Value Reference Range Comments THYROID STIMULATING HORMONE (BEAKER) (test ncbm=465) 3.34 uIU/mL 0.35-4.94 HIV-1 ANTIGEN WITH HIV-1/2 [id number] 09:01:00* Test Item Value Reference Range Comments HIV-1 ANTIGEN WITH HIV 1\\T\\2 ANTIBODY (2) (BEAKER) (test lsog=1357) Nonreactive Nonreactive [id number] 08:45:00* Test Item Value Reference Range Comments MAGNESIUM (BEAKER) (test wjem=058) 1.6 mg/dL 1.6-2.6 [id number] 08:45:00* Test Item Value Reference Range Comments PHOSPHORUS (BEAKER) (test dkpk=567) 2.4 mg/dL 2.3-4.7 URIC [id number] 08:45:00* Test Item Value Reference Range Comments URIC ACID (BEAKER) (test mmpy=910) 5.9 mg/dL 2.6-7.2 Specimen moderately ictericCOMPREHENSIVE METABOLIC [id number] 08:45:00* Test Item Value Reference Range Comments TOTAL PROTEIN (BEAKER) (test ksdp=167) 8.5 gm/dL 6.0-8.3 ALBUMIN (BEAKER) (test gftl=9901) 3.0 g/dL 3.5-5.0 ALKALINE PHOSPHATASE (BEAKER) (test tlkq=437) 177 U/L 40-150 BILIRUBIN TOTAL (BEAKER) (test jqno=670) 11.2 mg/dL 0.2-1.2 SODIUM (BEAKER) (test fpaa=943) 139 meq/L 136-145 POTASSIUM (BEAKER) (test pbjg=852) 3.6 meq/L 3.5-5.1 CHLORIDE (BEAKER) (test uatm=174) 109 meq/L 98-107 CO2 (BEAKER) (test kean=080) 23 meq/L 22-29 BLOOD UREA NITROGEN (BEAKER) (test mvpw=514) 13 mg/dL 7-21 CREATININE (BEAKER) (test zseq=282) 0.91 mg/dL 0.57-1.25 GLUCOSE RANDOM (BEAKER) (test ckcp=562) 111 mg/dL 70-105 CALCIUM (BEAKER) (test uwhf=970) 8.6 mg/dL 8.4-10.2 AST (SGOT) (BEAKER) (test mgmm=297) 541 U/L 5-34 ALT (SGPT) (BEAKER) (test tdim=610) 241 U/L 6-55 EGFR (BEAKER) (test zawx=7406) 88 mL/min/1.73 sq m ESTIMATED GFR IS NOT ACCURATE CREATININE CLEARANCE IN PREDICTING GLOMERULAR FILTRATION RATE. ESTIMATED GFR IS NOT APPLICABLE FOR DIALYSIS PATIENTS. Specimen moderately ictericLIPID [id number] 08:45:00* Test Item Value Reference Range Comments TRIGLYCERIDES (BEAKER) (test tery=485) 196 mg/dL CHOLESTEROL (BEAKER) (test flae=663) 90 mg/dL HDL CHOLESTEROL (BEAKER) (test cpjr=332) 5 mg/dL LDL CHOLESTEROL CALCULATED (BEAKER) (test ilxa=427) 46 mg/dL Triglyceride Reference Range: Low Risk <150 Borderline 150-199 High Risk 200-499 Very High Risk >=500Cholesterol Reference Range: Low Risk <200 Borderline 200-239 High Risk >240HDL Cholesterol Reference Range: Low Risk >=60 High Risk <40LDL Cholesterol Reference Range: Optimal <100 Near Optimal 100-129 Borderline 130-159 High 160-189 Very High >=190 Specimen moderately ictericBILIRUBIN, [id number] 08:45:00* Test Item Value Reference Range Comments BILIRUBIN DIRECT (BEAKER) (test jbcc=413) 7.9 mg/dL 0.1-0.5 BLOOD GAS, [id number] 08:43:00* Test Item Value Reference Range Comments PH ARTERIAL (BEAKER) (test otte=769) 7.43 7.35-7.45 PCO2 ARTERIAL (BEAKER) (test nipt=342) 33 mmHg 35-45 PO2 ARTERIAL (BEAKER) (test mwmr=319) 84 mmHg 80-90 O2 SATURATION ARTERIAL (BEAKER) (test qxlr=294) 96.7 % 96.0-97.0 HCO3 ARTERIAL (BEAKER) (test wsaw=323) 21 mmol/L 21-29 BASE EXCESS ARTERIAL (BEAKER) (test lodb=824) -2.3 mmol/L -2.0-3.0 PATIENT TEMPERATURE (BEAKER) (test eqgm=0269) 37.0 C FIO2 (BEAKER) (test ysom=9691) 21.0 % CALCIUM, [id number] 08:38:00* Test Item Value Reference Range Comments CALCIUM IONIZED (BEAKER) (test lbbc=156) 1.09 mmol/L 1.12-1.27 PH, BLOOD (BEAKER) (test wqad=1559) 7.38 [id number] 08:37:00* Test Item Value Reference Range Comments ETHANOL (BEAKER) (test uttt=140) < mg/dL <=10 [id number] 08:34:00* Test Item Value Reference Range Comments PARTIAL THROMBOPLASTIN TIME (BEAKER) (test dyol=511) 41.1 seconds 22.5-36.0 PROTHROMBIN TIME/[id number] 08:33:00* Test Item Value Reference Range Comments PROTIME (BEAKER) (test fkgp=143) 16.4 seconds 11.7-14.7 INR (BEAKER) (test bnwg=911) 1.3 <=5.9 RECOMMENDED COUMADIN/WARFARIN INR THERAPY RANGESSTANDARD DOSE: 2.0 - 3.0 Inclu kaya: PROPHYLAXIS for venous thrombosis, systemic embolization; TREATMENT for barby ous thrombosis and/or pulmonary embolus.HIGH RISK: Target INR is 2.5-3.5 for pat ients with mechanical heart valves.ANTI-NUCLEAR ANTIBODY (RAVINDER)2017-07-22 11:34:00* Test Item Value Reference Range Comments ANTI-NUCLEAR ANTIBODY (RAVINDER) (BEAKER) (test utrw=577) Positive Negative RAVINDER TITER AND [id number] 11:34:00* Test Item Value Reference Range Comments RAVINDER TITER (BEAKER) (test ztpr=5314) :40 RAVINDER PATTERN (BEAKER) (test vhep=0411) Homogeneous RAVINDER TITER (2) (BEAKER) (test suqo=1058) :640 RAVINDER PATTERN (2) (BEAKER) (test hlzx=8363) Nucleolar HEPATITIS B SURFACE [id number] 20:06:00* Test Item Value Reference Range Comments HEPATITIS B SURFACE ANTIBODY (BEAKER) (test xaqj=712) < mIU/mL <8.0 HEPATITIS A ANTIBODY, [id number] 20:06:00* Test Item Value Reference Range Comments HEPATITIS A IGG ANTIBODY (BEAKER) (test rwix=0979) Reactive Nonreactive HEPATITIS B SURFACE [id number] 20:00:00* Test Item Value Reference Range Comments HEPATITIS B SURFACE ANTIGEN (2) (BEAKER) (test mafp=4029) Nonreactive Nonreactive HEPATITIS C [id number] 20:00:00* Test Item Value Reference Range Comments HEPATITIS C ANTIBODY (BEAKER) (test vxof=042) Nonreactive Nonreactive HEPATITIS B CORE ANTIBODY, [id number] 19:57:00* Test Item Value Reference Range Comments HEPATITIS B CORE TOTAL ANTIBODY (BEAKER) (test fobu=055) Nonreactive Nonreactive IMMUNOGLOBULIN G (IGG)2017-07-19 19:33:00* Test Item Value Reference Range Comments IMMUNOGLOBULIN G (IGG) (BEAKER) (test jgph=451) 3021 mg/dL 540-1822 IMMUNOGLOBULIN M (IGM)2017-07-19 19:33:00* Test Item Value Reference Range Comments IMMUNOGLOBULIN M (IGM) (BEAKER) (test dlgn=122) 146 mg/dL 22-293 IRON, TIBC, % SAT. (WITHOUT FERRITIN)2017-07-19 19:33:00* Test Item Value Reference Range Comments IRON (BEAKER) (test hcvw=844) 58 ug/dL 40-160 TOTAL IRON BINDING CAPACITY (BEAKER) (test zxqz=219) 421 ug/dL 250-450 IRON % SATURATION (2) (BEAKER) (test wxqx=1267) 14 % 20-55 [id number] 17:58:00* Test Item Value Reference Range Comments FERRITIN (BEAKER) (test kimh=614) 50 ng/mL 5-275 ALPHA FETOPROTEIN (AFP), TUMOR [id number] 17:58:00* Test Item Value Reference Range Comments ALPHA-FETOPROTEIN (BEAKER) (test uvbs=2140) 29.9 ng/mL <10.0 BILIRUBIN, [id number] 17:43:00* Test Item Value Reference Range Comments BILIRUBIN DIRECT (BEAKER) (test vcpv=992) 6.0 mg/dL 0.1-0.5 COMPREHENSIVE METABOLIC [id number] 17:43:00* Test Item Value Reference Range Comments TOTAL PROTEIN (BEAKER) (test mrnw=650) 8.3 gm/dL 6.0-8.3 ALBUMIN (BEAKER) (test zdiv=2807) 3.5 g/dL 3.5-5.0 ALKALINE PHOSPHATASE (BEAKER) (test yhet=933) 234 U/L 40-150 BILIRUBIN TOTAL (BEAKER) (test ozgv=466) 8.3 mg/dL 0.2-1.2 SODIUM (BEAKER) (test hpmz=053) 138 meq/L 136-145 POTASSIUM (BEAKER) (test iheu=019) 3.7 meq/L 3.5-5.1 CHLORIDE (BEAKER) (test lgch=218) 111 meq/L 98-107 CO2 (BEAKER) (test umty=016) 22 meq/L 22-29 BLOOD UREA NITROGEN (BEAKER) (test bhez=666) 14 mg/dL 7-21 CREATININE (BEAKER) (test vfpr=209) 0.96 mg/dL 0.57-1.25 GLUCOSE RANDOM (BEAKER) (test xtjz=470) 113 mg/dL 70-105 CALCIUM (BEAKER) (test cixs=558) 9.2 mg/dL 8.4-10.2 AST (SGOT) (BEAKER) (test voxe=097) 472 U/L 5-34 ALT (SGPT) (BEAKER) (test lbfy=296) 246 U/L 6-55 EGFR (BEAKER) (test fudc=8847) 83 mL/min/1.73 sq m ESTIMATED GFR IS NOT ACCURATE CREATININE CLEARANCE IN PREDICTING GLOMERULAR FILTRATION RATE. ESTIMATED GFR IS NOT APPLICABLE FOR DIALYSIS PATIENTS. Specimen moderately ictericGAMMA GLUTAMYL TRANSFERASE (GGT)2017-07-19 17:43:00* Test Item Value Reference Range Comments GAMMA GLUTAMYL TRANSFERASE (BEAKER) (test maoo=653) 110 U/L 9-64 Specimen moderately qarfieoHZZRO-5-[id number] 17:36:00* Test Item Value Reference Range Comments ALPHA-1 ANTITRYPSIN (BEAKER) (test kfxf=173) 200.40 mg/dL 90.00-200.00 PROTHROMBIN TIME/[id number] 17:29:00* Test Item Value Reference Range Comments PROTIME (BEAKER) (test ynrr=596) 15.9 seconds 11.7-14.7 INR (BEAKER) (test rcvo=941) 1.3 <=5.9 RECOMMENDED COUMADIN/WARFARIN INR THERAPY RANGESSTANDARD DOSE: 2.0 - 3.0 Inclu kaya: PROPHYLAXIS for venous thrombosis, systemic embolization; TREATMENT for barby ous thrombosis and/or pulmonary embolus.HIGH RISK: Target INR is 2.5-3.5 for pat ients with mechanical heart valves.CBC W/PLT COUNT & AUTO [id number] 17:22:00* Test Item Value Reference Range Comments WHITE BLOOD CELL COUNT (BEAKER) (test uubi=581) 2.5 K/ L 3.5-10.5 RED BLOOD CELL COUNT (BEAKER) (test xjfq=376) 3.59 M/ L 4.63-6.08 HEMOGLOBIN (BEAKER) (test qmcx=710) 10.1 GM/DL 13.7-17.5 HEMATOCRIT (BEAKER) (test wifp=184) 32.4 % 40.1-51.0 MEAN CORPUSCULAR VOLUME (BEAKER) (test ythz=432) 90.3 fL 79.0-92.2 MEAN CORPUSCULAR HEMOGLOBIN (BEAKER) (test rlfk=680) 28.1 pg 25.7-32.2 MEAN CORPUSCULAR HEMOGLOBIN CONC (BEAKER) (test xknq=553) 31.2 GM/DL 32.3-36.5 RED CELL DISTRIBUTION WIDTH (BEAKER) (test oqbj=197) 18.6 % 11.6-14.4 PLATELET COUNT (BEAKER) (test axyy=305) 51 K/CU MM 150-450 MEAN PLATELET VOLUME (BEAKER) (test bwlb=752) 12.4 fL 9.4-12.4 NUCLEATED RED BLOOD CELLS (BEAKER) (test xzyx=593) 0 /100 WBC 0-0 NEUTROPHILS RELATIVE PERCENT (BEAKER) (test sujp=834) 69 % LYMPHOCYTES RELATIVE PERCENT (BEAKER) (test eysd=653) 20 % MONOCYTES RELATIVE PERCENT (BEAKER) (test cymb=413) 9 % EOSINOPHILS RELATIVE PERCENT (BEAKER) (test xlvp=795) 1 % BASOPHILS RELATIVE PERCENT (BEAKER) (test zabm=290) 1 % NEUTROPHILS ABSOLUTE COUNT (BEAKER) (test jlbe=695) 1.74 K/ L 1.78-5.38 LYMPHOCYTES ABSOLUTE COUNT (BEAKER) (test fpim=695) 0.50 K/ L 1.32-3.57 MONOCYTES ABSOLUTE COUNT (BEAKER) (test dprr=496) 0.22 K/ L 0.30-0.82 EOSINOPHILS ABSOLUTE COUNT (BEAKER) (test zulf=410) 0.03 K/ L 0.04-0.54 BASOPHILS ABSOLUTE COUNT (BEAKER) (test cdxc=383) 0.02 K/ L 0.01-0.08 IMMATURE GRANULOCYTES-RELATIVE PERCENT (BEAKER) (test pxqe=4739) 0 % 0-1 OUTSIDE [id number] 18:55:00Surgical Pathology Report Case: [id number] Authorizing Provider: Teo Robles MD Collected: 06/21/2017 0843 Ordering Location: [facility] Laboratory Received: 06/21/2017 0846 Pathologist: Galen Billings MD Specimen: Biopsy, Liver, Received 1 H&E and 5 unstained slides from [facility] label [id number] OUTSIDE SLIDES, [id number], NEEDLE BIOPSIES OF LIVER, (DATE OF PROCEDURE 08/18/2015)- CIRRHOSIS - FEATURES OF CHOLESTATIC/BILIARY INJURY - PERIDUCTAL SCLEROSIS - HEPATOCELLULAR BALLOONING/FEATHERY DEGENERATION - BILE INFARCTS- FIBROUS SEPTA WITH LYMPHOPLASMACYTIC INFLAMMATION AND MODERATE INTERFACE HEPATITIS- COPPER DEPOSITION WITHIN HEPATOCYTES- SEE COMMENT 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 No periductal sclerosis was noted in that biopsy. In comparison, the current liver biopsy shows a mixed cholestatic and hepatocellular pattern of injury, in the background of cirrhosis. There is more prominent cholestatic injury pattern and similar degree of hepatitic injury. In addition, there is focal periductal sclerosis. This could all be explained by Rian's disease, however, an added component of cholestatic injury, unrelated to Rian's disease, may also be clinically excluded.The case was discussed at the weekly liver biopsy conference held in the [facility] at [facility] on June 23, 2017. The HE stained and unstained slides are retained for our records.[id number] history of Rian's disease on anti-chelation therapy and steroids with persistently elevated liver enzymesOutside slides, [id number], liver needle core biopsy, date of procedure 08/18/2015, received from The Department of Pathology, [address], [address].Received six glass slides (1HE, 5 unstained), each labeled [id number], along with the pathology report.The liver biopsy shows four core of liver parenchyma and is adequate for evaluation. Trichrome stain shows expanded portal areas/septa by fibrosis and cholangiolar proliferation, consistent with cirrhosis Cholangiolar proliferation is prominent with associated neutrophils. The fibrous septa show chronic lymphoplasmacytic i nflammation with moderate interface hepatitis. The bile ducts are preserved. The re are foci of periductal sclerosis. Periportal hepatocytes show prominent ballo oning/feathery degeneration with rare well formed Kimberly Denk hyaline. Bile inf arcts are present. Copper stain shows focal copper deposition in the periportal hepatocytes.
[2018-12-10] MEDS ORDERED: LIDOCAINE 1% W/EPINEPHRINE 20 ML VIAL INJ ONE (21:15)
--- NOTE | 2018-12-10 21:23 | NUR ---
Servando CORNEJO ENP IN TRIAGE FOR LAC REPAIR. WOUND CLEANSE AND 9 SARIKA PLACED. PT TOLERATED WELL. NAD NOTED.
[2018-12-10 21:25] VITALS: BP 156/108
== END 2018-12-10 21:33 | disposition home or self-care (01) ==
LOC: ER 20:37
DX: S81.811A Laceration without foreign body, right lower leg, initial encounter (principal); W26.8XXA Contact with other sharp object(s), not elsewhere classified, initial encounter; Y99.0 Civilian activity done for income or pay
CPT/HCPCS: 99283